=== PATIENT | female | born 1975 | race African-American/Black ===

== ENCOUNTER 2022-12-28 08:26 | Outpatient (AMB) | payer OTHER, SELFPAY ==
--- NOTE | 2022-12-28 08:30 | A.OFFVIS_ITS ---
Intake Vital Signs 12/28/22 08:35 Height 5 ft 1 in Weight 203 lb 7.787 oz BMI 38.4 BP 124/72 Blood Pressure Location Lt brachial Position Sitting Pulse 64 Pulse Source Pulse Oximeter Temp 97.5 F Temp Source Skin Intake Visit Reasons: Fibromyalgia/LM need records Intake Note: New pt presents today for FM consult. Stiffness in the neck completed prednsione taper yesterday prescribed by Marcos Weiss Embedded Hardware Engineer Required: No Accompanied by: Self / Same As Patient Allergies bee venom protein (honey bee) Allergy (Unknown, Verified 12/28/22 08:37) Unknown fluticasone furoate [From Arnuity Ellipta] Allergy (Unknown, Verified 12/28/22 08:37) Unknown hydrochlorothiazide Allergy (Unknown, Verified 12/28/22 08:37) Unknown levofloxacin [From Levaquin] Allergy (Unknown, Verified 12/28/22 08:37) Unknown lisinopril Allergy (Unknown, Verified 12/28/22 08:37) Unknown tomato Allergy (Unknown, Verified 12/28/22 08:37) Unknown peanuts Allergy (Unknown, Uncoded 12/28/22 08:37) Unknown Medication List - Last Reconciled 12/28/22 by Kristi Thompson MD albuterol sulfate 90 mcg/actuation 0 mcg inhalation amitriptyline 10 mg PO BEDTIME amlodipine 5 mg PO DAILY baclofen 10 mg PO TID PRN cetirizine 10 mg PO DAILY clonazepam 0.5 mg PO TID PRN docusate sodium 100 mg PO BID duloxetine 60 mg PO DAILY duloxetine 30 mg PO DAILY epinephrine IM famotidine 20 mg PO BID fluoxetine 40 mg PO DAILY fluticasone propionate 50 mcg/actuation 2 sprays intranasal DAILY gabapentin 300 mg PO TID hydroxyzine HCl 25 - 50 mg PO BEDTIME PRN linaclotide (Linzess) 290 mcg PO DAILY oxycodone-acetaminophen 5-325 mg 1 tab PO TID pantoprazole 20 mg PO BID plecanatide (Trulance) 3 mg PO DAILY tiotropium bromide 2.5 mcg/actuation (Spiriva Respimat) 1 puff inhalation DAILY valacyclovir 500 mg PO DAILY HPI HPI Comments History of Present Illness Details This is a 47-year-old female with a past medical history of fibromyalgia, anxiety, depression who presents as a new patient. Patient stated that her fibromyalgia was diagnosed in 2016. She is currently on multiple meds including duloxetine, amitriptyline, gabapentin. She follows up regularly with a psychiatrist every 2 months and with a psychologist weekly. She had a sleep study 2 years ago and it did not show sleep apnea. She does water aerobics 3 times a week and also does other exercises at the gym. She denies any swollen joints. She continues to has tingling in her thighs and pain in her arms. Her sister has MS. Otherwise she denies any known family history of autoimmune rheumatic disease [facility] Medical History Constipation Fibroadenoma GERD (gastroesophageal reflux disease) H. pylori infection HSV infection Lichen simplex chronicus Migraines Portal vein thrombosis Recurrent UTI Thrombocytosis Surgical History S/P laparoscopic sleeve gastrectomy Family History Mother Multiple sclerosis Father Arthritis Gout Hypertension Social History Alcohol intake: current Alcohol intake frequency: holidays/special occasions only Patient Tobacco Use Status: Former Tobacco user Current occupational status: unemployed Current occupation: Student Female Reproductive History Menstrual Total pregnancies: 5 Ab spontaneous: 4 Review of Systems Const Reports fatigue, Reports headache(s) and Reports weight gain ENT Reports dizziness, Reports dry mouth, Reports headache(s) and Reports tinnitus Card Reports chest pain and Reports irregular heart rhythm Musc Reports arthralgias, Reports stiffness and Reports tingling Neuro Reports dizziness, Reports headache(s) and Reports tingling Psych Reports anxiety and Reports depression Endo Reports fatigue Physical Exam Vital Signs: Last Vital Signs Temp 97.5 F 12/28/22 08:35 Pulse 64 12/28/22 08:35 BP 124/72 12/28/22 08:35 BMI result Body Mass Index 38.4 Const General: cooperative, healthy appearing and comfortable Nutritional Appearance: obese Orientation/consciousness: patient oriented x3 Limitations: no limitations HEENT Head: Yes normocephalic and Yes atraumatic Mouth: moist mucous membranes Resp Effort & Inspection: normal respiratory effort and able to speak in complete sentences Skin General skin exam: no rashes or lesions noted Neuro General: patient oriented x3 Extrem Other: No active synovitis. Multiple fibromyalgia tender points Assessment & Plan Assessment & Plan (1) Fibromyalgia: Code(s): M79.7 - Fibromyalgia Plan: This is 47-year-old female with fibromyalgia presents as a new patient. In the past patient had borderline positive rheumatoid factor and borderline positive anti CCP. I do not see any features of inflammatory arthritis upon my evaluation. Clinical picture consistent with fibromyalgia. Discussed management of fibromyalgia with patient. Is a noninflammatory, non- autoimmune central afferent processing disorder leading to a diffuse pain syndrome. Patient follows up regularly with psychiatrist and psychologist and is on multiple Psychiatry medications. I suggested trying to follow sleep hygiene practices. Discuss CBT for sleep with psychologist patient does water aerobics 3 times a week at the gym, and does other forms of exercise at the gym. She is already on multiple medications for anxiety/depression and fibromyalgia including gabapentin, duloxetine, amitriptyline. Advised patient to return to clinic if she develops painful or swollen joints. Otherwise follow-up with her other providers Coding Level of Care Code Est Pt Level 3 (03225) Diagnoses Fibromyalgia M79.7
[2022-12-28 08:35] VITALS: BP 124/72; PULSE 64; TEMP 36.4; BMI 38.4
== END 2022-12-28 09:17 | disposition home or self-care (01) ==
PROVIDERS: Visit Provider Student in an Organized Health Care Education/Training Program
DX: M79.7 Fibromyalgia (principal)
CPT/HCPCS: 99213

== ENCOUNTER → 2022-12-28 08:26 | Outpatient (BNVA) | payer OTHER, SELFPAY | PROVIDERS: Visit Provider Student in an Organized Health Care Education/Training Program | DX: M79.7 Fibromyalgia (principal) | CPT/HCPCS: 99212 ==

== ENCOUNTER 2023-03-05 | Outpatient (REF) | payer OTHER, SELFPAY | END 2023-03-05 00:01 | disposition home or self-care (01) | LOC: CF | PROVIDERS: Visit Provider Nurse Practitioner Family | DX: J45.40 Moderate persistent asthma, uncomplicated (principal); J44.9 Chronic obstructive pulmonary disease, unspecified; Z91.09 Other allergy status, other than to drugs and biological substances; Z87.891 Personal history of nicotine dependence; Z79.899 Other long term (current) drug therapy | CPT/HCPCS: 94640; 99212 ==

== ENCOUNTER 2023-03-05 10:03 | Outpatient (AMB) | payer OTHER, SELFPAY ==
[2023-03-05 10:06] VITALS: BP 108/64; PULSE 82; O2SAT 100; BMI 37.6
--- NOTE | 2023-03-05 10:06 | A.OFFVIS_ITS ---
Intake Vital Signs 3 03/05/23 10:06 Height 5 ft 1 in Weight 199 lb BMI 37.6 BP 108/64 Blood Pressure Location Rt brachial Position Sitting Pulse 82 Pulse Source Pulse Oximeter Pulse Oximetry (%) 100 Oxygen Delivery Method Room Air Intake Visit Reasons: Asthma Computing Machine Operator Required: No Regional Vice President Surgical Sales: Regional Vice President Surgical Sales offered & declined Accompanied by: Self / Same As Patient Allergies bee venom protein (honey bee) Allergy (Unknown, Verified 03/05/23 10:12) Unknown fluticasone furoate [From Arnuity Ellipta] Allergy (Unknown, Verified 03/05/23 10:12) Unknown hydrochlorothiazide Allergy (Unknown, Verified 03/05/23 10:12) Unknown levofloxacin [From Levaquin] Allergy (Unknown, Verified 03/05/23 10:12) Unknown lisinopril Allergy (Unknown, Verified 03/05/23 10:12) Unknown tomato Allergy (Unknown, Verified 03/05/23 10:12) Unknown peanuts Allergy (Unknown, Uncoded 03/05/23 10:12) Unknown Medication List - Last Reconciled 03/05/23 by Estrella Platt LPN albuterol sulfate 90 mcg/actuation 0 mcg inhalation amitriptyline 10 mg PO BEDTIME amlodipine 5 mg PO DAILY baclofen 10 mg PO TID PRN cetirizine 10 mg PO DAILY clonazepam 0.5 mg PO TID PRN docusate sodium 100 mg PO BID duloxetine 60 mg PO DAILY duloxetine 30 mg PO DAILY epinephrine IM famotidine 20 mg PO BID fluoxetine 40 mg PO DAILY fluticasone propionate 50 mcg/actuation 2 sprays intranasal DAILY gabapentin 300 mg PO TID hydroxyzine HCl 25 - 50 mg PO BEDTIME PRN linaclotide (Linzess) 290 mcg PO DAILY oxycodone-acetaminophen 5-325 mg 1 tab PO TID pantoprazole 20 mg PO BID plecanatide (Trulance) 3 mg PO DAILY tiotropium bromide 2.5 mcg/actuation (Spiriva Respimat) 1 puff inhalation DAILY valacyclovir 500 mg PO DAILY HPI Asthma 2 HPI0 Details Deisy is a pleasant 47 year old female, former tobacco smoker as a teenager, quit approximately 23 years ago, with underlying asthma/COPD. She was previously under the care of [facility] pulmonology and is transitioning to this office. She reports suboptimal control on symbicort, spiriva and albuterol MDI. She was previously on Tezspire through her manual plate filler, Juan Carlos Dennis but unfortunately her insurance would no longer cover. Prior to that she has tried multiple inhalers including Trelegy, Breo, Advair and Dulera with minimal improvements. PFT from 2021 below. At this time, she reports symptoms of chest tightness, wheezing, and feeling as though she can not take a deep breath. She has used her albuterol with partial relief and uses infrequently. She does report environmental allergies and using an antihistamine with moderate effect. She does have cats and a dog, known allergy to cat. She denies any pertinent family history. She denies any occupational exposures. [facility] Medical History Constipation Fibroadenoma GERD (gastroesophageal reflux disease) H. pylori infection HSV infection Lichen simplex chronicus Migraines Portal vein thrombosis Recurrent UTI Thrombocytosis Surgical History S/P laparoscopic sleeve gastrectomy Family History Mother Multiple sclerosis Father Arthritis Gout Hypertension Social History (Updated 03/05/23 @ 10:15 by Estrella Platt LPN) Alcohol intake: current Alcohol intake frequency: holidays/special occasions only Patient Tobacco Use Status: Former Tobacco user Current occupational status: unemployed Current occupation: Student Review of Systems Const Denies chills, Denies excessive sweating, Denies fever(s), Denies headache(s) and Denies night sweats Eyes Denies dry eyes, Denies irritation and Denies itchy eyes ENT Reports Normal hearing present, Denies headache(s), Denies nasal congestion and Denies sore throat Card Denies chest pain, Denies chest pain at rest, Denies chest pain with activity, Denies claudication, Denies leg edema, Denies orthopnea and Denies paroxysmal nocturnal dyspnea Resp Denies chest congestion, Denies excessive phlegm production, Denies pain on inspiration, Denies pain with cough and Denies stridor Musc Denies myalgias Neuro Reports Normal hearing present and Denies headache(s) Endo Denies excessive sweating Jorge/Lymph Denies lymphadenopathy Aller/Immun Denies itchy eyes and Denies seasonal rhinorrhea Physical Exam Vital Signs: Last Vital Signs Pulse 82 03/05/23 10:06 BP 108/64 03/05/23 10:06 Pulse Ox 100 03/05/23 10:06 Oxygen Delivery Method Room Air 03/05/23 10:06 BMI result Body Mass Index 37.6 Const General: cooperative, healthy appearing, comfortable, no acute distress, well developed and alert Orientation/consciousness: patient oriented x3 Limitations: no limitations HEENT Head: Yes normal to inspection, Yes normocephalic and Yes atraumatic Ears: hearing grossly normal bilaterally and external ears normal Eyes General: appearance normal, both eyes and all related structures Eyelids: Yes eyelids normal Sclerae: sclerae normal EOM: EOMs intact bilaterally Neck Neck: Yes normal visual inspection and Yes no lymphadenopathy Lymphatic: no lymphadenopathy noted Chest Chest palpation & inspection: normal inspection of the chest Resp Other: diminished lung sounds improved after duoneb Effort & Inspection: normal respiratory effort, able to speak in complete sentences, no audible wheezes, no cough, no stridor, not tachypneic, no tripod positioning and no use of accessory muscles Auscultation: diminished lung sounds Cardio Jugular venous distension: no JVD Rate: regular rate Rhythm: regular rhythm Skin Other: warm, dry General skin exam: no rashes or lesions noted Neuro General: patient oriented x3 Cranial nerves: Yes Normal hearing present Cognition (Neuro): normal cognition Gait exam (Neuro): Normal gait present Extrem General: Yes normal to inspection, Yes capillary refill normal, Yes no clubbing, cyanosis or edema and Yes no pedal edema Psych Appearance: grossly normal and well kempt Speech and movement: Normal speech and movement present and Clear speech present Affect: normal affect Attitude: cooperative Thought process: Normal thought process present Thought content: Normal thought content present Insight: Good insight present (Psych) Judgement: Good judgement present (Psych) Office Procedures Nebulizer Treatment Nebulizer Treatment [id number]/MDI RX initial, or Nebulizer Subsequent Treatment Office Meds ipratropium 0.5 mg-albuterol 3 mg (2.5 mg base)/3 mL nebulization diyan Performing Provider: Cecy Ni NP [place] [facility] Administered by: Estrella Platt LPN on 03/05/23 10:46 2 Dose Route Admin Location Dispensed Lot Number Expiration Date NDC Toll Settlement Clerk 3 mL inhalation 3 mL [id number] 08/08/24 3868-4140-83 [employer] Results Reviewed Results Reviewed: Assessment & Plan Assessment & Plan (1) Asthma-COPD overlap syndrome: Code(s): J44.9 - Chronic obstructive pulmonary disease, unspecified (2) Environmental allergies: Code(s): Z91.09 - Other allergy status, other than to drugs and biological substances Plan Deisy's symptoms are likely related to underlying asthma COPD overlap with allergic component. FEV1/FVC 68%, FEV1 81%. On exam, lung sounds diminished without wheeze and improved after duoneb treatment. Gave nebulizer machine in office for home and will send in duoneb to use PRN. At this time, she reports her current regimen has had the best effect, although not optimal. She reports her manual plate filler is continuing to work on getting Tezspire approved as her symptoms were well controlled on biologic. Spoke with Junior Lowe, who noted difficulties with CCA coverage. She also noted prior chest CT with nodules. Will have her sign release to obtain. Will follow up in 4 weeks or sooner if needed. All questions were answered and patient is in agreement of plan. Orders: Orders 2 AMB Nebulizer Treatment 03/05/23 J45.40 - Moderate persistent asthma, uncomplicated Medications: New 2 ipratropium-albuterol 0.5 mg-3 mg(2.5 mg base)/3 mL as needed only 3 mL inhalation Q6-8H PRN 90 mL 0RF wheezing Coding Level of Care Code New Pt Level 4 (04348) Diagnoses Asthma-COPD overlap syndrome J44.9 Environmental allergies Z91.09 CPT Codes Nebulizer Treatment - Nebulizer Treatment, initial or subsequent: 25985- Nebulizer/MDI RX initial, or Nebulizer Subsequent Treatment ([id number])
== END 2023-03-05 11:16 | disposition home or self-care (01) ==
LOC: HO.HPSW 10:03
PROVIDERS: Referring Provider Allergy & Immunology; Visit Provider Nurse Practitioner Family
DX: J45.40 Moderate persistent asthma, uncomplicated (principal)
CPT/HCPCS: 99204

== ENCOUNTER 2023-04-02 09:52 | Outpatient (AMB) | payer OTHER, SELFPAY ==
[2023-04-02 09:56] VITALS: BP 108/68; PULSE 100; O2SAT 100; BMI 37.4
--- NOTE | 2023-04-02 09:56 | A.OFFVIS_ITS ---
Intake Vital Signs 3 04/02/23 09:56 Height 5 ft 1 in Weight 198 lb BMI 37.4 BP 108/68 Blood Pressure Location Rt brachial Position Sitting Pulse 100 Pulse Source Pulse Oximeter Pulse Oximetry (%) 100 Oxygen Delivery Method Room Air Intake Visit Reasons: 4 week follow up Boom Supervisor Required: No Guest Services Ambassador: Guest Services Ambassador offered & declined Accompanied by: Self / Same As Patient Allergies bee venom protein (honey bee) Allergy (Unknown, Verified 04/02/23 10:01) Unknown fluticasone furoate [From Arnuity Ellipta] Allergy (Unknown, Verified 04/02/23 10:01) Unknown hydrochlorothiazide Allergy (Unknown, Verified 04/02/23 10:01) Unknown levofloxacin [From Levaquin] Allergy (Unknown, Verified 04/02/23 10:01) Unknown lisinopril Allergy (Unknown, Verified 04/02/23 10:01) Unknown tomato Allergy (Unknown, Verified 04/02/23 10:01) Unknown peanuts Allergy (Unknown, Uncoded 04/02/23 10:01) Unknown Medication List - Last Reconciled 04/02/23 by Estrella Platt LPN albuterol sulfate 90 mcg/actuation 0 mcg inhalation amitriptyline 10 mg PO BEDTIME amlodipine 5 mg PO DAILY baclofen 10 mg PO TID PRN cetirizine 10 mg PO DAILY clonazepam 0.5 mg PO TID PRN docusate sodium 100 mg PO BID duloxetine 60 mg PO DAILY duloxetine 30 mg PO DAILY epinephrine IM famotidine 20 mg PO BID fluoxetine 40 mg PO DAILY fluticasone propionate 50 mcg/actuation 2 sprays intranasal DAILY gabapentin 300 mg PO TID hydroxyzine HCl 25 - 50 mg PO BEDTIME PRN ipratropium-albuterol 0.5 mg-3 mg(2.5 mg base)/3 mL 3 mL inhalation Q6-8H PRN linaclotide (Linzess) 290 mcg PO DAILY oxycodone-acetaminophen 5-325 mg 1 tab PO TID pantoprazole 20 mg PO BID plecanatide (Trulance) 3 mg PO DAILY tiotropium bromide 2.5 mcg/actuation (Spiriva Respimat) 1 puff inhalation DAILY valacyclovir 500 mg PO DAILY HPI 4 week follow up 2 HPI0 Details Deisy is a pleasant 47 year old female, former tobacco smoker as a teenager, quit approximately 23 years ago, with underlying asthma/COPD. She was previously under the care of [facility] pulmonology and is transitioning to this office. She reports suboptimal control on symbicort, spiriva and albuterol MDI. She was previously on Tezspire through her wind turbine mechanic, Juan Carlos Dennis, with significant improvements after three doses, however after reviewing reports it appears she is in the process of being evaluated for ABPA. Prior testing for aspergillus perciptin was positive. Repeat testing ordered for May 2023. [facility] Medical History Constipation Fibroadenoma GERD (gastroesophageal reflux disease) H. pylori infection HSV infection Lichen simplex chronicus Migraines Portal vein thrombosis Recurrent UTI Thrombocytosis Surgical History S/P laparoscopic sleeve gastrectomy Family History Mother Multiple sclerosis Father Arthritis Gout Hypertension Social History (Updated 04/02/23 @ 10:05 by Estrella Platt LPN) Alcohol intake: current Alcohol intake frequency: holidays/special occasions only Patient Tobacco Use Status: Former Tobacco user Smoked in Last 30 Days: No Current occupational status: unemployed Current occupation: Student Review of Systems Const Denies chills, Denies excessive sweating, Denies fever(s), Denies headache(s) and Denies night sweats Eyes Denies dry eyes, Denies irritation and Denies itchy eyes ENT Reports Normal hearing present, Denies headache(s), Denies nasal congestion and Denies sore throat Card Denies chest pain, Denies chest pain at rest, Denies chest pain with activity, Denies claudication, Denies leg edema, Denies dyspnea, Denies orthopnea and Denies paroxysmal nocturnal dyspnea Resp Denies chest congestion, Denies cough, Denies excessive phlegm production, Denies pain on inspiration, Denies pain with cough, Denies dyspnea, Denies stridor and Denies wheezing Musc Denies myalgias Neuro Reports Normal hearing present and Denies headache(s) Endo Denies excessive sweating Jorge/Lymph Denies lymphadenopathy Aller/Immun Denies itchy eyes, Denies seasonal rhinorrhea and Denies wheezing Physical Exam Vital Signs: Last Vital Signs Pulse 100 10/23/23 09:56 BP 108/68 04/02/23 09:56 Pulse Ox 100 04/02/23 09:56 Oxygen Delivery Method Room Air 04/02/23 09:56 BMI result Body Mass Index 37.4 Const General: cooperative, healthy appearing, comfortable, no acute distress, well developed and alert Orientation/consciousness: patient oriented x3 Limitations: no limitations HEENT Head: Yes normal to inspection, Yes normocephalic and Yes atraumatic Ears: hearing grossly normal bilaterally and external ears normal Eyes General: appearance normal, both eyes and all related structures Eyelids: Yes eyelids normal Sclerae: sclerae normal EOM: EOMs intact bilaterally Neck Neck: Yes normal visual inspection and Yes no lymphadenopathy Lymphatic: no lymphadenopathy noted Chest Chest palpation & inspection: normal inspection of the chest Resp Effort & Inspection: normal respiratory effort, able to speak in complete sentences, no audible wheezes, no cough, no stridor, not tachypneic, no tripod positioning and no use of accessory muscles Auscultation: diminished lung sounds Cardio Jugular venous distension: no JVD Rate: regular rate Rhythm: regular rhythm Skin Other: warm, dry General skin exam: no rashes or lesions noted Neuro General: patient oriented x3 Cranial nerves: Yes Normal hearing present Cognition (Neuro): normal cognition Gait exam (Neuro): Normal gait present Extrem General: Yes normal to inspection, Yes capillary refill normal, Yes no clubbing, cyanosis or edema and Yes no pedal edema Psych Appearance: grossly normal and well kempt Speech and movement: Normal speech and movement present and Clear speech present Affect: normal affect Attitude: cooperative Thought process: Normal thought process present Thought content: Normal thought content present Insight: Good insight present (Psych) Judgement: Good judgement present (Psych) Results Reviewed Results Reviewed: Assessment & Plan Assessment & Plan (1) Asthma-COPD overlap syndrome: Code(s): J44.9 - Chronic obstructive pulmonary disease, unspecified (2) Environmental allergies: Code(s): Z91.09 - Other allergy status, other than to drugs and biological substances (3) ABPA (allergic bronchopulmonary aspergillosis): Code(s): B44.81 - Allergic bronchopulmonary aspergillosis Plan Deisy continues to be suboptimally controlled on current regimen, requiring steroids at least twice per year. She had previously received three doses of Tezspire with significant improvements in symptoms. Unfortunately, was discontinued due to insurance denial. She was evaluated by Dr. Rangel, wind turbine mechanic, who found skin prick testing positive to aspergillus, IgE >1000 and aspergillus perciptans were positive, suggestive of ABPA. Discussed with Dr. Mccrary and if patient does not have significant findings on chest CT, such as an aspergilloma, will consider Dupixent. Will obtain recent chest CT and discuss options with patient. All questions were answered and patient is in agreement of plan. Coding Level of Care Code Est Pt Level 4 (47966) Diagnoses Asthma-COPD overlap syndrome J44.9 Environmental allergies Z91.09 ABPA (allergic bronchopulmonary aspergillosis) B44.81
== END 2023-04-02 10:41 | disposition home or self-care (01) ==
LOC: HO.HPSW 09:52
PROVIDERS: Visit Provider Nurse Practitioner Family
DX: J44.9 Chronic obstructive pulmonary disease, unspecified (principal); Z91.09 Other allergy status, other than to drugs and biological substances; B44.81 Allergic bronchopulmonary aspergillosis
CPT/HCPCS: 99214

== ENCOUNTER → 2023-04-02 09:52 | Outpatient (BNVA) | payer OTHER, SELFPAY | PROVIDERS: Visit Provider Nurse Practitioner Family | DX: J44.9 Chronic obstructive pulmonary disease, unspecified (principal); B44.81 Allergic bronchopulmonary aspergillosis; Z91.09 Other allergy status, other than to drugs and biological substances | CPT/HCPCS: 99212 ==

== ENCOUNTER 2023-09-18 11:26 | Outpatient (AMB) | payer OTHER, SELFPAY ==
--- NOTE | 2023-09-18 11:29 | MHC.OFFVIS ---
Intake Vital Signs 09/18/23 11:30 Height 5 ft 1 in Weight 195 lb BMI 36.8 Pulse 87 Pulse Source Pulse Oximeter Pulse Oximetry (%) 98 Oxygen Delivery Method Room Air Intake Visit Reasons: asthma Direct Care Provider Required: No Multimedia Coordinator: Multimedia Coordinator offered & declined Accompanied by: Self / Same As Patient Allergies bee venom protein (honey bee) Allergy (Unknown, Verified 09/18/23 11:32) Unknown fluticasone furoate [From Arnuity Ellipta] Allergy (Unknown, Verified 09/18/23 11:32) Unknown hydrochlorothiazide Allergy (Unknown, Verified 09/18/23 11:32) Unknown levofloxacin [From Levaquin] Allergy (Unknown, Verified 09/18/23 11:32) Unknown lisinopril Allergy (Unknown, Verified 09/18/23 11:32) Unknown tomato Allergy (Unknown, Verified 09/18/23 11:32) Unknown peanut Allergy (Verified 09/18/23 11:32) Unknown Medication List - Last Reconciled 09/18/23 by Estrella Platt LPN albuterol sulfate 90 mcg/actuation 0 mcg inhalation amitriptyline 10 mg PO BEDTIME amlodipine 5 mg PO DAILY baclofen 10 mg PO TID PRN cetirizine 10 mg PO DAILY clonazepam 0.5 mg PO TID PRN docusate sodium 100 mg PO BID duloxetine 60 mg PO DAILY duloxetine 30 mg PO DAILY epinephrine IM famotidine 20 mg PO BID fluoxetine 40 mg PO DAILY fluticasone propionate 50 mcg/actuation 2 sprays intranasal DAILY gabapentin 300 mg PO TID hydroxyzine HCl 25 - 50 mg PO BEDTIME PRN ipratropium-albuterol 0.5 mg-3 mg(2.5 mg base)/3 mL 3 mL inhalation Q6-8H PRN linaclotide (Linzess) 290 mcg PO DAILY oxycodone-acetaminophen 5-325 mg 1 tab PO TID pantoprazole 20 mg PO BID plecanatide (Trulance) 3 mg PO DAILY tiotropium bromide 2.5 mcg/actuation (Spiriva Respimat) 1 puff inhalation DAILY valacyclovir 500 mg PO DAILY HPI asthma HPI Details Deisy is a pleasant 48 year old female, former tobacco smoker as a teenager, quit approximately 23 years ago, with underlying asthma/COPD. She was previously under the care of [facility] pulmonology and is transitioning to this office. She reports suboptimal control on symbicort, spiriva and albuterol MDI. She was previously on Tezspire through her tobacco stripping machine operator, Juan Carlos Dennis, with significant improvements after three doses, however after reviewing reports it appears she is in the process of being evaluated for ABPA. Prior testing for aspergillus perciptin was positive. Repeat testing ordered for May 2023. At the last visit we attempted to obtain CT images, to evaluate for any aspergillomas, if negative would start on Dupixent. Our office called both [facility] and [facility], both stating this was not performed through their facilities. Today she presents for routine follow-up. She does know she has had productive cough with yellow to green sputum for the past week. Denies wheezing, dyspnea, fever chills. Denies any sick contacts. [facility] Medical History Constipation Fibroadenoma GERD (gastroesophageal reflux disease) H. pylori infection HSV infection Lichen simplex chronicus Migraines Portal vein thrombosis Recurrent UTI Thrombocytosis Surgical History S/P laparoscopic sleeve gastrectomy Family History Mother Multiple sclerosis Father Arthritis Gout Hypertension Social History (Updated 09/18/23 @ 11:36 by Estrella Platt LPN) Alcohol intake: current Alcohol intake frequency: holidays/special occasions only Patient Tobacco Use Status: Former Tobacco user Current occupational status: unemployed Current occupation: Student Review of Systems Const Denies chills, Denies excessive sweating, Denies fever(s), Denies headache(s) and Denies night sweats Eyes Denies dry eyes, Denies irritation and Denies itchy eyes ENT Reports Normal hearing present, Denies headache(s), Denies nasal congestion, Denies nasal discharge, Denies post nasal drip and Denies sore throat Card Denies chest pain, Denies chest pain at rest, Denies chest pain with activity, Denies claudication, Denies leg edema, Denies orthopnea and Denies paroxysmal nocturnal dyspnea Resp Denies chest congestion, Denies excessive phlegm production, Denies pain on inspiration, Denies pain with cough and Denies stridor Musc Denies myalgias Neuro Reports Normal hearing present and Denies headache(s) Endo Denies excessive sweating Jorge/Lymph Denies lymphadenopathy Aller/Immun Denies itchy eyes and Denies seasonal rhinorrhea Physical Exam Vital Signs: Last Vital Signs Pulse 87 09/18/23 11:30 Pulse Ox 98 09/18/23 11:30 Oxygen Delivery Method Room Air 09/18/23 11:30 BMI result Body Mass Index 36.8 Const General: cooperative, healthy appearing, comfortable, no acute distress, well developed and alert Orientation/consciousness: patient oriented x3 Limitations: no limitations HEENT Head: Yes normal to inspection, Yes normocephalic and Yes atraumatic Ears: hearing grossly normal bilaterally and external ears normal Eyes General: appearance normal, both eyes and all related structures Eyelids: Yes eyelids normal Sclerae: sclerae normal EOM: EOMs intact bilaterally Neck Neck: Yes normal visual inspection and Yes no lymphadenopathy Lymphatic: no lymphadenopathy noted Chest Chest palpation & inspection: normal inspection of the chest Resp Effort & Inspection: normal respiratory effort, able to speak in complete sentences, no audible wheezes, no cough, no stridor, not tachypneic, no tripod positioning and no use of accessory muscles Auscultation: diminished lung sounds Cardio Jugular venous distension: no JVD Rate: regular rate Rhythm: regular rhythm Skin Other: warm, dry General skin exam: no rashes or lesions noted Neuro General: patient oriented x3 Cranial nerves: Yes Normal hearing present Cognition (Neuro): normal cognition Gait exam (Neuro): Normal gait present Extrem General: Yes normal to inspection, Yes capillary refill normal, Yes no clubbing, cyanosis or edema and Yes no pedal edema Psych Appearance: grossly normal and well kempt Speech and movement: Normal speech and movement present and Clear speech present Affect: normal affect Attitude: cooperative Thought process: Normal thought process present Thought content: Normal thought content present Insight: Good insight present (Psych) Judgement: Good judgement present (Psych) Assessment & Plan Assessment & Plan (1) Asthma-COPD overlap syndrome: Code(s): J44.9 - Chronic obstructive pulmonary disease, unspecified (2) Environmental allergies: Code(s): Z91.09 - Other allergy status, other than to drugs and biological substances (3) ABPA (allergic bronchopulmonary aspergillosis): Code(s): B44.81 - Allergic bronchopulmonary aspergillosis (4) Cough: Code(s): R05.9 - Cough, unspecified Plan Deisy continues to be suboptimally controlled on current regimen, requiring steroids at least twice per year. Today she presents with bronchitic symptoms, will send doxycycline. Prior evaluation with tobacco stripping machine operator, found skin prick testing positive to aspergillus, IgE >1000 and aspergillus perciptans were positive, suggestive of ABPA. Will send patient for chest CT to evaluate and follow up to review results. All questions were answered and patient is in agreement of plan. Orders: Orders CT chest wo IV con Today B44.81 - Allergic bronchopulmonary aspergillosis, R05.9 - Cough, unspecified Medications: New doxycycline hyclate 100 mg PO DAILY 14 tabs 0RF Coding Level of Care Code Est Pt Level 4 (23767) Diagnoses Asthma-COPD overlap syndrome J44.9 Environmental allergies Z91.09 ABPA (allergic bronchopulmonary aspergillosis) B44.81 Cough R05.9
[2023-09-18 11:30] VITALS: PULSE 87; O2SAT 98; BMI 36.8
== END 2023-09-18 14:53 | disposition home or self-care (01) ==
PROVIDERS: Visit Provider Nurse Practitioner Family
DX: J44.9 Chronic obstructive pulmonary disease, unspecified (principal); Z91.09 Other allergy status, other than to drugs and biological substances; B44.81 Allergic bronchopulmonary aspergillosis; R05.9 Cough, unspecified
CPT/HCPCS: 99214

== ENCOUNTER → 2023-09-18 11:26 | Outpatient (BNVA) | payer OTHER, SELFPAY | PROVIDERS: Visit Provider Nurse Practitioner Family | DX: J44.9 Chronic obstructive pulmonary disease, unspecified (principal); Z91.09 Other allergy status, other than to drugs and biological substances; B44.81 Allergic bronchopulmonary aspergillosis; R05.9 Cough, unspecified | CPT/HCPCS: 99212 ==

== ENCOUNTER 2023-11-06 07:16 | Outpatient (REF) | payer OTHER, SELFPAY ==
--- NOTE | ~2023-11-06 | CT_ITS ---
EXAMINATION: CT CHEST WITHOUT CONTRAST CLINICAL INFORMATION: Cough COMPARISON: None available. TECHNIQUE: Multidetector volumetric CT imaging of the chest was done. Axial MIP volume rendering provided. Sagittal and coronal reformatted images were obtained. This CT examination was performed using dose optimization techniques as appropriate, variously including the following: *Automated exposure control *Adjustment of mA and/or kV according to patient size (this includes techniques or standardized protocols for targeted exams where dose is matched to indication/reason for exam; i.e. extremities or head) *Use of iterative reconstruction technique DLP: 149 mGy-cm FINDINGS: LUNGS: There is a small 2 mm peripheral or subpleural right lower lobe nodule adjacent to the major fissure axial image 221 series 5. There is a small 3 mm peripheral or subpleural left lower lobe nodule axial image 377 series 5. These probably represent subpleural lymph nodes. 3 mm calcified right lower lobe nodule axial image 42 series 5 probably representing a calcified granuloma. No imaging follow-up recommended. Lungs are otherwise clear. No endobronchial or endotracheal lesion. No evidence of emphysema bronchiectasis or interstitial lung disease. MEDIASTINUM: The mediastinum is normal. CORONARY ARTERY CALCIFICATION: None visualized on this study. PLEURA: There is no pleural effusion. No pleural mass or thickening. AXILLA: No lymphadenopathy. UPPER ABDOMEN: Postoperative changes from gastric sleeve. OSSEOUS STRUCTURES: Mild degenerative changes of the thoracic spine. CT/CT chest wo IV con IMPRESSION: Small bilateral benign-appearing pulmonary nodules largest measuring 3 mm. No imaging follow-up recommended. Otherwise unremarkable exam. Fleischner guidelines were followed.
== END 2023-11-06 07:17 | disposition home or self-care (01) ==
LOC: HO.CT 07:16
PROVIDERS: Visit Provider Nurse Practitioner Family
DX: R05.9 Cough, unspecified (principal); B44.81 Allergic bronchopulmonary aspergillosis
CPT/HCPCS: 71250

== ENCOUNTER 2023-11-13 10:13 | Outpatient (REF) | payer OTHER, SELFPAY ==
--- NOTE | ~2023-11-13 | CT_ITS ---
EXAMINATION: CT CHEST WITHOUT CONTRAST CLINICAL INFORMATION: Cough COMPARISON: Previous chest CT 11/06/2023 TECHNIQUE: Multidetector volumetric CT imaging of the chest was done. Axial MIP volume rendering provided. Sagittal and coronal reformatted images were obtained. This CT examination was performed using dose optimization techniques as appropriate, variously including the following: *Automated exposure control *Adjustment of mA and/or kV according to patient size (this includes techniques or standardized protocols for targeted exams where dose is matched to indication/reason for exam; i.e. extremities or head) *Use of iterative reconstruction technique DLP: 149 mGy-cm FINDINGS: LUNGS: Small pulmonary nodules in the right lower lobe adjacent to the major fissure and peripheral or subpleural left lower lobe probably representing subpleural lymph nodes are unchanged. 3 mm calcified right lower lobe nodule axial image 499 series 7 probably representing a calcified granuloma. No imaging follow-up recommended. The lungs are otherwise clear. No endobronchial or endotracheal lesion. No evidence of emphysema interstitial lung disease or bronchiectasis. MEDIASTINUM: The mediastinum is normal. CORONARY ARTERY CALCIFICATION: None visualized on this study. PLEURA: There is no pleural effusion. No pleural mass or thickening. AXILLA: No lymphadenopathy. UPPER ABDOMEN: Postoperative changes from gastric stricture sleeve.. OSSEOUS STRUCTURES: Mild degenerative changes of the thoracic spine. CT/CT chest wo IV con IMPRESSION: No acute findings. Fleischner guidelines were followed.
== END 2023-11-13 10:14 | disposition home or self-care (01) ==
LOC: HO.CT 10:13
PROVIDERS: Visit Provider Nurse Practitioner Family
DX: R05.9 Cough, unspecified (principal); B44.81 Allergic bronchopulmonary aspergillosis
CPT/HCPCS: 71250; 99212

== ENCOUNTER 2023-11-13 11:22 | Outpatient (AMB) | payer OTHER, SELFPAY ==
--- NOTE | 2023-11-13 11:25 | A.OFFVIS_ITS ---
Vital Signs 11/13/23 11:26 Height 5 ft 1 in Weight 197 lb 8 oz BMI 37.3 BP 124/82 Blood Pressure Location Rt brachial Position Sitting Pulse 86 Pulse Source Pulse Oximeter Pulse Oximetry (%) 97 Oxygen Delivery Method Room Air Intake Visit Reasons: Asthma Allergies bee venom protein (honey bee) Allergy (Unknown, Verified 11/13/23 11:28) Unknown fluticasone furoate [From Arnuity Ellipta] Allergy (Unknown, Verified 11/13/23 11:28) Unknown hydrochlorothiazide Allergy (Unknown, Verified 11/13/23 11:28) Unknown levofloxacin [From Levaquin] Allergy (Unknown, Verified 11/13/23 11:28) Unknown lisinopril Allergy (Unknown, Verified 11/13/23 11:28) Unknown tomato Allergy (Unknown, Verified 11/13/23 11:28) Unknown peanut Allergy (Verified 11/13/23 11:) Unknown HPI HPI Asthma: Details: Deisy is a pleasant 48 year old female, former tobacco smoker as a teenager, quit approximately 23 years ago, with underlying asthma/COPD. She continues to report suboptimal control on symbicort, spiriva and albuterol MDI. At the last visit she reported productive cough, treated with doxycyline and symptoms resolved. She continues to report intermittent dry cough, wheezing, dyspnea and paroxysmal nocturnal dyspnea despite current regimen. She also reported she quit vaping and has noticed improvements in respiratory symptoms overall.Today she presents to review chest CT results. [facility] Medical History Constipation Fibroadenoma GERD (gastroesophageal reflux disease) H. pylori infection HSV infection Lichen simplex chronicus Migraines Portal vein thrombosis Recurrent UTI Thrombocytosis Surgical History S/P laparoscopic sleeve gastrectomy Family History Mother Multiple sclerosis Father Arthritis Gout Hypertension Social History (Updated 09/18/23 @ 11:36 by Estrella Platt LPN) Alcohol intake: current Alcohol intake frequency: holidays/special occasions only Patient Tobacco Use Status: Former Tobacco user Current occupational status: unemployed Current occupation: Student Review of Systems Const Denies chills, Denies excessive sweating, Denies fever(s), Denies headache(s) and Denies night sweats Eyes Denies dry eyes, Denies irritation and Denies itchy eyes ENT Reports Normal hearing present, Denies headache(s), Denies nasal congestion, Denies nasal discharge, Denies post nasal drip and Denies sore throat Card Denies chest pain, Denies chest pain at rest, Denies chest pain with activity, Denies claudication, Denies leg edema and Denies orthopnea Resp Denies chest congestion, Denies excessive phlegm production, Denies pain on inspiration, Denies pain with cough and Denies stridor Musc Denies myalgias Neuro Reports Normal hearing present and Denies headache(s) Endo Denies excessive sweating Jorge/Lymph Denies lymphadenopathy Aller/Immun Denies itchy eyes and Denies seasonal rhinorrhea Physical Exam Vital Signs: Last Vital Signs Pulse 86 11/13/23 11:26 BP 124/82 11/13/23 11:26 Pulse Ox 97 11/13/23 11:26 Oxygen Delivery Method Room Air 11/13/23 11:26 BMI result Body Mass Index 37.3 Const General: cooperative, healthy appearing, comfortable, no acute distress, well developed and alert Orientation/consciousness: patient oriented x3 Limitations: no limitations HEENT Head: Yes normal to inspection, Yes normocephalic and Yes atraumatic Ears: hearing grossly normal bilaterally and external ears normal Eyes General: appearance normal, both eyes and all related structures Eyelids: Yes eyelids normal Sclerae: sclerae normal EOM: EOMs intact bilaterally Neck Neck: Yes normal visual inspection and Yes no lymphadenopathy Lymphatic: no lymphadenopathy noted Chest Chest palpation & inspection: normal inspection of the chest Resp Effort & Inspection: normal respiratory effort, able to speak in complete sentences, no audible wheezes, no cough, no stridor, not tachypneic, no tripod positioning and no use of accessory muscles Auscultation: diminished lung sounds Cardio Jugular venous distension: no JVD Rate: regular rate Rhythm: regular rhythm Skin Other: warm, dry General skin exam: no rashes or lesions noted Neuro General: patient oriented x3 Cranial nerves: Yes Normal hearing present Cognition (Neuro): normal cognition Gait exam (Neuro): Normal gait present Extrem General: Yes normal to inspection, Yes capillary refill normal, Yes no clubbing, cyanosis or edema and Yes no pedal edema Psych Appearance: grossly normal and well kempt Speech and movement: Normal speech and movement present and Clear speech present Affect: normal affect Attitude: cooperative Thought process: Normal thought process present Thought content: Normal thought content present Insight: Good insight present (Psych) Judgement: Good judgement present (Psych) Assessment & Plan Assessment & Plan (1) Asthma-COPD overlap syndrome: Code(s): J44.9 - Chronic obstructive pulmonary disease, unspecified Category: Medical (2) Environmental allergies: Code(s): Z91.09 - Other allergy status, other than to drugs and biological substances Category: Medical (3) ABPA (allergic bronchopulmonary aspergillosis): Code(s): B44.81 - Allergic bronchopulmonary aspergillosis Category: Medical (4) Cough: Code(s): R05.9 - Cough, unspecified Category: Medical Plan Deisy continues to be suboptimally controlled on current regimen, requiring steroids at least twice per year. Prior evaluation with clothing and textiles teacher, found skin prick testing positive to aspergillus, IgE >1000 and aspergillus perciptans were positive, suggestive of ABPA. Reviewed chest CT which was unremarkable and nothing to suggest aspergillomas. We discussed the role of Dupixent given her symptoms and continued suboptimal control of respiratory symptoms. Will initiate process for Dupixent. All questions were answered and patient is in agreement of plan. Will follow up in 8-10 weeks or sooner if needed. Coding Level of Care Code Est Pt Level 4 (28480) Diagnoses Asthma-COPD overlap syndrome J44.9 Environmental allergies Z91.09 ABPA (allergic bronchopulmonary aspergillosis) B44.81 Cough R05.9
[2023-11-13 11:26] VITALS: BP 124/82; PULSE 86; O2SAT 97; BMI 37.3
== END 2023-11-13 12:01 | disposition home or self-care (01) ==
PROVIDERS: Visit Provider Nurse Practitioner Family
DX: J44.9 Chronic obstructive pulmonary disease, unspecified (principal); Z91.09 Other allergy status, other than to drugs and biological substances; B44.81 Allergic bronchopulmonary aspergillosis; R05.9 Cough, unspecified
CPT/HCPCS: 99214

== ENCOUNTER → 2023-11-21 11:03 | Outpatient (BNVA) | payer OTHER, SELFPAY | PROVIDERS: Visit Provider Nurse Practitioner Family | DX: Z71.89 Other specified counseling (principal); J45.909 Unspecified asthma, uncomplicated | CPT/HCPCS: 99211 ==

== ENCOUNTER 2024-03-26 09:10 | Outpatient (AMB) | payer OTHER, SELFPAY ==
--- NOTE | 2024-03-26 08:29 | A.OFFVIS_ITS ---
Vital Signs 03/26/24 09:12 Height 5 ft 1 in Weight 200 lb 6 oz BMI 37.9 BP 132/88 Blood Pressure Location Lt brachial Position Sitting Pulse 91 Pulse Source Pulse Oximeter Pulse Oximetry (%) 99 Oxygen Delivery Method Room Air Intake Visit Reasons: overnight oximetry and dupixent Allergies bee venom protein (honey bee) Allergy (Unknown, Verified 03/26/24 09:17) Unknown fluticasone furoate [From Arnuity Ellipta] Allergy (Unknown, Verified 03/26/24 09:17) Unknown hydrochlorothiazide Allergy (Unknown, Verified 03/26/24 09:17) Unknown levofloxacin [From Levaquin] Allergy (Unknown, Verified 03/26/24 09:17) Unknown lisinopril Allergy (Unknown, Verified 03/26/24 09:17) Unknown tomato Allergy (Unknown, Verified 03/26/24 09:17) Unknown peanut Allergy (Verified 03/26/24 09:17) Unknown HPI HPI overnight oximetry and dupixent: Details: Deisy is a pleasant 48 year old female, former minimal smoker, quit 20+ years ago, with underlying asthma/COPD and labs suggestive of ABPA. At the last visit, she was started on Dupixent and continues to use advair, spiriva DuoNeb and albuterol MDI. Since initiating she reports good control of respiratory symptoms, using DuoNeb/albuterol MDI infrequently. She continues to report intermittent dry cough, however significantly less frequent than prior. She also notes dyspnea on moderate exertion however attributes this to deconditioning secondary to arthritis. She denies any visits to urgent care or hospitalizations since the last visit. Today she presents to review overnight oximetry results. [facility] Medical History Constipation Fibroadenoma GERD (gastroesophageal reflux disease) H. pylori infection HSV infection Lichen simplex chronicus Migraines Portal vein thrombosis Recurrent UTI Thrombocytosis Surgical History S/P laparoscopic sleeve gastrectomy Family History Mother Multiple sclerosis Father Arthritis Gout Hypertension Social History Alcohol intake: current Alcohol intake frequency: holidays/special occasions only Patient Tobacco Use Status: Former Tobacco user Current occupational status: unemployed Current occupation: Student Review of Systems Const Denies chills, Denies excessive sweating, Denies fever(s), Denies headache(s) and Denies night sweats Eyes Denies dry eyes, Denies irritation and Denies itchy eyes ENT Reports Normal hearing present, Denies headache(s), Denies nasal congestion, Denies nasal discharge, Denies post nasal drip and Denies sore throat Card Denies chest pain, Denies chest pain at rest, Denies chest pain with activity, Denies claudication, Denies leg edema and Denies orthopnea Resp Denies chest congestion, Denies excessive phlegm production, Denies pain on inspiration, Denies pain with cough and Denies stridor Musc Denies myalgias Neuro Reports Normal hearing present and Denies headache(s) Endo Denies excessive sweating Jorge/Lymph Denies lymphadenopathy Aller/Immun Denies itchy eyes and Denies seasonal rhinorrhea Physical Exam Vital Signs: Last Vital Signs Pulse 91 03/26/24 09:12 BP 132/88 03/26/24 09:12 Pulse Ox 99 03/26/24 09:12 Oxygen Delivery Method Room Air 03/26/24 09:12 BMI result Body Mass Index 37.9 Const General: cooperative, healthy appearing, comfortable, no acute distress, well developed and alert Orientation/consciousness: patient oriented x3 Limitations: no limitations HEENT Head: Yes normal to inspection, Yes normocephalic and Yes atraumatic Ears: hearing grossly normal bilaterally and external ears normal Eyes General: appearance normal, both eyes and all related structures Eyelids: Yes eyelids normal Sclerae: sclerae normal EOM: EOMs intact bilaterally Neck Neck: Yes normal visual inspection and Yes no lymphadenopathy Lymphatic: no lymphadenopathy noted Chest Chest palpation & inspection: normal inspection of the chest Resp Effort & Inspection: normal respiratory effort, able to speak in complete sentences, no audible wheezes, no cough, no stridor, not tachypneic, no tripod p ositioning and no use of accessory muscles Auscultation: diminished lung sounds Cardio Jugular venous distension: no JVD Rate: regular rate Rhythm: regular rhythm Skin Other: warm, dry General skin exam: no rashes or lesions noted Neuro General: patient oriented x3 Cranial nerves: Yes Normal hearing present Cognition (Neuro): normal cognition Gait exam (Neuro): Normal gait present Extrem General: Yes normal to inspection, Yes capillary refill normal, Yes no clubbing, cyanosis or edema and Yes no pedal edema Psych Appearance: grossly normal and well kempt Speech and movement: Normal speech and movement present and Clear speech present Affect: normal affect Attitude: cooperative Thought process: Normal thought process present Thought content: Normal thought content present Insight: Good insight present (Psych) Judgement: Good judgement present (Psych) Assessment & Plan Assessment & Plan (1) Asthma-COPD overlap syndrome: Code(s): J44.9 - Chronic obstructive pulmonary disease, unspecified Category: Medical (2) Environmental allergies: Code(s): Z91.09 - Other allergy status, other than to drugs and biological substances Category: Medical (3) ABPA (allergic bronchopulmonary aspergillosis): Code(s): B44.81 - Allergic bronchopulmonary aspergillosis Category: Medical (4) Cough: Code(s): R05.9 - Cough, unspecified Category: Medical (5) Paroxysmal nocturnal dyspnea: Code(s): R06.00 - Dyspnea, unspecified Category: Medical Plan Deisy reports good control of respiratory symptoms since initiating Dupixent. Advised to continue current regimen and will review response at follow up in 3-6 months. Reviewed overnight oximetry which did not reveal significant nocturnal hypoxemia, however did reveal multiple desaturation events 12/hr which could be consistent with KANE, as well as consistent symptoms including paroxsymal nocturnal dyspnea and witnessed apneas. Will send for home sleep study for further evaluation. All questions were answered and patient is in agreement of plan. Will follow up to review results or sooner if needed. Orders: Orders RT home sleep study Today R06.00 - Dyspnea, unspecified, R06.81 - Apnea, not elsewhere classified Coding Level of Care Code Est Pt Level 4 (86620) Diagnoses Asthma-COPD overlap syndrome J44.9 Environmental allergies Z91.09 ABPA (allergic bronchopulmonary aspergillosis) B44.81 Cough R05.9 Paroxysmal nocturnal dyspnea R06.00
[2024-03-26 09:12] VITALS: BP 132/88; PULSE 91; O2SAT 99; BMI 37.9
== END 2024-03-26 09:57 | disposition home or self-care (01) ==
PROVIDERS: Visit Provider Nurse Practitioner Family
DX: J44.9 Chronic obstructive pulmonary disease, unspecified (principal); Z91.09 Other allergy status, other than to drugs and biological substances; B44.81 Allergic bronchopulmonary aspergillosis; R05.9 Cough, unspecified; R06.00 Dyspnea, unspecified
CPT/HCPCS: 99214

== ENCOUNTER → 2024-03-26 09:10 | Outpatient (BNVA) | payer OTHER, SELFPAY | PROVIDERS: Visit Provider Nurse Practitioner Family | DX: J44.9 Chronic obstructive pulmonary disease, unspecified (principal); B44.81 Allergic bronchopulmonary aspergillosis; R06.00 Dyspnea, unspecified; R06.81 Apnea, not elsewhere classified; Z87.891 Personal history of nicotine dependence; Z91.09 Other allergy status, other than to drugs and biological substances | CPT/HCPCS: 99212 ==

== ENCOUNTER → 2024-04-08 08:58 | Outpatient (REF) | payer OTHER, SELFPAY | LOC: HO.SL 08:58 | PROVIDERS: Visit Provider Nurse Practitioner Family | DX: R06.00 Dyspnea, unspecified (principal); G47.33 Obstructive sleep apnea (adult) (pediatric) | CPT/HCPCS: 95806 ==

== ENCOUNTER → 2024-04-09 09:09 | Outpatient (BNV) | payer OTHER, SELFPAY | PROVIDERS: Visit Provider Internal Medicine | DX: R06.83 Snoring (principal); G47.10 Hypersomnia, unspecified | CPT/HCPCS: 95806 ==

== ENCOUNTER 2024-05-27 10:12 | Outpatient (AMB) | payer OTHER, SELFPAY ==
[2024-05-27 10:16] VITALS: BP 120/76; PULSE 91; O2SAT 98; BMI 38.7
--- NOTE | 2024-05-27 10:16 | A.OFFVIS_ITS ---
Vital Signs 05/27/24 10:16 Height 5 ft 1 in Weight 205 lb BMI 38.7 BP 120/76 Blood Pressure Location Lt brachial Position Sitting Pulse 91 Pulse Source Pulse Oximeter Pulse Oximetry (%) 98 Oxygen Delivery Method Room Air Intake Visit Reasons: overnight oximetry and dupixent Allergies bee venom protein (honey bee) Allergy (Unknown, Verified 05/27/24 10:21) Unknown fluticasone furoate [From Arnuity Ellipta] Allergy (Unknown, Verified 05/27/24 10:21) Unknown hydrochlorothiazide Allergy (Unknown, Verified 05/27/24 10:21) Unknown levofloxacin [From Levaquin] Allergy (Unknown, Verified 05/27/24 10:21) Unknown lisinopril Allergy (Unknown, Verified 05/27/24 10:21) Unknown tomato Allergy (Unknown, Verified 05/27/24 10:21) Unknown peanut Allergy (Verified 05/27/24 10:21) Unknown HPI HPI overnight oximetry and dupixent: Details: Deisy is a pleasant 48 year old female, former minimal smoker, quit 20+ years ago, with underlying asthma/COPD and labs suggestive of ABPA. She has been well controlled on Dupixent, continues to use Spiriva and albuterol MDI PRN, rarely uses DuoNeb. She denies any respiratory symptoms over the last few months unless exposed to cold weather, which triggers her to use albuterol MDI with good effect. She denies any visits to urgent care or hospitalizations since the last visit. She does note is no longer contracted with her insurance and is requesting a referral to another deputy register of deeds. Today she presents to home sleep study results. Of note, she has experienced more palpitations and will be undergoing holter monitor in the near future. [facility] Medical History Constipation Fibroadenoma GERD (gastroesophageal reflux disease) H. pylori infection HSV infection Lichen simplex chronicus Migraines Portal vein thrombosis Recurrent UTI Thrombocytosis Surgical History S/P laparoscopic sleeve gastrectomy Family History Mother Multiple sclerosis Father Arthritis Gout Hypertension Social History Alcohol intake: current Alcohol intake frequency: holidays/special occasions only Patient Tobacco Use Status: Former Tobacco user Current occupational status: unemployed Current occupation: Student Review of Systems Const Denies chills, Denies excessive sweating, Denies fever(s), Denies headache(s) and Denies night sweats Eyes Denies dry eyes, Denies irritation and Denies itchy eyes ENT Reports Normal hearing present, Denies headache(s), Denies nasal congestion, Denies nasal discharge, Denies post nasal drip and Denies sore throat Card Denies chest pain, Denies chest pain at rest, Denies chest pain with activity, Denies claudication, Denies leg edema, Denies dyspnea, Denies dyspnea on exertion, Denies orthopnea and Denies paroxysmal nocturnal dyspnea Resp Denies chest congestion, Denies cough, Denies excessive phlegm production, Denies pain on inspiration, Denies pain with cough, Denies dyspnea, Denies dyspnea on exertion, Denies stridor and Denies wheezing Musc Denies myalgias Neuro Reports Normal hearing present and Denies headache(s) Endo Denies excessive sweating Jorge/Lymph Denies lymphadenopathy Aller/Immun Denies itchy eyes, Denies seasonal rhinorrhea and Denies wheezing Physical Exam Vital Signs: Last Vital Signs Pulse 91 05/27/24 10:16 BP 120/76 05/27/24 10:16 Pulse Ox 98 05/27/24 10:16 Oxygen Delivery Method Room Air 05/27/24 10:16 BMI result Body Mass Index 38.7 Const General: cooperative, healthy appearing, comfortable, no acute distress, well developed and alert Nutritional Appearance: obese Orientation/consciousness: patient oriented x3 Limitations: no limitations HEENT Head: Yes normal to inspection, Yes normocephalic and Yes atraumatic Ears: hearing grossly normal bilaterally and external ears normal Eyes General: appearance normal, both eyes and all related structures Eyelids: Yes eyelids normal Sclerae: sclerae normal EOM: EOMs intact bilaterally Neck Neck: Yes normal visual inspection and Yes no lymphadenopathy Lymphatic: no lymphadenopathy noted Chest Chest palpation & inspection: normal inspection of the chest Resp Effort & Inspection: normal respiratory effort, able to speak in complete sentences, no audible wheezes, no cough, no stridor, not tachypneic, no tripod positioning and no use of accessory muscles Auscultation: clear to auscultation bilaterally Cardio Jugular venous distension: no JVD Rate: regular rate Rhythm: regular rhythm Skin Other: warm, dry General skin exam: no rashes or lesions noted Neuro General: patient oriented x3 Cranial nerves: Yes Normal hearing present Cognition (Neuro): normal cognition Gait exam (Neuro): Normal gait present Extrem General: Yes normal to inspection, Yes capillary refill normal, Yes no clubbing, cyanosis or edema and Yes no pedal edema Psych Appearance: grossly normal and well kempt Speech and movement: Normal speech and movement present and Clear speech present Affect: normal affect Attitude: cooperative Thought process: Normal thought process present Thought content: Normal thought content present Insight: Good insight present (Psych) Judgement: Good judgement present (Psych) Assessment & Plan Assessment & Plan (1) Asthma-COPD overlap syndrome: Code(s): J44.9 - Chronic obstructive pulmonary disease, unspecified Category: Medical (2) Environmental allergies: Code(s): Z91.09 - Other allergy status, other than to drugs and biological substances Category: Medical (3) ABPA (allergic bronchopulmonary aspergillosis): Code(s): B44.81 - Allergic bronchopulmonary aspergillosis Category: Medical (4) Multiple pulmonary nodules: Code(s): R91.8 - Other nonspecific abnormal finding of lung field Category: Medical Plan Reviewed home sleep study which was negative. Prior chest CT revealed scattered pulmonary nodules <3mm, will reassess in one year to assess stability. This will be ordered for November 2024. At this time, Deisy reports good control of respiratory symptoms on current regimen, advised to continue. She is aware if symptoms change to call office. All questions were answered and patient is in agreement of plan. Will follow up in 6 months or sooner if needed. Orders: Orders CT chest wo IV con 6 Months R91.8 - Other nonspecific abnormal finding of lung field Referrals Allergy & Immunology Referral B44.81 - Allergic bronchopulmonary aspergillosis, J44.9 - Chronic obstructive pulmonary disease, unspecified Medications: New tiotropium bromide 2.5 mcg/actuation (Spiriva Respimat) 1 puff inhalation DAILY 4 grams 6RF albuterol sulfate 90 mcg/actuation 2 puffs inhalation Q4-6H PRN 1 ea 6RF shortness of breath or wheezing Coding Level of Care Code Est Pt Level 4 (94899) Diagnoses Asthma-COPD overlap syndrome J44.9 Environmental allergies Z91.09 ABPA (allergic bronchopulmonary aspergillosis) B44.81 Multiple pulmonary nodules R91.8
== END 2024-05-27 10:45 | disposition home or self-care (01) ==
PROVIDERS: Visit Provider Nurse Practitioner Family
DX: J44.9 Chronic obstructive pulmonary disease, unspecified (principal); Z91.09 Other allergy status, other than to drugs and biological substances; B44.81 Allergic bronchopulmonary aspergillosis; R91.8 Other nonspecific abnormal finding of lung field
CPT/HCPCS: 99214

== ENCOUNTER → 2024-05-27 10:12 | Outpatient (BNVA) | payer OTHER, SELFPAY | PROVIDERS: Visit Provider Nurse Practitioner Family | DX: J44.89 Other specified chronic obstructive pulmonary disease (principal); B44.81 Allergic bronchopulmonary aspergillosis; Z91.09 Other allergy status, other than to drugs and biological substances; R91.8 Other nonspecific abnormal finding of lung field | CPT/HCPCS: 99212 ==

== ENCOUNTER 2024-07-11 11:03 | Outpatient (AMB) | payer OTHER, SELFPAY ==
[2024-07-11 11:23] VITALS: BP 126/70; PULSE 82; O2SAT 98; BMI 38.4
--- NOTE | 2024-07-11 11:23 | A.OFFVIS_ITS ---
Vital Signs 07/11/24 11:23 Height 5 ft 1 in Weight 203 lb BMI 38.4 BP 126/70 Pulse 82 Pulse Source Pulse Oximeter Pulse Oximetry (%) 98 Oxygen Delivery Method Room Air Intake Visit Reasons: Asthma Plumbing Foreman Required: No Stores Assistant: Stores Assistant offered & declined Accompanied by: Self / Same As Patient Allergies bee venom protein (honey bee) Allergy (Unknown, Verified 07/11/24 11:26) Unknown fluticasone furoate [From Arnuity Ellipta] Allergy (Unknown, Verified 07/11/24 11:26) Unknown hydrochlorothiazide Allergy (Unknown, Verified 07/11/24 11:) Unknown levofloxacin [From Levaquin] Allergy (Unknown, Verified 07/11/24 11:) Unknown lisinopril Allergy (Unknown, Verified 07/11/24 11:) Unknown tomato Allergy (Unknown, Verified 07/11/24 11:) Unknown peanut Allergy (Verified 07/11/24 11:) Unknown Medication List - Last Reconciled 07/11/24 by Estrella Platt LPN albuterol sulfate 90 mcg/actuation 2 puffs inhalation Q4-6H PRN amitriptyline 10 mg PO BEDTIME amlodipine 5 mg PO DAILY baclofen 10 mg PO TID PRN cetirizine 10 mg PO DAILY clonazepam 0.5 mg PO TID PRN docusate sodium 100 mg PO BID doxycycline hyclate 100 mg PO DAILY duloxetine 60 mg PO DAILY duloxetine 30 mg PO DAILY dupilumab (Dupixent) 600 mg (4 mL) subcut Q2W dupilumab (Dupixent) 300 mg (2 mL) subcut Q2W epinephrine IM famotidine 20 mg PO BID fluoxetine 40 mg PO DAILY fluticasone propionate 50 mcg/actuation 2 sprays intranasal DAILY gabapentin 300 mg PO TID hydroxyzine HCl 25 - 50 mg PO BEDTIME PRN ipratropium-albuterol 0.5 mg-3 mg(2.5 mg base)/3 mL 3 mL inhalation Q6-8H PRN linaclotide (Linzess) 290 mcg PO DAILY oxycodone-acetaminophen 5-325 mg 1 tab PO TID pantoprazole 20 mg PO BID plecanatide (Trulance) 3 mg PO DAILY tiotropium bromide 2.5 mcg/actuation (Spiriva Respimat) 1 puff inhalation DAILY valacyclovir 500 mg PO DAILY HPI HPI Asthma: Details: Deisy is a pleasant 48 year old female, former minimal smoker, quit 20+ years ago, with underlying asthma/COPD and labs suggestive of ABPA. She has been well controlled on Dupixent, continues to use Spiriva and albuterol MDI PRN, rarely uses DuoNeb. Unfortunately, insurance is no longer going to cover Spiriva. She denies any respiratory symptoms over the last few months unless exposed to cold weather, which triggers her to use albuterol MDI with good effect. She denies any visits to urgent care or hospitalizations related to respiratory distress since the last visit. Of note, she is under the care of hematology for MGUS, through [facility], currently being monitored via bloodwork. [facility] Medical History Constipation Fibroadenoma GERD (gastroesophageal reflux disease) H. pylori infection HSV infection Lichen simplex chronicus Migraines Portal vein thrombosis Recurrent UTI Thrombocytosis Surgical History S/P laparoscopic sleeve gastrectomy Family History Mother Multiple sclerosis Father Arthritis Gout Hypertension Social History Alcohol intake: current Alcohol intake frequency: holidays/special occasions only Patient Tobacco Use Status: Former Tobacco user Current occupational status: unemployed Current occupation: Student Review of Systems Const Denies chills, Denies excessive sweating, Denies fever(s), Denies headache(s) and Denies night sweats Eyes Denies dry eyes, Denies irritation and Denies itchy eyes ENT Reports Normal hearing present, Denies headache(s), Denies nasal congestion, Denies nasal discharge, Denies post nasal drip and Denies sore throat Card Denies chest pain, Denies chest pain at rest, Denies chest pain with activity, Denies claudication, Denies leg edema, Denies dyspnea, Denies dyspnea on exertion, Denies orthopnea and Denies paroxysmal nocturnal dyspnea Resp Denies chest congestion, Denies cough, Denies excessive phlegm production, Denies pain on inspiration, Denies pain with cough, Denies dyspnea, Denies dyspnea on exertion, Denies stridor and Denies wheezing Musc Denies myalgias Neuro Reports Normal hearing present and Denies headache(s) Endo Denies excessive sweating Jorge/Lymph Denies lymphadenopathy Aller/Immun Denies itchy eyes, Denies seasonal rhinorrhea and Denies wheezing Physical Exam Vital Signs: Last Vital Signs Pulse 82 07/11/24 11:23 BP 126/70 07/11/24 11:23 Pulse Ox 98 07/11/24 11:23 Oxygen Delivery Method Room Air 07/11/24 11:23 BMI result Body Mass Index 38.4 Const General: cooperative, healthy appearing, comfortable, no acute distress, well developed and alert Nutritional Appearance: obese Orientation/consciousness: patient oriented x3 Limitations: no limitations HEENT Head: Yes normal to inspection, Yes normocephalic and Yes atraumatic Ears: hearing grossly normal bilaterally and external ears normal Eyes General: appearance normal, both eyes and all related structures Eyelids: Yes eyelids normal Sclerae: sclerae normal EOM: EOMs intact bilaterally Neck Neck: Yes normal visual inspection and Yes no lymphadenopathy Lymphatic: no lymphadenopathy noted Chest Chest palpation & inspection: normal inspection of the chest Resp Effort & Inspection: normal respiratory effort, able to speak in complete sentences, no audible wheezes, no cough, no stridor, not tachypneic, no tripod positioning and no use of accessory muscles Auscultation: clear to auscultation bilaterally Cardio Jugular venous distension: no JVD Rate: regular rate Rhythm: regular rhythm Skin Other: warm, dry General skin exam: no rashes or lesions noted Neuro General: patient oriented x3 Cranial nerves: Yes Normal hearing present Cognition (Neuro): normal cognition Gait exam (Neuro): Normal gait present Extrem General: Yes normal to inspection, Yes capillary refill normal, Yes no clubbing, cyanosis or edema and Yes no pedal edema Psych Appearance: grossly normal and well kempt Speech and movement: Normal speech and movement present and Clear speech present Affect: normal affect Attitude: cooperative Thought process: Normal thought process present Thought content: Normal thought content present Insight: Good insight present (Psych) Judgement: Good judgement present (Psych) Assessment & Plan Assessment & Plan (1) Asthma-COPD overlap syndrome: Code(s): J44.9 - Chronic obstructive pulmonary disease, unspecified Category: Medical (2) Environmental allergies: Code(s): Z91.09 - Other allergy status, other than to drugs and biological substances Category: Medical (3) ABPA (allergic bronchopulmonary aspergillosis): Code(s): B44.81 - Allergic bronchopulmonary aspergillosis Category: Medical (4) Multiple pulmonary nodules: Code(s): R91.8 - Other nonspecific abnormal finding of lung field Category: Medical Plan At this time, Deisy reports good control of respiratory symptoms on current regimen, advised to continue. Unfortunately will need to d/c Spiriva due to insurance coverage issues, will restart Symbicort. She is aware if symptoms change to call office. All questions were answered and patient is in agreement of plan. Will follow up in 3 months or sooner if needed. Medications: New budesonide-formoterol 80-4.5 mcg/actuation (Symbicort) 2 puffs inhalation Q12H 10.2 grams 3RF Coding Level of Care Code Est Pt Level 4 (09676) Diagnoses Asthma-COPD overlap syndrome J44.9 Environmental allergies Z91.09 ABPA (allergic bronchopulmonary aspergillosis) B44.81 Multiple pulmonary nodules R91.8
--- OUTSIDE RECORDS SUMMARY | 2024-07-11 11:58 | XMS_ITS | Encounter Summary ---
Author Organization [facility] [place] [address] Care Team Providers Care Mechanical Design Engineer Facilities Name Role Phone Ольга Jewell MD Primary Care Provider Reason for Visit * Reason Comments 48 Hour Holter Monitor * Cardiac Stress Testing (Routine) - Closed Specialty Diagnoses / Procedures Referred By Contac t Referred To Contact Cardiology Diagnoses Palpitations Procedures Cardiac holter monitor (<= 48 hours) NV ECG EXTERNAL UP TO 48 HOURS RECORDING NV ECG EXTERNAL < 48 HOURS CONTINUOUS RECORDING/STORAGE R&I BY A PHYS/QHP NV EXTERNAL ECG UP TO 48 HRS INCL RECORDING SCANNING ANLYS W REPORT Mauricio Strauss, KIMBERLY [address] [place] [address] [facility] Referral ID Status Reason Start Date Expiration Date Visits Re quested Visits Authorized [id number] Closed 05/22/2024 05/22/2025 1 1 Encounter Details Date Type Department Care Team (Late st Contact Info) Description 06/19/2024 3:00 PM EST Ancillary Procedure [facility] [address] [place] [address] Palpitations Social History Tobacco Use Types Packs/Day Years Used Date Smoking Tobacco: Never Smokeless Tobacco: Never Alcohol Use Standard Drinks/Week Comments Yes 0 (1 standard drink = 0.6 oz pur e alcohol) Housing Instability Answer Date Recorde d Are you worried that in the next 2 months you may not have stable housing? No 05/21/2024 Food Access & Nutrition Answer Date Rec orded Do you have access to a vari ety of food including fruits and vegetables? Yes 05/21/2024 Health Literacy Answer Date Recorded How often do you need to hav e someone help you when you read instructions, pamphlets, or other written material from your doctor or pharmacy? Never 05/21/2024 Caregiver: How often do you need to have someone help you when you read instructions, pamphlets, or other written material from your doctor or pharmacy? Not on file 05/21/2024 Financial Risk Answer Date Recorded How hard is it for you to pa y for the very basics like food, housing, medical care, and air conditioning / heating? Patient declined 05/21/2024 Transportation Answer Date Recorded Has the lack of transportati on kept you from meetings, work, or from getting things needed for daily living? No Has the lack of transportati on kept you from medical appointments or from getting medications? No 05/21/2024 Social Isolation Answer Date Recorded How often do you feel lonely or isolated from th ose around you? Always 05/21/2024 Food Risk Answer Date Recorded Within the past 12 months we worried whether our food would run out before we got money to buy more. Patient declined 024 Within the past 12 months th e food we bought just didn't last and we didn't have money to get more. Patient declined 05/11 Dependent Care Answer Date Recorded Do you need help finding or paying for care for your loved ones. For example, child care assistant or elderly care for an older adult? No 05/21/2024 Education Answer Date Recorded Do you think completing more education or training, like finishing a GED, going to college, or learning a trade, would be helpful for you? Yes 05/21/2024 Employment and Income Answer Date Recor ded During the last four weeks, have you been actively looking for work? No 05/21/2024 Living Situation Answer Date Recorded What is your living situation? 1 07/22/2023 Sex and Gender Information Value Date Recorded Sex Assigned at Not on file Gender Identity Not on file Sexual Orientation Not on file Job Start Date Occupation Industry Not on file Not on file Not on file documented as of this encounter Plan of Treatment Upcoming Encounters Date Type Department Care Team (Late st Contact Info) Description 09/09/2024 9:30 AM EDT Office Visit Bariatric Surgery - [place] 175 [facility] [address] [place] [address] Dawn Arciniega MD 175 [facility] [address] [place] [address] 09/20/2024 2:00 PM EDT Appointment Radiology Department - [address] [address] 09/22/2024 1:15 PM EDT Office Visit Adult Medicine - [place] [address] [place] [address] Ольга Jewell MD [address] [place] [address] Pending Results Name Type Priority Associated Diagnoses Date /Time Cardiac holter monitor (<= 48 hours) Cardiac Services Routine Palpitations 06/19/2024 2:57 PM EST documented as of this encounter Visit Diagnoses Diagnosis Palpitations Encounter for screening mammogram for breast cancer documented in this encounter Additional Health Concerns Assessment Noted Time PHQ-9 Depression Total Score: 12 024 10:34 AM EST documented as of this encounter Care Teams Mechanical Design Engineer Facilities Relationship Specialty Start Date End Date Ольга Jewell MD [address] [address] PCP - General Internal Medicine 12/14/21 documented as of this encounter
--- OUTSIDE RECORDS SUMMARY | 2024-07-11 11:58 | XMS_ITS | Encounter Summary ---
[facility] [place] [address] Care Team Providers Care Steam Generating Powerplant Mechanic Name Role Phone Ольга Jewell MD Primary Care Provider Reason for Visit * Reason Onset Date Comments Fitting for DME 06/17/2024 Encounter Details Date Type Department Care Team ([facility] st Contact Info) Description 06/17/2024 Telephone Adult Medicine - [place] [address] [place] [address] Ольга Jewell MD [address] [place] [address] Fitting for DME Social History Tobacco Use Types Packs/Day Years [...] for your loved ones. For example, child nutrition director or elderly care for an older adult? [...] on file documented as of this encounter Progress Notes * Tresa Rico MA - 07/01/2024 8:59 AM EST Please schedule an appointment. Thank you in advance * Tresa Rico MA - 06/19/2024 4:50 PM EST Please schedule an appointment as this was not discussed in her last visit. Thank you in advance * Corey Jain - 06/17/2024 10:50 AM EST DME REQUEST Lisa Blair from [facility] program Name of Product: Rollator Walker Specific information about product # Needed 1 Reason patient is asking for this supply? Have you received this supply before? If yes , when?: No Have you discussed the need for this supply with a provider at a recent visit? If yes, with who andwhen? Yes. When completed: Fax to other office/MD/pharmacy at fax # supply store Have you told the patient it will take 7-10 days for completion of this request? Yes documented in this encounter Plan of Treatment Upcoming Encounters Date Type Department Care Team (Late st Contact Info) Description 09/09/2024 9:30 AM EDT Office Visit Bariatric Surgery - [place] [address] [address] Dawn Arciniega MD [address] [address] 09/20/2024 2:00 PM EDT Appointment Radiology Department - [address] [address] 09/22/2024 1:15 PM EDT Office Visit Adult Medicine - [address] [address] Ольга Jewell MD [address] [place] [id number] documented as of this encounter Visit Diagnoses Not on filedocumented in this encounter Additional Health Concerns Assessment Noted Time PHQ-9 Depression Total Score: 12 024 10:34 AM EST documented as of this encounter Care Teams Steam Generating Powerplant Mechanic Relationship Specialty Start Date End Date Ольга Jewell MD [address] [place] [id number] PCP - General Internal Medicine 12/14/21 documented as of this encounter
--- OUTSIDE RECORDS SUMMARY | 2024-07-11 11:58 | XMS_ITS | Clinical Summary ---
Author Organization [address] [place] [address] [place] [phone] Phone Care Team Providers Care Associate Sales Manager Name Role Phone Ольга Jewell MD Primary Care Provider Allergies Active Allergy Reactions Criticality Noted Date Comments Bee Venom Protein (Honey Bee) Swelling 11/04/2013 Age 28: stung by 2 yellow jackets and stung on the thigh. She reports she had swelling and redness at the site of the sting and surrounding area, did not cross joint, no trouble breathing or swallowing. It lasted for about a week with antibiotics. She was treated at urgent care. Fluticasone Propionate 03/30/2020 Paradoxical bronchospasm Hydrochlorothiazide Wheezing 11/29/2015 Levofloxacin Nausea And Vomiting 10/01/2018 Lisinopril 02/27/2022 Peanut Itching 11/04/2013 Age 31: She ate peanut butter crackers and throat became itchy and lips began to itch. Tomato Rash 01/14/2014 Developed lip itching and throat itching with eating fresh tomato. She can eat ketchup only. Triamterene-Hydrochlorothia zid Shortness of breath High 05/12/2024 Medications Medication Sig Dispensed Refills Start Date End Date Status acetaminophen (TYLENOL 8 HOUR) 650 mg 8 hr tablet Take 1 Tab by mouth every 8 hours as needed for Pain. 12/02/2018 Active albuterol HFA (PROAIR HFA ; PROVENTIL HFA ; VENTOLIN HFA) 90 mcg/actuation inhaler INHALE 2 PUFFS INTO THE LUNGS EVERY 6 HOURS NEEDED FOR COUGH OR WHEEZING 05/17/2023 Active bisacodyL (DULCOLAX) 5 mg EC tablet Take 2 tabs by mouth right before beginning bowel prep. Follow instructions given by office for timing. 10/09/2023 Active budesonide-form oteroL (SYMBICORT) 160-4.5 mcg/actuation inhaler Inhale 2 Puffs into the lungs 2 times daily. 08/17/2020 Active cetirizine (ZyrTEC) 10 mg tablet Take 1 tablet (10 mg total) by mouth 1 (one) time each day. 03/28/2021 Active clonazePAM (KlonoPIN) 0.5 mg tablet TAKE 1 TABLET BY MOUTH ONCE A DAY NEEDED FOR ANXIETY. MAY TAKE ADDITIONAL TABLET BY MOUTH NEEDED FOR SEVERE ANXIETY 10/31/2019 Active COQ10, UBIQUINOL, ORAL KbE58-Onuktrbilx- Carnosine 50-500-100 MG Cap 04/17/2023 Active cycloSPORINE 0.05 % drops Place 1 Drop into both eyes 2 times daily. Per opthal 04/17/2023 Active DULoxetine (CYMBALTA) [address] capsule Take 1 capsule (60 mg total) by mouth 1 (one) time each day. 02/22/2023 Active dupilumab (Dupixent Pen) 300 mg/2 mL pen 12/21/2023 Active EPINEPHrine (Auvi-Q) 0.3 mg/0.3 mL injection Inject 1 Device as directed as needed (anaphylaxis). Use as directed 07/03/2018 Active FLUoxetine (PROzac) 40 mg capsule Take 1 capsule (40 mg total) by mouth 1 (one) time each day in the morning. 02/22/2023 Active fluticasone propionate (FLONASE) 50 mcg/actuation nasal spray 1 TO 2 SPRAYS IN EACH NOSTRIL DAILY 12/02/2020 Active hydrOXYzine HCL (ATARAX) 25 mg tablet TAKE 1 TO 2 TABLETS BY MOUTH AT BEDTIME NEEDED FOR SLEEP 02/23/2023 Active ipratropium-alb uteroL (DUONEB) 0.5-2.5 mg/3 mL nebulizer solution USE 3 ML VIA NEBULIZER EVERY 6 TO 8 HOURS NEEDED FOR WHEEZING 03/05/2023 Active olopatadine (PATANASE) 0.6 % spray,non-aeros ol nasal spray 2 Sprays by Nasal route 2 times daily. 03/30/2020 Active oxyCODONE-aceta minophen (PERCOCET) 5-325 mg per tablet Take 1 tablet by mouth every 4 (four) hours. Active pantoprazole (PROTONIX) 20 mg EC tablet TAKE 1 TABLET BY MOUTH DAILY- ON EMPTY STOMACH 12/26/2023 Active polyethylene glycol (GoLYTELY) 236-22.74-6.74 -5.86 gram solution Take 240 mL by mouth once for 1 dose. Take 4L by mouth once for one dose. May substitue any PEG. Starting at 6PM the night before your procedure drink 1 8oz glasses at your own pace until rectals run clear. 10/09/2023 Active turmeric/turmer ic ext/pepr ext (turmeric-turme duyen ext-pepper) 900-100-5 mg capsule Take by mouth. 04/17/2023 Active tiotropium (Spiriva Respimat) 2.5 mcg/actuation inhalation spray Inhale 1 Puff into the lungs daily. 08/17/2020 Active glucosamine/cho ndro husain A/C/Mn (GLUCOSAMINE-CH ONDROIT-VIT C-MN ORAL) Active rhubarb root extract 4 mg tablet Active amitriptyline (ELAVIL) 10 mg tablet TAKE 1 TABLET BY MOUTH AT BEDTIME 30 tablet 04/28/2024 Active plecanatide (Trulance) 3 mg tablet TAKE 1 TABLET BY MOUTH DAILY 30 tablet 11 04/28/2024 Active docusate sodium (COLACE) 100 mg capsule Take 1 capsule (100 mg total) by mouth 2 (two) times a day before meals. 60 capsule 5 05/15/2024 Active gabapentin (NEURONTIN) 300 mg capsule Take 3 capsules (900 mg total) by mouth at bedtime. Active valACYclovir (VALTREX) 500 mg tablet TAKE 1 TABLET BY MOUTH DAILY 90 tablet 1 06/13/2024 Active amLODIPine (NORVASC) 5 mg tablet TAKE 1 TABLET BY MOUTH DAILY 90 tablet 1 07/09/2024 Active amLODIPine (NORVASC) 5 mg tablet Take 1 tablet (5 mg total) by mouth 1 (one) time each day. 08/10/2023 5 Discontinued valACYclovir (VALTREX) 500 mg tablet Take 1 tablet (500 mg total) by mouth 1 (one) time each day. 12/26/2023 5 Discontinued Active Problems Problem Noted Date Diagnosed Date Abdominal pain 03/18/2024 Constipation 03/18/2024 Dysphagia 03/18/2024 Hoarseness of voice 03/18/2024 Sore throat 03/18/2024 Class 2 obesity with body ma ss index (BMI) of 36.0 to 36.9 in adult 03/18/2024 Primary osteoarthritis of left knee 12/27/2023 Primary osteoarthritis of right knee 12/27/2023 Breast mass in female 10/03/2023 Overview (03/18/2024): 09/2023- Left breast Biopsy: BENIGN FIBROUS BREAST TISSUE WITH ADENOSIS, USUAL DUCTAL HYPERPLASIA, AND CYST. NO ATYPIA OR NEOPLASM IDENTIFIED MGUS (monoclonal gammopathy of unknown significa nce) 08/16/2023 Insomnia 02/27/2022 Moderate persistent asthma without complication 02/27/2022 Sialolithiasis 10/31/2021 Overview (03/18/2024): Followed by ENT - Dr. Gonzales Dyspareunia due to medical condition in female 0 07/04/2021 Overview (03/18/2024): Last Assessment & Plan: I recommended positioning and coconut oil for lubricant. I offered Estrace cream, but she will try other options first and call if not improving. Vaginal atrophy 07/04/2021 COVID 06/11/2021 Primary osteoarthritis of both knees 05/25/2021 Vulvar lesion 07/22/2020 Overview (03/18/2024): Last Assessment & Plan: Discussed that lesion was likely a sebaceous cyst or folliculitis. Reviewed vulvovaginal hygiene. Recommend sitz baths. Allergies 07/20/2020 HSV infection 05/13/2019 Overview (03/18/2024): Last Assessment & Plan: Rx for daily valtrex suppression refilled Chronotropic incompetence 02/26/2019 Mammographic microcalcification 01/01/2019 Overview (03/18/2024): Fibroadenoma Cervicalgia 11/03/2018 Overview (03/18/2024): [facility] H. pylori infection 10/06/2018 Portal vein thrombosis 09/18/2018 Overview (03/18/2024): 09/27; 6mo anticoagulation, then 3 yrs ASA QD Anxiety 01/07/2018 Recurrent UTI 01/01/2018 Thrombocytosis 02/21/2017 Overview (03/18/2024): Dr Fitzpatrick; likely benign, PCP to check q6mo, reeval if >800K Essential hypertension 11/19/2015 Overview (03/18/2024): Home BP cuff accurate as of 08/27 Backache 01/18/2015 Overview (03/18/2024): 08/2017 Back surgery; Seeing physiatry GERD (gastroesophageal reflux disease) 5 Lichen simplex chronicus 07/20/2014 IBS (irritable bowel syndrome) 04/27/2014 Major depression 01/14/2014 Asthma 11/04/2013 Fibromyalgia 11/04/2013 Migraines 11/04/2013 Encounters Date Type Department Care Team Description 06/19/2024 3:00 PM EST Ancillary Procedure [facility] [address] [place] [address] Palpitations 06/17/2024 Telephone Adult Medicine - [place] [address] [place] [facility] [place] [phone] Ольга Jewell MD Fitting for DME 05/22/2024 9:30 AM EST Office Visit Adult Medicine [facility] [address] [place] [phone] Mauricio Strauss PA Palpitations (Primary Dx); Grief; Essential hypertension 05/12/2024 3:45 PM EST Office Visit [facility] - [place] [id number] [place] [address] Lynn Sweeney NP Dysuria (Primary Dx); Acute cystitis without hematuria 05/12/2024 Telephone Adult Medicine - [place] [address] [place] [address] Ольга Jewell MD Abdominal Pain; UTI from Last 3 Months Immunizations Name Administration Dates Next Due Hepatitis B ([id number]-Y-[id number] , Recombivax HB-Adult) 19yo and older 01/31/2016,10/29/2015 Influenza Quadravalent, MDCK , 0.5ml, preservative free (Flucelvax) 6mo and older 08/16/2023,04/06/2020,05/13/2019 Influenza Quadravalent, MDCK , 0.5ml, with preservative (Flucelvax) 6mo and older 03/12/2017 Influenza trivalent, with pr eservative (Fluzone; Afluria) 6mo and older 04/19/2016,02/23/2015,03/13/2014 Measles 11/05/2015 Mumps 11/05/2015 PPD Test 01/31/2016,07/07/2015 Pneumococcal polysaccharide 23 valent (Pneumovax 23) 2yo and older 04/22/2014 Rubella 11/05/2015 Tdap Tetanus diptheria acell ular pertussis (Boostrix; Adacel) 7yo and older 04/22/2014 Varicella live (Varivax) 12mo and older 11/05/19 16 Surgical History Surgery Date Site/Laterality Comments OTHER SURGICAL HISTORY PROCEDURE: HISTORICAL D&C OTHER SURGICAL HISTORY PROCEDURE: ---- OTHER ----; COMMENT: hysteroscopic fibroid/polyp removal ROBOTIC ASSISTED HYSTERECTOMY 05/11/2016 PROCEDURE: HISTORICAL ROBOTIC HYSTERECTOMY WITH OR WITHOUT BSO; COMMENT: with bilat salpingectomy BACK SURGERY 08/16/2017 PROCEDURE: HISTORICAL BACK SURGERY OTHER SURGICAL HISTORY 02/2018 PROCEDURE: ---- OTHER ----; COMMENT: gastric sleeve surgery CARPAL TUNNEL RELEASE 06/2018 Left PROCEDURE: HISTORICAL CARPAL TUNNEL REL ELBOW SURGERY 12/11/2019 Left PROCEDURE: HISTORICAL ELBOW SURGERY; COMMENT: Ulnar nerve decompression at elbow, Dr. Bowens OTHER SURGICAL HISTORY PROCEDURE: NC GASTRIC RSTCV W/O BYP VERTICAL-BANDED GASTROPLY; COMMENT: March 2020 SHOULDER SURGERY 09/09/2020 Left PROCEDURE: HISTORICAL SHOULDER SURGERY BREAST BIOPSY 2018 Right PROCEDURE: BX BREAST; PERC NEEDLE CORE W/IMAG GUID; COMMENT: rt. breast bx-benign BREAST BIOPSY 07/13/2020 Left PROCEDURE: NC BX BREAST W/DEVICE 1ST LESION ULTRASOUND GUID; COMMENT: b9 ESOPHAGOGASTRODUODENOSCOPY PROCEDURE: NC EGD TRANSORAL BIOPSY SINGLE/MULTIPLE; COMMENT: Performed on October 24, 2021 Medical History Medical History Date Comments HSV (herpes simplex virus) a nogenital infection DX:HSV (herpes simplex virus ) anogenital infection Migraines 11/04/2013 DX:Migraines Asthma 11/04/2013 DX:Asthma Chronic pain 11/04/2013 DX:Chronic pain IBS (irritable bowel syndrome) 04/27/2014 D X:IBS (irritable bowel syndrome) Fibroids 03/13/2014 DX:Fibroids Major depression 01/14/2014 DX:Major depres liz Iron deficiency anemia 11/06/2013 DX:Iron d eficiency anemia Essential hypertension 11/19/2015 DX:Essent ial hypertension; COMMENT: Home BP cuff accurate as of 06/28 Morbid obesity with BMI of 4 0.0-44.9, adult ([facility]) 11/04/2013 DX:Morbid obesity with BMI o f 40.0-44.9, adult ([facility]); COMMENT: Bariatric Surgery Program Surgeon: Initial visit date 06/21/17 Psychiatry clearance: 08/28/17 Saira PCP clearance: 08/08/17 Jose Physical: 07/19/17 Dietitian-Dietary Clearance: [facility] 12/04/17 Labs: 06/22/17 Done. Support groups: Done. Requested weight loss: Last Surgery appt prior to Surgery: Prior Authorization Number: Surgery date goal: Anxiety 01/07/2018 DX:Anxiety Hyperlipidemia 01/07/2018 DX:Hyperlipidemi a Vitamin D deficiency 01/07/2018 DX:Vitamin D deficiency Positive H. pylori test 01/07/2018 DX:Posit leo H. pylori test; COMMENT: 06/2017 treated 07/2017 GERD (gastroesophageal reflux disease) 5 DX:GERD (gastroesophageal reflux disease) Lichen simplex chronicus 07/20/2014 DX:Lich en simplex chronicus Recurrent UTI 01/01/2018 DX:Recurrent UTI Thrombocytosis 02/21/2017 DX:Thrombocytosi s; COMMENT: Dr Fitzpatrick; likely benign, PCP to check q6mo, reeval if >800K Backache 01/18/2015 DX:Backache; COM MENT: 08/2017 Back surgery; Seeing physiatry Cataracts, bilateral 01/24/2017 DX:Cataract s, bilateral Constipation DX:Constipation Abdominal pain DX:Abdominal rose n History of gastric surgery DX:Hi story of gastric surgery Sore throat DX:Sore throat Hoarseness of voice DX:Hoarsenes s of voice Dysphagia DX:Dysphagia Cervical spondylosis without myelopathy DX:Cervical spondylosis with out myelopathy Sialolithiasis 10/31/2021 DX:Sialolithiasi s; COMMENT: Followed by ENT - Dr. Gonzales Constipation DX:Constipation Abdominal pain DX:Abdominal rose n Encounter for medication review DX:Encounter for medication review Family History Medical History Relation Name Comments Other: etoh Brother Hypertension Father gout, arthritis No Known Problems Maternal Grandfather Arthritis Maternal Grandmother Hypertension Mother Devic disease, quadraplegia, MS Breast cancer Other 1 p. aunt cousin 50? Breast cancer Other 2 m cousin 50 Other: fibromyalgia Sister x2 Coronary artery disease Uncle Diabetes Uncle Colon cancer Neg Hx Other cancer Neg Hx Relation Name Status Comments Brother Alive Father Maternal Grandfather Maternal Grandmother Mother Alive Other 1 p. aunt Other 2 m cousin 50 Alive Paternal Grandfather Paternal Grandmother Sister x2 Alive Son Amir Alive Uncle Social History Tobacco Use Types Packs/Day Years [...] for your loved ones. For example, child guidance counselor or elderly care for an older adult? [...] file Not on file Not on file Obstetrics History Last Filed Vital Signs Vital Sign Reading Time Taken Comments Blood Pressure 131/85 05/22/2024 9:09 AM EST Pulse 89 05/22/2024 9:09 AM EST Temperature 36.4 ??C (97.5 ??F) 05/22/2024 9:09 AM ES T Respiratory Rate - - Oxygen Saturation 98% 05/12/2024 4:12 PM EST Inhaled Oxygen Concentration - - Weight 94.1 kg (207 lb 6.4 oz) 05/22/2024 9:09 A M EST Height 154.9 cm (5' 1 ) 05/22/2024 9:09 AM EST Body Mass Index 39.19 05/22/2024 9:09 AM EST Plan of Treatment Upcoming Encounters Date Type Department Care Team (Late st Contact Info) Description 09/09/2024 9:30 AM EDT Office Visit Bariatric Surgery - [place] [address] [facility] [address] [place] [address] Dawn Arciniega MD [address] [facility] [address] [place] [address] 09/20/2024 2:00 PM EDT Appointment Radiology Department - [address] [phone] 09/22/2024 1:15 PM EDT Office Visit Adult Medicine - [place] [address] [place] [address] Ольга Jewell MD [address] [place] [address] Health Maintenance Due Date Last Done Comments Pneumococcal Vaccine: Pediatrics (0 to 5 Years) and At-Risk Patients (6 to 64 Years) (2 of 2 - PCV) 04/22/2015 04/22/2014 Hepatitis B Vaccines (3 of 3 - 19+ 3-dose series) 04/30/2016 01/31/2016, 10/29/2015 COVID-19 Vaccine (3 - Moderna risk series) 04/29/2021 04/01/2021, 03/04/2021 Colorectal Cancer Screening: Colonoscopy 05/20/2022 Medicare Annual Wellness Visit 05/20/2022 Influenza Vaccine (#1) 2024 , 04/06/2020, 05/13/2019, Additional history exists Hypertension/CHF/CAD Annual BMP Blood Test 03/29/2024 03/29/2023 DTaP,Tdap,and Td Vaccines (2 - Td or Tdap) 04/22/2024 04/22/2014 Depression Screening 05/21/2025 05/21/2024 Social Influencers of Health Screening 05/21/2025 05/21/2024 Breast Cancer Screening 09/20/2025 09/21/19 24, 09/17/2023, 07/22/2022, Additional history exists Cholesterol Screening (Lipid Panel) 03/29/2028 03/29/2023 Varicella Vaccines Aged Out 11/05/2015 No longer eligible based on patient's age to complete this topic HIV Screening Completed 12/25/2017 Hepatitis C Screening Completed 12/25/2017 HIB Vaccines Aged Out No longer eligi ble based on patient's age to complete this topic HPV Vaccines Aged Out No longer eligi ble based on patient's age to complete this topic Hepatitis A Vaccines Aged Out No long er eligible based on patient's age to complete this topic IPV Vaccines Aged Out No longer eligi ble based on patient's age to complete this topic MMR Vaccines Aged Out No longer eligi ble based on patient's age to complete this topic Meningococcal ACWY Vaccine Aged Out N o longer eligible based on patient's age to complete this topic RSV Immunization Patients Under 20 months Aged Out No longer eligible based on patient's age to complete this topic Procedures Procedure Name Priority Date/Time Associated Diagnosis Comments CULTURE URINE Routine 05/13/2024 9:22 AM EST Dysuria POC URINE NON-AUTO W/O MICRO Routine 05/12/2024 4:28 PM EST Dysuria DX MAMMO INCL CAD UNI Routine 09/21/2023 1:30 PM EDT Unspecified lump in the left breast, unspecified quadrant ANNUAL BMP BLOOD TEST Routine 03/29/2023 LIPID PANEL Routine 03/29/2023 HEPATITIS C SCREENING Routine 12/25/2017 HIV SCREENING Routine 12/25/2017 from Last 3 Months or Most Recently Relevant to Health Maintenance Results * (ABNORMAL) Culture urine (05/13/2024 9:22 AM EST) Culture, Urine >100,000 CFU/mL Escherichia coli(A) KAMRAN 05/15/2024 11:50 AM EST [facility] Comment: This is an edited result. Previous organism was Gram negative bacilli on 05/14/2024 at 0831 EST. Urine Urine specimen obtained by clean catch procedure / Unknown Non-blood Collection / Unknown 05/13/2024 9:22 AM EST 05/13/2024 9:22 AM EST Narrative Organism Antibiotic Method Susceptibility Escherichia coli Amoxicillin/Clavulanate KAMRAN <=2 ug/ml: Susceptible Escherichia coli Ampicillin/Sulbactam KAMRAN <=2 ug/ml: Susceptible Escherichia coli Piperacillin/Tazobactam KAMRAN <=4 ug/ml: Susceptible Escherichia coli Cefazolin (Urine) KAMRAN <=1 ug/ml: Susceptible Escherichia coli Cefoxitin KAMRAN <=4 ug/ml: Susceptible Escherichia coli Ceftazidime KAMRAN <=0.5 ug/ml: Susceptible Escherichia coli Ceftriaxone KAMRAN <=0.25 ug/ml: Susceptible Escherichia coli Cefepime KAMRAN <=0.12 ug/ml: Susceptible Escherichia coli Meropenem KAMRAN <=0.25 ug/ml: Susceptible Escherichia coli Amikacin KAMRAN 2 ug/ml: Susceptible Escherichia coli Gentamicin KAMRAN <=1 ug/ml: Susceptible Escherichia coli Ciprofloxacin KAMRAN <=0.06 ug/ml: Susceptible Escherichia coli Levofloxacin KAMRAN <=0.12 ug/ml: Susceptible Escherichia coli Nitrofurantoin KAMRAN <=16 ug/ml: Susceptible Escherichia coli Trimethoprim/Sulfamethoxazole KAMRAN <=20 ug/ml: Susceptible Lynn Sweeney NP LAB MICROBIOLOGY - G ENERAL ORDERABLES [facility] [address] [place] [address], * (ABNORMAL) POC Urine Non-Auto W/O Micro (05/12/2024 4:28 PM EST) GLUCOSE POC Negative Negative, Trace mg/dL Leukocytes UA POC 2+(A) Negative mg/dL Nitrite UA POC Negative Urobilinogen UA POC 0.2 E.U./dL mg/dL Protein UA POC Positive Positive, Negative PH UA POC 5.0 SHASHI/HM UA POC Negative Negative Specific [place] UA POC 1.020 Ketones UA POC 1+(A) Negative Bilirubin UA POC Negative Negative Urine Urine specimen obtained by clean catch procedure / Unknown 05/12/2024 4:28 PM EST Lynn Sweeney TRUCK BODY REPAIRER POINT OF CARE TEST E NTER/EDIT ORDERABLES * DX MAMMO INCL CAD UNI (09/21/2023 1:30 PM EDT) Anatomical Region Laterality Modality Mammography 09/17/2023 3:10 PM EDT Narrative 09/21/2023 1:37 PM EDT This is a summary report. The complete report is available in the patient's medical record. If you cannot access the medical record, please contact the sending organization for a detailed fax or copy. Please refer to the combined ultrasound-guided core biopsy and diagnostic mammogram report. Procedure Note Pat Curz MD - 01/28/2024 This is a summary report. The complete report is available in thepatient's medical record. If you cannot access the medical record, pleasecontact the sending organization for a detailed fax or copy. Please refer to the combined ultrasound-guided core biopsy and diagnosticmammogram report. Elida Pavon CNM IMG BI PROCEDURES * Annual BMP Blood Test (03/29/2023) Pathologist [facility] Annual BMP Blood Test abstracted Historical Provider [facility] MA[facility]TE[facility] E * (ABNORMAL) Lipid panel (03/29/2023) [facility] LDL/HDL Ratio 3 0 - 4 Triglycerides 59 0 - 150 mg/dL Cholesterol 262(A) 0 - 200 mg/dL HDL 98 40 mg/dL LDL Cholesterol 153(A) 0 - 100 mg/dL Blood Venous blood specimen / Unknown Historical Provider LAB BLOOD ORDERAB [facility] * HIV Screening (12/25/2017) HIV Screening abstracted Historical Provider MD ZENA Garcia * Hepatitis C Screening (12/25/2017) Hepatitis C Screening abstracted Historical Provider MD ZENA Garcia from Last 3 Months or Most Recently Relevant to Health Maintenance Care Teams Associate Sales Manager Relationship Specialty Start Date End Date Ольга Jewell MD [address] [place] [address] [phone] PCP - General Internal Medicine 12/14/21
== END 2024-07-11 12:03 | disposition home or self-care (01) ==
PROVIDERS: Visit Provider Nurse Practitioner Family
DX: J44.9 Chronic obstructive pulmonary disease, unspecified (principal); Z91.09 Other allergy status, other than to drugs and biological substances; B44.81 Allergic bronchopulmonary aspergillosis; R91.8 Other nonspecific abnormal finding of lung field
CPT/HCPCS: 99214

== ENCOUNTER → 2024-07-11 11:03 | Outpatient (BNVA) | payer OTHER, SELFPAY | PROVIDERS: Visit Provider Nurse Practitioner Family | DX: J44.9 Chronic obstructive pulmonary disease, unspecified (principal); B44.81 Allergic bronchopulmonary aspergillosis; R91.8 Other nonspecific abnormal finding of lung field; Z87.891 Personal history of nicotine dependence; Z91.09 Other allergy status, other than to drugs and biological substances; Z79.899 Other long term (current) drug therapy | CPT/HCPCS: 99212 ==

== ENCOUNTER 2024-09-23 10:57 | Outpatient (AMB) | payer OTHER, SELFPAY ==
[2024-09-23 11:00] VITALS: PULSE 82; O2SAT 99; BMI 39.9
--- NOTE | 2024-09-23 11:00 | MHC.OFFVIS ---
Vital Signs 09/23/24 11:00 Height 5 ft 1 in Weight 211 lb BMI 39.9 Pulse 82 Pulse Source Pulse Oximeter Pulse Oximetry (%) 99 Oxygen Delivery Method Room Air Intake Visit Reasons: asthma Merchandising Execution Associate Required: No Knitter Mechanic: Knitter Mechanic offered & declined Accompanied by: Self / Same As Patient Allergies bee venom protein (honey bee) Allergy (Unknown, Verified 09/23/24 11:04) Unknown fluticasone furoate [From Arnuity Ellipta] Allergy (Unknown, Verified 09/23/24 11:04) Unknown hydrochlorothiazide Allergy (Unknown, Verified 09/23/24 11:04) Unknown levofloxacin [From Levaquin] Allergy (Unknown, Verified 09/23/24 11:04) Unknown lisinopril Allergy (Unknown, Verified 09/23/24 11:04) Unknown tomato Allergy (Unknown, Verified 09/23/24 11:04) Unknown peanut Allergy (Verified 09/23/24 11:04) Unknown Medication List - Last Reconciled 09/23/24 by Esrtella Platt LPN albuterol sulfate 90 mcg/actuation 2 puffs inhalation Q4-6H PRN amitriptyline 10 mg PO BEDTIME amlodipine 5 mg PO DAILY baclofen 10 mg PO TID PRN budesonide-formoterol 80-4.5 mcg/actuation (Symbicort) 2 puffs inhalation Q12H cetirizine 10 mg PO DAILY clonazepam 0.5 mg PO TID PRN docusate sodium 100 mg PO BID duloxetine 60 mg PO DAILY duloxetine 30 mg PO DAILY dupilumab (Dupixent) 600 mg (4 mL) subcut Q2W dupilumab (Dupixent) 300 mg (2 mL) subcut Q2W epinephrine IM famotidine 20 mg PO BID fluoxetine 40 mg PO DAILY fluticasone propionate 50 mcg/actuation 2 sprays intranasal DAILY gabapentin 300 mg PO TID hydroxyzine HCl 25 - 50 mg PO BEDTIME PRN ipratropium-albuterol 0.5 mg-3 mg(2.5 mg base)/3 mL 3 mL inhalation Q6-8H PRN linaclotide (Linzess) 290 mcg PO DAILY oxycodone-acetaminophen 5-325 mg 1 tab PO TID pantoprazole 20 mg PO BID plecanatide (Trulance) 3 mg PO DAILY valacyclovir 500 mg PO DAILY HPI HPI asthma: Details: Deisy is a pleasant 49 year old female, former minimal smoker, quit 20+ years ago, with underlying asthma/COPD and labs suggestive of ABPA. She has been moderately controlled on Dupixent, and Breyna 160 mcg. Unfortunately on last few dose of Spiriva as insurance will no longer cover. She reports intermittent wheezing and chest tightness triggered by weather changes, mostly rain and likely due to mold exposure. She is under the care of MARY undergoing allergy testing, previously under the care of Dr. Rangel.She denies any visits to urgent care or hospitalizations related to respiratory distress since the last visit. 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 [facility] Medical History Constipation Fibroadenoma GERD (gastroesophageal reflux disease) H. pylori infection HSV infection Lichen simplex chronicus Migraines Portal vein thrombosis Recurrent UTI Thrombocytosis Surgical History S/P laparoscopic sleeve gastrectomy Family History Mother Multiple sclerosis Father Arthritis Gout Hypertension Social History Alcohol intake: current Alcohol intake frequency: holidays/special occasions only Patient Tobacco Use Status: Former Tobacco user Current occupational status: unemployed Current occupation: Student Review of Systems Const Denies chills, Denies excessive sweating, Denies fever(s), Denies headache(s) and Denies night sweats Eyes Denies dry eyes, Denies irritation and Denies itchy eyes ENT Reports Normal hearing present, Denies headache(s), Denies nasal congestion, Denies nasal discharge, Denies post nasal drip and Denies sore throat Card Denies chest pain, Denies chest pain at rest, Denies chest pain with activity, Denies claudication, Denies leg edema, Denies dyspnea, Denies orthopnea and Denies paroxysmal nocturnal dyspnea Resp Denies chest congestion, Denies cough, Denies excessive phlegm production, Denies pain on inspiration, Denies pain with cough, Denies dyspnea and Denies stridor Musc Denies myalgias Neuro Reports Normal hearing present and Denies headache(s) Endo Denies excessive sweating Jorge/Lymph Denies lymphadenopathy Aller/Immun Denies itchy eyes and Denies seasonal rhinorrhea Physical Exam Vital Signs: Last Vital Signs Pulse 82 09/23/24 11:00 Pulse Ox 99 09/23/24 11:00 Oxygen Delivery Method Room Air 09/23/24 11:00 BMI result Body Mass Index 39.9 Const General: cooperative, healthy appearing, comfortable, no acute distress, well developed and alert Nutritional Appearance: obese Orientation/consciousness: patient oriented x3 Limitations: no limitations HEENT Head: Yes normal to inspection, Yes normocephalic and Yes atraumatic Ears: hearing grossly normal bilaterally and external ears normal Eyes General: appearance normal, both eyes and all related structures Eyelids: Yes eyelids normal Sclerae: sclerae normal EOM: EOMs intact bilaterally Neck Neck: Yes normal visual inspection and Yes no lymphadenopathy Lymphatic: no lymphadenopathy noted Chest Chest palpation & inspection: normal inspection of the chest Resp Effort & Inspection: normal respiratory effort, able to speak in complete sentences, no audible wheezes, no cough, no stridor, not tachypneic, no tripod positioning and no use of accessory muscles Auscultation: clear to auscultation bilaterally Cardio Jugular venous distension: no JVD Rate: regular rate Rhythm: regular rhythm Skin Other: warm, dry General skin exam: no rashes or lesions noted Neuro General: patient oriented x3 Cranial nerves: Yes Normal hearing present Cognition (Neuro): normal cognition Gait exam (Neuro): Normal gait present Extrem General: Yes normal to inspection, Yes capillary refill normal, Yes no clubbing, cyanosis or edema and Yes no pedal edema Psych Appearance: grossly normal and well kempt Speech and movement: Normal speech and movement present and Clear speech present Affect: normal affect Attitude: cooperative Thought process: Normal thought process present Thought content: Normal thought content present Insight: Good insight present (Psych) Judgement: Good judgement present (Psych) Assessment & Plan Assessment & Plan (1) Asthma-COPD overlap syndrome: Code(s): J44.9 - Chronic obstructive pulmonary disease, unspecified Category: Medical (2) Environmental allergies: Code(s): Z91.09 - Other allergy status, other than to drugs and biological substances Category: Medical (3) ABPA (allergic bronchopulmonary aspergillosis): Code(s): B44.81 - Allergic bronchopulmonary aspergillosis Category: Medical (4) Multiple pulmonary nodules: Code(s): R91.8 - Other nonspecific abnormal finding of lung field Category: Medical Plan At this time, Deisy reports moderate control of respiratory symptoms on current regimen, advised to continue. Discussed increased use of DuoNeb, as Spiriva is no longer covered. If symptoms continue to be persistent will add LAMA. She is aware if symptoms change to call office. All questions were answered and patient is in agreement of plan. Will follow up in 3 months or sooner if needed. Medications: New budesonide-formoterol 160-4.5 mcg/actuation (Breyna) 2 puffs inhalation BID 10.2 grams 3RF Changed From ipratropium-albuterol 0.5 mg-3 mg(2.5 mg base)/3 mL as needed only 3 mL inhalation Q6-8H PRN 90 mL 0RF wheezing To ipratropium-albuterol 0.5 mg-3 mg(2.5 mg base)/3 mL 3 mL inhalation Q6-8H PRN 180 mL 3RF wheezing Discontinued budesonide-formoterol 80-4.5 mcg/actuation (Symbicort) Discontinued Reason: Patient Completed Course 2 puffs inhalation Q12H 10.2 grams 3RF Coding Level of Care Code Est Pt Level 4 (35431) Diagnoses Asthma-COPD overlap syndrome J44.9 Environmental allergies Z91.09 ABPA (allergic bronchopulmonary aspergillosis) B44.81 Multiple pulmonary nodules R91.8
--- OUTSIDE RECORDS SUMMARY | 2024-09-23 13:23 | XMS_ITS | Encounter Summary ---
Author Organization [facility] Address [address] [place] [address] Care Team Providers Care Letterpress Setter Name Role Phone Naun Garcia MD Primary Care Provider Unavail able [facility]ly [facility], Pcp Primary Care Provider Unavailabl e Naun Garcia MD Primary Care Provider Unavail able Ольга Jewell MD Primary Care Provider [phone] Rhoda Rangel MD Unavailable Unavailable Brenden Villa DPM Unavailable [phone] Piedad Bowens MD Unavailable [phone] Marcos Weiss DO Unavailable Unavailable Xochitl Machado MD Unavailable [phone] Encounter Details Date Type Department Care Team Description 09/20/2018 [facility] Medical Records [address] [place] [address] Jonh Patterson MD [address] [facility] [address] [place] [address] Social History Tobacco Use Types Packs/Day Years Used Date Smoking Tobacco: Never Smokeless Tobacco: Never Alcohol Use Standard Drinks/Week Comments Yes 0 (1 standard drink = 0.6 oz pur e alcohol) occasional Sex Assigned at Date Recorded Female 04/25/2019 2:[address] Job Start Date Occupation Industry Not on file Not on file Not on file documented as of this encounter Plan of Treatment Not on file documented as of this encounter Visit Diagnoses Not on filedocumented in this encounter Care Teams Letterpress Setter Relationship Specialty Start Date End Date Naun Garcia MD PCP - General Internal Medicine 10/27/13 10/27/21 [facility]ly [facility], [facility] PCP - General Internal Medicine 10/28/21 11/27/21 Naun Garcia MD PCP - General Internal Medicine 11/28/21 12/13/21 Ольга Jewell MD [address] [place] [address] PCP - General Internal Medicine 12/14/21 Rhoda Rangel MD [address] [place] [address] Referring Physician Allergy & Immunology 06/16/22 Brenden Villa DPM [address] [address] Podiatry 06/16/22 Piedad Bowens MD [address] [address] ORTHOPEDICS 06/16/22 Marcos Weiss DO [address] [address] Specialist Physiatry 12/15/22 Xochitl Machado MD [address] [address] Sports Medicine Int Med 12/15/22 Peter Cummings Specialist Gastroenterology 06/16/22 Evi Carpio Specialist PSYCHIATRY 06/16/22 elder duke Specialist Optometry 12/18/23 documented as of this encounter
--- OUTSIDE RECORDS SUMMARY | 2024-09-23 13:23 | XMS_ITS | Clinical Summary ---
Author Organization [address] [place] [address] [place] [phone] Phone Care Team Providers Care Lost Charge Card Clerk Name Role Phone Ольга Jewell MD Primary [...] zid Shortness of breath High 05/12/2024 Medications acetaminophen (TYLENOL 8 HOUR) 650 mg 8 hr tablet Take 1 Tab by mouth every 8 hours as needed for Pain. 9 Active albuterol HFA (PROAIR HFA ; PROVENTIL HFA ; VENTOLIN HFA) 90 mcg/actuation inhaler INHALE 2 PUFFS INTO THE LUNGS EVERY 6 HOURS NEEDED FOR COUGH OR WHEEZING 3 Active budesonide-for moteroL (SYMBICORT) 160-4.5 mcg/actuation inhaler Inhale 2 Puffs into the lungs 2 times daily. 1 Active cetirizine (ZyrTEC) 10 mg tablet Take 1 tablet (10 mg total) by mouth 1 (one) time each day. 1 Active clonazePAM (KlonoPIN) 0.5 mg tablet TAKE 1 TABLET BY MOUTH ONCE A DAY NEEDED FOR ANXIETY. MAY TAKE ADDITIONAL TABLET BY MOUTH NEEDED FOR SEVERE ANXIETY 0 Active COQ10, UBIQUINOL, ORAL QkC54-Xdydhysyhg -Carnosine 50-500-100 MG Cap 3 Active cycloSPORINE 0.05 % drops Place 1 Drop into both eyes 2 times daily. Per opthal 3 Active DULoxetine (CYMBALTA) [address] capsule Take 1 capsule (60 mg total) by mouth 1 (one) time each day. 3 Active dupilumab (Dupixent Pen) 300 mg/2 mL pen 4 Active EPINEPHrine (Auvi-Q) 0.3 mg/0.3 mL injection Inject 1 Device as directed as needed (anaphylaxis). Use as directed 9 Active FLUoxetine (PROzac) 40 mg capsule Take 1 capsule (40 mg total) by mouth 1 (one) time each day in the morning. 3 Active fluticasone propionate (FLONASE) 50 mcg/actuation nasal spray 1 TO 2 SPRAYS IN EACH NOSTRIL DAILY 1 Active hydrOXYzine HCL (ATARAX) 25 mg tablet TAKE 1 TO 2 TABLETS BY MOUTH AT BEDTIME NEEDED FOR SLEEP 3 Active ipratropium-al buteroL (DUONEB) 0.5-2.5 mg/3 mL nebulizer solution USE 3 ML VIA NEBULIZER EVERY 6 TO 8 HOURS NEEDED FOR WHEEZING 3 Active olopatadine (PATANASE) 0.6 % spray,non-aero diya nasal spray 2 Sprays by Nasal route 2 times daily. 0 Active oxyCODONE-acet aminophen (PERCOCET) 5-325 mg per tablet Take 1 tablet by mouth every 4 (four) hours. Active pantoprazole (PROTONIX) 20 mg EC tablet TAKE 1 TABLET BY MOUTH DAILY- ON EMPTY STOMACH 4 Active polyethylene glycol (GoLYTELY) 236-22.74-6.74 -5.86 gram solution Take 240 mL by mouth once for 1 dose. Take 4L by mouth once for one dose. May substitue any PEG. Starting at 6PM the night before your procedure drink 1 8oz glasses at your own pace until rectals run clear. 4 Active turmeric/turme duyen ext/pepr ext (turmeric-turm kamari ext-pepper) 900-100-5 mg capsule Take by mouth. 3 Active tiotropium (Spiriva Respimat) 2.5 mcg/actuation inhalation spray Inhale 1 Puff into the lungs daily. 1 Active glucosamine/ch ondro husain A/C/Mn (GLUCOSAMINE-C HONDROIT-VIT C-MN ORAL) Active rhubarb root extract 4 mg tablet Active amitriptyline (ELAVIL) 10 mg tablet TAKE 1 TABLET BY MOUTH AT BEDTIME 30 tablet 11 4 Active plecanatide (Trulance) 3 mg tablet TAKE 1 TABLET BY MOUTH DAILY 30 tablet 11 4 Active docusate sodium (COLACE) 100 mg capsule Take 1 capsule (100 mg total) by mouth 2 (two) times a day before meals. 60 capsule 5 4 Active valACYclovir (VALTREX) 500 mg tablet TAKE 1 TABLET BY MOUTH DAILY 90 tablet 1 5 Active amLODIPine (NORVASC) 5 mg tablet TAKE 1 TABLET BY MOUTH DAILY 90 tablet 1 5 Active gabapentin (NEURONTIN) 300 mg capsule TAKE 1 CAPSULE BY MOUTH THREE TIMES DAILY 270 capsule 1 5 Active budesonide-for moteroL (SYMBICORT) 80-4.5 mcg/actuation inhaler Inhale 2 puffs by mouth every 12 (twelve) hours if needed. 5 Active celecoxib (CeleBREX) 100 mg capsuleIndicat ions:Fibromyal tiki Take 1 capsule (100 mg total) by mouth 2 (two) times a day. 60 each 5 025 Active bisacodyL (DULCOLAX) 5 mg EC tablet Take 2 tabs by mouth right before beginning bowel prep. Follow instructions given by office for timing. 4 025 Discontin ued(Thera py completed ) Active Problems Problem Noted Date Diagnosed Date [...] Overview (03/18/2024): Fibroadenoma Cervicalgia 11/03/2018 Overview (03/18/2024): [facility] H. pylori infection 10/06/2018 Portal [...] Encounters Date Type Department Care Team Description 09/20/2024 2:00 PM EDT - 09/20/2024 11:59 PM EDT Hospital Encounter Radiology Department - [address] [phone] Encounter for screening mammogram for breast cancer Discharge Disposition: Home or Self Care 09/18/2024 Telephone Gastroenterology - [place] [address] 175 [facility] [address] [place] [phone] BatresDarienAlejandra, ViolettaRUFE, [place] 09/18/2024 Telephone Gastroenterology - [place] [address] 175 [facility] [address] [place] [phone] MedardoDarienAlejandra, ViolettaRUFE, [place] 09/08/2024 2:30 PM EDT Office Visit Adult Medicine - [place] [address] [place] [phone] Patricia Bell PA Fibromyalgia (Primary Dx); Essential hypertension 09/05/2024 Telephone Adult Medicine [facility] [address] [place] [phone] Ольга Jewell MD Med Refill 08/12/2024 2:00 PM EST Office Visit Orthopedic Surgery - [place] [address] 175 [facility] 160 [place] [phone] Xochitl Machado MD Arthritis of left knee (Primary Dx); Arthritis of right knee from Last 3 Months Immunizations Name Administration Dates Next Due Hepatitis B (Cptjgpa-Q-Kcflh , Recombivax HB-Adult) 19yo and older 01/31/2016,10/29/2015 [...] elbow, Dr. Bowens OTHER SURGICAL HISTORY PROCEDURE: WI GASTRIC RSTCV W/O BYP VERTICAL-BANDED GASTROPLY; COMMENT: March 2020 SHOULDER SURGERY 09/09/2020 Left PROCEDURE: HISTORICAL SHOULDER SURGERY BREAST BIOPSY 2018 Right PROCEDURE: BX BREAST; PERC NEEDLE CORE W/IMAG GUID; COMMENT: rt. breast bx-benign BREAST BIOPSY 07/13/2020 Left PROCEDURE: WI BX BREAST W/DEVICE 1ST LESION ULTRASOUND GUID; COMMENT: b9 ESOPHAGOGASTRODUODENOSCOPY PROCEDURE: WI EGD TRANSORAL BIOPSY SINGLE/MULTIPLE; COMMENT: Performed on [...] obesity with BMI of 4 0.0-44.9, adult (CMS/HCC V24, CMS/HCC V28) 11/04/2013 DX:Morbid obesity wit h BMI of 40.0-44.9, adult ([facility]); COMMENT: Bariatric Surgery Program Surgeon: Initial visit date 06/21/17 Psychiatry clearance: 08/28/17 Saira PCP clearance: 08/08/17 Jose Physical: 07/19/17 Dietitian-Dietary Clearance: [facility] 12/04/17 Labs: 06/22/17 Done. Support groups: [...] Date Smoking Tobacco: Never Smokeless Tobacco: Never Tobacco Cessation:Counseling Given: Not Answered Alcohol Use Standard Drinks/Week Comments Yes 0 [...] for your loved ones. For example, child support specialist or elderly care for an older adult? [...] What is your living situation? 1 07/22/2023 Comments Unknown Sex and Gender Information Value Date Recorded Sex Assigned at Not on file Legal Sex Female 12:50 PM EST Gender Identity Not on file Sexual Orientation Not on file Obstetrics History Para Term AB IAB SAB Ectopic Multiple Livin g Live Births 1 1 1 1 Date Outcome GA Total Labor Labor/2nd/3rd Weight Sex Type Anes PTL Kayla A1 A5 Name Clin Term Last Filed Vital Signs Vital Sign Reading Time Taken Comments Blood Pressure 117/78 09/08/2024 2:57 PM EDT Pulse 88 09/08/2024 2:31 PM EDT Temperature 36.7 ??C (98 ??F) 09/08/2024 2:31 PM EDT Respiratory Rate - - Oxygen Saturation 98% 05/12/2024 4:12 PM EST Inhaled Oxygen Concentration - - Weight 93.6 kg (206 lb 6.4 oz) 09/08/2024 2:31 P M EDT Height 154.9 cm (5' 1 ) 09/08/2024 2:31 PM EDT Body Mass Index 39 09/08/2024 2:31 PM EDT Plan of Treatment Upcoming Encounters Date Type Department Care Team (Late st Contact Info) Description 10/02/2024 2:30 PM EDT Appointment Radiology Department - [address] [phone] 10/02/2024 2:50 PM EDT Appointment Radiology Department - [address] [phone] 10/15/2024 11:00 AM EDT Office Visit Gastroenterology - [place] 175 [facility] 175 [facility] [address] [place] [phone] Felicitas Torres, LAURIE 175 [facility] [address] [place] [address] 12/08/2024 2:45 PM EDT Office Visit Adult Medicine - [place] [address] [place] [phone] Mauricio Strauss PA [address] [place] [address] Health Maintenance Due Date Last Done Comments Pneumococcal Vaccine: Pediatrics (0 to 5 Years) and At-Risk Patients (6 to 64 Years) (2 of 2 - PCV) 04/22/2015 04/22/2014 Hepatitis B Vaccines (3 of 3 - 19+ 3-dose series) 04/30/2016 01/31/2016, 10/29/2015 COVID-19 Vaccine (3 - Moderna risk series) 04/29/2021 04/01/2021, 03/04/2021 Colorectal Cancer Screening: Colonoscopy 05/20/2022 Medicare Annual Wellness Visit 05/20/2022 Hypertension/CHF/CAD Annual BMP Blood Test 03/29/2024 03/29/2023 DTaP,Tdap,and Td Vaccines (2 - Td or Tdap) 04/22/2024 04/22/2014 Influenza Vaccine (Season Ended) 2025 08/16/2023, 04/06/2020, 05/13/2019, Additional history exists Depression Screening 05/21/2025 05/21/2024 Social Influencers of Health Screening 05/21/2025 05/21/2024 Breast Cancer Screening 09/20/2026 09/21/19, 09/21/2023, 09/17/2023, Additional history exists Cholesterol Screening (Lipid Panel) [...] patient's age to complete this topic Meningococcal B Vaccine Aged Out No l onger eligible based on patient's age to complete this topic RSV Immunization Patients Under 20 months Aged Out No longer eligible based on patient's age to complete this topic Procedures Procedure Name Priority Date/Time Associated Diagnosis Comments MG MAMMO DIGITAL SCREENING W YAHIR BILAT Routine 09/20/2024 2:16 PM EDT Encounter for screening mammogram for breast cancer WI ARTHROCENTESIS/ASPI RATION/INJECTION MAJOR JOINT/BURSA W/O U/S GUIDANCE Routine 08/12/2024 2:00 PM EST Arthritis of left knee Arthritis of right knee ANNUAL BMP BLOOD TEST Routine 03/29/2023 LIPID PANEL Routine 03/29/2023 HEPATITIS C SCREENING Routine 12/25/2017 HIV SCREENING Routine 12/25/2017 from Last 3 Months or Most Recently Relevant to Health Maintenance Results * (ABNORMAL) MG Mammo Digital Screening w Yahir bilat (09/20/2024 2:16 PM EDT) Anatomical Region Laterality Modality Breast Bilateral Mammography 09/22/2024 7:40 PM EDT Impressions 09/22/2024 7:44 PM EDT 1. ??Right: No mammographic evidence of malignancy 2. Left: Indeterminate MLO central to the nipple far posterior depth asymmetry 3. Scattered fibroglandular tissue BI-RADS CATEGORY: 0 - INCOMPLETE - NEED ADDITIONAL IMAGING EVALUATION RECOMMENDATION: Additional left breast imaging recommended. Left breast MLO spot compression, targeted ultrasound Mammo Location: [facility], [address] [place] [address], [id number], . -------- FINAL REPORT -------- Dictated By: August Owen Dictated Date: 09/22/2024 19:40 ET Assigned Physician: August Owen Reviewed and Electronically Signed By: August Owen Signed Date: 09/22/2024 19:44 ET Workstation ID: [id number] Transcribed By: Self Edit Transcribed Date: 09/22/2024 19:40 ET Narrative 09/22/2024 7:44 PM EDT A BILATERAL DIGITAL 3D SCREENING MAMMOGRAPHY HISTORY: Routine screening. ??Family history of breast cancer COMPARISON: Multiple priors dating back to 06/25/2020 Technique: Bilateral full field digital mammography (3D) was performed using standard CC and MLO projections , left breast exaggerated CC CAD ??was used to evaluate this mammogram. FINDINGS: Right: No suspicious masses, groups of microcalcification or areas of architectural distortion identified. Stable typically benign parenchymal asymmetries. ??Lateral breast biopsy marker. Left: Indeterminate MLO central to the nipple far posterior depth asymmetry BREAST DENSITY: B - There are scattered areas of fibroglandular density. Procedure Note August Owen MD - 09/22/2024 A BILATERAL DIGITAL 3D SCREENING MAMMOGRAPHY HISTORY: Routine screening. Family history of breast cancer COMPARISON: Multiple priors dating back to 06/25/2020 Technique: Bilateral full field digital mammography (3D) was performedusing standard CC and MLO projections , left breast exaggerated CC CAD was used to evaluate this mammogram. FINDINGS: Right: No suspicious masses, groups of microcalcification or areas ofarchitectural distortion identified. Stable typically benign parenchymalasymmetries. Lateral breast biopsy marker. Left: Indeterminate MLO central to the nipple far posterior depth asymmetry BREAST DENSITY: B - There are scattered areas of fibroglandular density. IMPRESSION: 1. Right: No mammographic evidence of malignancy 2. Left: Indeterminate MLO central to the nipple far posterior depthasymmetry 3. Scattered fibroglandular tissue BI-RADS CATEGORY: 0 - INCOMPLETE - NEED ADDITIONAL IMAGING EVALUATION RECOMMENDATION: Additional left breast imaging recommended. Left breast MLO spotcompression, targeted ultrasound Mammo Location: [facility], [address] [place] [address], [id number], . -------- FINAL REPORT -------- Dictated By: August Owen Dictated Date: 09/22/2024 19:40 ET Assigned Physician: August Owen Reviewed and Electronically Signed By: August Owen Signed Date: 09/22/2024 19:44 ET Workstation ID: [id number] Transcribed By: Self Edit Transcribed Date: 09/22/2024 19:40 ET Elida Pavon CNM IMG BI PROCEDURES Final Result * WI ARTHROCENTESIS/ASPIRATION/INJECTION MAJOR JOINT/BURSA W/O U/S GUIDANCE (08/12/2024 2:00 PM EST) Narrative Xochitl Machado MD - 08/12/2024 2:00 PM EST Xochitl Machado MD ? 08/12/2024 ??2:49 PM L Inj/Asp: bilateral knee Indications: pain Details: 22 G needle, anterolateral approach Medications (Right): 4 mL lidocaine 1 %; 40 mg triamcinolone acetonide 40 mg/mL Medications (Left): 4 mL lidocaine 1 %; 40 mg triamcinolone acetonide 40 mg/mL Outcome: tolerated well, no immediate complications Informed Consent: ??Laterality: ??Bilateral ??Relevant images/test results available and reviewed: yes ?Health status cleared: ??Yes ??Procedure/treatment, purpose, treatment alternatives, risks/potential complications and benefits explained: yes ?Risk/complications/benefits details: ??Risks include bleeding, infection, increase in pain, fat atrophy, hypopigmentation ??Patient questions answered: yes ?Patient agrees, verbalizes understanding, and wants to proceed: yes ?Consent given by: ??Patient ??Informed consent discussion completed by Physician/SHAKIR with patient: ?? Verbal ??Pre-procedure timeout performed: yes ?? Xochitl Machado MD IN CLINIC/BEDSIDE ORDERABLES F inal Result * Annual BMP Blood Test (03/29/2023) [facility] Annual BMP Blood Test abstracted Historical Provider HEALTH MAINTENANCE Final Result * (ABNORMAL) Lipid panel (03/29/2023) [facility] LDL/HDL Ratio 3 0 - 4 Triglycerides 59 0 - 150 mg/dL Cholesterol 262(A) 0 - 200 mg/dL HDL 98 >=40 mg/dL LDL Cholesterol 153(A) 0 - 100 mg/dL Blood Venous blood specimen / Unknown Historical Provider LAB BLOOD ORDERABLES Mraie l Result * HIV Screening (12/25/2017) HIV Screening abstracted Historical Provider HEALTH MAINTENANCE Final Result * Hepatitis C Screening (12/25/2017) Hepatitis C Screening abstracted Historical Provider HEALTH MAINTENANCE Final Result from Last 3 Months or Most Recently Relevant to Health Maintenance Insurance [employer] MED[employer] Member Subscriber Plan / Payer (Ef fective 2022-Present) Name:Deisy Muhammad Relation to Subscriber:Self Name:Deisy Muhammad Payer ID:[id number] Group ID:[id number] Type:Not on file Address: [facility] [place] [id number] Care Teams Lost Charge Card Clerk Relationship Specialty Start Date End Date Ольга Jewell MD [address] [place] [id number] PCP - General Internal Medicine 12/14/21
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
--- OUTSIDE RECORDS SUMMARY | 2024-09-23 13:23 | XMS_ITS | Encounter Summary ---
Author Organization [facility] Address [address] [place] [address] Care Team Providers Care Pressurised Container Filler Name Role Phone Naun Garcia MD Primary Care Provider Unavail able [facility], [facility] Primary Care Provider Unavailabl Naun Artis MD Primary Care Provider Unavail able Ольга Jewell MD Primary Care Provider Rhoda Rangel MD Unavailable Unavailable Brenden Villa DPM Unavailable [phone] Piedad Bowens MD Unavailable [phone] Marcos Weiss DO Unavailable Unavailable Xochitl Machado MD Unavailable [phone] Encounter Details Date Type Department Care Team Description 10/08/2015 Release of Information Medical Records [address] [place] [id number] Abstract, Provider Social History Tobacco Use Types Packs/Day Years [...] on filedocumented in this encounter Care Teams Pressurised Container Filler Relationship Specialty Start Date End Date Naun Garcia MD PCP - General Internal Medicine 10/27/13 10/27/21 [facility] PCP - General Internal Medicine 10/28/21 11/27/21 Naun Garcia MD PCP - General Internal Medicine 11/28/21 12/13/21 Ольга Jewell MD [address] [place] [address] PCP - General Internal Medicine 12/14/21 Rhoda Rangel MD [address] [place] [address] Referring Physician Allergy & Immunology 06/16/22 Brenden Villa DPM [address] [address] Podiatry 06/16/22 Piedad Bowens MD [address] [address] ORTHOPEDICS 06/16/22 Marcos Weiss DO [address] [address] Specialist Physiatry 12/15/22 Xochitl Machado MD [address] [address] Sports Medicine Int Med 12/15/22 Peter Cummings Specialist Gastroenterology 06/16/22 Evi Carpio Specialist PSYCHIATRY 06/16/22 elder duke Specialist Optometry 12/18/23 documented as of this encounter
--- OUTSIDE RECORDS SUMMARY | 2024-09-23 13:23 | XMS_ITS | Encounter Summary ---
Author Organization [facility] Address [address] [place] [address] Care Team Providers Care Americanization Teacher Name Role Phone Naun Garcai MD Primary Care Provider Unavail able [facility] Primary Care Provider Unavailabl Naun Artis MD Primary Care Provider Unavail able Ольга Jewell MD Primary Care Provider Rhoda Rangel MD Unavailable Unavailable Brenden Villa DPM Unavailable [phone] Piedad Bowens MD Unavailable [phone] Marcos Weiss DO Unavailable Unavailable Xochitl Machado MD Unavailable [phone] Encounter Details Date Type Department Care Team Description 08/30/2015 Reference Test Clerk Report Medical Records [address] [place] [id number] Angel Benavidez MD Social History Tobacco Use Types Packs/Day Years [...] on filedocumented in this encounter Care Teams Americanization Teacher Relationship Specialty Start Date End Date Naun Garcia MD PCP - General Internal Medicine 10/27/13 10/27/21 [facility] PCP - General Internal Medicine 10/28/21 11/27/21 Naun Garcia MD PCP - General Internal Medicine 11/28/21 12/13/21 Ольга Jewell MD [address] [place] [address] PCP - General Internal Medicine 12/14/21 Rhoda Rangel MD [address] [place] [address] Referring Physician Allergy & Immunology 06/16/22 Brenden Villa DPM [address] [address] Podiatry 06/16/22 Piedad Bowens MD [address] [address] ORTHOPEDICS 06/16/22 Marcos Weiss DO [address] [address] Specialist Physiatry 12/15/22 Xochitl Machado MD [address] [address] Sports Medicine Int Med 12/15/22 Peter Cummings Specialist Gastroenterology 06/16/22 Evi Carpio Specialist PSYCHIATRY 06/16/22 elder duek Specialist Optometry 12/18/23 documented as of this encounter
--- OUTSIDE RECORDS SUMMARY | 2024-09-23 13:23 | XMS_ITS | Encounter Summary ---
Author Organization [facility] Address [address] [place] [address] Care Team Providers Care Laundry Bag Punch Operator Name Role Phone Naun Garcia MD Primary Care Provider Unavail able [facility], Pcp Primary Care Provider Unavailabl Naun Artis MD Primary Care Provider Unavail able Ольга Jewell MD Primary Care Provider Rhoda Rangel MD Unavailable Unavailable Brenden Villa DPM Unavailable [phone] Piedad Bowens MD Unavailable [phone] Marcos Weiss DO Unavailable Unavailable Xochitl Machado MD Unavailable [phone] Encounter Details Date Type Department Care Team Description 09/18/2018 Hospital Medical Records [address] [place] [address] Marcos Lombardi Social History Tobacco Use Types Packs/Day Years [...] on filedocumented in this encounter Care Teams Laundry Bag Punch Operator Relationship Specialty Start Date End Date Naun Garcia MD PCP - General Internal Medicine 10/27/13 10/27/21 [facility], Pcp PCP - General Internal Medicine 10/28/21 11/27/21 Naun Garcia MD PCP - General Internal Medicine 11/28/21 12/13/21 Ольга Jewell MD [address] [place] [address] PCP - General Internal Medicine 12/14/21 Rhoda Rangel MD [address] [place] [address] Referring Physician Allergy & Immunology 06/16/22 Brenden Villa DPM [address] [address] Podiatry 06/16/22 Piedad Bowens MD [address] [address] ORTHOPEDICS 06/16/22 Marcos Weiss DO [address] [address] Specialist Physiatry 12/15/22 Xochitl Machado MD [address] [address] Sports Medicine Int Med 12/15/22 Peter Cummings Specialist Gastroenterology 06/16/22 Evi Carpio Specialist PSYCHIATRY 06/16/22 elder duke Specialist Optometry 12/18/23 documented as of this encounter
--- OUTSIDE RECORDS SUMMARY | 2024-09-23 13:23 | XMS_ITS | Encounter Summary ---
Author Organization [facility] Address [address] [place] [address] Care Team Providers Care Hand Rigger Name Role Phone Naun Garcia MD Primary Care Provider Unavail able [facility], Pcp Primary Care Provider Unavailabl e Naun Garcia MD Primary Care Provider Unavail able Ольга Jewell MD Primary Care Provider Rhoda Rangel MD Unavailable Unavailable Brenden Villa DPM Unavailable [phone] Piedad Bowens MD Unavailable [phone] Marcos Weiss DO Unavailable Unavailable Xochitl Machado MD Unavailable [phone] Encounter Details Date Type Department Care Team Description 09/26/2018 Telephone General Surgery - [address] [place] [address] Dawn Arciniega MD [address] [place] [address] [address] [place] [address] Social History Tobacco Use Types Packs/Day Years [...] encounter Miscellaneous Notes * Telephone Encounter - Dawn Arciniega MD - 09/27/2018 3:19 PM EDT I talked to the patient. Will review chart. 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 -- wants to let him know [facility]s [facility] w/a [facility] heart [facility]- may have to do with the past surgery documented in this encounter Plan of Treatment Not on file documented as of this encounter Visit Diagnoses Not on filedocumented in this encounter Care Teams Hand Rigger Relationship Specialty Start Date End Date Naun Garcia MD PCP - General Internal Medicine 10/27/13 10/27/21 [facility] PCP - General Internal Medicine 10/28/21 11/27/21 Naun Garcia MD PCP - General Internal Medicine 11/28/21 12/13/21 Ольга Jewell MD [address] [place] [address] PCP - General Internal Medicine 12/14/21 Rhoda Rangel MD [address] [place], [place] Referring Physician Allergy & Immunology 06/16/22 Brenden Villa DPM [address] [address] Podiatry 06/16/22 Piedad Bowens MD [address] [address] ORTHOPEDICS 06/16/22 Marcos Weiss DO [address] [address] Specialist Physiatry 12/15/22 Xochitl Machado MD [address] [address] Sports Medicine Int Med 12/15/22 Peter Cummings Specialist Gastroenterology 06/16/22 Evi Carpio Specialist PSYCHIATRY 06/16/22 elder duke Specialist Optometry 12/18/23 documented as of this encounter
--- OUTSIDE RECORDS SUMMARY | 2024-09-23 13:23 | XMS_ITS | Encounter Summary ---
Author Organization [facility] Address [address] [place] [address] Care Team Providers Care Fire Support Specialist Name Role Phone Naun Garcia MD Primary Care Provider Unavail able [facility], [facility] Primary Care Provider Unavailabl Naun Artis MD Primary Care Provider Unavail able Ольга Jewell MD Primary Care Provider Rhoda Rangel MD Unavailable Unavailable Brenden Villa DPM Unavailable [phone] Piedad Bowens MD Unavailable [phone] Marcos Weiss DO Unavailable Unavailable Xochitl Machado MD Unavailable [phone] Encounter Details Date Type Department Care Team Description 01/14/2015 Mine Engineering Supervisor Report Medical Records [address] [place] [address] Angel Avendano Social History Tobacco Use Types Packs/Day Years [...] on filedocumented in this encounter Care Teams Fire Support Specialist Relationship Specialty Start Date End Date Naun Garcia MD PCP - General Internal Medicine 10/27/13 10/27/21 [facility], [facility] PCP - General Internal Medicine 10/28/21 11/27/21 Naun Garcia MD PCP - General Internal Medicine 11/28/21 12/13/21 Ольга Jewell MD [address] [place] [address] PCP - General Internal Medicine 12/14/21 Rhoda Rangel MD [address] [place] [address] Referring Physician Allergy & Immunology 06/16/22 Brenden Villa DPM [address] [address] Podiatry 06/16/22 Piedad Bowens MD [address] [address] ORTHOPEDICS 06/16/22 Marcos Weiss DO [address] [address] Specialist Physiatry 12/15/22 Xochitl Machado MD [address] [address] Sports Medicine Int Med 12/15/22 Peter Cummings Specialist Gastroenterology 06/16/22 Evi Carpio Specialist PSYCHIATRY 06/16/22 elder duke Specialist Optometry 12/18/23 documented as of this encounter
--- OUTSIDE RECORDS SUMMARY | 2024-09-23 13:23 | XMS_ITS | Encounter Summary ---
Author Organization [facility] Address [address] [place] [address] Care Team Providers Care Brush Maker Machine Name Role Phone Naun Garcia MD Primary Care Provider Unavail able [facility], [facility] Primary Care Provider Unavailabl Naun Artis MD Primary Care Provider Unavail able Ольга Jewell MD Primary Care Provider Rhoda Rangel MD Unavailable Unavailable Brenden Villa DPM Unavailable [phone] Piedad Bowens MD Unavailable [phone] Marcos Weiss DO Unavailable Unavailable Xochitl Machado MD Unavailable [phone] Encounter Details Date Type Department Care Team Description 07/03/2018 Deputy Juvenile Officer Report Medical Records [address] [place] [address] Reginald Laureano MD Social History Tobacco Use Types Packs/Day [...] on filedocumented in this encounter Care Teams Brush Maker Machine Relationship Specialty Start Date End Date Naun Garcia MD PCP - General Internal Medicine 10/27/13 10/27/21 [facility], [facility] PCP - General Internal Medicine 10/28/21 11/27/21 Naun Garcia MD PCP - General Internal Medicine 11/28/21 12/13/21 Ольга Jewell MD [address] [place] [address] PCP - General Internal Medicine 12/14/21 Rhoda Rangel MD [address] [place] [address] Referring Physician Allergy & Immunology 06/16/22 Brenden Villa DPM [address] [address] Podiatry 06/16/22 Piedad Bowens MD [address] [address] ORTHOPEDICS 06/16/22 Marcos Weiss DO [address] [address] Specialist Physiatry 12/15/22 Xochitl Machado MD [address] [address] Sports Medicine Int Med 12/15/22 Peter Cummings Specialist Gastroenterology 06/16/22 Evi Carpio Specialist PSYCHIATRY 06/16/22 elder duke Specialist Optometry 12/18/23 documented as of this encounter
--- OUTSIDE RECORDS SUMMARY | 2024-09-23 13:23 | XMS_ITS | Encounter Summary ---
Author Organization [facility] Address [address] [place] [address] Care Team Providers Care Space Engineer Name Role Phone Naun Garcia MD Primary Care Provider Unavail able [facility], Pcp Primary Care Provider Unavailabl Naun Artis MD Primary Care Provider Unavail able Ольга Jewell MD Primary Care Provider [phone] Rhoda Rangel MD Unavailable Unavailable Brenden Villa DPM Unavailable [phone] Piedad Bowens MD Unavailable [phone] Marcos Weiss DO Unavailable Unavailable Xochitl Machado MD Unavailable [phone] Encounter Details Date Type Department Care Team Description 09/23/2018 Hospital Medical Records [address] [place] [address] Arianne Parrish PA Social History Tobacco Use Types Packs/Day Years [...] on filedocumented in this encounter Care Teams Space Engineer Relationship Specialty Start Date End Date Naun Garcia MD PCP - General Internal Medicine 10/27/13 10/27/21 [facility], Pcp PCP - General Internal Medicine 10/28/21 11/27/21 Naun Garcia MD PCP - General Internal Medicine 11/28/21 12/13/21 Ольга Jewell MD [address] [place] [address] PCP - General Internal Medicine 12/14/21 Rhoda Rangel MD [address] [place] [address] Referring Physician Allergy & Immunology 06/16/22 Brenden Villa DPM [address] [address] Podiatry 06/16/22 Piedad Bowens MD [address] [address] ORTHOPEDICS 06/16/22 Marcos Weiss DO [address] [address] Specialist Physiatry 12/15/22 Xochitl Machado MD [address] [address] Sports Medicine Int Med 12/15/22 Peter Cummings Specialist Gastroenterology 06/16/22 Evi Carpio Specialist PSYCHIATRY 06/16/22 elder duke Specialist Optometry 12/18/23 documented as of this encounter
--- OUTSIDE RECORDS SUMMARY | 2024-09-23 13:23 | XMS_ITS | Encounter Summary ---
Author Organization [facility] Address [address] [place] [address] Care Team Providers Care Nib Assembler Name Role Phone Nuan Garcia MD Primary Care Provider Unavail able [facility], Pcp Primary Care Provider Unavailabl Naun Artis MD Primary Care Provider Unavail able Ольга Jewell MD Primary Care Provider Rhoda Rangel MD Unavailable Unavailable Brenden Villa DPM Unavailable [phone] Piedad Bowens MD Unavailable [phone] Marcos Weiss DO Unavailable Unavailable Xochitl Machado MD Unavailable [phone] Encounter Details Date Type Department Care Team Description 09/21/2018 Hospital Medical Records [address] [place] [address] Anoop Craig MD Social History Tobacco Use Types Packs/Day [...] on filedocumented in this encounter Care Teams Nib Assembler Relationship Specialty Start Date End Date Naun Garcia MD PCP - General Internal Medicine 10/27/13 10/27/21 [facility], Pcp PCP - General Internal Medicine 10/28/21 11/27/21 Naun Garcia MD PCP - General Internal Medicine 11/28/21 12/13/21 Ольга Jewell MD [address] [place] [address] PCP - General Internal Medicine 12/14/21 Rhoda Rangel MD [address] [place] [address] Referring Physician Allergy & Immunology 06/16/22 Brenden Villa DPM [address] [address] Podiatry 06/16/22 Piedad Bowens MD [address] [address] ORTHOPEDICS 06/16/22 Marcos Weiss DO [address] [address] Specialist Physiatry 12/15/22 Xochitl Machado MD [address] [address] Sports Medicine Int Med 12/15/22 Peter Cummings Specialist Gastroenterology 06/16/22 Evi Carpio Specialist PSYCHIATRY 06/16/22 elder duke Specialist Optometry 12/18/23 documented as of this encounter
--- OUTSIDE RECORDS SUMMARY | 2024-09-23 13:23 | XMS_ITS | Encounter Summary ---
Author Organization [facility] Address [address] [place] [address] Care Team Providers Care General Milling Superintendent Name Role Phone Naun Garcia MD Primary Care Provider Unavail able [facility], Pcp Primary Care Provider Unavailabl e Naun Garcia MD Primary Care Provider Unavail able Ольга Jewell MD Primary Care Provider Rhoda Rangel MD Unavailable Unavailable Brenden Villa DPM Unavailable [phone] Piedad Bowens MD Unavailable [phone] Marcos Weiss DO Unavailable Unavailable Xochitl Machado MD Unavailable [phone] Encounter Details Date Type Department Care Team Description 01/28/2018 Lighting Specialist Report Medical Records [address] [place] [address] Luis Blanc MD 175 [facility] [address] [place] [address] Social History Tobacco Use Types Packs/Day Years [...] on filedocumented in this encounter Care Teams General Milling Superintendent Relationship Specialty Start Date End Date Naun Garcia MD PCP - General Internal Medicine 10/27/13 10/27/21 [facility]CP - General Internal Medicine 10/28/21 11/27/21 Naun Garcia MD PCP - General Internal Medicine 11/28/21 12/13/21 Ольга Jewell MD [address] [place] [address] PCP - General Internal Medicine 12/14/21 Rhoda Rangel MD [address] [place] [address] Referring Physician Allergy & Immunology 06/16/22 Brenden Villa DPM [address] [address] Podiatry 06/16/22 Piedad Bowens MD [address] [address] ORTHOPEDICS 06/16/22 Marcos Weiss DO [address] [address] Specialist Physiatry 12/15/22 Xochitl Machado MD [address] [address] Sports Medicine Int Med 12/15/22 Peter Cummings Specialist Gastroenterology 06/16/22 Evi Carpio Specialist PSYCHIATRY 06/16/22 elder duke Specialist Optometry 12/18/23 documented as of this encounter
--- OUTSIDE RECORDS SUMMARY | 2024-09-23 13:23 | XMS_ITS | Encounter Summary ---
Author Organization [facility] Address [address] [place] [address] Care Team Providers Care Tv News Director Name Role Phone Naun Garcia MD Primary Care Provider Unavail able [facility], [facility] Primary Care Provider Unavailabl Naun Artis MD Primary Care Provider Unavail able Ольга Jewell MD Primary Care Provider [phone] Rhoda Rangel MD Unavailable Unavailable Brenden Villa DPM Unavailable [phone] Piedad Bowens MD Unavailable [phone] Marcos Weiss DO Unavailable Unavailable Xochitl Machado MD Unavailable [phone] Encounter Details Date Type Department Care Team Description 09/05/2018 Stock Shaper Report Medical Records [address] [place] [address] Erwin Rios MD Social History Tobacco Use Types Packs/Day [...] on filedocumented in this encounter Care Teams Tv News Director Relationship Specialty Start Date End Date Naun Garcia MD PCP - General Internal Medicine 10/27/13 10/27/21 [facility], [facility] PCP - General Internal Medicine 10/28/21 11/27/21 Naun Garcia MD PCP - General Internal Medicine 11/28/21 12/13/21 Ольга Jewell MD [address] [place] [address] PCP - General Internal Medicine 12/14/21 Rhoda Rangel MD [address] [place] [address] Referring Physician Allergy & Immunology 06/16/22 Brenden Villa DPM [address] [address] Podiatry 06/16/22 Piedad Bowens MD [address] [address] ORTHOPEDICS 06/16/22 Marcos Weiss DO [address] [address] Specialist Physiatry 12/15/22 Xochitl Machado MD [address] [address] Sports Medicine Int Med 12/15/22 Peter Cummings Specialist Gastroenterology 06/16/22 Evi Carpio Specialist PSYCHIATRY 06/16/22 elder duke Specialist Optometry 12/18/23 documented as of this encounter
--- OUTSIDE RECORDS SUMMARY | 2024-09-23 13:23 | XMS_ITS | Encounter Summary ---
Author Organization [facility] [place] [address] Care Team Providers Care Lidder Name Role Phone Ольга Jewell MD Primary Care Provider Encounter Details Date Type Department Care Team (Late st Contact Info) Description 09/18/2024 Telephone Gastroenterology - [place] [address] [place] [address] [place] Social History Tobacco Use Types Packs/Day Years [...] care for your loved ones. For example, early childhood services coordinator or elderly care for an older adult? [...] on file Sexual Orientation Not on file documented as of this encounter Plan of Treatment Upcoming Encounters Date Type Department Care Team (Late st Contact Info) Description 10/02/2024 2:30 PM EDT Appointment Radiology Department - [address] [address] 10/02/2024 2:50 PM EDT Appointment Radiology Department - [address] [address] 10/15/2024 11:00 AM EDT Office Visit Gastroenterology - [place] [address] [place] [address] Felicitas Torres NP 175 [facility] 200 [place] [address] 12/08/2024 2:45 PM EDT Office Visit Adult Medicine - [place] [address] [place] [address] Mauricio Strauss, PA [address] [place] [address] documented as of this encounter Visit Diagnoses Not on filedocumented in this encounter Additional Health Concerns Assessment Noted Time PHQ-9 Depression Total Score: 12 024 10:34 AM EST documented as of this encounter Care Teams Lidder Relationship Specialty Start Date End Date Ольга Jewell MD 101 [facility] 214 [place] [address] PCP - General Internal Medicine 12/14/21 documented as of this encounter
--- OUTSIDE RECORDS SUMMARY | 2024-09-23 13:23 | XMS_ITS | Encounter Summary ---
Author Organization [facility] Address [address] [place] [address] Care Team Providers Care Customer Data Technician Name Role Phone Naun Garcia MD Primary Care Provider Unavail able [facility], [facility] Primary Care Provider Unavailabl Naun Artis MD Primary Care Provider Unavail able Ольга Jewell MD Primary Care Provider Rhoda Rangel MD Unavailable Unavailable Brenden Villa DPM Unavailable [phone] Piedad Bowens MD Unavailable [phone] Marcos Weiss DO Unavailable Unavailable Xochitl Machado MD Unavailable [phone] Encounter Details Date Type Department Care Team Description 03/18/2015 Fur Matcher Report Medical Records [address] [place] [address] Angel Avendano Social History Tobacco Use Types [...] on filedocumented in this encounter Care Teams Customer Data Technician Relationship Specialty Start Date End Date Naun Garcia MD PCP - General Internal Medicine 10/27/13 10/27/21 [facility], [facility] PCP - General Internal Medicine 10/28/21 11/27/21 Naun Garcia MD PCP - General Internal Medicine 11/28/21 12/13/21 Ольга Jewell MD [address] [place] [address] PCP - General Internal Medicine 12/14/21 Rhoda Rangel MD [address] [place] [address] Referring Physician Allergy & Immunology 06/16/22 Brenden Villa DPM [address] [address] Podiatry 06/16/22 Piedad Bowens MD [address] [address] ORTHOPEDICS 06/16/22 Marcos Weiss DO [address] [address] Specialist Physiatry 12/15/22 Xochitl Machado MD [address] [address] Sports Medicine Int Med 12/15/22 Peter Cummings Specialist Gastroenterology 06/16/22 Evi Carpio Specialist PSYCHIATRY 06/16/22 elder duke Specialist Optometry 12/18/23 documented as of this encounter
--- OUTSIDE RECORDS SUMMARY | 2024-09-23 13:23 | XMS_ITS | Encounter Summary ---
Author Organization [facility] Address [address] [place] [address] Care Team Providers Care Lap Welder Name Role Phone Naun Garcia MD Primary Care Provider Unavail able [facility], [facility] Primary Care Provider Unavailabl Naun Artis MD Primary Care Provider Unavail able Ольга Jewell MD Primary Care Provider Rhoda Rangel MD Unavailable Unavailable Brenden Villa DPM Unavailable [phone] Piedad Bowens MD Unavailable [phone] Marcos Weiss DO Unavailable Unavailable Xochitl Machado MD Unavailable [phone] Encounter Details Date Type Department Care Team Description 06/17/2018 Director Retail Brand Development Report Medical Records [address] [place] [address] Dereck Wheatley Social History Tobacco Use Types Packs/Day Years [...] on filedocumented in this encounter Care Teams Lap Welder Relationship Specialty Start Date End Date Naun Garcia MD PCP - General Internal Medicine 10/27/13 10/27/21 [facility], [facility] PCP - General Internal Medicine 10/28/21 11/27/21 Naun Garcia MD PCP - General Internal Medicine 11/28/21 12/13/21 Ольга Jewell MD [address] [place] [address] PCP - General Internal Medicine 12/14/21 Rhoda Rangel MD [address] [place] [address] Referring Physician Allergy & Immunology 06/16/22 Brenden Villa DPM [address] [address] Podiatry 06/16/22 Piedad Bowens MD [address] [address] ORTHOPEDICS 06/16/22 Marcos Weiss DO [address] [address] Specialist Physiatry 12/15/22 Xochitl Machado MD [address] [address] Sports Medicine Int Med 12/15/22 Peter Cummings Specialist Gastroenterology 06/16/22 Evi Carpio Specialist PSYCHIATRY 06/16/22 elder duke Specialist Optometry 12/18/23 documented as of this encounter
--- OUTSIDE RECORDS SUMMARY | 2024-09-23 13:23 | XMS_ITS | Encounter Summary ---
Author Organization [facility] Address [address] [place] [address] Care Team Providers Care Stock Crane Operator Name Role Phone Naun Garcia MD Primary Care Provider Unavail able [facility], [facility] Primary Care Provider Unavailabl Naun Artis MD Primary Care Provider Unavail able Ольга Jewell MD Primary Care Provider Rhoda Rangel MD Unavailable Unavailable Brenden Villa DPM Unavailable [phone] Piedad Bowens MD Unavailable [phone] Marcos Weiss DO Unavailable Unavailable Xochitl Machado MD Unavailable [phone] Encounter Details Date Type Department Care Team Description 10/21/2015 Cell Liner Report Medical Records [address] [place] [address] Abstract, Provider Social History Tobacco Use Types [...] on filedocumented in this encounter Care Teams Stock Crane Operator Relationship Specialty Start Date End Date Naun Garcia MD PCP - General Internal Medicine 10/27/13 10/27/21 [facility], [facility] PCP - General Internal Medicine 10/28/21 11/27/21 Naun Garcia MD PCP - General Internal Medicine 11/28/21 12/13/21 Ольга Jewell MD [address] [place] [address] PCP - General Internal Medicine 12/14/21 Rhoda Rangel MD [address] [place] [address] Referring Physician Allergy & Immunology 06/16/22 Brenden Villa DPM [address] [address] Podiatry 06/16/22 Piedad Bowens MD [address] [address] ORTHOPEDICS 06/16/22 Marcos Weiss DO [address] [address] Specialist Physiatry 12/15/22 Xochitl Machado MD [address] [address] Sports Medicine Int Med 12/15/22 Peter Cummings Specialist Gastroenterology 06/16/22 Evi Carpio Specialist PSYCHIATRY 06/16/22 elder duke Specialist Optometry 12/18/23 documented as of this encounter
--- OUTSIDE RECORDS SUMMARY | 2024-09-23 13:23 | XMS_ITS | Encounter Summary ---
Author Organization [facility] Address [address] [place] [address] Care Team Providers Care Welding Machine Feeder Name Role Phone Naun Garcia MD Primary Care Provider Unavail able [facility] Primary Care Provider Unavailabl Naun Artis MD Primary Care Provider Unavail able Ольга Jewell MD Primary Care Provider Rhoda Rangel MD Unavailable Unavailable Brenden Villa DPM Unavailable [phone] Piedad Bowens MD Unavailable [phone] Marcos Weiss DO Unavailable Unavailable Xochitl Machado MD Unavailable [phone] Encounter Details Date Type Department Care Team Description 10/30/2014 Cable Assembler And Swager Report Medical Records [address] [place] [address] Abstract, Provider Social History Tobacco Use Types [...] on filedocumented in this encounter Care Teams Welding Machine Feeder Relationship Specialty Start Date End Date Naun Garcia MD PCP - General Internal Medicine 10/27/13 10/27/21 [facility] PCP - General Internal Medicine 10/28/21 11/27/21 Naun Garcia MD PCP - General Internal Medicine 11/28/21 12/13/21 Ольга Jewell MD [address] [place] [address] PCP - General Internal Medicine 12/14/21 Rhoda Rangel MD [address] [place] [address] Referring Physician Allergy & Immunology 06/16/22 Brenden Villa DPM [address] [address] Podiatry 06/16/22 Piedad Bowens MD [address] [address] ORTHOPEDICS 06/16/22 Marcos Weiss DO [address] [address] Specialist Physiatry 12/15/22 Xochitl Machado MD [address] [address] Sports Medicine Int Med 12/15/22 Peter Cummings Specialist Gastroenterology 06/16/22 Evi Carpio Specialist PSYCHIATRY 06/16/22 elder duke Specialist Optometry 12/18/23 documented as of this encounter
--- OUTSIDE RECORDS SUMMARY | 2024-09-23 13:23 | XMS_ITS | Encounter Summary ---
Author Organization [facility] Address [address] [place] [address] Care Team Providers Care Candy Maker Helper Name Role Phone Naun Garcia MD Primary Care Provider Unavail able [facility] Primary Care Provider Unavailabl Naun Artsi MD Primary Care Provider Unavail able Ольга Jewell MD Primary Care Provider Rhoda Rangel MD Unavailable Unavailable Brenden Villa DPM Unavailable [phone] Piedad Bowens MD Unavailable [phone] Marcos Weiss DO Unavailable Unavailable Xochitl Machado MD Unavailable [phone] Encounter Details Date Type Department Care Team Description 07/28/2014 Intranet Developer Report Medical Records [address] [place] [address] Angel Benavidez MD Social History Tobacco Use [...] on filedocumented in this encounter Care Teams Candy Maker Helper Relationship Specialty Start Date End Date Naun Garcia MD PCP - General Internal Medicine 10/27/13 10/27/21 [facility] PCP - General Internal Medicine 10/28/21 11/27/21 Naun Garcia MD PCP - General Internal Medicine 11/28/21 12/13/21 Ольга Jewell MD [address] [place] [address] PCP - General Internal Medicine 12/14/21 Rhoda Rangel MD [address] [place] [address] Referring Physician Allergy & Immunology 06/16/22 Brenden Villa DPM [address] [address] Podiatry 06/16/22 Piedad Bowens MD [address] [address] ORTHOPEDICS 06/16/22 Marcos Weiss DO [address] [address] Specialist Physiatry 12/15/22 Xochitl Machado MD [address] [address] Sports Medicine Int Med 12/15/22 Peter Cummings Specialist Gastroenterology 06/16/22 Evi Carpio Specialist PSYCHIATRY 06/16/22 elder duke Specialist Optometry 12/18/23 documented as of this encounter
--- OUTSIDE RECORDS SUMMARY | 2024-09-23 13:23 | XMS_ITS | Encounter Summary ---
Author Organization [facility] Address [address] [place] [address] Care Team Providers Care Bar Staff Name Role Phone Naun Garcia MD Primary Care Provider Unavail able [facility] Primary Care Provider Unavailabl Naun Artis MD Primary Care Provider Unavail able Ольга Jewell MD Primary Care Provider Rhoda Rangel MD Unavailable Unavailable Brenden Villa DPM Unavailable [phone] Piedad Bowens MD Unavailable [phone] Marcos Weiss DO Unavailable Unavailable Xochitl Machado MD Unavailable [phone] Encounter Details Date Type Department Care Team Description 12/31/2017 [facility] Medical Records [address] [place] [address] Abstract, Provider Social History Tobacco Use Types [...] on filedocumented in this encounter Care Teams Bar Staff Relationship Specialty Start Date End Date Naun Garcia MD PCP - General Internal Medicine 10/27/13 10/27/21 [facility], Pcp PCP - General Internal Medicine 10/28/21 11/27/21 Naun Garcia MD PCP - General Internal Medicine 11/28/21 12/13/21 Ольга Jewell MD [address] [place] [address] PCP - General Internal Medicine 12/14/21 Rhoda Rangel MD [address] [place] [address] Referring Physician Allergy & Immunology 06/16/22 Brenden Villa DPM [address] [address] Podiatry 06/16/22 Piedad Bowens MD [address] [address] ORTHOPEDICS 06/16/22 Marcos Weiss DO [address] [address] Specialist Physiatry 12/15/22 Xochitl Machado MD [address] [address] Sports Medicine Int Med 12/15/22 Peter Cummings Specialist Gastroenterology 06/16/22 Evi Carpio Specialist PSYCHIATRY 06/16/22 elder duke Specialist Optometry 12/18/23 documented as of this encounter
--- OUTSIDE RECORDS SUMMARY | 2024-09-23 13:23 | XMS_ITS | Encounter Summary ---
Author Organization [facility] Address [address] [place] [address] Care Team Providers Care Turning Machine Set Up Operator Name Role Phone Naun Garcia MD Primary Care Provider Unavail able [facility], [facility] Primary Care Provider Unavailabl Naun Artis MD Primary Care Provider Unavail able Ольга Jewell MD Primary Care Provider Rhoda Rangel MD Unavailable Unavailable Brenden Villa DPM Unavailable [phone] Piedad Bowens MD Unavailable [phone] Marcos Weiss DO Unavailable Unavailable Xochitl Machado MD Unavailable [phone] Encounter Details Date Type Department Care Team Description 07/01/2015 Sole Layer Report Medical Records [address] [place] [address] Angel Benavidez MD Social History Tobacco Use [...] on filedocumented in this encounter Care Teams Turning Machine Set Up Operator Relationship Specialty Start Date End Date Naun Garcia MD PCP - General Internal Medicine 10/27/13 10/27/21 [facility], [facility] PCP - General Internal Medicine 10/28/21 11/27/21 Naun Garcia MD PCP - General Internal Medicine 11/28/21 12/13/21 Ольга Jewell MD [address] [place] [address] PCP - General Internal Medicine 12/14/21 Rhoda Rangel MD [address] [place] [address] Referring Physician Allergy & Immunology 06/16/22 Brenden Villa DPM [address] [address] Podiatry 06/16/22 Piedad Bowens MD [address] [address] ORTHOPEDICS 06/16/22 Marcos Weiss DO [address] [address] Specialist Physiatry 12/15/22 Xochitl Machado MD [address] [address] Sports Medicine Int Med 12/15/22 Peter Cummings Specialist Gastroenterology 06/16/22 Evi Carpio Specialist PSYCHIATRY 06/16/22 elder duke Specialist Optometry 12/18/23 documented as of this encounter
--- OUTSIDE RECORDS SUMMARY | 2024-09-23 13:23 | XMS_ITS | Encounter Summary ---
Author Organization [facility] Address [address] [place] [address] Care Team Providers Care Hospice Chaplain Name Role Phone Naun Garcia MD Primary Care Provider Unavail able [facility], Pcp Primary Care Provider Unavailabl e Naun Garcia MD Primary Care Provider Unavail able Ольга Jewell MD Primary Care Provider Rhoda Rangel MD Unavailable Unavailable Brenden Villa DPM Unavailable [phone] Piedad Bowens MD Unavailable [phone] Marcos Weiss DO Unavailable Unavailable Xochitl Machado MD Unavailable [phone] Reason for Visit * Reason Comments E-prescribe Rx Request Encounter Details Date Type Department Care Team Description 08/16/2014 Refill Medicine/Pediatrics [address] [id number] Naun Garcia MD E-prescribe Rx Request Social History Tobacco Use Types Packs/Day Years [...] encounter Miscellaneous Notes * Telephone Encounter - Roselia-Cyndee Goyal M.A. - 08/21/2014 3:13 PM EDT PER LAST OFFICE VISIT NOTES PATIENT IS ON 2 TABLETS TWICE DAILY * Telephone Encounter - Mayelin Capps L.P.N. - 08/17/2014 2:07 PM EDT Message left to call back triage nurse.Need to verify dose of med. * Telephone Encounter - La Stern - 08/17/2014 1:31 PM EDT Patient would like script to be: E-PRESCRIBED/FAXED TO PHARMACY WHEN WAS THE PATIENT'S LAST APPOINTMENT IN ADULT MEDICINE? 08/14/14 WHEN WAS THE LAST TIME THE PATIENT SAW THEIR PCP? Same as above Does patient have an upcoming appointment? No-patient refused appointment, will call back to book appointment (THE MEDICATION REQUESTED IS ON THE MED LIST ABOVE) All of the medications requested were on the CURRENT MEDS list Did you check the Pharmacy information above?: YES Patient wants: 30 -day supply Is this a mail order prescription request ? NO Patients current insurance carrier is: Payor: [employer] / Plan: [facility] TYPE II $10/$18 / Product Type: HMO [id number] documented in this encounter Plan of Treatment Not on file documented as of this encounter Visit Diagnoses Not on filedocumented in this encounter Care Teams Hospice Chaplain Relationship Specialty Start Date End Date Naun Garcia MD PCP - General Internal Medicine 10/27/13 10/27/21 [facility] PCP - General Internal Medicine 10/28/21 11/27/21 Naun Garcia MD PCP - General Internal Medicine 11/28/21 12/13/21 Ольга Jewell MD [address] [place] [address] PCP - General Internal Medicine 12/14/21 Rhoda Rangel MD [address] [place] [address] Referring Physician Allergy & Immunology 06/16/22 Brenden Villa DPM [address] [address] Podiatry 06/16/22 Piedad Bowens MD [address] [address] ORTHOPEDICS 06/16/22 Marcos Weiss DO [address] [address] Specialist Physiatry 12/15/22 Xochitl Machado MD [address] [address] Sports Medicine Int Med 12/15/22 Peter Cummings Specialist Gastroenterology 06/16/22 Evi Carpio Specialist PSYCHIATRY 06/16/22 elder duke Specialist Optometry 12/18/23 documented as of this encounter
--- OUTSIDE RECORDS SUMMARY | 2024-09-23 13:23 | XMS_ITS | Encounter Summary ---
Author Organization [facility] Address [address] [place] [address] Care Team Providers Care Mechanic Recovery Name Role Phone Naun Garcia MD Primary Care Provider Unavail able [facility], [facility] Primary Care Provider Unavailabl Naun Artis MD Primary Care Provider Unavail able Ольга Jewell MD Primary Care Provider Rhoda Rangel MD Unavailable Unavailable Brenden Villa DPM Unavailable [phone] Piedad Bowens MD Unavailable [phone] Marcos Weiss DO Unavailable Unavailable Xochitl Machado MD Unavailable [phone] Encounter Details Date Type Department Care Team Description 09/09/2018 Release of Information Medical Records [address] [place] [id number] Abstract, Provider Social History Tobacco Use Types [...] on filedocumented in this encounter Care Teams Mechanic Recovery Relationship Specialty Start Date End Date Naun Garcia MD PCP - General Internal Medicine 10/27/13 10/27/21 [facility], Pcp PCP - General Internal Medicine 10/28/21 11/27/21 Naun Garcia MD PCP - General Internal Medicine 11/28/21 12/13/21 Ольга Jewell MD [address] [place] [address] PCP - General Internal Medicine 12/14/21 Rhoda Rangel MD [address] [place] [address] Referring Physician Allergy & Immunology 06/16/22 Brenden Villa DPM [address] [address] Podiatry 06/16/22 Piedad Bowens MD [address] [address] ORTHOPEDICS 06/16/22 Marcos Weiss DO [address] [address] Specialist Physiatry 12/15/22 Xochitl Machado MD [address] [address] Sports Medicine Int Med 12/15/22 Peter Cummings Specialist Gastroenterology 06/16/22 Evi Carpio Specialist PSYCHIATRY 06/16/22 elder duke Specialist Optometry 12/18/23 documented as of this encounter
--- OUTSIDE RECORDS SUMMARY | 2024-09-23 13:23 | XMS_ITS | Encounter Summary ---
Author Organization [facility] Address [address] [place] [address] Care Team Providers Care Heater Helper Name Role Phone Naun Garcia MD Primary Care Provider Unavail able [facility], Pcp Primary Care Provider Unavailabl Naun Artis MD Primary Care Provider Unavail able Ольга Jewell MD Primary Care Provider Rhoda Rangel MD Unavailable Unavailable Brenden Villa DPM Unavailable [phone] Piedad Bowens MD Unavailable [phone] Marcos Weiss DO Unavailable Unavailable Xochitl Machado MD Unavailable [phone] Reason for Visit * Reason Onset Date Comments medication problems 08/02/2020 non formular y Encounter Details Date Type Department Care Team Description 08/02/2020 Telephone Allergy [place] [address] [place] [address] Rhoda Rangel MD medication problems (non formulary) Social History Tobacco Use Types Packs/Day Years Used Date Smoking Tobacco: Never Cigarettes Smokeless Tobacco: Never Alcohol Use Standard Drinks/Week Comments Yes 0 (1 standard drink = 0.6 oz pur e alcohol) occasional Sex Assigned at Date Recorded Female 04/25/2019 2:[address] Job Start Date Occupation Industry Not on file Not on file Not on file COVID-19 Exposure Response Date Recorded In the last month, have you been in contact with someone who was confirmed or suspected to have Coronavirus / COVID-19? No / Unsure 07/27/2020 2:15 PM EST documented as of this encounter Miscellaneous Notes * Telephone Encounter - Lakeisha Ortiz M.A. - 08/26/2020 1:52 PM EDT Called pharmacist on olopatadine nasal spray. Patient picked up for $1.00 Copayment. No prior authorization needed Telephone Information: Called patient and she has picked up nasal spray * Telephone Encounter - Rhoda Rangel MD - 08/02/2020 12:22 PM EST PA PLEASE, She has failed Azelastine * Telephone Encounter - Lori Garza LPN - 08/02/2020 10:14 AM EST Patient received a temporary supply of Olopatadine 0.6% gtts. This med is non formulary thru her plan. Alternative vs PA? documented in this encounter Plan of Treatment Not on file documented as of this encounter Visit Diagnoses Not on filedocumented in this encounter Care Teams Heater Helper Relationship Specialty Start Date End Date Naun Garcia MD PCP - General Internal Medicine 10/27/13 10/27/21 [facility], Pcp PCP - General Internal Medicine 10/28/21 11/27/21 Naun Garcia MD PCP - General Internal Medicine 11/28/21 12/13/21 Ольга Jewell MD [address] [place] [address] PCP - General Internal Medicine 12/14/21 Rhoda Rangel MD [address] [place] [address] Referring Physician Allergy & Immunology 06/16/22 Brenden Villa DPM [address] [address] Podiatry 06/16/22 Piedad Bowens MD [address] [address] ORTHOPEDICS 06/16/22 Marcos Weiss DO [address] [address] Specialist Physiatry 12/15/22 Xochitl Machado MD [address] [address] Sports Medicine Int Med 12/15/22 Peter Cummings Specialist Gastroenterology 06/16/22 Evi Carpio Specialist PSYCHIATRY 06/16/22 elder duke Specialist Optometry 12/18/23 documented as of this encounter
--- OUTSIDE RECORDS SUMMARY | 2024-09-23 13:23 | XMS_ITS | Encounter Summary ---
Author Organization [facility] [place] [address] Care Team Providers Care Meter Calibrator Name Role Phone Ольга Jewell MD Primary Care Provider Encounter Details Date Type Department Care Team (Late st Contact Info) Description 09/18/2024 Telephone Gastroenterology - [place] [address] [facility] [address] [place] [address] [place] Social History Tobacco Use Types Packs/Day Years [...] your loved ones. For example, child support investigator or elderly care for an older adult? [...] 2:30 PM EDT Appointment Radiology Department - [address] [address] 10/02/2024 2:50 PM EDT Appointment Radiology Department - [address] [address] 10/15/2024 11:00 AM EDT Office Visit Gastroenterology - [place] [address] [place] [address] Felicitas Torres NP 175 [facility] 200 [place] [address] 12/08/2024 2:45 PM EDT Office Visit Adult Medicine - [place] [address] [place] [address] Mauricio Strauss, PA [address] [place] [address] documented as of this encounter Visit Diagnoses Not on filedocumented in this encounter Additional Health Concerns Assessment Noted Time PHQ-9 Depression Total Score: 12 024 10:34 AM EST documented as of this encounter Care Teams Meter Calibrator Relationship Specialty Start Date End Date Ольга Jewell MD 101 [facility] [address] [place] [address] PCP - General Internal Medicine 12/14/21 documented as of this encounter
--- OUTSIDE RECORDS SUMMARY | 2024-09-23 13:23 | XMS_ITS | Encounter Summary ---
Author Organization [facility] Address [address] [place] [address] Care Team Providers Care Corn Cooker Name Role Phone Naun Garcia MD Primary Care Provider Unavail able [facility] Pcp Primary Care Provider Unavailabl Naun Artis MD Primary Care Provider Unavail able Ольга Jewell MD Primary Care Provider Rhoda Rangel MD Unavailable Unavailable Brenden Villa DPM Unavailable [phone] Piedad Bowens MD Unavailable [phone] Marcos Weiss DO Unavailable Unavailable Xochitl Machado MD Unavailable [phone] Encounter Details Date Type Department Care Team Description 09/21/2018 Hospital Medical Records [address] [place] [address] Favian Ramos MD Social History Tobacco Use Types Packs/Day [...] on filedocumented in this encounter Care Teams Corn Cooker Relationship Specialty Start Date End Date Naun Garcia MD PCP - General Internal Medicine 10/27/13 10/27/21 [facility] Pcp PCP - General Internal Medicine 10/28/21 11/27/21 Naun Garcia MD PCP - General Internal Medicine 11/28/21 12/13/21 Ольга Jewell MD [address] [place] [address] PCP - General Internal Medicine 12/14/21 Rhoda Rangel MD [address] [place] [address] Referring Physician Allergy & Immunology 06/16/22 Brenden Villa DPM [address] [address] Podiatry 06/16/22 Piedad Bowens MD [address] [address] ORTHOPEDICS 06/16/22 Marcos Weiss DO [address] [address] Specialist Physiatry 12/15/22 Xochitl Machado MD [address] [address] Sports Medicine Int Med 12/15/22 Peter Cummings Specialist Gastroenterology 06/16/22 Evi Carpio Specialist PSYCHIATRY 06/16/22 elder duke Specialist Optometry 12/18/23 documented as of this encounter
--- OUTSIDE RECORDS SUMMARY | 2024-09-23 13:23 | XMS_ITS | Encounter Summary ---
Author Organization [facility] Address [address] [place] [address] Care Team Providers Care Steward/Stewardess Second Name Role Phone Naun Garcia MD Primary Care Provider Unavail able [facility], Pcp Primary Care Provider Unavailabl e Naun Garcia MD Primary Care Provider Unavail able Ольга Jewell MD Primary Care Provider [phone] Rhoda Rangel MD Unavailable Unavailable Brenden Villa DPM Unavailable Piedad Bowens MD Unavailable [phone] Marcos Weiss DO Unavailable Unavailable Xochitl Machado MD Unavailable [phone] Reason for Visit * Reason Onset Date Comments Urinary Frequency/Urgency/Burning 12/27/2017 Encounter Details Date Type Department Care Team Description 12/27/2017 Telephone Adult Medicine - [address] [address] Liliya Starr PA-C [address] [place], [place] [id number] Urinary Frequency/Urgency/Burnin g Social History Tobacco Use Types Packs/Day Years [...] encounter Miscellaneous Notes * Telephone Encounter - Freda Dacosta M.A. - 12/27/2017 12:11 PM EDT Called pt let her know she has uti, macrobid sent to pharmacy for treatment. Also pt wanted to let you know she [facility] * Telephone Encounter - Liliya Starr PA-C - 12/27/2017 12:03 PM EDT Patient has UTI. Going to treat with macrobid. Rx sent- naomi almanzar- please call and advise documented in this encounter Plan of Treatment Not on file documented as of this encounter Visit Diagnoses Diagnosis Urinary tract infection without hematuria, site unspecified- Primary documented in this encounter Care Teams Steward/Stewardess Second Relationship Specialty Start Date End Date Naun Garcia MD PCP - General Internal Medicine 10/27/13 10/27/21 [facility] PCP - General Internal Medicine 10/28/21 11/27/21 Naun Garcia MD PCP - General Internal Medicine 11/28/21 12/13/21 Ольга Jewell MD [address] [place] [address] PCP - General Internal Medicine 12/14/21 Rhoda Rangel MD [address] [place], [place] Referring Physician Allergy & Immunology 06/16/22 Brenden Villa DPM [address] [address] Podiatry 06/16/22 Piedad Bowens MD [address] [address] ORTHOPEDICS 06/16/22 Marcos Weiss DO [address] [address] Specialist Physiatry 12/15/22 Xochitl Machado MD [address] [address] Sports Medicine Int Med 12/15/22 Peter Cummings Specialist Gastroenterology 06/16/22 Evi Carpio Specialist PSYCHIATRY 06/16/22 elder duke Specialist Optometry 12/18/23 documented as of this encounter
--- OUTSIDE RECORDS SUMMARY | 2024-09-23 13:23 | XMS_ITS | Encounter Summary ---
Author Organization [facility] Address [address] [place] [address] Care Team Providers Care Dry Kiln Operator Helper Name Role Phone Ольга Jewell MD Primary Care Provider Rhdoa Rangel MD Unavailable Unavailable Brenden Villa DPM Unavailable [phone] Piedad Bowens MD Unavailable [phone] Marcos Weiss DO Unavailable Unavailable Xochitl Machado MD Unavailable [phone] Encounter Details Date Type Department Care Team Description 08/30/2022 SCAN [facility] [address] [address] [place] [address] Garcia Sweeney MD 175 [facility] [address] [place], [place] [id number] Social History Tobacco Use Types Packs/Day Years [...] Exposure Response Date Recorded In the last 10 days, have yo u been in contact with someone who was confirmed or suspected to have Coronavirus/COVID-19? No / Unsure 08/29/2022 10:42 AM EDT documented as of this encounter Plan of Treatment Not on file documented as of this encounter Visit Diagnoses Not on filedocumented in this encounter Care Teams Dry Kiln Operator Helper Relationship Specialty Start Date End Date Ольга Jewell MD [address] [place] [address] PCP - General Internal Medicine 12/14/21 Rhoda Rangel MD [address] [place] [address] Referring Physician Allergy & Immunology 06/16/22 Brenden Villa DPM [address] [address] Podiatry 06/16/22 Piedad Bowens MD [address] [address] ORTHOPEDICS 06/16/22 Marcos Weiss DO [address] [address] Specialist Physiatry 12/15/22 Xochitl Machado MD [address] [address] Sports Medicine Int Med 12/15/22 Peter Cummings Specialist Gastroenterology 06/16/22 Evi Carpio Specialist PSYCHIATRY 06/16/22 elder duke Specialist Optometry 12/18/23 documented as of this encounter
--- OUTSIDE RECORDS SUMMARY | 2024-09-23 13:23 | XMS_ITS | Encounter Summary ---
Author Organization [facility] Address [address] [place] [address] Care Team Providers Care Return To Service Inspector Name Role Phone Naun Garcia MD Primary Care Provider Unavail able [facility], Pcp Primary Care Provider Unavailabl e Naun Garcia MD Primary Care Provider Unavail able Ольга Jewell MD Primary Care Provider [phone] Rhoda Rangel MD Unavailable Unavailable Brenden Villa DPM Unavailable [phone] Piedad Bowens MD Unavailable [phone] Marcos Weiss DO Unavailable Unavailable Xochitl Machado MD Unavailable [phone] Reason for Visit * Reason Onset Date Comments Prior Authorization 05/14/2020 Encounter Details Date Type Department Care Team Description 05/14/2020 Telephone Allergy [place] [address] [place] [id number] Rhoda Rangel MD Prior Authorization Social History Tobacco Use Types Packs/Day Years [...] have Coronavirus / COVID-19? No / Unsure 05/17/2020 3:16 PM EST documented as of this encounter Miscellaneous Notes * Telephone Encounter - Lissy Siddiqui M.A. - 05/17/2020 12:48 PM EST Approval for Budesonide-Flormoterol 160-4.5. Approved from 05/17/2020-06/10/2021. [facility] notified by fax. * Telephone Encounter - Lissy Siddiqui M.A. - 05/17/2020 12:14 PM EST Prior authorization done on [employer] for Budesonide formotoral (Symbicort) 160-4.5 inhaler. Patient had side effects from Arnuity Ellipta. Patient has lactose intolerance and has developed Paradoxical Bronchospasm with use of the DPI inhaler. Since patient is coughing worse after use of DPI Phyician would lke an HFA prescribed. * Telephone Encounter - Rhoda Rangel MD - 05/17/2020 11:12 AM EST Patient has lactose intolerance and has developed paradoxical bronchospasm with the use of the DPI inhaler. It is noted on allergy table Since she is coughing worse after use of DPI, would like an HFA prescribed * Telephone Encounter - Lissy Siddiqui M.A. - 05/17/2020 10:55 AM EST Patients insurance wants to know why patient is unable to use Advair diskus, Adviar HFA, Breo Ellipta, Anoro Ellipta, Fluticasone/Salmeterol (Generic airduo) or Trelegy Ellipta? Please advise, Lissy Krause Prior Authorization Dept Ext [phone] Fax [phone] * Telephone Encounter - Lori Garza LPN - 05/14/2020 2:58 PM EST Please process a PA. The patient tried and failed on Arnuity Ellipta. Thank you. * Telephone Encounter - Sidra Wayne - 05/14/2020 2:49 PM EST Prior Authorization for Medication-do not complete and send this encounter unless you have the fax from the pharmacy. Is this a Cover My Meds request: [place] of Medication budeesonide/form Dose of Medication 160/4.5 mcg What is the RX # from the faxed refill? [id number] How does patient take this med? inhaler What Pharmacy did the fax come from: [facility] fax #: [phone] [employer] Information from fax: What Prescription Plan does the patient have? na BIN/PCN if applicable: na Cardholder ID:na Person Code: na Relationship Code: na Help desk phone: [phone] documented in this encounter Plan of Treatment Not on file documented as of this encounter Visit Diagnoses Not on filedocumented in this encounter Care Teams Return To Service Inspector Relationship Specialty Start Date End Date Naun Garcia MD PCP - General Internal Medicine 10/27/13 10/27/21 [facility] PCP - General Internal Medicine 10/28/21 11/27/21 Naun Garcia MD PCP - General Internal Medicine 11/28/21 12/13/21 Ольга Jewell MD [address] [place] [address] PCP - General Internal Medicine 12/14/21 Rhoda Rangel MD [address] [place], [place] Referring Physician Allergy & Immunology 06/16/22 Brenden Villa DPM [address] [address] Podiatry 06/16/22 Piedad Bowens MD [address] [address] ORTHOPEDICS 06/16/22 Marcos Weiss DO [address] [address] Specialist Physiatry 12/15/22 Xochitl Machado MD [address] [address] Sports Medicine Int Med 12/15/22 Peter Cummings Specialist Gastroenterology 06/16/22 Evi Carpio Specialist PSYCHIATRY 06/16/22 elder duke Specialist Optometry 12/18/23 documented as of this encounter
--- OUTSIDE RECORDS SUMMARY | 2024-09-23 13:23 | XMS_ITS | Encounter Summary ---
Author Organization [facility] Address [address] [place] [address] Care Team Providers Care Help Desk Operator Name Role Phone Naun Garcia MD Primary Care Provider Unavail able [facility] Primary Care Provider Unavailabl Naun Artis MD Primary Care Provider Unavail able Ольга Jewell MD Primary Care Provider Rhoda Rangel MD Unavailable Unavailable Brenden Villa DPM Unavailable [phone] Piedad Bowens MD Unavailable [phone] Marcos Weiss DO Unavailable Unavailable Xochitl Machado MD Unavailable [phone] Encounter Details Date Type Department Care Team Description 07/01/2015 Mobile Home Servicer Report Medical Records [address] [place] [id number] Angel Benavidez MD Social History Tobacco Use [...] on filedocumented in this encounter Care Teams Help Desk Operator Relationship Specialty Start Date End Date Naun Garcia MD PCP - General Internal Medicine 10/27/13 10/27/21 [facility] PCP - General Internal Medicine 10/28/21 11/27/21 Naun Garcia MD PCP - General Internal Medicine 11/28/21 12/13/21 Ольга Jewell MD [address] [place] [address] PCP - General Internal Medicine 12/14/21 Rhoda Rangel MD [address] [place] [address] Referring Physician Allergy & Immunology 06/16/22 Brenden Villa DPM [address] [address] Podiatry 06/16/22 Piedad Bowens MD [address] [address] ORTHOPEDICS 06/16/22 Marcos Weiss DO [address] [address] Specialist Physiatry 12/15/22 Xochitl Machado MD [address] [address] Sports Medicine Int Med 12/15/22 Peter Cummings Specialist Gastroenterology 06/16/22 Evi Carpio Specialist PSYCHIATRY 06/16/22 elder duke Specialist Optometry 12/18/23 documented as of this encounter
--- OUTSIDE RECORDS SUMMARY | 2024-09-23 13:23 | XMS_ITS | Encounter Summary ---
Author Organization [facility] [place] [address] Care Team Providers Care Orthotic Assistant Name Role Phone Ольга Jewell MD Primary Care Provider Reason for Visit * Imaging (Routine) - Authorized Specialty Diagnoses / Procedures Referred By Francisco monterroso Referred To Contact Radiology Diagnoses Encounter for screening mammogram for breast cancer Procedures MG Mammo Digital Screening w Yahir bilat MG Mammo Digital Screening w Yahir bilat MG Mammo Digital Screening w Yahir bilat Elida Pavon, [facility] [address] [place] [address] Phone: tel: fax: [facility] Referral ID Status Reason Start Date Expiration Date V isits Requested Visits Authorized [id number] Authorized 03/27/2024 03/27/2025 1 1 Encounter Details Date Type Department Care Team (Latest Contact Info) Description 09/20/2024 2:00 PM EDT - 09/20/2024 11:59 PM EDT Hospital Encounter Radiology Department - [address] [address] Encounter for screening mammogram for breast cancer Discharge Disposition: Home or Self Care Social History Tobacco Use Types Packs/Day Years [...] for your loved ones. For example, child adolescent care or elderly care for an older adult? [...] on file documented as of this encounter Medications at Time of Discharge acetaminophen (TYLENOL 8 HOUR) 650 mg 8 hr tablet Take 1 Tab by mouth every 8 hours as needed for Pain. 12/02/2018 albuterol HFA (PROAIR HFA ; PROVENTIL HFA ; VENTOLIN HFA) 90 mcg/actuation inhaler INHALE 2 PUFFS INTO THE LUNGS EVERY 6 HOURS NEEDED FOR COUGH OR WHEEZING 05/17/2023 amitriptyline (ELAVIL) 10 mg tablet TAKE 1 TABLET BY MOUTH AT BEDTIME 30 tablet 11 04/28/2024 amLODIPine (NORVASC) 5 mg tablet TAKE 1 TABLET BY MOUTH DAILY 90 tablet 1 07/09/2024 budesonide-formo teroL (SYMBICORT) 160-4.5 mcg/actuation inhaler Inhale 2 Puffs into the lungs 2 times daily. 08/17/2020 budesonide-formo teroL (SYMBICORT) 80-4.5 mcg/actuation inhaler Inhale 2 puffs by mouth every 12 (twelve) hours if needed. 07/14/2024 celecoxib (CeleBREX) 100 mg capsuleIndicatio ns:Fibromyalgia Take 1 capsule (100 mg total) by mouth 2 (two) times a day. 60 each 09/08/2024 cetirizine (ZyrTEC) 10 mg tablet Take 1 tablet (10 mg total) by mouth 1 (one) time each day. 03/28/2021 clonazePAM (KlonoPIN) 0.5 mg tablet TAKE 1 TABLET BY MOUTH ONCE A DAY NEEDED FOR ANXIETY. MAY TAKE ADDITIONAL TABLET BY MOUTH NEEDED FOR SEVERE ANXIETY 10/31/2019 COQ10, UBIQUINOL, ORAL DwA90-Doicotynki -Carnosine 50-500-100 MG Cap 04/17/2023 cycloSPORINE 0.05 % drops Place 1 Drop into both eyes 2 times daily. Per opthal 04/17/2023 docusate sodium (COLACE) 100 mg capsule Take 1 capsule (100 mg total) by mouth 2 (two) times a day before meals. 60 capsule 5 05/15/2024 DULoxetine (CYMBALTA) [address] capsule Take 1 capsule (60 mg total) by mouth 1 (one) time each day. 02/22/2023 dupilumab (Dupixent Pen) 300 mg/2 mL pen 12/21/2023 EPINEPHrine (Auvi-Q) 0.3 mg/0.3 mL injection Inject 1 Device as directed as needed (anaphylaxis). Use as directed 07/03/2018 FLUoxetine (PROzac) 40 mg capsule Take 1 capsule (40 mg total) by mouth 1 (one) time each day in the morning. 02/22/2023 fluticasone propionate (FLONASE) 50 mcg/actuation nasal spray 1 TO 2 SPRAYS IN EACH NOSTRIL DAILY 12/02/2020 gabapentin (NEURONTIN) 300 mg capsule TAKE 1 CAPSULE BY MOUTH THREE TIMES DAILY 270 capsule 1 08/07/2024 glucosamine/fe rachel husain A/C/Mn (GLUCOSAMINE-CHO NDROIT-VIT C-MN ORAL) hydrOXYzine HCL (ATARAX) 25 mg tablet TAKE 1 TO 2 TABLETS BY MOUTH AT BEDTIME NEEDED FOR SLEEP 02/23/2023 ipratropium-albu teroL (DUONEB) 0.5-2.5 mg/3 mL nebulizer solution USE 3 ML VIA NEBULIZER EVERY 6 TO 8 HOURS NEEDED FOR WHEEZING 03/05/2023 olopatadine (PATANASE) 0.6 % spray,non-aeroso l nasal spray 2 Sprays by Nasal route 2 times daily. 03/30/2020 oxyCODONE-acetam inophen (PERCOCET) 5-325 mg per tablet Take 1 tablet by mouth every 4 (four) hours. pantoprazole (PROTONIX) 20 mg EC tablet TAKE 1 TABLET BY MOUTH DAILY- ON EMPTY STOMACH 12/26/2023 plecanatide (Trulance) 3 mg tablet TAKE 1 TABLET BY MOUTH DAILY 30 tablet 11 04/28/2024 polyethylene glycol (GoLYTELY) 236-22.74-6.74 -5.86 gram solution Take 240 mL by mouth once for 1 dose. Take 4L by mouth once for one dose. May substitue any PEG. Starting at 6PM the night before your procedure drink 1 8oz glasses at your own pace until rectals run clear. 10/09/2023 rhubarb root extract 4 mg tablet tiotropium (Spiriva Respimat) 2.5 mcg/actuation inhalation spray Inhale 1 Puff into the lungs daily. 08/17/2020 turmeric/turmeri c ext/pepr ext (turmeric-turmer ic ext-pepper) 900-100-5 mg capsule Take by mouth. 04/17/2023 valACYclovir (VALTREX) 500 mg tablet TAKE 1 TABLET BY MOUTH DAILY 90 tablet 1 06/13/2024 documented as of this encounter Discharge Disposition Disposition Code Departure Means Destination Home or Self Care documented in this encounter Plan of Treatment Upcoming Encounters Date Type Department Care Team (Late st Contact Info) Description 10/02/2024 2:30 PM EDT Appointment Radiology Department - [address] [address] 10/02/2024 2:50 PM EDT Appointment Radiology Department - [address] [address] 10/15/2024 11:00 AM EDT Office Visit Gastroenterology - [place] [address] [address] Felicitas Torres, LAURIE 175 [facility] [address] [place] [address] 12/08/2024 2:45 PM EDT Office Visit Adult Medicine - [place] [address] [place] [address] Mauricio Strauss PA [address] [place] [address] documented as of this encounter Procedures Procedure Name Priority Date/Time Associated Diagnosis Comments MG MAMMO DIGITAL SCREENING W YAHIR BILAT Routine 09/20/2024 2:16 PM EDT Encounter for screening mammogram for breast cancer documented in this encounter Results * (ABNORMAL) MG Mammo Digital Screening [...] MLO spot compression, targeted ultrasound Mammo Location: [facility], [address] [place] [address], [address], . -------- FINAL REPORT -------- Dictated By: August Owen Dictated Date: 09/22/2024 19:40 ET Assigned Physician: August Owen Reviewed and Electronically Signed By: August Owen Signed Date: 09/22/2024 19:44 ET Workstation ID: [id number] Transcribed By: Self Edit Transcribed Date: 09/22/2024 [...] breast MLO spotcompression, targeted ultrasound Mammo Location: [facility], [address] [place] [address], [address], . -------- FINAL REPORT -------- Dictated By: August Owen Dictated Date: 09/22/2024 19:40 ET Assigned Physician: August Owen Reviewed and Electronically Signed By: August Owen Signed Date: 09/22/2024 19:44 ET Workstation ID: [id number] Transcribed By: Self Edit Transcribed Date: 09/22/2024 19:40 ET Elida Pavon CNM IMG BI PROCEDURES Final Result documented in this encounter Visit Diagnoses Diagnosis Encounter for screening mammogram for breast cancer documented in this encounter Additional Health Concerns Assessment Noted Time PHQ-9 Depression Total Score: 12 024 10:34 AM EST documented as of this encounter Care Teams Orthotic Assistant Relationship Specialty Start Date End Date Ольга Jewell MD [address] [place] [address] PCP - General Internal Medicine 12/14/21 documented as of this encounter
--- OUTSIDE RECORDS SUMMARY | 2024-09-23 13:24 | XMS_ITS | Encounter Summary ---
Author Organization [facility] Address [address] [place] [address] Care Team Providers Care Sheet Combining Operator Name Role Phone Naun Garcia MD Primary Care Provider Unavail able [facility], [facility] Primary Care Provider Unavailabl Naun Artis MD Primary Care Provider Unavail able Ольга Jewell MD Primary Care Provider Rhoda Rangel MD Unavailable Unavailable Brenden Villa DPM Unavailable [phone] Piedad Bowens MD Unavailable [phone] Marcos Weiss DO Unavailable Unavailable Xochitl Machado MD Unavailable [phone] Encounter Details Date Type Department Care Team Description 12/25/2016 Flour Worker Report Medical Records [address] [place] [address] Michael Horn Social History Tobacco Use Types Packs/Day Years Used Date Smoking Tobacco: Former Cigarettes 1 Q uit: 06/11/2003 Smokeless Tobacco: Never Comments:3 cigs daily Alcohol Use Standard Drinks/Week Comments No 0 (1 standard drink = 0.6 oz pur e alcohol) no etoh Sex Assigned at Date Recorded Female 04/25/2019 2:[address] Job Start Date Occupation Industry Not on file Not on file Not on file documented as of this encounter Plan of Treatment Not on file documented as of this encounter Visit Diagnoses Not on filedocumented in this encounter Care Teams Sheet Combining Operator Relationship Specialty Start Date End Date Naun Garcia MD PCP - General Internal Medicine 5/19/14 5/19/22 [facility], Pcp PCP - General Internal Medicine 10/28/21 11/27/21 Naun Garcia MD PCP - General Internal Medicine 11/28/21 12/13/21 Ольга Jewell MD [address] [place] [address] PCP - General Internal Medicine 12/14/21 Rhoda Rangel MD [address] [place] [address] Referring Physician Allergy & Immunology 06/16/22 Brenden Villa DPM [address] [address] Podiatry 06/16/22 Piedad Bowens MD [address] [address] ORTHOPEDICS 06/16/22 Marcos Weiss DO [address] [address] Specialist Physiatry 12/15/22 Xochitl Machado MD [address] [address] Sports Medicine Int Med 12/15/22 Peter Cummings Specialist Gastroenterology 06/16/22 Evi Carpio Specialist PSYCHIATRY 06/16/22 elder duke Specialist Optometry 12/18/23 documented as of this encounter
--- OUTSIDE RECORDS SUMMARY | 2024-09-23 13:24 | XMS_ITS | Encounter Summary ---
Author Organization [facility] Address [address] [place] [address] Care Team Providers Care Booking Police Officer Name Role Phone Naun Garcia MD Primary Care Provider Unavail able [facility], [facility] Primary Care Provider Unavailabl Naun Artis MD Primary Care Provider Unavail able Ольга Jewell MD Primary Care Provider [phone] Rhoda Rangel MD Unavailable Unavailable Brenden Villa DPM Unavailable [phone] Piedad Bowens MD Unavailable [phone] Marcos Weiss DO Unavailable Unavailable Xochitl Machado MD Unavailable [phone] Encounter Details Date Type Department Care Team Description 07/18/2017 Release of Information Medical Records [address] [place] [address] Abstract, Provider Social History Tobacco Use Types [...] on filedocumented in this encounter Care Teams Booking Police Officer Relationship Specialty Start Date End Date Naun Garcia MD PCP - General Internal Medicine 10/27/13 10/27/21 [facility], Pcp PCP - General Internal Medicine 10/28/21 11/27/21 Naun Garcia MD PCP - General Internal Medicine 11/28/21 12/13/21 Ольга Jewell MD [address] [place] [address] PCP - General Internal Medicine 12/14/21 Rhoda Rangel MD [address] [place] [address] Referring Physician Allergy & Immunology 06/16/22 Brenden Villa DPM [address] [address] Podiatry 06/16/22 Piedad Bowens MD [address] [address] ORTHOPEDICS 06/16/22 Marcos Weiss DO [address] [address] Specialist Physiatry 12/15/22 Xochitl Machado MD [address] [address] Sports Medicine Int Med 12/15/22 Peter Cummings Specialist Gastroenterology 06/16/22 Evi Carpio Specialist PSYCHIATRY 06/16/22 elder duke Specialist Optometry 12/18/23 documented as of this encounter
--- OUTSIDE RECORDS SUMMARY | 2024-09-23 13:24 | XMS_ITS | Encounter Summary ---
Author Organization [facility] Address [address] [place] [address] Care Team Providers Care Appellate Law Clerk Name Role Phone Ольга Jewell MD Primary Care Provider Rhoda Rangel MD Unavailable Unavailable Brenden Villa DPM Unavailable [phone] Piedad Bowens MD Unavailable [phone] Marcos Weiss DO Unavailable Unavailable Xochitl Machado MD Unavailable [phone] Reason for Visit * Reason Onset Date Comments Imaging Review 05/16/2023 R shoulder MRI / Book US GH R shoulder Injection Encounter Details Date Type Department Care Team Description 05/16/2023 Telephone [facility] [address] [place] [address] [place] [address] Kiah Aparicio APRN Imaging Review (R shoulder MRI / Book US GH R shoulder Injection) Social History Tobacco Use Types Packs/Day Years [...] suspected to have Coronavirus/COVID-19? No / Unsure 04/17/2023 1:12 PM EST documented as of this encounter Plan of Treatment Not on file documented as of this encounter Visit Diagnoses Not on filedocumented in this encounter Care Teams Appellate Law Clerk Relationship Specialty Start Date End Date Ольга Jewell MD [address] [place] [address] PCP - General Internal Medicine 12/14/21 Rhoda Rangel MD [address] [place] [address] Referring Physician Allergy & Immunology 06/16/22 Brenden Villa DPM [address] [address] Podiatry 06/16/22 Piedad Bowens MD [address] [address] ORTHOPEDICS 06/16/22 Marcos Weiss DO [address] [place] [address] Specialist Physiatry 12/15/22 Xochitl Machado MD [address] [facility] [address] [address] Sports Medicine Int Med 12/15/22 Peter Cummings Specialist Gastroenterology 06/16/22 Evi Carpio Specialist PSYCHIATRY 06/16/22 elder duke Specialist Optometry 12/18/23 documented as of this encounter
--- OUTSIDE RECORDS SUMMARY | 2024-09-23 13:24 | XMS_ITS | Encounter Summary ---
Author Organization [facility] Address [address] [place] [address] Care Team Providers Care Trademark Attorney Name Role Phone Naun Garcia MD Primary Care Provider Unavail able [facility], Pcp Primary Care Provider Unavailabl e Naun Garcia MD Primary Care Provider Unavail able Ольга Jewell MD Primary Care Provider Rhoda Rangel MD Unavailable Unavailable Brenden Villa DPM Unavailable [phone] Piedad Bowens MD Unavailable [phone] Marcos Weiss DO Unavailable Unavailable Xochitl Machado MD Unavailable [phone] Reason for Visit * Reason Onset Date Comments [facility] Call 10/04/2018 Encounter Details Date Type Department Care Team Description 10/04/2018 Telephone Adult Medicine B - [place] [address] [place] [address] Naun Garcia MD [facility] Call Social History Tobacco Use Types Packs/Day Years [...] encounter Miscellaneous Notes * Telephone Encounter - Chrissy Mathews R.N. - 10/04/2018 10:34 AM EDT DAISY, Spoke with OT verbal order given as requested. She is reporting pt had 2 near falls yesterday one she was staggering to the left a and some caughther, the next time her knee gave out and she fell in a chair. Pt felt she was tired,she had been going all day. Pt is has PT and therapist was notified as well. * Telephone Encounter - Chrissy Mathews R.N. - 10/04/2018 10:21 AM EDT I left a message for Radha REYES to return my call, to triage. * Telephone Encounter - Yajaira Antony - 10/04/2018 10:02 AM EDT [facility] CALL Which [facility] office is calling? [facility] Full name of caller: Radha Parra. The caller is An Occupational Therapist Is the caller at the patients home?: YES Reason for call: verbal order for Occupational Theraphy for 2x per weeks for 4 weeks Does caller need an urgent call back? YES Was CONTACT Telephone # obtained above?: YES Fax #: n/a documented in this encounter Plan of Treatment Not on file documented as of this encounter Visit Diagnoses Not on filedocumented in this encounter Care Teams Trademark Attorney Relationship Specialty Start Date End Date Naun Garcia MD PCP - General Internal Medicine 10/27/13 10/27/21 [facility] PCP - General Internal Medicine 10/28/21 11/27/21 Naun Garcia MD PCP - General Internal Medicine 11/28/21 12/13/21 Ольга Jewell MD [facility] [address] [place], [place] [id number] PCP - General Internal Medicine 12/14/21 Rhoda Rangel MD [address] [place] [address] Referring Physician Allergy & Immunology 06/16/22 Brenden Villa DPM [address] [address] Podiatry 06/16/22 Piedad Bowens MD [address] [address] ORTHOPEDICS 06/16/22 Marcos Weiss DO [address] [address] Specialist Physiatry 12/15/22 Xochitl Machado MD [address] [address] Sports Medicine Int Med 12/15/22 Peter Cummings Specialist Gastroenterology 06/16/22 Evi Carpio Specialist PSYCHIATRY 06/16/22 elder duke Specialist Optometry 12/18/23 documented as of this encounter
--- OUTSIDE RECORDS SUMMARY | 2024-09-23 13:24 | XMS_ITS | Encounter Summary ---
Author Organization [facility] Address [address] [place] [address] Care Team Providers Care Heel Attacher Wood Name Role Phone Ольга Jewell MD Primary Care Provider [phone] Rhoda Rangel MD Unavailable Unavailable Brenden Villa DPM Unavailable [phone] Piedad Bowens MD Unavailable [phone] Marcos Weiss DO Unavailable Unavailable Xochitl Machado MD Unavailable [phone] Encounter Details Date Type Department Care Team Description 08/13/2023 Telephone OBGYN - [address] [address] Anne Hudson DO Social History Tobacco Use Types Packs/Day Years [...] encounter Miscellaneous Notes * Telephone Encounter - Carolynn Ramirez R.N. - 08/13/2023 10:49 AM EST Spoke with patient.Pt advised to be seen by a provider for a Breast exam to determine what test is needed. Pt states her mammogram was not done on 08/11/23 and needed an u/s order. Appt scheduled 08/23/23 1100 with CNM. * Telephone Encounter - Nhung Juan - 08/13/2023 9:17 AM EST Pt is requesting order for breast ultrasound, states she went for mammogram and when she mentioned she felt a lump they told her she needs an order for L breast lump. documented in this encounter Plan of Treatment Not on file documented as of this encounter Visit Diagnoses Not on filedocumented in this encounter Care Teams Heel Attacher Wood Relationship Specialty Start Date End Date Ольга Jewell MD [address] [place] [address] PCP - General Internal Medicine 12/14/21 Rhoda Rangel MD [address] [place] [address] Referring Physician Allergy & Immunology 06/16/22 Brenden Villa DPM [address] [address] Podiatry 06/16/22 Piedad Bowens MD [address] [address] ORTHOPEDICS 06/16/22 Marcos Weiss DO [address] [facility] [address] [place] [address] Specialist Physiatry 12/15/22 Xochitl Machado MD [address] [facility] [address] [address] Sports Medicine Int Med 12/15/22 Peter Cummings Specialist Gastroenterology 06/16/22 Evi Carpio Specialist PSYCHIATRY 06/16/22 elder duke Specialist Optometry 12/18/23 documented as of this encounter
--- OUTSIDE RECORDS SUMMARY | 2024-09-23 13:24 | XMS_ITS | Encounter Summary ---
Author Organization [facility] Address [address] [place] [address] Care Team Providers Care Submarine Element Coordinator Name Role Phone Naun Garcia MD Primary Care Provider Unavail able [facility], Pcp Primary Care Provider Unavailabl e Naun Garcia MD Primary Care Provider Unavail able Ольга Jewell MD Primary Care Provider Rhoda Rangel MD Unavailable Unavailable Brenden Villa DPM Unavailable [phone] Piedad Bowens MD Unavailable [phone] Marcos Weiss DO Unavailable Unavailable Xochitl Machado MD Unavailable [phone] Encounter Details Date Type Department Care Team Description 12/26/2017 Pt. Non Urgent Medical Question [facility] - [place] [address] [place] [address] [id number] Silvana Vital MD [address] [place] [address] [id number] Social History Tobacco Use Types Packs/Day Years [...] as of this encounter Progress Notes * VALENTINA Koo, RN - 12/26/2017 1:55 PM EDTFrom: Deisy Hercules To: Silvana Vital MD Sent: 12/26/2017 10:50 AM EDT Subject: Question David I'm having a problem with uti after sex. I went to [facility] and i had all kind of test. But this is the 3rd time im have burning when pee nd it a smell when going to the bathroom. documented in this encounter Plan of Treatment Not on file documented as of this encounter Visit Diagnoses Not on filedocumented in this encounter Care Teams Submarine Element Coordinator Relationship Specialty Start Date End Date Naun Garcia MD PCP - General Internal Medicine 10/27/13 10/27/21 [facility] PCP - General Internal Medicine 10/28/21 11/27/21 Naun Garcia MD PCP - General Internal Medicine 11/28/21 12/13/21 Ольга Jewell MD [address] [place] [address] PCP - General Internal Medicine 12/14/21 Rhoda Rangel MD [address] [place] [address] Referring Physician Allergy & Immunology 06/16/22 Brenden Villa DPM [address] [address] Podiatry 06/16/22 Piedad Bowens MD [address] [address] ORTHOPEDICS 06/16/22 Marcos Weiss DO [address] [address] Specialist Physiatry 12/15/22 Xochitl Machado MD [address] [address] Sports Medicine Int Med 12/15/22 Peter Cummings Specialist Gastroenterology 06/16/22 Evi Carpio Specialist PSYCHIATRY 06/16/22 elder duke Specialist Optometry 12/18/23 documented as of this encounter
--- OUTSIDE RECORDS SUMMARY | 2024-09-23 13:24 | XMS_ITS | Encounter Summary ---
Author Organization [facility] Address [address] [place] [address] Care Team Providers Care Apprentice Technician Name Role Phone Ольга Jewell MD Primary Care Provider [phone] Rhoda Rangel MD Unavailable Unavailable Brenden Vlila DPM Unavailable [phone] Piedad Bowens MD Unavailable [phone] Marcos Weiss DO Unavailable Unavailable Xochitl Machado MD Unavailable [phone] Reason for Visit * Reason Comments E-prescribe Rx Request Encounter Details Date Type Department Care Team Description 06/14/2023 Refill Bariatric Surgery - [address] [place] [address] Dawn Arciniega MD [address] [place] [address] [address] [place] [address] E-prescribe Rx Request Social History Tobacco Use [...] as of this encounter Visit Diagnoses 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 documented in this encounter Care Teams Apprentice Technician Relationship Specialty Start Date End Date Ольга Jewell MD [address] [place] [address] PCP - General Internal Medicine 12/14/21 Rhoda Rangel MD [address] [place] [address] Referring Physician Allergy & Immunology 06/16/22 Brenden Villa DPM [address] [address] Podiatry 06/16/22 Piedad Bowens MD [address] [address] ORTHOPEDICS 06/16/22 Marcos Weiss DO [address] [address] Specialist Physiatry 12/15/22 Xochitl Machado MD [address] [address] Sports Medicine Int Med 12/15/22 Peter Cummings Specialist Gastroenterology 06/16/22 Evi Carpio Specialist PSYCHIATRY 06/16/22 elder duke Specialist Optometry 12/18/23 documented as of this encounter
--- OUTSIDE RECORDS SUMMARY | 2024-09-23 13:24 | XMS_ITS | Encounter Summary ---
Author Organization [facility] Address [address] [place] [address] Care Team Providers Care Tube Buffer Name Role Phone Ольга Jewell MD Primary Care Provider Rhoda Rangel MD Unavailable Unavailable Brenden Villa DPM Unavailable [phone] Piedad Bowens MD Unavailable [phone] Marcos Weiss DO Unavailable Unavailable Xochitl Machado MD Unavailable [phone] Reason for Visit * Reason Comments E-prescribe Rx Request Encounter Details Date Type Department Care Team Description 11/02/2022 Refill Adult Medicine A - [place] [address] [place] [address] Peter Cummings PA-C 175 [facility] [address] [place] [address] E-prescribe Rx Request Social History Tobacco Use [...] suspected to have Coronavirus/COVID-19? No / Unsure 10/30/2022 12:29 PM EDT documented as of this encounter Plan of Treatment Not on file documented as of this encounter Visit Diagnoses Not on filedocumented in this encounter Care Teams Tube Buffer Relationship Specialty Start Date End Date Ольга Jewell MD [address] [place] [address] PCP - General Internal Medicine 12/14/21 Rhoda Rangel MD [address] [place] [address] Referring Physician Allergy & Immunology 06/16/22 Brenden Villa DPM [address] [address] Podiatry 06/16/22 Piedad Bowens MD [address] [address] ORTHOPEDICS 06/16/22 Marcos Weiss DO [address] [place] [address] Specialist Physiatry 12/15/22 Xochitl Machado MD [address] [facility] [address] [address] Sports Medicine Int Med 12/15/22 Peter Cummings Specialist Gastroenterology 06/16/22 Evi Carpio Specialist PSYCHIATRY 06/16/22 elder duke Specialist Optometry 12/18/23 documented as of this encounter
--- OUTSIDE RECORDS SUMMARY | 2024-09-23 13:24 | XMS_ITS | Encounter Summary ---
Author Organization [facility] Address [address] [place] [address] Care Team Providers Care Sr. Director Name Role Phone Naun Garcia MD Primary Care Provider Unavail able [facility], Pcp Primary Care Provider Unavailabl e Naun Garcia MD Primary Care Provider Unavail able Ольга Jewell MD Primary Care Provider [phone] Rhoda Rangel MD Unavailable Unavailable Brenden VillaM Unavailable [phone] Piedad Bowens MD Unavailable [phone] Marcos Weiss DO Unavailable Unavailable Xochitl Machado MD Unavailable [phone] Reason for Visit * Reason Comments E-prescribe Rx Request Encounter Details Date Type Department Care Team Description 12/02/2020 Refill Allergy [place] [address] [place] [id number] Rhoda Rangel MD E-prescribe Rx Request Social History Tobacco [...] have Coronavirus / COVID-19? No / Unsure 12/01/2020 10:25 AM EDT documented as of this encounter Miscellaneous Notes * Telephone Encounter - Rhoda Rangel MD - 12/02/2020 4:06 PM EDT Patient needs appt for additional refills * Telephone Encounter - Mauricio Gaffney - 12/02/2020 1:54 PM EDT MICKY: 08/17/20 F/U: no F/U scheduled Please schedule appt for pt. documented in this encounter Plan of Treatment Not on file documented as of this encounter Visit Diagnoses Not on filedocumented in this encounter Care Teams Sr. Director Relationship Specialty Start Date End Date Naun Garcai MD PCP - General Internal Medicine 10/27/13 10/27/21 [facility] [place] [place] PCP - General Internal Medicine 10/28/21 11/27/21 Naun Garcia MD PCP - General Internal Medicine 11/28/21 12/13/21 Ольга Jewell MD [address] [place] [address] PCP - General Internal Medicine 12/14/21 Rhoda Rangel MD [address] [place], [place] Referring Physician Allergy & Immunology 06/16/22 Brenden Villa DPM [address] [address] Podiatry 06/16/22 Piedad Bowens MD [address] [address] ORTHOPEDICS 06/16/22 Marcos Weiss DO [address] [address] Specialist Physiatry 12/15/22 Xochitl Machado MD [address] [address] Sports Medicine Int Med 12/15/22 Peter Cummings Specialist Gastroenterology 06/16/22 Evi Carpio Specialist PSYCHIATRY 06/16/22 elder duke Specialist Optometry 12/18/23 documented as of this encounter
--- OUTSIDE RECORDS SUMMARY | 2024-09-23 13:24 | XMS_ITS | Encounter Summary ---
Author Organization [facility] Address [address] [place] [address] Care Team Providers Care Stencil Maker Name Role Phone Naun Garcia MD Primary Care Provider Unavail able [facility] Primary Care Provider Unavailabl e Naun Garcia MD Primary Care Provider Unavail able Ольга Jewell MD Primary Care Provider Rhoda Rangel MD Unavailable Unavailable Brenden Villa DPM Unavailable [phone] Piedad Bowens MD Unavailable [phone] Marcos Weiss DO Unavailable Unavailable Xochitl Machado MD Unavailable [phone] Reason for Visit * Reason Onset Date Comments refill request 10/16/2018 Encounter Details Date Type Department Care Team Description 10/16/2018 Refill Medicine/Pediatrics - [address] [address] Naun Garcia MD refill request Social History Tobacco Use Types Packs/Day Years [...] encounter Miscellaneous Notes * Telephone Encounter - Barbara Olivier M.A. - 10/16/2018 9:28 AM EDT Date of last office visit was 10/09/18 Lab Results Component Value Date NA 136 12/25/2017 K 4.1 12/25/2017 CO2 24 12/25/2017 CL 104 12/25/2017 BUN 6 12/25/2017 CREAT 0.93 12/25/2017 GLU 106 12/25/2017 CA 8.9 12/25/2017 GFR > 60 12/25/2017 * Telephone Encounter - Barbara Olivier M.A. - 10/16/2018 9:28 AM EDTFrom: Deisy Hercules To: Naun Garcia MD Sent: 10/16/2018 9:26 AM EDT Subject: Medication Renewal Request Original authorizing provider: MD Deisy Ingram would like a refill of the following medications: sumatriptan (IMITREX) 100 MG tablet [Naun Garcia MD] fluconazole (DIFLUCAN) 150 MG tablet [Naun Garcia MD] Preferred pharmacy: [facility] [address] [place] [address] Comment: documented in this encounter Plan of Treatment Not on file documented as of this encounter Visit Diagnoses Not on filedocumented in this encounter Care Teams Stencil Maker Relationship Specialty Start Date End Date Naun Garcia MD PCP - General Internal Medicine 10/27/13 10/27/21 [facility], Pcp PCP - General Internal Medicine 10/28/21 11/27/21 Naun Garcia MD PCP - General Internal Medicine 11/28/21 12/13/21 Ольга Jewell MD [address] [place] [address] PCP - General Internal Medicine 12/14/21 Rhoda Rangel MD [address] [place] [address] Referring Physician Allergy & Immunology 06/16/22 Brenden Villa DPM [address] [address] Podiatry 06/16/22 Piedad Bowens MD [address] [address] ORTHOPEDICS 06/16/22 Marcos Weiss DO [address] [address] Specialist Physiatry 12/15/22 Xochitl Machado MD [address] [address] Sports Medicine Int Med 12/15/22 Peter Cummings Specialist Gastroenterology 06/16/22 Evi Carpio Specialist PSYCHIATRY 06/16/22 elder duke Specialist Optometry 12/18/23 documented as of this encounter
--- OUTSIDE RECORDS SUMMARY | 2024-09-23 13:24 | XMS_ITS | Encounter Summary ---
Author Organization [facility] Address [address] [place] [address] Care Team Providers Care Diplomatic Interpreter Name Role Phone Naun Garcia MD Primary Care Provider Unavail able [facility], Pcp Primary Care Provider Unavailabl e Naun Garcia MD Primary Care Provider Unavail able Ольга Jewell MD Primary Care Provider Rhoda Rangel MD Unavailable Unavailable Brenden Villa DPM Unavailable [phone] Piedad Bowens MD Unavailable [phone] Marcos Weiss DO Unavailable Unavailable Xochitl Machado MD Unavailable [phone] Encounter Details Date Type Department Care Team Description 08/10/2020 Old Medical Records Medical Records [address] [place] [address] Abstract, Provider Social History Tobacco Use Types [...] have Coronavirus / COVID-19? No / Unsure 08/12/2020 9:58 AM EST documented as of this encounter Plan of Treatment Not on file documented as of this encounter Visit Diagnoses Not on filedocumented in this encounter Care Teams Diplomatic Interpreter Relationship Specialty Start Date End Date Naun Garcia MD PCP - General Internal Medicine 10/27/13 10/27/21 [facility] [place] PCP - General Internal Medicine 10/28/21 11/27/21 Naun Garcia MD PCP - General Internal Medicine 11/28/21 12/13/21 Ольга Jewell MD [address] [place] [address] PCP - General Internal Medicine 12/14/21 Rhoda Rangel MD [address] [place] [address] Referring Physician Allergy & Immunology 06/16/22 Brenden Villa DPM [address] [address] Podiatry 06/16/22 Piedad Bowens MD [address] [address] ORTHOPEDICS 06/16/22 Marcos Weiss DO [address] [address] Specialist Physiatry 12/15/22 Xochitl Machado MD [address] [address] Sports Medicine Int Med 12/15/22 Peter Cummings Specialist Gastroenterology 06/16/22 Evi Carpio Specialist PSYCHIATRY 06/16/22 elder duke Specialist Optometry 12/18/23 documented as of this encounter
--- OUTSIDE RECORDS SUMMARY | 2024-09-23 13:24 | XMS_ITS | Encounter Summary ---
Author Organization [facility] Address [address] [place] [address] Care Team Providers Care Tutor Coordinator Name Role Phone Naun Garcia MD Primary Care Provider Unavail able [facility], Pcp Primary Care Provider Unavailabl e Naun Garcia MD Primary Care Provider Unavail able Ольга Jewell MD Primary Care Provider [phone] Rhoda Rangel MD Unavailable Unavailable Brenden Villa DPM Unavailable [phone] Piedad oBwens MD Unavailable [phone] Marcos Weiss DO Unavailable Unavailable Xochitl Machado MD Unavailable [phone] Reason for Visit * Reason Onset Date Comments Migraine 06/24/2017 Encounter Details Date Type Department Care Team Description 06/24/2017 Telephone Adult Urgent Care - [address] [address] Naun Garcia MD Migraine Social History Tobacco Use Types Packs/Day Years [...] encounter Miscellaneous Notes * Telephone Encounter - Erik Otero L.P.N. - 06/24/2017 11:05 AM EST Spoke with patient she C/O of elevated B/O And CARVALHO Last night B/P Last night 144/98 This am Has a dull CARVALHO and elevated B/P 146/105 No chest pain no SOB Appt with Dr. Garcia at 3:45 in urgent care Reinforced phone consultation and advice Reviewed with the patient S/S to watch for that would require immediate attention If symptoms worsen patient can call the triage nurse immediately or go to the ER if needed can call 911 Patient states he/she is satisfied with information and home care instructions he is able to verbalize the instructions given * Telephone Encounter - Ana Isra - 06/24/2017 10:48 AM EST Symptoms patient is presenting: Migraine, BP 146/105 If pain or injury related was it due to an accident at work or from a motor vehicle accident? NO If yes, gather 3rd democrat insurance information Date of accident/Injury: How long has patient had these symptoms?: last night PCP: Naun Garcia Payor: Home Delivery Service (HDS) / Plan: Home Delivery Service (HDS) $0 CARLEY [id number] / Product Type: MEDICAID [id number] documented in this encounter Plan of Treatment Not on file documented as of this encounter Visit Diagnoses Not on filedocumented in this encounter Care Teams Tutor Coordinator Relationship Specialty Start Date End Date Naun Garcia MD PCP - General Internal Medicine 10/27/13 10/27/21 [facility], Pcp PCP - General Internal Medicine 10/28/21 11/27/21 Naun Garcia MD PCP - General Internal Medicine 11/28/21 12/13/21 Ольга Jewell MD [address] [place], [place] [id number] PCP - General Internal Medicine 12/14/21 Rhoda Rangel MD [address] [place] [address] Referring Physician Allergy & Immunology 06/16/22 Brenden Villa DPM [address] [address] Podiatry 06/16/22 Piedad Bowens MD [address] [address] ORTHOPEDICS 06/16/22 Marcos Weiss DO [address] [address] Specialist Physiatry 12/15/22 Xochitl Machado MD [address] [address] Sports Medicine Int Med 12/15/22 Peter Cummings Specialist Gastroenterology 06/16/22 Evi Carpio Specialist PSYCHIATRY 06/16/22 elder duke Specialist Optometry 12/18/23 documented as of this encounter
--- OUTSIDE RECORDS SUMMARY | 2024-09-23 13:24 | XMS_ITS | Encounter Summary ---
Author Organization [facility] Address [address] [place] [address] Care Team Providers Care Property Valuer Name Role Phone Naun Garcia MD Primary Care Provider Unavail able [facility], Pcp Primary Care Provider Unavailabl e Naun Garcia MD Primary Care Provider Unavail able Ольга Jewell MD Primary Care Provider Rhoda Rangel MD Unavailable Unavailable Brenden Villa DPM Unavailable [phone] Piedad Bowens MD Unavailable [phone] Marcos Weiss DO Unavailable Unavailable Xochitl Machado MD Unavailable [phone] Encounter Details Date Type Department Care Team Description 10/04/2018 Home Health Certification Medical Records [address] [place] [address] Home, [facility] [address] [facility] [address] [place] [address] Social History Tobacco Use Types Packs/Day Years [...] on filedocumented in this encounter Care Teams Property Valuer Relationship Specialty Start Date End Date Naun Garcia MD PCP - General Internal Medicine 10/27/13 10/27/21 [facility], [facility] PCP - General Internal Medicine 10/28/21 11/27/21 Naun Garcia MD PCP - General Internal Medicine 11/28/21 12/13/21 Ольга Jewell MD [address] [place] [address] PCP - General Internal Medicine 12/14/21 Rhoda Rangel MD [address] [place] [address] Referring Physician Allergy & Immunology 06/16/22 Brenden Villa DPM [address] [address] Podiatry 06/16/22 Piedad Bowens MD [address] [address] ORTHOPEDICS 06/16/22 Marcos Weiss DO [address] [address] Specialist Physiatry 12/15/22 Xochitl Machado MD [address] [address] Sports Medicine Int Med 12/15/22 Peter Cummings Specialist Gastroenterology 06/16/22 Evi Carpio Specialist PSYCHIATRY 06/16/22 elder duke Specialist Optometry 12/18/23 documented as of this encounter
--- OUTSIDE RECORDS SUMMARY | 2024-09-23 13:24 | XMS_ITS | Encounter Summary ---
Author Organization [facility] Address [address] [place] [address] Care Team Providers Care Metal Sprayer Name Role Phone Naun Garcia MD Primary Care Provider Unavail able [facility] Primary Care Provider Unavailabl Naun Artis MD Primary Care Provider Unavail able Ольга Jewell MD Primary Care Provider Rhoda Rangel MD Unavailable Unavailable Brenden Villa DPM Unavailable [phone] Piedad Bowens MD Unavailable [phone] Marcos Weiss DO Unavailable Unavailable Xochitl Machado MD Unavailable [phone] Encounter Details Date Type Department Care Team Description 03/09/2017 [facility] Medical Records [address] [place] [address] Abstract, Provider Social History Tobacco Use Types [...] on filedocumented in this encounter Care Teams Metal Sprayer Relationship Specialty Start Date End Date Naun Garcia MD PCP - General Internal Medicine 10/27/13 10/27/21 [facility], Pcp PCP - General Internal Medicine 10/28/21 11/27/21 Naun Garcia MD PCP - General Internal Medicine 11/28/21 12/13/21 Ольга Jewell MD [address] [place] [address] PCP - General Internal Medicine 12/14/21 Rhoda Rangel MD [address] [place] [address] Referring Physician Allergy & Immunology 06/16/22 Brenden Villa DPM [address] [address] Podiatry 06/16/22 Piedad Bowens MD [address] [address] ORTHOPEDICS 06/16/22 Marcos Weiss DO [address] [address] Specialist Physiatry 12/15/22 Xochitl Machado MD [address] [address] Sports Medicine Int Med 12/15/22 Peter Cummings Specialist Gastroenterology 06/16/22 Evi Carpio Specialist PSYCHIATRY 06/16/22 elder duke Specialist Optometry 12/18/23 documented as of this encounter
--- OUTSIDE RECORDS SUMMARY | 2024-09-23 13:24 | XMS_ITS | Encounter Summary ---
Author Organization [facility] Address [address] [place] [address] Care Team Providers Care Metal Model Builder Name Role Phone Naun Garcia MD Primary Care Provider Unavail able [facility], Pcp Primary Care Provider Unavailabl e Naun Garcia MD Primary Care Provider Unavail able Ольга Jewell MD Primary Care Provider Rhoda Rangel MD Unavailable Unavailable Brenden Villa DPM Unavailable [phone] Piedad Bowens MD Unavailable [phone] Marcos Weiss DO Unavailable Unavailable Xochitl Machado MD Unavailable [phone] Encounter Details Date Type Department Care Team Description 09/29/2020 Pt. Non Urgent Medical Question Orthopedics-[address] [address] Medardo Márquez MD Social History Tobacco Use Types Packs/Day [...] have Coronavirus / COVID-19? No / Unsure 10/01/2020 11:03 AM EDT documented as of this encounter Miscellaneous Notes * Telephone Encounter - Elba Shaikh M.A. - 09/30/2020 8:03 AM EDTFrom: Deisy Muhammad To: Dr. Bob Márquez Sent: 09/29/2020 9:50 AM EDT Subject: Question David, So my first appointment with OT will be October 20, 2020. I don't know if you want to change my appointment day. documented in this encounter Plan of Treatment Not on file documented as of this encounter Visit Diagnoses Not on filedocumented in this encounter Care Teams Metal Model Builder Relationship Specialty Start Date End Date Naun Garcia MD PCP - General Internal Medicine 10/27/13 10/27/21 [facility] PCP - General Internal Medicine 10/28/21 11/27/21 Naun Garcia MD PCP - General Internal Medicine 11/28/21 12/13/21 Ольга Jewell MD [address] [place] [address] PCP - General Internal Medicine 12/14/21 Rhoda Rangel MD [address] [place] [address] Referring Physician Allergy & Immunology 06/16/22 Brenden Villa DPM [address] [address] Podiatry 06/16/22 Piedad Bowens MD [address] [address] ORTHOPEDICS 06/16/22 Marcos Weiss DO [address] [address] Specialist Physiatry 12/15/22 Xochitl Machado MD [address] [address] Sports Medicine Int Med 12/15/22 Peter Cummings Specialist Gastroenterology 06/16/22 Evi Carpio Specialist PSYCHIATRY 06/16/22 elder duke Specialist Optometry 12/18/23 documented as of this encounter
--- OUTSIDE RECORDS SUMMARY | 2024-09-23 13:24 | XMS_ITS | Encounter Summary ---
Author Organization [facility] Address [address] [place] [address] Care Team Providers Care Strip Mine Supervisor Name Role Phone Naun Garcia MD Primary Care Provider Unavail able [facility], Pcp Primary Care Provider Unavailabl e Naun Garcia MD Primary Care Provider Unavail able Ольга Jewell MD Primary Care Provider Rhoda Rangel MD Unavailable Unavailable Brenden Villa DPM Unavailable [phone] Piedad Bowens MD Unavailable [phone] Marcos Weiss DO Unavailable Unavailable Xochitl Machado MD Unavailable [phone] Encounter Details Date Type Department Care Team Description 10/18/2020 Extruder Operator Horizontal Report Medical Records [address] [place] [id number] Abstract, Provider Social History Tobacco Use Types [...] have Coronavirus / COVID-19? No / Unsure 10/11/2020 10:59 AM EDT documented as of this encounter Plan of Treatment Not on file documented as of this encounter Visit Diagnoses Not on filedocumented in this encounter Care Teams Strip Mine Supervisor Relationship Specialty Start Date End Date Naun Garcia MD PCP - General Internal Medicine 10/27/13 10/27/21 [facility] [place] [place] PCP - General Internal Medicine 10/28/21 11/27/21 Naun Garcia MD PCP - General Internal Medicine 11/28/21 12/13/21 Ольга Jewell MD [address] [place] [address] PCP - General Internal Medicine 12/14/21 Rhoda Rangel MD [address] [place] [address] Referring Physician Allergy & Immunology 06/16/22 Brenden Villa DPM [address] [address] Podiatry 06/16/22 Piedad Bowens MD [address] [address] ORTHOPEDICS 06/16/22 Marcos Weiss DO [address] [address] Specialist Physiatry 12/15/22 Xochitl Machado MD [address] [address] Sports Medicine Int Med 12/15/22 Peter Cummings Specialist Gastroenterology 06/16/22 Evi Carpio Specialist PSYCHIATRY 06/16/22 elder duke Specialist Optometry 12/18/23 documented as of this encounter
--- OUTSIDE RECORDS SUMMARY | 2024-09-23 13:24 | XMS_ITS | Encounter Summary ---
Author Organization [facility] Address [address] [place] [address] Care Team Providers Care Manager Business Systems Name Role Phone Ольга Jewell MD Primary Care Provider [phone] Rhoda Rangel MD Unavailable Unavailable Brenden Villa DPM Unavailable [phone] Piedad Bowens MD Unavailable [phone] Marcos Weiss DO Unavailable Unavailable Xochitl Machado MD Unavailable [phone] Encounter Details Date Type Department Care Team Description 12/26/2022 Tankage Grinder Report Medical Records [address] [place] [address] Marcos Weiss DO Social History Tobacco Use Types Packs/Day [...] suspected to have Coronavirus/COVID-19? No / Unsure 12/28/2022 2:32 PM EDT documented as of this encounter Plan of Treatment Not on file documented as of this encounter Visit Diagnoses Not on filedocumented in this encounter Care Teams Manager Business Systems Relationship Specialty Start Date End Date Ольга Jewell MD [address] [place] [address] PCP - General Internal Medicine 12/14/21 Rhoda Rangel MD [address] [place] [address] Referring Physician Allergy & Immunology 06/16/22 Brenden Villa DPM [address] [address] Podiatry 06/16/22 Piedad Bowens MD [address] [address] ORTHOPEDICS 06/16/22 Marcos Weiss DO [address] [address] Specialist Physiatry 12/15/22 Xochitl Machado MD [address] [address] Sports Medicine Int Med 12/15/22 Peter Cummings Specialist Gastroenterology 06/16/22 Evi Carpio Specialist PSYCHIATRY 06/16/22 elder duke Specialist Optometry 12/18/23 documented as of this encounter
--- OUTSIDE RECORDS SUMMARY | 2024-09-23 13:24 | XMS_ITS | Encounter Summary ---
Author Organization [facility] Address [address] [place] [address] Care Team Providers Care Dog Food Shredder Operator Name Role Phone Naun Garcia MD Primary Care Provider Unavail able [facility], [facility] Primary Care Provider Unavailabl Naun Artis MD Primary Care Provider Unavail able Ольга Jewell MD Primary Care Provider Rhoda Rangel MD Unavailable Unavailable Brenden Villa DPM Unavailable [phone] Piedad Bowens MD Unavailable [phone] Marcos Weiss DO Unavailable Unavailable Xochitl Machado MD Unavailable [phone] Encounter Details Date Type Department Care Team Description 02/06/2017 [facility] Medical Records [address] [place] [address] Abstract, Provider Social History Tobacco Use Types [...] on filedocumented in this encounter Care Teams Dog Food Shredder Operator Relationship Specialty Start Date End Date Naun Garcia MD PCP - General Internal Medicine 10/27/13 10/27/21 [facility], Pcp PCP - General Internal Medicine 10/28/21 11/27/21 Naun Garcia MD PCP - General Internal Medicine 11/28/21 12/13/21 Ольга Jewell MD [address] [place] [address] PCP - General Internal Medicine 12/14/21 Rhoad Rangel MD [address] [place] [address] Referring Physician Allergy & Immunology 06/16/22 Brenden Villa DPM [address] [address] Podiatry 06/16/22 Piedad Bowens MD [address] [address] ORTHOPEDICS 06/16/22 Marcos Weiss DO [address] [address] Specialist Physiatry 12/15/22 Xochitl Machado MD [address] [address] Sports Medicine Int Med 12/15/22 Peter Cummings Specialist Gastroenterology 06/16/22 Evi Carpio Specialist PSYCHIATRY 06/16/22 elder duke Specialist Optometry 12/18/23 documented as of this encounter
--- OUTSIDE RECORDS SUMMARY | 2024-09-23 13:24 | XMS_ITS | Encounter Summary ---
Author Organization [facility] Address [address] [place] [address] Care Team Providers Care Laboratory Mechanical Technician Name Role Phone Ольга Jewell MD Primary Care Provider Rhoda aRngel MD Unavailable Unavailable Brenden Villa DPM Unavailable [phone] Piedad Bowens MD Unavailable [phone] Marcos Weiss DO Unavailable Unavailable Xochitl Machado MD Unavailable [phone] Reason for Visit * Reason Comments E-prescribe Rx Request Encounter Details Date Type Department Care Team Description 01/24/2023 Refill Gastroenterology - [place] [address] [phone] Peter Cummings PA-C [address] [address] E-prescribe Rx Request Social History Tobacco Use [...] suspected to have Coronavirus/COVID-19? No / Unsure 01/19/2023 11:04 AM EDT documented as of this encounter Miscellaneous Notes * Telephone Encounter - Natanael Gandara M.A. - 01/24/2023 1:11 PM EDT [facility]- 02/01/2022 Nov unknown documented in this encounter Plan of Treatment Not on file documented as of this encounter Visit Diagnoses Not on filedocumented in this encounter Care Teams Laboratory Mechanical Technician Relationship Specialty Start Date End Date Ольга Jewell MD [address] [place] [address] PCP - General Internal Medicine 12/14/21 Rhoda Rangel MD [address] [place] [address] Referring Physician Allergy & Immunology 06/16/22 Brenden Villa DPM [address] [address] Podiatry 06/16/22 Piedad Bowens MD [address] [address] ORTHOPEDICS 06/16/22 Marcos Weiss DO [address] [address] Specialist Physiatry 12/15/22 Xochitl Machado MD [address] [address] Sports Medicine Int Med 12/15/22 Peter Cummings Specialist Gastroenterology 06/16/22 Evi Carpio Specialist PSYCHIATRY 06/16/22 elder duke Specialist Optometry 12/18/23 documented as of this encounter
--- OUTSIDE RECORDS SUMMARY | 2024-09-23 13:24 | XMS_ITS | Encounter Summary ---
Author Organization [facility] Address [address] [place] [address] Care Team Providers Care Coremaker Experimental Name Role Phone Ольга Jewell MD Primary Care Provider Rhoda Rangel MD Unavailable Unavailable Brenden Villa DPM Unavailable [phone] Piedad Bowens MD Unavailable [phone] Marcos Weiss DO Unavailable Unavailable Xochitl Machado MD Unavailable [phone] Reason for Visit * Reason Onset Date Comments APPOINTMENT 09/10/2023 Encounter Details Date Type Department Care Team Description 09/10/2023 Telephone Adult Medicine - [place] [address] [place] [address] Tresa Moreau NP [address] [place], [place] [id number] APPOINTMENT Social History Tobacco Use Types Packs/Day Years [...] encounter Miscellaneous Notes * Telephone Encounter - Mariann Coyne L.P.N. - 09/10/2023 11:29 AM EDT Spoke to pt ,she was confused as to why she had two appts ,she is being seen for left sided pain and rib pain ,no fever ,no n/v ,she will be here this afternoon documented in this encounter Plan of Treatment Not on file documented as of this encounter Visit Diagnoses Not on filedocumented in this encounter Care Teams Coremaker Experimental Relationship Specialty Start Date End Date Ольга Jewell MD [address] [place] [address] PCP - General Internal Medicine 12/14/21 Rhoda Rangel MD [address] [place] [address] Referring Physician Allergy & Immunology 06/16/22 Brenden Villa DPM [address] [address] Podiatry 06/16/22 Piedad Bowens MD [address] [address] ORTHOPEDICS 06/16/22 Marcos Weiss DO [address] [address] Specialist Physiatry 12/15/22 Xochitl Machado MD [address] [address] Sports Medicine Int Med 12/15/22 Peter Cummings Specialist Gastroenterology 06/16/22 Evi Carpio Specialist PSYCHIATRY 06/16/22 elder duke Specialist Optometry 12/18/23 documented as of this encounter
--- OUTSIDE RECORDS SUMMARY | 2024-09-23 13:24 | XMS_ITS | Encounter Summary ---
Author Organization [facility] Address [address] [place] [address] Care Team Providers Care Short Haul Driver Name Role Phone Naun Garcia MD Primary Care Provider Unavail able [facility], Pcp Primary Care Provider Unavailabl e Naun Garcia MD Primary Care Provider Unavail able Ольга Jewell MD Primary Care Provider [phone] Rhoda Rangel MD Unavailable Unavailable Brenden Villa DPM Unavailable [phone] Piedad Bowens MD Unavailable [phone] Marcos Weiss DO Unavailable Unavailable Xochitl Machado MD Unavailable [phone] Reason for Visit * Reason Onset Date Comments Scrubber Operator Feedback 05/16/2019 Genetics Encounter Details Date Type Department Care Team Description 05/16/2019 Telephone Oncology/Hematology - [address] [address] Sabrina Cates MD Scrubber Operator Feedback (Genetics) Social History Tobacco Use Types Packs/Day Years [...] encounter Miscellaneous Notes * Telephone Encounter - Darian Mcrae - 05/26/2019 4:22 PM EST Message routed to Lab staff as FYI. On 05/16/2019, an order was placed for Genetic Testing. This patient's insurance plan requires prior authorization for Genetic, DNA and Molecular testing before the test can be performed. Based on the information that was provided to the insurance company, this patient received an APPROVAL for the genetic testing that was ordered. [facility] Authorization: [id number] 05/16/2019-08/15/2019 A copy of the [facility] Authorization Letter was faxed to [employer] at [phone]. Please have a member of your staff contact this patient to have their labs drawn. Thank you, [facility] Referrals Wage Conciliator [facility] Referrals Department * Telephone Encounter - Darian Mcrae - 05/16/2019 9:34 AM EST Standardized Prior Authorization Request form completed and faxed to [facility] Case Management for reviewwith last office note and lab order. Awaiting response. 05/16/2019 documented in this encounter Plan of Treatment Not on file documented as of this encounter Visit Diagnoses Not on filedocumented in this encounter Care Teams Short Haul Driver Relationship Specialty Start Date End Date Naun Garcia MD PCP - General Internal Medicine 10/27/13 10/27/21 [facility] PCP - General Internal Medicine 10/28/21 11/27/21 Naun Garcia MD PCP - General Internal Medicine 11/28/21 12/13/21 Ольга Jewell MD [address] [place] [address] PCP - General Internal Medicine 12/14/21 Rhoda Rangel MD [address] [place], [place] Referring Physician Allergy & Immunology 06/16/22 Brenden Villa DPM [address] [address] Podiatry 06/16/22 Piedad Bowens MD [address] [address] ORTHOPEDICS 06/16/22 Marcos Weiss DO [address] [address] Specialist Physiatry 12/15/22 Xochitl Machado MD [address] [address] Sports Medicine Int Med 12/15/22 Peter Cummings Specialist Gastroenterology 06/16/22 Evi Carpio Specialist PSYCHIATRY 06/16/22 elder duke Specialist Optometry 12/18/23 documented as of this encounter
--- OUTSIDE RECORDS SUMMARY | 2024-09-23 13:24 | XMS_ITS | Encounter Summary ---
Author Organization [facility] Address [address] [place] [address] Care Team Providers Care Basketball Commentator Name Role Phone Naun Garcia MD Primary Care Provider Unavail able [facility], [facility] Primary Care Provider Unavailabl Naun Artis MD Primary Care Provider Unavail able Ольга Jewell MD Primary Care Provider Rhoda Rangel MD Unavailable Unavailable Brenden Villa DPM Unavailable [phone] Piedad Bowens MD Unavailable [phone] Marcos Weiss DO Unavailable Unavailable Xochitl Machado MD Unavailable [phone] Encounter Details Date Type Department Care Team Description 07/17/2017 [facility] Medical Records [address] [place] [id number] Abstract, Provider Social History Tobacco Use Types [...] on filedocumented in this encounter Care Teams Basketball Commentator Relationship Specialty Start Date End Date Naun Garcia MD PCP - General Internal Medicine 10/27/13 10/27/21 [facility], Pcp PCP - General Internal Medicine 10/28/21 11/27/21 Naun Garcia MD PCP - General Internal Medicine 11/28/21 12/13/21 Ольга Jewell MD [address] [place] [address] PCP - General Internal Medicine 12/14/21 Rhoda Rangel MD [address] [place] [address] Referring Physician Allergy & Immunology 06/16/22 Brenden Villa DPM [address] [address] Podiatry 06/16/22 Piedad Bowens MD [address] [address] ORTHOPEDICS 06/16/22 Marcos Weiss DO [address] [address] Specialist Physiatry 12/15/22 Xochitl Machado MD [address] [address] Sports Medicine Int Med 12/15/22 Peter Cummings Specialist Gastroenterology 06/16/22 Evi Carpio Specialist PSYCHIATRY 06/16/22 elder duke Specialist Optometry 12/18/23 documented as of this encounter
--- OUTSIDE RECORDS SUMMARY | 2024-09-23 13:24 | XMS_ITS | Encounter Summary ---
Author Organization [facility] Address [address] [place] [address] Care Team Providers Care Manager Support Name Role Phone Naun Garcia MD Primary Care Provider Unavail able [facility], Pcp Primary Care Provider Unavailabl e Naun Garcia MD Primary Care Provider Unavail able Ольга Jewell MD Primary Care Provider Rhoda Rangel MD Unavailable Unavailable Brenden Villa DPM Unavailable [phone] Piedad Bowens MD Unavailable [phone] Marcos Weiss DO Unavailable Unavailable Xochitl Machado MD Unavailable [phone] Encounter Details Date Type Department Care Team Description 09/29/2020 Pt. Non Urgent Medical Question Medicine/Pediatrics - [address] [id number] Naun Garcia MD Social History Tobacco Use Types Packs/Day [...] encounter Miscellaneous Notes * Telephone Encounter - Claudia Acuna M.A. - 09/29/2020 9:40 AM EDTFrom: Deisy Muhammad To: Dr. Bob Garcia Sent: 09/29/2020 9:39 AM EDT Subject: Both ears Hello, Doctor Jose gave me wax removal; and its not working. Ever time I lay down my ears close up ; I can't hear til I sit up my ear pop and I can hear. I don't know what to do. documented in this encounter Plan of Treatment Not on file documented as of this encounter Visit Diagnoses Not on filedocumented in this encounter Care Teams Manager Support Relationship Specialty Start Date End Date Naun Garcia MD PCP - General Internal Medicine 10/27/13 10/27/21 [facility] PCP - General Internal Medicine 10/28/21 11/27/21 Naun Garcia MD PCP - General Internal Medicine 11/28/21 12/13/21 Ольга Jewell MD [address] [place] [address] PCP - General Internal Medicine 12/14/21 Rhoda Rangel MD [address] [place] [address] Referring Physician Allergy & Immunology 06/16/22 Brenden Villa DPM [address] [address] Podiatry 06/16/22 Piedad Bowens MD [address] [address] ORTHOPEDICS 06/16/22 Marcos Weiss DO [address] [address] Specialist Physiatry 12/15/22 Xochitl Machado MD [address] [address] Sports Medicine Int Med 12/15/22 Peter Cummings Specialist Gastroenterology 06/16/22 Evi Carpio Specialist PSYCHIATRY 06/16/22 elder duke Specialist Optometry 12/18/23 documented as of this encounter
--- OUTSIDE RECORDS SUMMARY | 2024-09-23 13:24 | XMS_ITS | Encounter Summary ---
Author Organization [facility] Address [address] [place] [address] Care Team Providers Care Supercharger Repair Supervisor Name Role Phone Ольга Jewell MD Primary Care Provider [phone] Rhoda Rangel MD Unavailable Unavailable Brenden Villa DPM Unavailable [phone] Piedad Bowens MD Unavailable [phone] Marcos Weiss DO Unavailable Unavailable Xochitl Machado MD Unavailable [phone] Encounter Details Date Type Department Care Team Description 01/22/2023 Chemical Compounder Helper Report Medical Records [address] [place] [address] Rhoda Rangel MD Social History Tobacco Use Types Packs/Day [...] on filedocumented in this encounter Care Teams Supercharger Repair Supervisor Relationship Specialty Start Date End Date Ольга Jewell MD [address] [place] [address] PCP - General Internal Medicine 12/14/21 Rhoda Rangel MD [address] [place] [address] Referring Physician Allergy & Immunology 06/16/22 Brenden Villa DPM [address] [address] Podiatry 06/16/22 Piedad Bowens MD [address] [address] ORTHOPEDICS 06/16/22 Marcos Weiss DO [address] [address] Specialist Physiatry 12/15/22 Xochitl Machado MD [address] [address] Sports Medicine Int Med 12/15/22 Peter Cummings Specialist Gastroenterology 06/16/22 Evi Carpio Specialist PSYCHIATRY 06/16/22 elder duke Specialist Optometry 12/18/23 documented as of this encounter
--- OUTSIDE RECORDS SUMMARY | 2024-09-23 13:24 | XMS_ITS | Encounter Summary ---
Author Organization [facility] Address [address] [place] [address] Care Team Providers Care Clerical Assistant Name Role Phone Naun Garcia MD Primary Care Provider Unavail able [facility], Pcp Primary Care Provider Unavailabl e Naun Garcia MD Primary Care Provider Unavail able Ольга Jewell MD Primary Care Provider Rhoda Rangel MD Unavailable Unavailable Brenden Villa DPM Unavailable [phone] Piedad Bowens MD Unavailable [phone] Marcos Weiss DO Unavailable Unavailable Xochitl Machado MD Unavailable [phone] Encounter Details Date Type Department Care Team Description 07/04/2017 Career Development Counselor Report Medical Records [address] [place] [address] Richard Mitchell PA-C 175 [facility] [address] [place] [address] Social History Tobacco Use Types Packs/Day Years [...] on filedocumented in this encounter Care Teams Clerical Assistant Relationship Specialty Start Date End Date Naun Garcia MD PCP - General Internal Medicine 10/27/13 10/27/21 [facility] [place] PCP - General Internal Medicine 10/28/21 11/27/21 Naun Garcia MD PCP - General Internal Medicine 11/28/21 12/13/21 Ольга Jewell MD [address] [place] [address] PCP - General Internal Medicine 12/14/21 Rhoda Rangel MD [address] [place] [address] Referring Physician Allergy & Immunology 06/16/22 Brenden Villa DPM [address] [address] Podiatry 06/16/22 Piedad Bowens MD [address] [address] ORTHOPEDICS 06/16/22 Marcos Weiss DO [address] [address] Specialist Physiatry 12/15/22 Xochitl Machado MD [address] [address] Sports Medicine Int Med 12/15/22 Peter Cummings Specialist Gastroenterology 06/16/22 Evi Carpio Specialist PSYCHIATRY 06/16/22 elder duke Specialist Optometry 12/18/23 documented as of this encounter
--- OUTSIDE RECORDS SUMMARY | 2024-09-23 13:24 | XMS_ITS | Encounter Summary ---
Author Organization [facility] Address [address] [place] [address] Care Team Providers Care School Treasurer Name Role Phone Naun Garcia MD Primary Care Provider Unavail able [facility], Pcp Primary Care Provider Unavailabl e Naun Garcia MD Primary Care Provider Unavail able Ольга Jewell MD Primary Care Provider + [phone] Rhoda Rangel MD Unavailable Unavailable Brenden Villa DPM Unavailable [phone] Piedad Bowens MD Unavailable [phone] Marcos Weiss DO Unavailable Unavailable Xochitl Machado MD Unavailable [phone] Reason for Visit * Reason Onset Date Comments Provider Call Back 11/10/2020 Encounter Details Date Type Department Care Team Description 11/10/[address] [address] Dustin Villavicencio PA Provider Call Back Social History Tobacco Use Types Packs/Day Years [...] have Coronavirus / COVID-19? No / Unsure 10/29/2020 8:49 AM EDT documented as of this encounter Miscellaneous Notes * Telephone Encounter - Becki Gabriel L.P.N. - 11/10/2020 10:01 AM EDT Spoke to pt/ bp this am 170/100 / admits to headache but no other symptoms / has not started medication yet as she is awaiting delivery (to be delivered ) cortisone inj at 11 am cancelled because of elevated bp / suggested that person who was going to bring her to office, scrap picker her script today so she can start medication , pt agrees/ FYI * Telephone Encounter - Adenike Strauss M.A. - 11/10/2020 9:43 AM EDT Patient was started on amlodipine 2.5 mg a few weeks ago. I discussed with Kobe. Patient has felt sick after getting cortisone injection in the past. We should hold off on injection until her bp is under control. Patient agrees. Appt rescheduled. FYI to Dr. Garcia's triage team. BP of 170/100 despite new med changes. * Telephone Encounter - Becca Sahni - 11/10/2020 8:34 AM EDT Patient is calling to advise provider that her blood pressure is high this morning 170/100. She is scheduled for a knee injection today at 11 am and would like to know if its still ok to come in for that procedure. Please advise documented in this encounter Plan of Treatment Not on file documented as of this encounter Visit Diagnoses Not on filedocumented in this encounter Care Teams School Treasurer Relationship Specialty Start Date End Date Naun Garcia MD PCP - General Internal Medicine 10/27/13 10/27/21 [facility], Pcp PCP - General Internal Medicine 10/28/21 11/27/21 Naun Garcia MD PCP - General Internal Medicine 11/28/21 12/13/21 Ольга Jewell MD [address] [place] [address] PCP - General Internal Medicine 12/14/21 Rhoda Rangel MD [address] [place] [address] Referring Physician Allergy & Immunology 06/16/22 Brenden Villa DPM [address] [address] Podiatry 06/16/22 Piedad Bowens MD [address] [address] ORTHOPEDICS 06/16/22 Marcos Weiss DO [address] [address] Specialist Physiatry 12/15/22 Xochitl Machado MD [address] [address] Sports Medicine Int Med 12/15/22 Peter Cummings Specialist Gastroenterology 06/16/22 Evi Carpio Specialist PSYCHIATRY 06/16/22 elder duke Specialist Optometry 12/18/23 documented as of this encounter
--- OUTSIDE RECORDS SUMMARY | 2024-09-23 13:24 | XMS_ITS | Encounter Summary ---
Author Organization [facility] Address [address] [place] [address] Care Team Providers Care Farm Specialist Name Role Phone Ольга Jewell MD Primary Care Provider Rhoda Rangel MD Unavailable Unavailable Brenden Villa DPM Unavailable [phone] Piedad Bowens MD Unavailable [phone] Marcos Weiss DO Unavailable Unavailable Xochitl Machado MD Unavailable [phone] Encounter Details Date Type Department Care Team Description 09/18/2022 Pt. Non Urgent Medic al Question Adult Medicine - [place] [address] [place] [address] Mauricio Strauss PA [address] [place] [address] Social History Tobacco Use Types Packs/Day Years [...] was confirmed or suspected to have Coronavirus/COVID-19? Unable to assess 09/18/2022 7:50 AM EDT documented as of this encounter Miscellaneous Notes * Telephone Encounter - Mariann St Vladimir MenaN. - 09/18/2022 2:13 PM EDTFrom: Deisy Muhammad To: Jenniffer Strauss Sent: 09/18/2022 2:11 PM EDT Subject: Referral to Merna The office said they didn???t get my paper work the fax number is [phone]. Can you send it again? documented in this encounter Plan of Treatment Not on file documented as of this encounter Visit Diagnoses Not on filedocumented in this encounter Care Teams Farm Specialist Relationship Specialty Start Date End Date Ольга Jewell MD [address] [place] [address] PCP - General Internal Medicine 12/14/21 Rhoda Rangel MD [address] [place] [address] Referring Physician Allergy & Immunology 06/16/22 Brenden Villa DPM [address] [address] Podiatry 06/16/22 Piedad Bowens MD [address] [address] ORTHOPEDICS 06/16/22 Marcos Weiss DO [address] [address] Specialist Physiatry 12/15/22 Xochitl Machado MD [address] [address] Sports Medicine Int Med 12/15/22 Peter Cummings Specialist Gastroenterology 06/16/22 Evi Carpio Specialist PSYCHIATRY 06/16/22 elder duke Specialist Optometry 12/18/23 documented as of this encounter
--- OUTSIDE RECORDS SUMMARY | 2024-09-23 13:24 | XMS_ITS | Encounter Summary ---
Author Organization [facility] Address [address] [place] [address] Care Team Providers Care Escalator Attendant Name Role Phone Ольга Jewell MD Primary Care Provider [phone] Rhoda Rangel MD Unavailable Unavailable Brenden Villa DPM Unavailable [phone] Piedad Bowens MD Unavailable [phone] Marcos Weiss DO Unavailable Unavailable Xochtil Machado MD Unavailable [phone] Reason for Visit * Reason Onset Date Comments medication problems 01/24/2023 Encounter Details Date Type Department Care Team Description 01/24/2023 Refill Adult Medicine - [facility] [address] [place], [place] [id number] Ольга Jewell MD [address] [place] [address] medication problems Social History Tobacco Use Types Packs/Day Years [...] encounter Miscellaneous Notes * Telephone Encounter - Tresa Moreau NP - 01/25/2023 10:16 AM EDT There is no single type of bacteria that was found. Urine culture showed a large amount of bacteriarepresenting skin yessy - this is why cipro was ordered to cover it all * Telephone Encounter - Ethel Escamilla M.A. - 01/25/2023 9:56 AM EDT Called patient , states she actually received the RX for Ciprofloxacin yesterday and has already taken 2 doses. So far, no reactions to medication. Pt advised in regards to the Phenazopyridine is just a symptomatic management of pelvic pain with UTI and she can purchase it [id number]. ?? if she continues experiencing symptoms after 5 days of ciprofloxacin she needs to be reevaluated with urinalysis again. Pt is asking what type of bacteria was found in her urine culture ? Result note message states waiting for the results for bacterial sensitivity. Please advise * Telephone Encounter - Tresa Moreau NP - 01/24/2023 5:30 PM EDT Yes, prescription can be filled. If patient starts experiencing similar symptoms she should stop and inform the office * Telephone Encounter - Ethel Escamilla M.A. - 01/24/2023 2:55 PM EDT Pt has an allergy listed to Levofloxacin - reaction to med nausea and vomiting. - rx for Ciprofloxacin was sent to the pharmacy 01/19/23 , this has not been filled due to allergy listed OV 01/19/23 w/ Tresa Moreau NP - I also sent prescription for ciprofloxacin 500 mg twice a day for 5 days since patient already started experiencing flank pain. However, patient is instructed not to take this medication unless symptoms get worse. I do not want for the patient to be without medications consider upcoming weekend. Patient is instructed about potential adverse effect of ciprofloxacin and instructed do not go to gym for at least 7 days to avoid tendon rupture. Depending on bacterial sensitivity prescription for antibiotic could be changed. * Telephone Encounter - Freda Brandt - 01/24/2023 12:31 PM EDT Who is calling? A pharmacist: Pharmacy: [facility] Pharmacist Name: [facility] Phone # [phone] Name of the medication ciproflaxin What is the specific problem or interaction? Pt has allergy to levofloxicin If the patient is having a problem with taking the med - how long has the problem been going on? N/A documented in this encounter Plan of Treatment Not on file documented as of this encounter Visit Diagnoses Not on filedocumented in this encounter Care Teams Escalator Attendant Relationship Specialty Start Date End Date Ольга Jewell MD [address] [place] [address] PCP - General Internal Medicine 12/14/21 Rhoda Rangel MD [address] [place] [address] Referring Physician Allergy & Immunology 06/16/22 Brenden Villa DPM [address] [address] Podiatry 06/16/22 Piedad Bowens MD [address] [address] ORTHOPEDICS 06/16/22 Marcos Weiss DO [address] [address] Specialist Physiatry 12/15/22 Xochitl Machado MD [address] [address] Sports Medicine Int Med 12/15/22 Peter Cummings Specialist Gastroenterology 06/16/22 Evi Carpio Specialist PSYCHIATRY 06/16/22 elder duke Specialist Optometry 12/18/23 documented as of this encounter
--- OUTSIDE RECORDS SUMMARY | 2024-09-23 13:24 | XMS_ITS | Encounter Summary ---
Author Organization [facility] Address [address] [place] [address] Care Team Providers Care Aniline Press Worker Name Role Phone Naun Garcia MD Primary Care Provider Unavail able [facility], Pcp Primary Care Provider Unavailabl Naun Artis MD Primary Care Provider Unavail able Ольга Jewell MD Primary Care Provider Rhoda Rangel MD Unavailable Unavailable Brenden Villa DPM Unavailable [phone] Piedad Bowens MD Unavailable [phone] Marcos Weiss DO Unavailable Unavailable Xochitl Machado MD Unavailable [phone] Encounter Details Date Type Department Care Team Description 04/30/2019 Social Studies Department Chair Report Medical Records [address] [place] [address] Tianna Henry PA-C Social History Tobacco Use Types Packs/Day Years [...] on filedocumented in this encounter Care Teams Aniline Press Worker Relationship Specialty Start Date End Date Naun Garcia MD PCP - General Internal Medicine 10/27/13 10/27/21 [facility], Pcp PCP - General Internal Medicine 10/28/21 11/27/21 Naun Garcia MD PCP - General Internal Medicine 11/28/21 12/13/21 Ольга Jewell MD [address] [place] [address] PCP - General Internal Medicine 12/14/21 Rhoda Rangel MD [address] [place] [address] Referring Physician Allergy & Immunology 06/16/22 Brenden Villa DPM [address] [address] Podiatry 06/16/22 Piedad Bowens MD [address] [address] ORTHOPEDICS 06/16/22 Marcos eWiss DO [address] [address] Specialist Physiatry 12/15/22 Xochitl Machado MD [address] [address] Sports Medicine Int Med 12/15/22 Peter Cummings Specialist Gastroenterology 06/16/22 Evi Carpio Specialist PSYCHIATRY 06/16/22 elder duke Specialist Optometry 12/18/23 documented as of this encounter
--- OUTSIDE RECORDS SUMMARY | 2024-09-23 13:24 | XMS_ITS | Encounter Summary ---
Author Organization [facility] Address [address] [place] [address] Care Team Providers Care J2Ee Android Developer Name Role Phone Naun Garcia MD Primary Care Provider Unavail able [facility], Pcp Primary Care Provider Unavailabl e Naun Garcia MD Primary Care Provider Unavail able Ольга Jewell MD Primary Care Provider [phone] Rhoda Rangel MD Unavailable Unavailable Brenden Villa DPM Unavailable [phone] Piedad Bowens MD Unavailable [phone] Marcos Weiss DO Unavailable Unavailable Xochitl Machado MD Unavailable [phone] Reason for Visit * Reason Onset Date Comments Provider Call Back 10/11/2020 Encounter Details Date Type Department Care Team Description 10/11/2020 Telephone Orthopedics-[address] [address] Medardo Márquez MD Provider Call Back Social History Tobacco Use [...] encounter Miscellaneous Notes * Telephone Encounter - Corey Jain - 10/11/2020 9:09 AM EDT Patient has an appointment today at 11:15. Called asking she is not done with physical therapy and asking if she still needs to come in. Please review and advise documented in this encounter Plan of Treatment Not on file documented as of this encounter Visit Diagnoses Not on filedocumented in this encounter Care Teams J2Ee Android Developer Relationship Specialty Start Date End Date Naun Garcia MD PCP - General Internal Medicine 10/27/13 10/27/21 [facility] PCP - General Internal Medicine 10/28/21 11/27/21 Naun Garcia MD PCP - General Internal Medicine 11/28/21 12/13/21 Ольга Jewell MD [address] [place] [address] PCP - General Internal Medicine 12/14/21 Rhoda Rangel MD [address] [place] [address] Referring Physician Allergy & Immunology 06/16/22 Brenden Villa DPM [address] [address] Podiatry 06/16/22 Piedad Bowens MD [address] [address] ORTHOPEDICS 06/16/22 Marcos Weiss DO [address] [address] Specialist Physiatry 12/15/22 Xochitl Machado MD [address] [address] Sports Medicine Int Med 12/15/22 Peter Cummings Specialist Gastroenterology 06/16/22 Evi Carpio Specialist PSYCHIATRY 06/16/22 elder duke Specialist Optometry 12/18/23 documented as of this encounter
--- OUTSIDE RECORDS SUMMARY | 2024-09-23 13:24 | XMS_ITS | Encounter Summary ---
Author Organization [facility] Address [address] [place] [address] Care Team Providers Care Hothouse Worker Name Role Phone Ольга Jewell MD Primary Care Provider [phone] Rhoda Rangel MD Unavailable Unavailable Brenden Villa DPM Unavailable [phone] Piedad Bowens MD Unavailable [phone] Marcos Weiss DO Unavailable Unavailable Xochitl Machado MD Unavailable [phone] Encounter Details Date Type Department Care Team Description 04/02/2023 Acid Tank Cleaner Report Medical Records [address] [place] [address] Cecy Ni NP Social History Tobacco Use Types Packs/Day Years [...] suspected to have Coronavirus/COVID-19? No / Unsure 03/29/2023 8:06 AM EDT documented as of this encounter Plan of Treatment Not on file documented as of this encounter Visit Diagnoses Not on filedocumented in this encounter Care Teams Hothouse Worker Relationship Specialty Start Date End Date Ольга Jewell MD [address] [place] [address] PCP - General Internal Medicine 12/14/21 Rhoda Rangel MD [address] [place] [address] Referring Physician Allergy & Immunology 06/16/22 Brenden Villa DPM [address] [address] Podiatry 06/16/22 Piedad Bowens MD [address] [address] ORTHOPEDICS 06/16/22 Marcos Weiss DO [address] [address] Specialist Physiatry 12/15/22 Xochitl Machado MD [address] [address] Sports Medicine Int Med 12/15/22 Peter Cummings Specialist Gastroenterology 06/16/22 Evi Carpio Specialist PSYCHIATRY 06/16/22 elder duke Specialist Optometry 12/18/23 documented as of this encounter
--- OUTSIDE RECORDS SUMMARY | 2024-09-23 13:24 | XMS_ITS | Encounter Summary ---
Author Organization [facility] Address [address] [place] [address] Care Team Providers Care Manager Wastewater Name Role Phone Ольга Jewell MD Primary Care Provider [phone] Rhoda Rangel MD Unavailable Unavailable Brenden Villa DPM Unavailable [phone] Piedad Bowens MD Unavailable [phone] Marcos Weiss DO Unavailable Unavailable Xochitl Machado MD Unavailable [phone] Reason for Visit * Reason Comments E-prescribe Rx Request Encounter Details Date Type Department Care Team Description 12/27/2022 Refill Rheumatology [address] [address] Joyce Silva MD E-prescribe Rx Request Social History Tobacco [...] filedocumented in this encounter Care Teams Manager Wastewater Relationship Specialty Start Date End Date Ольга Jewell MD [address] [place] [address] PCP - General Internal Medicine 12/14/21 Rhoda Rangel MD [address] [place] [address] Referring Physician Allergy & Immunology 06/16/22 Brenden Villa DPM [address] [address] Podiatry 06/16/22 Piedad Bowens MD [address] [address] ORTHOPEDICS 06/16/22 Marcos Weiss DO [address] [address] Specialist Physiatry 12/15/22 Xochitl Machado MD [address] [address] Sports Medicine Int Med 12/15/22 Peter Cummings Specialist Gastroenterology 06/16/22 Evi Carpio Specialist PSYCHIATRY 06/16/22 elder duke Specialist Optometry 12/18/23 documented as of this encounter
--- OUTSIDE RECORDS SUMMARY | 2024-09-23 13:24 | XMS_ITS | Encounter Summary ---
Author Organization [facility] Address [address] [place] [address] Care Team Providers Care Fraternity Adviser Name Role Phone Naun Garcia MD Primary Care Provider Unavail able [facility], Pcp Primary Care Provider Unavailabl Naun Artis MD Primary Care Provider Unavail able Ольга Jewell MD Primary Care Provider Rhoda Rangel MD Unavailable Unavailable Brenden Villa DPM Unavailable [phone] Piedad Bowens MD Unavailable [phone] Marcos Weiss DO Unavailable Unavailable Xochitl Machado MD Unavailable [phone] Encounter Details Date Type Department Care Team Description 05/19/2019 Release of Information Medical Records [address] [place] [address] Abstract, Provider Social History Tobacco Use Types [...] on filedocumented in this encounter Care Teams Fraternity Adviser Relationship Specialty Start Date End Date Naun Garcia MD PCP - General Internal Medicine 10/27/13 10/27/21 [facility], Pcp PCP - General Internal Medicine 10/28/21 11/27/21 Naun Garcia MD PCP - General Internal Medicine 11/28/21 12/13/21 Ольга Jewell MD [address] [place] [address] PCP - General Internal Medicine 12/14/21 Rhoda Rangel MD [address] [place] [address] Referring Physician Allergy & Immunology 06/16/22 Brenden Villa DPM [address] [address] Podiatry 06/16/22 Piedad oBwens MD [address] [address] ORTHOPEDICS 06/16/22 Marcos Weiss DO [address] [address] Specialist Physiatry 12/15/22 Xochitl Machado MD [address] [address] Sports Medicine Int Med 12/15/22 Peter Cummings Specialist Gastroenterology 06/16/22 Evi Carpio Specialist PSYCHIATRY 06/16/22 elder duke Specialist Optometry 12/18/23 documented as of this encounter
--- OUTSIDE RECORDS SUMMARY | 2024-09-23 13:24 | XMS_ITS | Encounter Summary ---
Author Organization [facility] Address [address] [place] [address] Care Team Providers Care Fruit Room Hand Name Role Phone Ольга Jewell MD Primary Care Provider [phone] Rhoda Rangel MD Unavailable Unavailable Brenden Villa DPM Unavailable [phone] Piedad Bowens MD Unavailable [phone] Marcos Weiss DO Unavailable Unavailable Xochitl Machado MD Unavailable [phone] Encounter Details Date Type Department Care Team Description 04/17/2023 Television Producer Report Medical Records [address] [place] [address] Marcos Weiss DO Social History Tobacco Use [...] on filedocumented in this encounter Care Teams Fruit Room Hand Relationship Specialty Start Date End Date Ольга Jewell MD [address] [place] [address] PCP - General Internal Medicine 12/14/21 Rhoda Rangel MD [address] [place] [address] Referring Physician Allergy & Immunology 06/16/22 Brenden Villa DPM [address] [address] Podiatry 06/16/22 Piedad Bowens MD [address] [address] ORTHOPEDICS 06/16/22 Marcos Weiss DO [address] [address] Specialist Physiatry 12/15/22 Xochitl Machado MD [address] [address] Sports Medicine Int Med 12/15/22 Peter Cummings Specialist Gastroenterology 06/16/22 Evi Carpio Specialist PSYCHIATRY 06/16/22 elder duke Specialist Optometry 12/18/23 documented as of this encounter
--- OUTSIDE RECORDS SUMMARY | 2024-09-23 13:24 | XMS_ITS | Encounter Summary ---
Author Organization [facility] Address [address] [place] [address] Care Team Providers Care Customs Entry Clerk Name Role Phone Ольга Jewell MD Primary Care Provider Rhoda Rangel MD Unavailable Unavailable Brenden Vlila DPM Unavailable [phone] Piedad Bowens MD Unavailable [phone] Marcos Weiss DO Unavailable Unavailable Xochitl Machado MD Unavailable [phone] Reason for Visit * Reason Comments E-prescribe Rx Request Encounter Details Date Type Department Care Team Description 06/14/2023 Refill Adult Medicine A - [place] [address] [place] [address] Peter Cummings PA-C 175 [facility] [address] [place] [address] E-prescribe Rx Request Social History Tobacco Use [...] encounter Miscellaneous Notes * Telephone Encounter - Xochitl Sweeney M.A. - 06/14/2023 11:50 AM EST MICKY 05/23/2023 NOV none documented in this encounter Plan of Treatment Not on file documented as of this encounter Visit Diagnoses Not on filedocumented in this encounter Care Teams Customs Entry Clerk Relationship Specialty Start Date End Date Ольга Jewell MD [address] [place] [address] PCP - General Internal Medicine 12/14/21 Rhoda Rangel MD [address] [place] [address] Referring Physician Allergy & Immunology 06/16/22 Brenden Villa DPM [address] [address] Podiatry 06/16/22 Piedad Bowens MD [address] [address] ORTHOPEDICS 06/16/22 Marcos Weiss DO [address] [address] Specialist Physiatry 12/15/22 Xochitl Machado MD [address] [address] Sports Medicine Int Med 12/15/22 Peter Cummings Specialist Gastroenterology 06/16/22 Evi Carpio Specialist PSYCHIATRY 06/16/22 elder duke Specialist Optometry 12/18/23 documented as of this encounter
--- OUTSIDE RECORDS SUMMARY | 2024-09-23 13:24 | XMS_ITS | Encounter Summary ---
Author Organization [facility] Address [address] [place] [address] Care Team Providers Care Gear Lapping Machine Operator Name Role Phone Naun Garcia MD Primary Care Provider Unavail able [facility], Pcp Primary Care Provider Unavailabl e Naun Garcia MD Primary Care Provider Unavail able Ольга Jewell MD Primary Care Provider [phone] Rhoda Rangel MD Unavailable Unavailable Brenden Villa DPM Unavailable [phone] Piedad Bowens MD Unavailable [phone] Marcos Weiss DO Unavailable Unavailable Xochitl Machado MD Unavailable [phone] Encounter Details Date Type Department Care Team Description 05/27/2019 Pt. Non Urgent Medical Question [facility] - [facility] [address] [place] [address] Flo Viramontes MD Social History Tobacco Use Types Packs/Day [...] encounter Miscellaneous Notes * Telephone Encounter - Dolly Lino R.N. - 05/28/2019 8:46 AM ESTFrom: Deisy Hercules To: Flo Viramontes MD Sent: 05/27/2019 9:23 PM EST Subject: Left breast hurts I don't know what's wrong with my left breast it is a burning pain and there a knot there . I wouldlike for it to be just out. documented in this encounter Plan of Treatment Not on file documented as of this encounter Visit Diagnoses Not on filedocumented in this encounter Care Teams Gear Lapping Machine Operator Relationship Specialty Start Date End Date Naun Garcia MD PCP - General Internal Medicine 10/27/13 10/27/21 [facility] PCP - General Internal Medicine 10/28/21 11/27/21 Naun Garcia MD PCP - General Internal Medicine 11/28/21 12/13/21 Ольга Jewell MD [address] [place] [address] PCP - General Internal Medicine 12/14/21 Rhoda Rangel MD [address] [place] [address] Referring Physician Allergy & Immunology 06/16/22 Brenden Villa DPM [address] [address] Podiatry 06/16/22 Piedad Bowens MD [address] [address] ORTHOPEDICS 06/16/22 Marcos Weiss DO 175 [facility] [address] [address] Specialist Physiatry 12/15/22 Xochitl Machado MD [address] [address] Sports Medicine Int Med 12/15/22 Peter Cummings Specialist Gastroenterology 06/16/22 Evi Carpio Specialist PSYCHIATRY 06/16/22 elder duke Specialist Optometry 12/18/23 documented as of this encounter
--- OUTSIDE RECORDS SUMMARY | 2024-09-23 13:24 | XMS_ITS | Encounter Summary ---
Author Organization [facility] Address [address] [place] [address] Care Team Providers Care Force Variation Equipment Tender Name Role Phone Ольга Jewell MD Primary Care Provider Rhoda Rangel MD Unavailable Unavailable Brenden Villa DPM Unavailable [phone] Piedad Bowens MD Unavailable [phone] Marcos Weiss DO Unavailable Unavailable Xochitl Machado MD Unavailable [phone] Encounter Details Date Type Department Care Team Description 05/07/2023 SC[facility] 175 [facility] [address] [place] [id number] Kiah Aparicio APRN Social History Tobacco Use Types Packs/Day Years [...] on filedocumented in this encounter Care Teams Force Variation Equipment Tender Relationship Specialty Start Date End Date Ольга Jewell MD [address] [place] [address] PCP - General Internal Medicine 12/14/21 Rhoda Rangel MD [address] [place] [address] Referring Physician Allergy & Immunology 06/16/22 Brenden Villa DPM [address] [address] Podiatry 06/16/22 Piedad Bowens MD [address] [address] ORTHOPEDICS 06/16/22 Marcos Weiss DO [address] [address] Specialist Physiatry 12/15/22 Xochitl Machado MD [address] [address] Sports Medicine Int Med 12/15/22 Peter Cummings Specialist Gastroenterology 06/16/22 Evi Carpio Specialist PSYCHIATRY 06/16/22 elder duke Specialist Optometry 12/18/23 documented as of this encounter
--- OUTSIDE RECORDS SUMMARY | 2024-09-23 13:24 | XMS_ITS | Encounter Summary ---
Author Organization [facility] Address [address] [place] [address] Care Team Providers Care Occupational Therapy Program Director Name Role Phone Naun Garcia MD Primary Care Provider Unavail able [facility], Pcp Primary Care Provider Unavailabl e Naun Garcia MD Primary Care Provider Unavail able Ольга Jewell MD Primary Care Provider Rhoda Rangel MD Unavailable Unavailable Brenden Villa DPM Unavailable [phone] Piedad Bowens MD Unavailable [phone] Marcos Weiss DO Unavailable Unavailable Xochitl Machado MD Unavailable [phone] Encounter Details Date Type Department Care Team Description 10/10/2018 Pt. Non Urgent Medical Question Medicine/Pediatrics - [address] [id number] Naun Garcia MD Social History Tobacco Use [...] as of this encounter Progress Notes * Brenda Lima - 10/10/2018 4:52 PM EDTFrom: Deisy Hercules To: Naun Garcia MD Sent: 10/10/2018 4:50 PM EDT Subject: Homecare Hello Dr Garcia I want homecare like [facility] and do you think I will quality for homecare. I need help with shower and cleaning my home. documented in this encounter Plan of Treatment Not on file documented as of this encounter Visit Diagnoses Not on filedocumented in this encounter Care Teams Occupational Therapy Program Director Relationship Specialty Start Date End Date Naun Garcia MD PCP - General Internal Medicine 10/27/13 10/27/21 [facility] PCP - General Internal Medicine 10/28/21 11/27/21 Naun Garcia MD PCP - General Internal Medicine 11/28/21 12/13/21 Ольга Jewell MD [address] [place] [address] PCP - General Internal Medicine 12/14/21 Rhoda Rangel MD [address] [place] [address] Referring Physician Allergy & Immunology 06/16/22 Brenden Villa DPM [address] [address] Podiatry 06/16/22 Piedad Bowens MD [address] [address] ORTHOPEDICS 06/16/22 Marcos Weiss DO [address] [address] Specialist Physiatry 12/15/22 Xochitl Machado MD [address] [address] Sports Medicine Int Med 12/15/22 Peter Cummings Specialist Gastroenterology 06/16/22 Evi Carpio Specialist PSYCHIATRY 06/16/22 elder duke Specialist Optometry 12/18/23 documented as of this encounter
--- OUTSIDE RECORDS SUMMARY | 2024-09-23 13:24 | XMS_ITS | Encounter Summary ---
Author Organization [facility] Address [address] [place] [address] Care Team Providers Care Staff Climate Scientist Name Role Phone Naun Garcia MD Primary Care Provider Unavail able [facility], Pcp Primary Care Provider Unavailabl Naun Artis MD Primary Care Provider Unavail able Ольга Jewell MD Primary Care Provider Rhoda Rangel MD Unavailable Unavailable Brenden Villa DPM Unavailable [phone] Piedad Bowens MD Unavailable [phone] Marcos Weiss DO Unavailable Unavailable Xochitl Machado MD Unavailable [phone] Encounter Details Date Type Department Care Team Description 09/27/2018 [facility] Medical Records [address] [place] [id number] Cr Spence MD Social History Tobacco Use Types Packs/Day [...] on filedocumented in this encounter Care Teams Staff Climate Scientist Relationship Specialty Start Date End Date Naun Garcia MD PCP - General Internal Medicine 10/27/13 10/27/21 [facility], Pcp PCP - General Internal Medicine 10/28/21 11/27/21 Naun Garcia MD PCP - General Internal Medicine 11/28/21 12/13/21 Ольга Jewell MD [address] [place] [address] PCP - General Internal Medicine 12/14/21 Rhoda Rangel MD [address] [place] [address] Referring Physician Allergy & Immunology 06/16/22 Brenden Villa DPM [address] [address] Podiatry 06/16/22 Piedad Bowens MD [address] [address] ORTHOPEDICS 06/16/22 Marcos Weiss DO [address] [address] Specialist Physiatry 12/15/22 Xcohitl Machado MD [address] [address] Sports Medicine Int Med 12/15/22 Peter Cummings Specialist Gastroenterology 06/16/22 Evi Carpio Specialist PSYCHIATRY 06/16/22 elder duke Specialist Optometry 12/18/23 documented as of this encounter
--- OUTSIDE RECORDS SUMMARY | 2024-09-23 13:24 | XMS_ITS | Encounter Summary ---
Author Organization [facility] Address [address] [place] [address] Care Team Providers Care Optical Engineering Technician Name Role Phone Naun Garcia MD Primary Care Provider Unavail able [facility], Pcp Primary Care Provider Unavailabl e Naun Garcia MD Primary Care Provider Unavail able Ольга Jewell MD Primary Care Provider [phone] Rhoda Rangel MD Unavailable Unavailable Brenden Villa DPM Unavailable [phone] Piedad Bowens MD Unavailable [phone] Marcos Weiss DO Unavailable Unavailable Xochitl Machado MD Unavailable [phone] Encounter Details Date Type Department Care Team Description 08/17/2020 [facility] Medical Records [address] [place] [id number] Abstract, Provider Social History Tobacco Use Types [...] have Coronavirus / COVID-19? No / Unsure 08/16/2020 3:24 PM EST documented as of this encounter Plan of Treatment Not on file documented as of this encounter Visit Diagnoses Not on filedocumented in this encounter Care Teams Optical Engineering Technician Relationship Specialty Start Date End Date Naun Garcia MD PCP - General Internal Medicine 10/27/13 10/27/21 [facility] PCP - General Internal Medicine 10/28/21 11/27/21 Naun Garcia MD PCP - General Internal Medicine 11/28/21 12/13/21 Ольга Jewell MD 230 [place] [address] PCP - General Internal Medicine 12/14/21 Rhoda Rangel MD [address] [place] [address] Referring Physician Allergy & Immunology 06/16/22 Brenden Villa DPM [address] [address] Podiatry 06/16/22 Piedad Bowens MD [address] [address] ORTHOPEDICS 06/16/22 Marcos Weiss DO [address] [address] Specialist Physiatry 12/15/22 Xochitl Machado MD [address] [address] Sports Medicine Int Med 12/15/22 Peter Cummings Specialist Gastroenterology 06/16/22 Evi Carpio Specialist PSYCHIATRY 06/16/22 elder duke Specialist Optometry 12/18/23 documented as of this encounter
--- OUTSIDE RECORDS SUMMARY | 2024-09-23 13:24 | XMS_ITS | Encounter Summary ---
Author Organization [facility] Address [address] [place] [address] Care Team Providers Care Sales Forecast Analyst Name Role Phone Ольга Jewell MD Primary Care Provider Rhoda Rangel MD Unavailable Unavailable Brenden Villa DPM Unavailable [phone] Piedad Bowens MD Unavailable [phone] Marcos Weiss DO Unavailable Unavailable Xochitl Machado MD Unavailable [phone] Encounter Details Date Type Department Care Team Description 01/24/2023 Pt. Non Urgent Medic al Question Adult Medicine - [place] [address] [place] [address] Tresa Moreau, LAURIE [address] [place], [place] [id number] Social History Tobacco Use Types Packs/Day Years [...] on filedocumented in this encounter Care Teams Sales Forecast Analyst Relationship Specialty Start Date End Date Ольга Jewell MD [address] [place] [address] PCP - General Internal Medicine 12/14/21 Rhoda Rangel MD [address] [place] [address] Referring Physician Allergy & Immunology 06/16/22 Brenden Villa DPM [address] [address] Podiatry 06/16/22 Piedad Bowens MD [address] [address] ORTHOPEDICS 06/16/22 Marcos Weiss DO [address] [address] Specialist Physiatry 12/15/22 Xochitl Machado MD [address] [address] Sports Medicine Int Med 12/15/22 Peter Cummings Specialist Gastroenterology 06/16/22 Evi Carpio Specialist PSYCHIATRY 06/16/22 elder duke Specialist Optometry 12/18/23 documented as of this encounter
--- OUTSIDE RECORDS SUMMARY | 2024-09-23 13:25 | XMS_ITS | Encounter Summary ---
Author Organization [facility] Address [address] [place] [address] Care Team Providers Care Administrative Hearing Officer Name Role Phone Ольга Jewell MD Primary Care Provider [phone] Rhoda Rangel MD Unavailable Unavailable Brenden Villa DPM Unavailable [phone] Piedad Bowens MD Unavailable [phone] Marcos Weiss DO Unavailable Unavailable Xochitl Machado MD Unavailable [phone] Reason for Visit * Reason Onset Date Comments refill request 10/04/2023 Encounter Details Date Type Department Care Team Description 10/04/2023 Telephone Internal Medicine - [place] 175 [facility], [address] [place] [address] Ольга Jewell MD [address] [place] [address] refill request Social History Tobacco Use Types [...] on filedocumented in this encounter Care Teams Administrative Hearing Officer Relationship Specialty Start Date End Date Ольга Jewell MD [address] [place] [address] PCP - General Internal Medicine 12/14/21 Rhoda Rangel MD [address] [place] [address] Referring Physician Allergy & Immunology 06/16/22 Brenden Villa DPM [address] [address] Podiatry 06/16/22 Piedad Bowens MD [address] [address] ORTHOPEDICS 06/16/22 Marcos Weiss DO [address] [address] Specialist Physiatry 12/15/22 Xochitl Machado MD [address] [address] Sports Medicine Int Med 12/15/22 Peter Cummings Specialist Gastroenterology 06/16/22 Evi Carpio Specialist PSYCHIATRY 06/16/22 elder duke Specialist Optometry 12/18/23 documented as of this encounter
--- OUTSIDE RECORDS SUMMARY | 2024-09-23 13:25 | XMS_ITS | Encounter Summary ---
Author Organization [facility] Address [address] [place] [address] Care Team Providers Care Chain Builder Loom Control Name Role Phone Naun Garcia MD Primary Care Provider Unavail able [facility], Pcp Primary Care Provider Unavailabl e Naun Garcia MD Primary Care Provider Unavail able Ольга Jewell MD Primary Care Provider Rhoda Rangel MD Unavailable Unavailable Brenden Villa DPM Unavailable [phone] Piedad Bowens MD Unavailable [phone] Marcos Weiss DO Unavailable Unavailable Xochitl Machado MD Unavailable [phone] Reason for Visit * Reason Comments E-prescribe Rx Request Encounter Details Date Type Department Care Team Description 09/13/2021 Refill Gastroenterology - [place] 175 [facility] 200 [place] [phone] Peter Cummings PA-C [address] [address] E-prescribe Rx Request Social History Tobacco Use [...] encounter Miscellaneous Notes * Telephone Encounter - Brittany Leiva M.A. - 09/13/2021 1:02 PM EDT Last office visit : 09/03/2020 Next office visit not scheduled documented in this encounter Plan of Treatment Not on file documented as of this encounter Visit Diagnoses Not on filedocumented in this encounter Care Teams Chain Builder Loom Control Relationship Specialty Start Date End Date Naun Garcia MD PCP - General Internal Medicine 10/27/13 10/27/21 [facility] PCP - General Internal Medicine 10/28/21 11/27/21 Naun Garcia MD PCP - General Internal Medicine 11/28/21 12/13/21 Ольга Jewell MD [address] [place] [address] PCP - General Internal Medicine 12/14/21 Rhoda Rangel MD [address] [place] [address] Referring Physician Allergy & Immunology 06/16/22 Brenden Villa DPM [address] [address] Podiatry 06/16/22 Piedad Bowens MD [address] [address] ORTHOPEDICS 06/16/22 Marcos Weiss DO [address] [address] Specialist Physiatry 12/15/22 Xochitl Machado MD [address] [address] Sports Medicine Int Med 12/15/22 Peter Cummings Specialist Gastroenterology 06/16/22 Evi Carpio Specialist PSYCHIATRY 06/16/22 elder duke Specialist Optometry 12/18/23 documented as of this encounter
--- OUTSIDE RECORDS SUMMARY | 2024-09-23 13:25 | XMS_ITS | Encounter Summary ---
Author Organization [facility] Address [address] [place] [address] Care Team Providers Care Senior Clinical Data Manager Name Role Phone Naun Garcia MD Primary Care Provider Unavail able [facility], Pcp Primary Care Provider Unavailabl e Naun Garcia MD Primary Care Provider Unavail able Ольга Jewell MD Primary Care Provider Rhoda Rangel MD Unavailable Unavailable Brenden Villa DPM Unavailable [phone] Piedad Bowens MD Unavailable [phone] Marcos Weiss DO Unavailable Unavailable Xochitl Machado MD Unavailable [phone] Encounter Details Date Type Department Care Team Description 07/01/2021 Pt. Non Urgent Medical Question Medicine/Pediatrics - [address] [phone] Naun Garcia MD Social History Tobacco Use [...] have Coronavirus / COVID-19? No / Unsure 06/28/2021 10:43 AM EST documented as of this encounter Miscellaneous Notes * Telephone Encounter - Claudia Acuna M.A. - 07/01/2021 2:54 PM ESTFrom: Deisy Muhammad To: Bob Jose Sent: 07/01/2021 2:48 PM EST Subject: Deisy Kendall tested positive for covid 19 attachment of lab report documented in this encounter Plan of Treatment Not on file documented as of this encounter Visit Diagnoses Not on filedocumented in this encounter Care Teams Senior Clinical Data Manager Relationship Specialty Start Date End Date Naun Garcia MD PCP - General Internal Medicine 10/27/13 10/27/21 [facility] PCP - General Internal Medicine 10/28/21 11/27/21 Naun Garcia MD PCP - General Internal Medicine 11/28/21 12/13/21 Ольга Jewell MD 230 [place] [address] PCP - General Internal Medicine 12/14/21 Rhoda Rangel MD 230 [place] [address] Referring Physician Allergy & Immunology 06/16/22 Brenden Villa DPM [address] [address] Podiatry 06/16/22 Piedad Bowens MD [address] [address] ORTHOPEDICS 06/16/22 Marcos Weiss DO [address] [address] Specialist Physiatry 12/15/22 Xochitl Machado MD [address] [address] Sports Medicine Int Med 12/15/22 Peter Cummings Specialist Gastroenterology 06/16/22 Evi Carpio Specialist PSYCHIATRY 06/16/22 elder duke Specialist Optometry 12/18/23 documented as of this encounter
--- OUTSIDE RECORDS SUMMARY | 2024-09-23 13:25 | XMS_ITS | Encounter Summary ---
Author Organization [facility] Address [address] [place] [address] Care Team Providers Care Wireless Cellular Technician Name Role Phone Ольга Jewell MD Primary Care Provider Rhoda Rangel MD Unavailable Unavailable Brenden Villa DPM Unavailable [phone] Piedad Bowens MD Unavailable [phone] Marcos Weiss DO Unavailable Unavailable Xochitl Machado MD Unavailable [phone] Encounter Details Date Type Department Care Team Description 03/04/2024 Pt. Non Urgent Medical Question [facility] 175 [facility] [address] [place] [address] Xochitl Machado MD 175 [facility] 250 [place], [place] [phone] Social History Tobacco Use Types Packs/Day Years [...] on filedocumented in this encounter Care Teams Wireless Cellular Technician Relationship Specialty Start Date End Date Ольга Jewell MD [address] [place] [address] PCP - General Internal Medicine 12/14/21 Rhoda Rangel MD [address] [place], [place] Referring Physician Allergy & Immunology 06/16/22 Brenden Villa DPM [address] [address] Podiatry 06/16/22 Piedad Bowens MD [address] [address] ORTHOPEDICS 06/16/22 Marcos Weiss DO [address] [address] Specialist Physiatry 12/15/22 Xochitl Machado MD [address] [address] Sports Medicine Int Med 12/15/22 Peter Cummings Specialist Gastroenterology 06/16/22 Evi Carpio Specialist PSYCHIATRY 06/16/22 elder duke Specialist Optometry 12/18/23 documented as of this encounter
--- OUTSIDE RECORDS SUMMARY | 2024-09-23 13:25 | XMS_ITS | Encounter Summary ---
Author Organization [facility] Address [address] [place] [address] Care Team Providers Care Pre Fabricator Name Role Phone Naun Garcia MD Primary Care Provider Unavail able [facility], Pcp Primary Care Provider Unavailabl Naun Artis MD Primary Care Provider Unavail able Ольга Jewell MD Primary Care Provider Rhoda Rangel MD Unavailable Unavailable Brenden Villa DPM Unavailable [phone] Piedad Bowens MD Unavailable [phone] Marcos Weiss DO Unavailable Unavailable Xochitl Machado MD Unavailable [phone] Encounter Details Date Type Department Care Team Description 05/11/2016 Hospital Medical Records [address] [place] [address] Sonja Bains MD Social History Tobacco Use Types Packs/Day [...] on filedocumented in this encounter Care Teams Pre Fabricator Relationship Specialty Start Date End Date Naun Garcia MD PCP - General Internal Medicine 10/27/13 10/27/21 [facility] Pcp PCP - General Internal Medicine 10/28/21 11/27/21 Naun Garcia MD PCP - General Internal Medicine 11/28/21 12/13/21 Ольга Jewell MD 230 [place] [address] PCP - General Internal Medicine 12/14/21 Rhoda Rangel MD [address] [place] [address] Referring Physician Allergy & Immunology 06/16/22 Brenden Villa DPM [address] [address] Podiatry 06/16/22 Piedad Bowens MD [address] [address] ORTHOPEDICS 06/16/22 Marcos Weiss DO [address] [address] Specialist Physiatry 12/15/22 Xochitl Machado MD [address] [address] Sports Medicine Int Med 12/15/22 Peter Cummings Specialist Gastroenterology 06/16/22 Evi Carpio Specialist PSYCHIATRY 06/16/22 elder duke Specialist Optometry 12/18/23 documented as of this encounter
--- OUTSIDE RECORDS SUMMARY | 2024-09-23 13:25 | XMS_ITS | Encounter Summary ---
Author Organization [facility] Address [address] [place] [address] Care Team Providers Care Order Entry Administrator Name Role Phone Naun Garcia MD Primary Care Provider Unavail able [facility], Pcp Primary Care Provider Unavailabl e Naun Garcia MD Primary Care Provider Unavail able Ольга Jewell MD Primary Care Provider Rhoda Rangel MD Unavailable Unavailable Brenden Villa DPM Unavailable [phone] Piedad Bowens MD Unavailable [phone] Marcos Weiss DO Unavailable Unavailable Xochitl Machado MD Unavailable [phone] Reason for Visit * Reason Onset Date Comments REFERRAL 03/03/2019 Encounter Details Date Type Department Care Team Description 03/03/2019 Pt. Non Urgent Medical Question Medicine/Pediatrics - [address] [phone] Naun Garcia MD Social History Tobacco Use [...] as of this encounter Progress Notes * George Goyal M.A. - 03/03/2019 1:59 PM EDTFrom: Deisy Hercules To: Naun Garcia MD Sent: 03/03/2019 1:53 PM EDT Subject: Medcial needed Find out if you have received my referral for a lumber home traction and also wondering about the Percocets for right shoulder pain documented in this encounter Plan of Treatment Not on file documented as of this encounter Visit Diagnoses Not on filedocumented in this encounter Care Teams Order Entry Administrator Relationship Specialty Start Date End Date Naun Garcia MD PCP - General Internal Medicine 10/27/13 10/27/21 [facility] PCP - General Internal Medicine 10/28/21 11/27/21 Naun Garcia MD PCP - General Internal Medicine 11/28/21 12/13/21 Ольга Jewell MD 230 [place] [address] PCP - General Internal Medicine 12/14/21 Rhoda Rangel MD [address] [place] [address] Referring Physician Allergy & Immunology 06/16/22 Brenden Villa DPM [address] [address] Podiatry 06/16/22 Piedad Bowens MD [address] [address] ORTHOPEDICS 06/16/22 Marcos Weiss DO [address] [facility] [address] [address] Specialist Physiatry 12/15/22 Xochitl Machado MD [address] [address] Sports Medicine Int Med 12/15/22 Peter Cummings Specialist Gastroenterology 06/16/22 Evi Carpio Specialist PSYCHIATRY 06/16/22 elder duke Specialist Optometry 12/18/23 documented as of this encounter
--- OUTSIDE RECORDS SUMMARY | 2024-09-23 13:25 | XMS_ITS | Encounter Summary ---
Author Organization [facility] Address [address] [place] [address] Care Team Providers Care Dip Stand Loader Name Role Phone Ольга Jewell MD Primary Care Provider Rhoda Rangel MD Unavailable Unavailable Brenden Villa DPM Unavailable [phone] Piedad Bowens MD Unavailable [phone] Marcos Weiss DO Unavailable Unavailable Xochitl Machado MD Unavailable [phone] Reason for Visit * Reason Comments E-prescribe Rx Request Encounter Details Date Type Department Care Team Description 07/13/2022 Refill Adult Medicine A - [place] [address] [place] [address] Peter Cummings PA-C 175 [facility] [address] [place] [address] E-prescribe Rx Request Social History Tobacco Use [...] suspected to have Coronavirus/COVID-19? No / Unsure 07/13/2022 11:41 AM EST documented as of this encounter Miscellaneous Notes * Telephone Encounter - Kinza Lion M.A. - 07/13/2022 2:42 PM EST MICKY 02/01/22, no GI f/up documented in this encounter Plan of Treatment Not on file documented as of this encounter Visit Diagnoses Not on filedocumented in this encounter Care Teams Dip Stand Loader Relationship Specialty Start Date End Date Ольга Jewell MD [address] [place] [address] PCP - General Internal Medicine 12/14/21 Rhoda Rangel MD [address] [place] [address] Referring Physician Allergy & Immunology 06/16/22 Brenden Villa DPM [address] [address] Podiatry 06/16/22 Piedad Bowens MD [address] [address] ORTHOPEDICS 06/16/22 Marcos Weiss DO [address] [address] Specialist Physiatry 12/15/22 Xochitl Machado MD [address] [address] Sports Medicine Int Med 12/15/22 Peter Cummings Specialist Gastroenterology 06/16/22 Evi Carpio Specialist PSYCHIATRY 06/16/22 elder duke Specialist Optometry 12/18/23 documented as of this encounter
--- OUTSIDE RECORDS SUMMARY | 2024-09-23 13:25 | XMS_ITS | Encounter Summary ---
Author Organization [facility] Address [address] [place] [address] Care Team Providers Care Software Test Analyst Name Role Phone Ольга Jewell MD Primary Care Provider Rhoda Rangel MD Unavailable Unavailable Brenden Villa DPM Unavailable [phone] Piedad Bowens MD Unavailable [phone] Marcos Weiss DO Unavailable Unavailable Xochitl Machado MD Unavailable [phone] Reason for Visit * Reason Comments E-prescribe Rx Request Encounter Details Date Type Department Care Team Description 12/26/2023 Refill Gastroenterology - [place] [address] [phone] Peter Cummings PA-C [address] [address] E-prescribe Rx Request Social History Tobacco Use [...] encounter Miscellaneous Notes * Telephone Encounter - Isi Gupta M.A. - 12/26/2023 2:55 PM EDT [facility] 05/23/23 No upcoming documented in this encounter Plan of Treatment Not on file documented as of this encounter Visit Diagnoses Not on filedocumented in this encounter Care Teams Software Test Analyst Relationship Specialty Start Date End Date Ольга Jewell MD [address] [place] [address] PCP - General Internal Medicine 12/14/21 Rhoda Rangel MD [address] [place] [address] Referring Physician Allergy & Immunology 06/16/22 Brenden Villa DPM [address] [address] Podiatry 06/16/22 Piedad Bowens MD [address] [address] ORTHOPEDICS 06/16/22 Marcos Weiss DO [address] [address] Specialist Physiatry 12/15/22 Xochitl Machado MD [address] [address] Sports Medicine Int Med 12/15/22 Peter Cummings Specialist Gastroenterology 06/16/22 Evi Carpio Specialist PSYCHIATRY 06/16/22 elder duke Specialist Optometry 12/18/23 documented as of this encounter
--- OUTSIDE RECORDS SUMMARY | 2024-09-23 13:25 | XMS_ITS | Encounter Summary ---
Author Organization [facility] Address [address] [place] [address] Care Team Providers Care Return Clerk Name Role Phone Ольга Jewell MD Primary Care Provider [phone] Rhoda Rangel MD Unavailable Unavailable Brenden Villa DPM Unavailable [phone] Piedad Bowens MD Unavailable [phone] Marcos Weiss DO Unavailable Unavailable Xochitl Machado MD Unavailable [phone] Reason for Visit * Reason Onset Date Comments Medication 10/09/2023 Encounter Details Date Type Department Care Team Description 10/09/2023 Refill Gastroenterology - [place] 175 [facility] [address] [place] [phone] Sander Saxena DO 175 [facility] [address] [place] [address] Medication Social History Tobacco Use Types Packs/Day Years [...] filedocumented in this encounter Care Teams Return Clerk Relationship Specialty Start Date End Date Ольга Jewell MD [address] [place] [address] PCP - General Internal Medicine 12/14/21 Rhoda Rangel MD [address] [place] [address] Referring Physician Allergy & Immunology 06/16/22 Brenden Villa DPM [address] [address] Podiatry 06/16/22 Piedad Bowens MD [address] [address] ORTHOPEDICS 06/16/22 Marcos Weiss DO [address] [address] Specialist Physiatry 12/15/22 Xochitl Machado MD [address] [address] Sports Medicine Int Med 12/15/22 Peter Cummings Specialist Gastroenterology 06/16/22 Evi Carpio Specialist PSYCHIATRY 06/16/22 elder duke Specialist Optometry 12/18/23 documented as of this encounter
--- OUTSIDE RECORDS SUMMARY | 2024-09-23 13:25 | XMS_ITS | Encounter Summary ---
Author Organization [facility] Address [address] [place] [address] Care Team Providers Care Entry Level Electrician Name Role Phone Ольга Jewell MD Primary Care Provider [phone] Rhoda Rangel MD Unavailable Unavailable Brenden Villa DPM Unavailable [phone] Piedad Bowens MD Unavailable [phone] Marcos Weiss DO Unavailable Unavailable Xochitl Machado MD Unavailable [phone] Reason for Visit * Reason Comments E-prescribe Rx Request Encounter Details Date Type Department Care Team Description 12/14/2021 Refill Adult Medicine A - [place] [address] [place] [address] Joyce Silva MD E-prescribe Rx Request Social [...] suspected to have Coronavirus/COVID-19? No / Unsure 11/28/2021 10:20 AM EDT documented as of this encounter Miscellaneous Notes * Telephone Encounter - Freda Brandt - 12/14/2021 3:58 PM EDT Refills Last office visit: 09/20/21 Last pcp: new to pcp Next office visit: 03/17/2022 documented in this encounter Plan of Treatment Not on file documented as of this encounter Visit Diagnoses Not on filedocumented in this encounter Care Teams Entry Level Electrician Relationship Specialty Start Date End Date Ольга Jewell MD [address] [place] [address] PCP - General Internal Medicine 12/14/21 Rhoda Rangel MD [address] [place] [address] Referring Physician Allergy & Immunology 06/16/22 Brenden Villa DPM [address] [address] Podiatry 06/16/22 Piedad Bowens MD [address] [address] ORTHOPEDICS 06/16/22 Marcos Weiss DO [address] [address] Specialist Physiatry 12/15/22 Xochitl Machado MD [address] [address] Sports Medicine Int Med 12/15/22 Peter Cummings Specialist Gastroenterology 06/16/22 Evi Carpio Specialist PSYCHIATRY 06/16/22 elder duke Specialist Optometry 12/18/23 documented as of this encounter
--- OUTSIDE RECORDS SUMMARY | 2024-09-23 13:25 | XMS_ITS | Encounter Summary ---
Author Organization [facility] Address [address] [place] [address] Care Team Providers Care Associate Professor Of Forestry Name Role Phone Naun Garcia MD Primary Care Provider Unavail able [facility], Pcp Primary Care Provider Unavailabl e Naun Garcia MD Primary Care Provider Unavail able Ольга Jewell MD Primary Care Provider [phone] Rhoda Rangel MD Unavailable Unavailable Brenden Villa DPM Unavailable [phone] Piedad Bowens MD Unavailable [phone] Marcos Weiss DO Unavailable Unavailable Xochitl Machado MD Unavailable [phone] Encounter Details Date Type Department Care Team Description 01/16/2019 Orders Only Medical Records [address] [place] [address] Abstract, Provider Social History Tobacco Use Types [...] on file documented as of this encounter Procedures Procedure Name Priority Date/Time Associated Diagnosis Comments OUTSIDE MAMMO Routine 01/16/2019 documented in this encounter Results * OUTSIDE MAMMO (01/16/2019) Cr Flaherty MD RADIOLOGY documented in this encounter Visit Diagnoses Not on filedocumented in this encounter Care Teams Associate Professor Of Forestry Relationship Specialty Start Date End Date Naun Garcia MD PCP - General Internal Medicine 10/27/13 10/27/21 [facility] PCP - General Internal Medicine 10/28/21 11/27/21 Naun Garcia MD PCP - General Internal Medicine 11/28/21 12/13/21 Ольга Jewell MD [address] [place] [address] PCP - General Internal Medicine 12/14/21 Rhoda Rangel MD [address] [place] [address] Referring Physician Allergy & Immunology 06/16/22 Brenden Villa DPM [address] [address] Podiatry 06/16/22 Piedad Bowens MD [address] [address] ORTHOPEDICS 06/16/22 Marcos Weiss DO [address] [address] Specialist Physiatry 12/15/22 Xochitl Machado MD [address] [address] Sports Medicine Int Med 12/15/22 Peter Cummings Specialist Gastroenterology 06/16/22 Evi Carpio Specialist PSYCHIATRY 06/16/22 elder duke Specialist Optometry 12/18/23 documented as of this encounter
--- OUTSIDE RECORDS SUMMARY | 2024-09-23 13:25 | XMS_ITS | Encounter Summary ---
Author Organization [facility] Address [address] [place] [address] Care Team Providers Care Travel Rn Name Role Phone Naun Dalton MD Primary Care Provider Unavail able [facility], Pcp Primary Care Provider Unavailabl e Naun Dalton MD Primary Care Provider Unavail able Ольга Jewlel MD Primary Care Provider [phone] Rhoda Rangel MD Unavailable Unavailable Brenden Villa DPM Unavailable [phone] Piedad Bowens MD Unavailable [phone] Marcos Weiss DO Unavailable Unavailable Xochitl Machado MD Unavailable [phone] Reason for Visit * Reason Onset Date Comments Abdominal Pain 12/31/2013 Encounter Details Date Type Department Care Team Description 12/31/2013 Telephone Medicine/Pediatrics [address] [phone] Naun Dalton MD Abdominal Pain Social History Tobacco Use Types Packs/Day Years Used Date Smoking Tobacco: Never Smokeless Tobacco: Never Alcohol Use Standard Drinks/Week Comments Yes 0 (1 standard drink = 0.6 oz pur e alcohol) 1 glass of wine occ Sex Assigned at Date Recorded Female 04/25/2019 2:[address] Job Start Date Occupation Industry Not on file Not on file Not on file documented as of this encounter Miscellaneous Notes * Telephone Encounter - Tania Carvalho L.P.N. - 12/31/2013 10:31 AM EDT She states she has had abd problems for weeks not new problem Refusing to see any other md exceptdr dalton. Has been using miralax for 1 week Having constipation/diarrhea with mid upper abd pain Istressed need for sooner appt and she refused msg to dr dalton for eval Has appt 01/[address] regan my chart * Telephone Encounter - Tanika Sepulveda - 12/31/2013 9:59 AM EDT Patient made an appt for Sunday, 8.11.[address] ab[address] pain [address] Dr. Dalton. Please call documented in this encounter Plan of Treatment Not on file documented as of this encounter Visit Diagnoses Not on filedocumented in this encounter Care Teams Travel Rn Relationship Specialty Start Date End Date Naun Dalton MD PCP - General Internal Medicine 10/27/13 10/27/21 [facility] [place] - General Internal Medicine 10/28/21 11/27/21 Naun Dalton MD PCP - General Internal Medicine 11/28/21 12/13/21 Ольга Jewell MD [address] [place] [address] PCP - General Internal Medicine 12/14/21 Rhoda Rangel MD [address] [place] [address] Referring Physician Allergy & Immunology 06/16/22 Brenden Villa DPM [address] [address] Podiatry 06/16/22 Piedad Bowens MD [address] [address] ORTHOPEDICS 06/16/22 Marcos Weiss DO [address] [address] Specialist Physiatry 12/15/22 Xochitl Machado MD [address] [place] [address] Sports Medicine Int Med 12/15/22 Peter Cummings Specialist Gastroenterology 06/16/22 Evi Carpio Specialist PSYCHIATRY 06/16/22 elder duke Specialist Optometry 12/18/23 documented as of this encounter
--- OUTSIDE RECORDS SUMMARY | 2024-09-23 13:25 | XMS_ITS | Encounter Summary ---
Author Organization [facility] Address [address] [place] [address] Care Team Providers Care Dog And Cat Food Cook Name Role Phone Ольга Jewell MD Primary Care Provider Rhoda Rangel MD Unavailable Unavailable Brenden Villa DPM Unavailable [phone] Piedad Bowens MD Unavailable [phone] Marcos Weiss DO Unavailable Unavailable Xochitl Machado MD Unavailable [phone] Encounter Details Date Type Department Care Team Description 02/07/2024 Pt. Non Urgent Medical Question OBGYN - [place] [address] [place] [phone] Elida Pavon CNM [address] [place], [place] [phone] Social History Tobacco Use Types Packs/Day Years [...] encounter Miscellaneous Notes * Telephone Encounter - Joan Jiang R.N. - 02/08/2024 11:52 AM EDTFrom: Deisy Muhammad To: Elida Pavon CNM Sent: 02/07/2024 5:32 PM EDT Subject: Question regarding SMR PRIM SRC WET [place] NFCT AGT Hi I was wondering what does this mean. I miss the call yesterday from the nurse. Please call me back or send me a message here. Thanks documented in this encounter Plan of Treatment Not on file documented as of this encounter Visit Diagnoses Not on filedocumented in this encounter Care Teams Dog And Cat Food Cook Relationship Specialty Start Date End Date Ольга Jewell MD [address] [place] [address] PCP - General Internal Medicine 12/14/21 Rhoda Rangel MD [address] [place] [address] Referring Physician Allergy & Immunology 06/16/22 Brenden Villa DPM [address] [address] Podiatry 06/16/22 Piedad Bowens MD [address] [address] ORTHOPEDICS 06/16/22 Macros Weiss DO [address] [address] Specialist Physiatry 12/15/22 Xochitl Machado MD [address] [address] Sports Medicine Int Med 12/15/22 Peter Cummings Specialist Gastroenterology 06/16/22 Evi Carpio Specialist PSYCHIATRY 06/16/22 elder duke Specialist Optometry 12/18/23 documented as of this encounter
--- OUTSIDE RECORDS SUMMARY | 2024-09-23 13:25 | XMS_ITS | Encounter Summary ---
Author Organization [facility] Address [address] [place] [address] Care Team Providers Care Public Relations Player Name Role Phone Ольга Jewell MD Primary Care Provider Rhoda Rangel MD Unavailable Unavailable Brenden Villa DPM Unavailable [phone] Piedad Bowens MD Unavailable [phone] Marcos Weiss DO Unavailable Unavailable Xochitl Machado MD Unavailable [phone] Reason for Visit * Reason Comments E-prescribe Rx Request Encounter Details Date Type Department Care Team Description 03/23/2022 Refill Rheumatology [address] [address] Joyce Silva MD E-prescribe Rx Request Social [...] suspected to have Coronavirus/COVID-19? No / Unsure 02/27/2022 2:30 PM EDT documented as of this encounter Plan of Treatment Not on file documented as of this encounter Visit Diagnoses Not on filedocumented in this encounter Care Teams Public Relations Player Relationship Specialty Start Date End Date Ольга Jewell MD [address] [place] [address] PCP - General Internal Medicine 12/14/21 Rhoda Rangel MD [address] [place] [address] Referring Physician Allergy & Immunology 06/16/22 Brenden Villa DPM [address] [address] Podiatry 06/16/22 Piedad Bowens MD [address] [address] ORTHOPEDICS 06/16/22 Marcos Weiss DO [address] [address] Specialist Physiatry 12/15/22 Xochitl Machado MD [address] [address] Sports Medicine Int Med 12/15/22 Peter Cummings Specialist Gastroenterology 06/16/22 Evi Carpio Specialist PSYCHIATRY 06/16/22 elder duke Specialist Optometry 12/18/23 documented as of this encounter
--- OUTSIDE RECORDS SUMMARY | 2024-09-23 13:25 | XMS_ITS | Encounter Summary ---
Author Organization [facility] Address [address] [place] [address] Care Team Providers Care Clinical Business Manager Name Role Phone Ольга Jewell MD Primary Care Provider Rhoda Rangel MD Unavailable Unavailable Brenden Villa DPM Unavailable [phone] Piedad Bowens MD Unavailable [phone] Marcos Weiss DO Unavailable Unavailable Xochitl Machado MD Unavailable [phone] Reason for Visit * Reason Comments E-prescribe Rx Request Encounter Details Date Type Department Care Team Description 08/16/2022 Refill Rheumatology - [address] [address] Joyce Silva MD E-prescribe Rx Request Social [...] suspected to have Coronavirus/COVID-19? Unable to assess 08/15/2022 6:43 AM EST documented as of this encounter Miscellaneous Notes * Telephone Encounter - Janett Weldon - 08/17/2022 8:05 AM EST MICKY-01/2022 NOTHING UPCOMING documented in this encounter Plan of Treatment Not on file documented as of this encounter Visit Diagnoses Not on filedocumented in this encounter Care Teams Clinical Business Manager Relationship Specialty Start Date End Date Ольга Jewell MD [address] [place] [address] PCP - General Internal Medicine 12/14/21 Rhoda Rangel MD [address] [place] [address] Referring Physician Allergy & Immunology 06/16/22 Brenden Villa DPM [address] [address] Podiatry 06/16/22 Piedad Bowens MD [address] [address] ORTHOPEDICS 06/16/22 Marcos Weiss DO [address] [address] Specialist Physiatry 12/15/22 Xochitl Machado MD [address] [address] Sports Medicine Int Med 12/15/22 Peter Cummings Specialist Gastroenterology 06/16/22 Evi Carpio Specialist PSYCHIATRY 06/16/22 elder duke Specialist Optometry 12/18/23 documented as of this encounter
--- OUTSIDE RECORDS SUMMARY | 2024-09-23 13:25 | XMS_ITS | Encounter Summary ---
Author Organization [facility] Address [address] [place] [address] Care Team Providers Care Neck Skewer Name Role Phone Naun Garcia MD Primary Care Provider Unavail able [facility] Primary Care Provider Unavailabl Naun Artis MD Primary Care Provider Unavail able Ольга Jewell MD Primary Care Provider Rhoda Rangel MD Unavailable Unavailable Brenden Villa DPM Unavailable [phone] Piedad Bowens MD Unavailable [phone] Marcos Weiss DO Unavailable Unavailable Xochitl Machado MD Unavailable [phone] Encounter Details Date Type Department Care Team Description 03/15/2016 Release of Information Medical Records [address] [place] [id number] Abstract, Provider Social History Tobacco Use Types [...] on filedocumented in this encounter Care Teams Neck Skewer Relationship Specialty Start Date End Date Naun Garcia MD PCP - General Internal Medicine 5/19/14 5/19/22 [facility], Pcp PCP - General Internal Medicine 10/28/21 11/27/21 Naun Garcia MD PCP - General Internal Medicine 11/28/21 12/13/21 Ольга Jewell MD [address] [place] [address] PCP - General Internal Medicine 12/14/21 Rhoda Rangel MD [address] [place] [address] Referring Physician Allergy & Immunology 06/16/22 Brenden Villa DPM [address] [address] Podiatry 06/16/22 Piedad Bowens MD [address] [address] ORTHOPEDICS 06/16/22 Marcos Weiss DO [address] [address] Specialist Physiatry 12/15/22 Xochitl Machado MD [address] [address] Sports Medicine Int Med 12/15/22 Peter Cummings Specialist Gastroenterology 06/16/22 Evi Carpio Specialist PSYCHIATRY 06/16/22 elder duke Specialist Optometry 12/18/23 documented as of this encounter
--- OUTSIDE RECORDS SUMMARY | 2024-09-23 13:25 | XMS_ITS | Encounter Summary ---
Author Organization [facility] Address [address] [place] [address] Care Team Providers Care Event Staff Member Name Role Phone Naun Garcia MD Primary Care Provider Unavail able [facility], Pcp Primary Care Provider Unavailabl e Naun Garcia MD Primary Care Provider Unavail able Ольга Jewell MD Primary Care Provider Rhoda Rangel MD Unavailable Unavailable Brenden Villa DPM Unavailable [phone] Piedad Bowens MD Unavailable [phone] Marcos Weiss DO Unavailable Unavailable Xochitl Machado MD Unavailable [phone] Reason for Visit * Reason Comments E-prescribe Rx Request Encounter Details Date Type Department Care Team Description 07/14/2019 Refill General Surgery - [place] 175 [facility] [address] [place] [address] Dawn Arciniega MD [address] [place] [address] [address] [place], [place] [id number] E-prescribe Rx Request Social History Tobacco Use [...] on filedocumented in this encounter Care Teams Event Staff Member Relationship Specialty Start Date End Date Naun Garcia MD PCP - General Internal Medicine 10/27/13 10/27/21 [facility] PCP - General Internal Medicine 10/28/21 11/27/21 Naun Garcia MD PCP - General Internal Medicine 11/28/21 12/13/21 Ольга Jewell MD [address] [place] [address] PCP - General Internal Medicine 12/14/21 Rhoda Rangel MD [address] [place] [address] Referring Physician Allergy & Immunology 06/16/22 Brenden Villa DPM [address] [address] Podiatry 06/16/22 Piedad Bowens MD [address] [address] ORTHOPEDICS 06/16/22 Marcos Weiss DO [address] [address] Specialist Physiatry 12/15/22 Xochitl Machado MD [address] [address] Sports Medicine Int Med 12/15/22 Peter Cummings Specialist Gastroenterology 06/16/22 Evi Carpio Specialist PSYCHIATRY 06/16/22 elder duke Specialist Optometry 12/18/23 documented as of this encounter
--- OUTSIDE RECORDS SUMMARY | 2024-09-23 13:25 | XMS_ITS | Encounter Summary ---
Author Organization [facility] Address [address] [place] [address] Care Team Providers Care Electrical Journeyman Name Role Phone Ольга Jewell MD Primary Care Provider Rhoda Rangel MD Unavailable Unavailable Brenden Villa DPM Unavailable [phone] Piedad Bowens MD Unavailable [phone] Marcos Weiss DO Unavailable Unavailable Xochitl Machado MD Unavailable [phone] Reason for Visit * Reason Comments E-prescribe Rx Request Encounter Details Date Type Department Care Team Description 01/24/2024 Refill Adult Medicine A - [place] [address] [place] [address] Peter Cummings PA-C 175 [facility] [address] [place] [address] E-prescribe Rx Request Social History Tobacco Use [...] encounter Miscellaneous Notes * Telephone Encounter - Reva Smith M.A. - 01/24/2024 1:27 PM EDT [facility]: 05/23/2023 No upcoming documented in this encounter Plan of Treatment Not on file documented as of this encounter Visit Diagnoses Not on filedocumented in this encounter Care Teams Electrical Journeyman Relationship Specialty Start Date End Date Ольга Jewell MD [address] [place] [address] PCP - General Internal Medicine 12/14/21 Rhoda Rangel MD [address] [place] [address] Referring Physician Allergy & Immunology 06/16/22 Brenden Villa DPM [address] [address] Podiatry 06/16/22 Piedad Bowens MD [address] [address] ORTHOPEDICS 06/16/22 Marcos Weiss DO [address] [address] Specialist Physiatry 12/15/22 Xochitl Machado MD [address] [address] Sports Medicine Int Med 12/15/22 Peter Cummings Specialist Gastroenterology 06/16/22 Evi Carpio Specialist PSYCHIATRY 06/16/22 elder duke Specialist Optometry 12/18/23 documented as of this encounter
--- OUTSIDE RECORDS SUMMARY | 2024-09-23 13:25 | XMS_ITS | Encounter Summary ---
Author Organization [facility] Address [address] [place] [address] Care Team Providers Care Pilot Instructor Name Role Phone Ольга Jewell MD Primary Care Provider [phone] Rhoda Rangel MD Unavailable Unavailable Brenden Villa DPM Unavailable [phone] Piedad Bowens MD Unavailable [phone] Marcos Weiss DO Unavailable Unavailable Xochitl Machado MD Unavailable [phone] Reason for Visit * Reason Onset Date Comments Provider Call Back 07/27/2022 Knee pain Encounter Details Date Type Department Care Team Description 07/27/2022 Telephone [facility] Medical [facility] 175 [facility] [address] [place] [phone] Kiah Aparicio APRN Provider Call Back (Knee pain) Social History Tobacco Use Types Packs/Day Years [...] suspected to have Coronavirus/COVID-19? No / Unsure 07/22/2022 11:41 AM EST documented as of this encounter Miscellaneous Notes * Telephone Encounter - Lynnette Zamora - 07/27/2022 2:38 PM EST Pt called she was seen 07/13 but she is in a lot of pain and is having trouble walking...she is starting PT tomorrow but is asking that you give her a call Pt is aware that gel injections have been ordered and she is not eligible for cortisone intil August [phone] documented in this encounter Plan of Treatment Not on file documented as of this encounter Visit Diagnoses Not on filedocumented in this encounter Care Teams Pilot Instructor Relationship Specialty Start Date End Date Ольга Jewell MD [address] [place] [address] PCP - General Internal Medicine 12/14/21 Rhoda Rangel MD [address] [place] [address] Referring Physician Allergy & Immunology 06/16/22 Brenden Villa DPM [address] [address] Podiatry 06/16/22 Piedad Bowens MD [address] [address] ORTHOPEDICS 06/16/22 Marcos Weiss DO [address] [address] Specialist Physiatry 12/15/22 Xochitl Machado MD [address] [address] Sports Medicine Int Med 12/15/22 Peter Cummings Specialist Gastroenterology 06/16/22 Evi Carpio Specialist PSYCHIATRY 06/16/22 elder duke Specialist Optometry 12/18/23 documented as of this encounter
--- OUTSIDE RECORDS SUMMARY | 2024-09-23 13:25 | XMS_ITS | Encounter Summary ---
Author Organization [facility] Address [address] [place] [address] Care Team Providers Care Weather Strip Mechanic Name Role Phone Naun Garcia MD Primary Care Provider Unavail able [facility], Pcp Primary Care Provider Unavailabl e Naun Garcia MD Primary Care Provider Unavail able Ольаг Jewell MD Primary Care Provider [phone] Rhoda Rangel MD Unavailable Unavailable Brenden Villa DPM Unavailable [phone] Piedad Bowens MD Unavailable [phone] Marcos Weiss DO Unavailable Unavailable Xochitl Machado MD Unavailable [phone] Encounter Details Date Type Department Care Team Description 01/17/2019 Orders Only General Surgery [address] [place] [address] Cr Flaherty MD [address] [place] [address] Mammographic microcalcification Social History Tobacco Use Types Packs/Day Years [...] Procedure Name Priority Date/Time Associated Diagnosis Comments SC BX BREAST W/DEVICE 1ST LESION STEREOTACTIC GUID Routine 01/16/2019 Mammographic microcalcification documented in this encounter Results * BX BREAST W DEVICE 1ST LESION STEREOTACTIC GUIDE (01/16/2019) Cr Flaherty MD MAMMOGRAPHY documented in this encounter Visit Diagnoses Diagnosis Mammographic microcalcification documented in this encounter Care Teams Weather Strip Mechanic Relationship Specialty Start Date End Date Naun Garcia MD PCP - General Internal Medicine 10/27/13 10/27/21 [facility] PCP - General Internal Medicine 10/28/21 11/27/21 Naun Garcia MD PCP - General Internal Medicine 11/28/21 12/13/21 Ольга Jewell MD [address] [place] [address] PCP - General Internal Medicine 12/14/21 Rhoda Rangel MD [address] [place] [address] Referring Physician Allergy & Immunology 06/16/22 Brenden Villa DPM [address] [address] Podiatry 06/16/22 Piedad Bowens MD [address] [address] ORTHOPEDICS 06/16/22 Marcos Weiss DO [address] [address] Specialist Physiatry 12/15/22 Xochitl Machado MD [address] [address] Sports Medicine Int Med 12/15/22 Peter Cummings Specialist Gastroenterology 06/16/22 Evi Carpio Specialist PSYCHIATRY 06/16/22 elder duke Specialist Optometry 12/18/23 documented as of this encounter"
--- OUTSIDE RECORDS SUMMARY | 2024-09-23 13:25 | XMS_ITS | Encounter Summary ---
Author Organization [facility] Address [address] [place] [address] Care Team Providers Care Emergency Doctor Name Role Phone Naun Garcia MD Primary Care Provider Unavail able [facility], Pcp Primary Care Provider Unavailabl Naun Artis MD Primary Care Provider Unavail able Ольга Jewell MD Primary Care Provider Rhoda Rangel MD Unavailable Unavailable Brenden Villa DPM Unavailable [phone] Piedad Bowens MD Unavailable [phone] Marcos Weiss DO Unavailable Unavailable Xochitl Machado MD Unavailable [phone] Encounter Details Date Type Department Care Team Description 11/05/2013 EMERGENCY DOCTOR/[facility] Report Medical Records [address] [place] [address] Abstract, Provider Social History Tobacco Use Types [...] on filedocumented in this encounter Care Teams Emergency Doctor Relationship Specialty Start Date End Date Naun Garcia MD PCP - General Internal Medicine 10/27/13 10/27/21 [facility] Pcp PCP - General Internal Medicine 10/28/21 11/27/21 Naun Garcia MD PCP - General Internal Medicine 11/28/21 12/13/21 Ольга Jewell MD [address] [place] [address] PCP - General Internal Medicine 12/14/21 Rhoda Rangel MD [address] [place] [address] Referring Physician Allergy & Immunology 06/16/22 Brenden Villa DPM [address] [address] Podiatry 06/16/22 Piedad Bowens MD [address] [address] ORTHOPEDICS 06/16/22 Marcos Weiss DO [address] [address] Specialist Physiatry 12/15/22 Xochitl Machado MD [address] [address] Sports Medicine Int Med 12/15/22 Peter Cummings Specialist Gastroenterology 06/16/22 Evi Carpio Specialist PSYCHIATRY 06/16/22 elder duke Specialist Optometry 12/18/23 documented as of this encounter
--- OUTSIDE RECORDS SUMMARY | 2024-09-23 13:25 | XMS_ITS | Encounter Summary ---
Author Organization [facility] Address [address] [place] [address] Care Team Providers Care Robot Designer Name Role Phone Naun Garcia MD Primary Care Provider Unavail able [facility], Pcp Primary Care Provider Unavailabl Naun Artis MD Primary Care Provider Unavail able Ольга Jewell MD Primary Care Provider Rhoda Rangel MD Unavailable Unavailable Brenden Villa DPM Unavailable [phone] Piedad Bowens MD Unavailable [phone] Marcos Weiss DO Unavailable Unavailable Xochitl Machado MD Unavailable [phone] Encounter Details Date Type Department Care Team Description 05/01/2014 Hospital Medical Records [address] [place] [address] Sonja Bains MD Social History Tobacco Use [...] on filedocumented in this encounter Care Teams Robot Designer Relationship Specialty Start Date End Date Naun Garcia MD PCP - General Internal Medicine 10/27/13 10/27/21 [facility]cp PCP - General Internal Medicine 10/28/21 11/27/21 Naun Garcia MD PCP - General Internal Medicine 11/28/21 12/13/21 Ольга Jewell MD [address] [place] [address] PCP - General Internal Medicine 12/14/21 Rhoda Rangel MD [address] [place] [address] Referring Physician Allergy & Immunology 06/16/22 Brenden Villa DPM [address] [address] Podiatry 06/16/22 Piedad Bowens MD [address] [address] ORTHOPEDICS 06/16/22 Marcos Weiss DO [address] [address] Specialist Physiatry 12/15/22 Xochitl Machado MD [address] [address] Sports Medicine Int Med 12/15/22 Peter Cummings Specialist Gastroenterology 06/16/22 Evi Carpio Specialist PSYCHIATRY 06/16/22 elder duke Specialist Optometry 12/18/23 documented as of this encounter
--- OUTSIDE RECORDS SUMMARY | 2024-09-23 13:25 | XMS_ITS | Encounter Summary ---
Author Organization [facility] Address [address] [place] [address] Care Team Providers Care Watershed Manager Name Role Phone Ольга Jewell MD Primary Care Provider Rhoda Rangel MD Unavailable Unavailable Brenden Villa DPM Unavailable [phone] Piedad Bowens MD Unavailable [phone] Marcos Weiss DO Unavailable Unavailable Xochitl Machado MD Unavailable [phone] Reason for Visit * Reason Onset Date Comments Prior Authorization 08/17/2022 Encounter Details Date Type Department Care Team Description 08/17/2022 Telephone Gastroenterology - [place] [address] [facility] [address] [place] [address] Peter Cummings PA-C [address] [facility] [address] [place] [address] Prior Authorization Social History Tobacco Use Types [...] encounter Miscellaneous Notes * Telephone Encounter - Peter Cummings PA-C - 08/18/2022 4:48 PM EST Please let patient know that the insurance requests us to order Trulance first before using Linzess. Will order the Trulance and have her let us know if that is working for. If not then we can then order the Linzess. * Telephone Encounter - Felicita Kelley - 08/17/2022 12:01 PM EST Prior Authorization for Medication-do not complete and send this encounter unless you have the fax from the pharmacy. Is this a Cover My Meds request: Yes -- Morales Code [email or web address] Name of Medication Linzess Dose of Medication 290 MCG Cap What is the RX # from the faxed refill? How does patient take this med? What Pharmacy did the fax come from: [facility] fax #: [phone] [employer] Republican Information from fax: What Prescription Plan does the patient have? BIN/PCN if applicable: Cardholder ID: Person Code: Relationship Code: Help desk phone: documented in this encounter Plan of Treatment Not on file documented as of this encounter Visit Diagnoses Not on filedocumented in this encounter Care Teams Watershed Manager Relationship Specialty Start Date End Date Ольга Jewell MD [address] [place] [address] PCP - General Internal Medicine 12/14/21 Rhoda Rangel MD [address] [place], [place] Referring Physician Allergy & Immunology 06/16/22 Brenden Villa DPM [address] [place] [address] Podiatry 06/16/22 Piedad Bowens MD [address] [address] ORTHOPEDICS 06/16/22 Marcos Weiss DO [address] [address] Specialist Physiatry 12/15/22 Xochitl Machado MD [address] [address] Sports Medicine Int Med 12/15/22 Peter Cummings Specialist Gastroenterology 06/16/22 Evi Carpio Specialist PSYCHIATRY 06/16/22 elder duke Specialist Optometry 12/18/23 documented as of this encounter
--- OUTSIDE RECORDS SUMMARY | 2024-09-23 13:25 | XMS_ITS | Encounter Summary ---
Author Organization [facility] Address [address] [place] [address] Care Team Providers Care Rn Case Mgr Name Role Phone Naun Garcia MD Primary Care Provider Unavail able [facility], [facility] Primary Care Provider Unavailabl e Naun Garcia MD Primary Care Provider Unavail able Ольга Jewell MD Primary Care Provider Rhoda Rangel MD Unavailable Unavailable Brenden Villa DPM Unavailable [phone] Piedad Bowens MD Unavailable [phone] Marcos Weiss DO Unavailable Unavailable Xochitl Machado MD Unavailable [phone] Encounter Details Date Type Department Care Team Description 05/21/2014 [facility] Medical Records [address] [place] [address] Abstract, Provider Social History Tobacco Use Types [...] Name Priority Date/Time Associated Diagnosis Comments OUTSIDE EYE EXAM Routine 01/16/2014 documented in this encounter Results * OUTSIDE EYE EXAM (01/16/2014) Provider Abstract PROCEDURES documented in this encounter Visit Diagnoses Not on filedocumented in this encounter Care Teams Rn Case Mgr Relationship Specialty Start Date End Date Naun Garcia MD PCP - General Internal Medicine 10/27/13 10/27/21 [facility], [facility] PCP - General Internal Medicine 10/28/21 11/27/21 Naun Garcia MD PCP - General Internal Medicine 11/28/21 12/13/21 Ольга Jewell MD [address] [place] [address] PCP - General Internal Medicine 12/14/21 Rhoda Rangel MD [address] [place] [address] Referring Physician Allergy & Immunology 06/16/22 Brenden Villa DPM [address] [address] Podiatry 06/16/22 Piedad Bowens MD [address] [address] ORTHOPEDICS 06/16/22 Marcos Weiss DO [address] [address] Specialist Physiatry 12/15/22 Xochitl Machado MD [address] [address] Sports Medicine Int Med 12/15/22 Peter Cummings Specialist Gastroenterology 06/16/22 Evi Carpio Specialist PSYCHIATRY 06/16/22 elder duke Specialist Optometry 12/18/23 documented as of this encounter
--- OUTSIDE RECORDS SUMMARY | 2024-09-23 13:25 | XMS_ITS | Encounter Summary ---
Author Organization [facility] Address [address] [place] [address] Care Team Providers Care Barrel Builder Name Role Phone Naun Garcia MD Primary Care Provider Unavail able [facility], [facility] Primary Care Provider Unavailabl Naun Artis MD Primary Care Provider Unavail able Ольга Jewell MD Primary Care Provider Rhoda Rangel MD Unavailable Unavailable Brenden Villa DPM Unavailable [phone] Piedad Bowens MD Unavailable [phone] Marcos Weiss DO Unavailable Unavailable Xochitl Machado MD Unavailable [phone] Encounter Details Date Type Department Care Team Description 07/13/2016 Manager Books Report Medical Records [address] [place] [id number] [place] [address] Orthopedic, Surgeons Social History Tobacco Use Types Packs/Day Years [...] on filedocumented in this encounter Care Teams Barrel Builder Relationship Specialty Start Date End Date Naun Garcia MD PCP - General Internal Medicine 10/27/13 10/27/21 [facility], Pcp PCP - General Internal Medicine 10/28/21 11/27/21 Naun Garcia MD PCP - General Internal Medicine 11/28/21 12/13/21 Ольга Jewell MD [address] [place] [address] PCP - General Internal Medicine 12/14/21 Rhoda Rangel MD [address] [place] [address] Referring Physician Allergy & Immunology 06/16/22 Brenden Villa DPM [address] [address] Podiatry 06/16/22 Piedad Bowens MD [address] [address] ORTHOPEDICS 06/16/22 Marcos Weiss DO [address] [address] Specialist Physiatry 12/15/22 Xochitl Machado MD [address] [address] Sports Medicine Int Med 12/15/22 Peter Cummings Specialist Gastroenterology 06/16/22 Evi Carpio Specialist PSYCHIATRY 06/16/22 elder duke Specialist Optometry 12/18/23 documented as of this encounter
--- OUTSIDE RECORDS SUMMARY | 2024-09-23 13:25 | XMS_ITS | Encounter Summary ---
Author Organization [facility] Address [address] [place] [address] Care Team Providers Care Retail Consultant Name Role Phone Naun Garcia MD Primary Care Provider Unavail able [facility], Pcp Primary Care Provider Unavailabl Naun Artis MD Primary Care Provider Unavail able Ольга Jewell MD Primary Care Provider Rhoda Rangel MD Unavailable Unavailable Brenden Villa DPM Unavailable [phone] Piedad Bowens MD Unavailable [phone] Marcos Weiss DO Unavailable Unavailable Xochitl Machado MD Unavailable [phone] Encounter Details Date Type Department Care Team Description 12/17/2013 Band And Cuff Cutter Report Medical Records [address] [place] [address] Santi Blas MD Social History Tobacco Use Types Packs/Day [...] on filedocumented in this encounter Care Teams Retail Consultant Relationship Specialty Start Date End Date Naun Garcia MD PCP - General Internal Medicine 10/27/13 10/27/21 [facility] Pcp PCP - General Internal Medicine 10/28/21 11/27/21 Naun Garcia MD PCP - General Internal Medicine 11/28/21 12/13/21 Ольга Jewell MD [address] [place] [address] PCP - General Internal Medicine 12/14/21 Rhoda Rangel MD [address] [place] [address] Referring Physician Allergy & Immunology 06/16/22 Brenden Villa DPM [address] [address] Podiatry 06/16/22 Piedad Bowens MD [address] [address] ORTHOPEDICS 06/16/22 Marcos Weiss DO [address] [address] Specialist Physiatry 12/15/22 Xochitl Machado MD [address] [address] Sports Medicine Int Med 12/15/22 Peter Cummings Specialist Gastroenterology 06/16/22 Evi Carpio Specialist PSYCHIATRY 06/16/22 elder duke Specialist Optometry 12/18/23 documented as of this encounter
--- OUTSIDE RECORDS SUMMARY | 2024-09-23 13:25 | XMS_ITS | Encounter Summary ---
Author Organization [facility] Address [address] [place] [address] Care Team Providers Care Jewel Stringer Name Role Phone Ольга Jewell MD Primary Care Provider Rhoda Rangel MD Unavailable Unavailable Brenden Villa DPM Unavailable [phone] Piedad Bowens MD Unavailable [phone] Marcos Weiss DO Unavailable Unavailable Xochitl Machado MD Unavailable [phone] Reason for Visit * Reason Comments E-prescribe Rx Request Encounter Details Date Type Department Care Team Description 04/20/2022 Refill Adult Medicine A - [place] [address] [place] [address] Peter Cummings PA-C 175 [facility] [address] [place] [address] E-prescribe Rx Request Social History Tobacco Use [...] suspected to have Coronavirus/COVID-19? No / Unsure 04/04/2022 9:13 AM EDT documented as of this encounter Miscellaneous Notes * Telephone Encounter - Tereza Freitas M.A. - 04/20/2022 10:18 AM EST Last telehealth 02/01/22 documented in this encounter Plan of Treatment Not on file documented as of this encounter Visit Diagnoses Not on filedocumented in this encounter Care Teams Jewel Stringer Relationship Specialty Start Date End Date Ольга Jewell MD [address] [place] [address] PCP - General Internal Medicine 12/14/21 Rhoda Rangel MD [address] [place] [address] Referring Physician Allergy & Immunology 06/16/22 Brenden Villa DPM [address] [address] Podiatry 06/16/22 Piedad Bowens MD [address] [address] ORTHOPEDICS 06/16/22 Marcos Weiss DO [address] [address] Specialist Physiatry 12/15/22 Xochitl Machado MD [address] [address] Sports Medicine Int Med 12/15/22 Peter Cummings Specialist Gastroenterology 06/16/22 Evi Carpio Specialist PSYCHIATRY 06/16/22 elder duke Specialist Optometry 12/18/23 documented as of this encounter
--- OUTSIDE RECORDS SUMMARY | 2024-09-23 13:25 | XMS_ITS | Encounter Summary ---
Author Organization [facility] Address [address] [place] [address] Care Team Providers Care Scenic Artist Name Role Phone Naun Garcia MD Primary Care Provider Unavail able [facility], Pcp Primary Care Provider Unavailabl Naun Artis MD Primary Care Provider Unavail able Ольга Jewell MD Primary Care Provider Rhoda Rangel MD Unavailable Unavailable Brenden Villa DPM Unavailable [phone] Piedad Bowens MD Unavailable [phone] Marcos Weiss DO Unavailable Unavailable Xochitl Machado MD Unavailable [phone] Encounter Details Date Type Department Care Team Description 08/04/2021 Business Doc Medical Records [address] [place] [address] Abstract, Provider Social History Tobacco Use Types [...] have Coronavirus / COVID-19? No / Unsure 08/02/2021 10:55 AM EST documented as of this encounter Plan of Treatment Not on file documented as of this encounter Visit Diagnoses Not on filedocumented in this encounter Care Teams Scenic Artist Relationship Specialty Start Date End Date Naun Garcia MD PCP - General Internal Medicine 10/27/13 10/27/21 [facility] PCP - General Internal Medicine 10/28/21 11/27/21 Naun Garcia MD PCP - General Internal Medicine 11/28/21 12/13/21 Ольга Jewell MD [address] [place] [address] PCP - General Internal Medicine 12/14/21 Rhoda Rangel MD [address] [place] [address] Referring Physician Allergy & Immunology 06/16/22 Brenden Villa DPM [address] [address] Podiatry 06/16/22 Piedad Bowens MD [address] [address] ORTHOPEDICS 06/16/22 Marcos Weiss DO [address] [address] Specialist Physiatry 12/15/22 Xochitl Machado MD [address] [address] Sports Medicine Int Med 12/15/22 Peter Cummings Specialist Gastroenterology 06/16/22 Evi Carpio Specialist PSYCHIATRY 06/16/22 elder duke Specialist Optometry 12/18/23 documented as of this encounter
--- OUTSIDE RECORDS SUMMARY | 2024-09-23 13:25 | XMS_ITS | Encounter Summary ---
Author Organization [facility] Address [address] [place] [address] Care Team Providers Care Control Room Technician Name Role Phone aNun Garcia MD Primary Care Provider Unavail able [facility], [facility] Primary Care Provider Unavailabl e Naun Garcia MD Primary Care Provider Unavail able Ольга Jewell MD Primary Care Provider [phone] Rhoda Rangel MD Unavailable Unavailable Brenden Villa DPM Unavailable [phone] Piedad Bowens MD Unavailable [phone] Marcos Weiss DO Unavailable Unavailable Xochitl Machado MD Unavailable [phone] Reason for Visit * Reason Onset Date Comments [facility] Call 10/23/2018 Encounter Details Date Type Department Care Team Description 10/23/2018 Telephone Adult Medicine B - [place] [address] [place] [address] Naun Garcia MD [facility] Call Social History [...] encounter Miscellaneous Notes * Telephone Encounter - Brenda Diaz L.P.N. - 10/23/2018 3:13 PM EDT Noted. FYI to PCP. * Telephone Encounter - Binh Elmore - 10/23/2018 3:06 PM EDT [facility] CALL Which [facility] office is calling? [facility] Full name of caller: Nikkie The caller is An Occupational Therapist Is the caller at the patients home?: NO Reason for call: FYI-Patient being discharged today 10/23/18 from OT Does caller need an urgent call back? NO Was CONTACT Telephone # obtained above?: YES Fax #: NA documented in this encounter Plan of Treatment Not on file documented as of this encounter Visit Diagnoses Not on filedocumented in this encounter Care Teams Control Room Technician Relationship Specialty Start Date End Date Naun Garcia MD PCP - General Internal Medicine 10/27/13 10/27/21 [facility] PCP - General Internal Medicine 10/28/21 11/27/21 Naun Garcia MD PCP - General Internal Medicine 11/28/21 12/13/21 Ольга Jewell MD [address] [place] [address] PCP - General Internal Medicine 12/14/21 Rhoda Rangel MD [address] [place] [address] Referring Physician Allergy & Immunology 06/16/22 Brenden Villa DPM [address] [address] Podiatry 06/16/22 Piedad Bowens MD [address] [address] ORTHOPEDICS 06/16/22 Marcos Weiss DO [address] [address] Specialist Physiatry 12/15/22 Xochitl Machado MD [address] [place] [address] Sports Medicine Int Med 12/15/22 Peter Cummings Specialist Gastroenterology 06/16/22 Evi Carpio Specialist PSYCHIATRY 06/16/22 elder duke Specialist Optometry 12/18/23 documented as of this encounter
--- OUTSIDE RECORDS SUMMARY | 2024-09-23 13:25 | XMS_ITS | Encounter Summary ---
Author Organization [facility] Address [address] [place] [address] Care Team Providers Care Communications And Signals Supervisor Name Role Phone Ольга Jewell MD Primary Care Provider Rhoda Rangel MD Unavailable Unavailable Brenden Villa DPM Unavailable [phone] Piedad Bowens MD Unavailable [phone] Marcos Weiss DO Unavailable Unavailable Xochitl Machado MD Unavailable [phone] Encounter Details Date Type Department Care Team Description 10/23/2023 Orders Only Medical Records [address] [place] [address] Sander Saxena DO 175 [facility] [address] [facility] [place] [address] Social History Tobacco Use Types Packs/Day Years [...] Name Priority Date/Time Associated Diagnosis Comments OUTSIDE COLONOSCOPY Routine 10/23/2023 documented in this encounter Results * OUTSIDE COLONOSCOPY (10/23/2023) Sander Saxena DO RADIOLOGY documented in this encounter Visit Diagnoses Not on filedocumented in this encounter Care Teams Communications And Signals Supervisor Relationship Specialty Start Date End Date Ольга Jewell MD [address] [place] [address] PCP - General Internal Medicine 12/14/21 Rhoda Rangel MD [address] [place] [address] Referring Physician Allergy & Immunology 06/16/22 Brenden Villa DPM [address] [address] Podiatry 06/16/22 Piedad Bowens MD [address] [address] ORTHOPEDICS 06/16/22 Marcos Weiss DO [address] [address] Specialist Physiatry 12/15/22 Xochitl Machado MD [address] [address] Sports Medicine Int Med 12/15/22 Peter Cummings Specialist Gastroenterology 06/16/22 Evi Carpio Specialist PSYCHIATRY 06/16/22 elder duke Specialist Optometry 12/18/23 documented as of this encounter
--- OUTSIDE RECORDS SUMMARY | 2024-09-23 13:25 | XMS_ITS | Encounter Summary ---
Author Organization [facility] Address [address] [place] [address] Care Team Providers Care Occupational Therapy Assistant Name Role Phone Naun Garcia MD Primary Care Provider Unavail able Community, Pcp Primary Care Provider Unavailabl Naun Artis MD Primary Care Provider Unavail able Ольга Jewell MD Primary Care Provider Rhoda Rangel MD Unavailable Unavailable Brenden Villa DPM Unavailable [phone] Piedad Bowens MD Unavailable [phone] Marcos Weiss DO Unavailable Unavailable Xochitl Machado MD Unavailable [phone] Encounter Details Date Type Department Care Team Description 02/11/2014 Project Management Manager Report Medical Records [address] [place] [id number] Anegl Benitez Social History Tobacco Use Types Packs/Day Years [...] in this encounter Care Teams Occupational Therapy Assistant Relationship Specialty Start Date End Date Naun Garcia MD PCP - General Internal Medicine 10/27/13 10/27/21 Community, Pcp PCP - General Internal Medicine 10/28/21 11/27/21 Naun Garcia MD PCP - General Internal Medicine 11/28/21 12/13/21 Ольга Jewell MD [address] [place] [address] PCP - General Internal Medicine 12/14/21 Rhoda Rangel MD [address] [place] [address] Referring Physician Allergy & Immunology 06/16/22 Brenden Villa DPM [address] [address] Podiatry 06/16/22 Piedad Bowens MD [address] [address] ORTHOPEDICS 06/16/22 Marcos Weiss DO [address] [address] Specialist Physiatry 12/15/22 Xochitl Machado MD [address] [address] Sports Medicine Int Med 12/15/22 Peter Cummings Specialist Gastroenterology 06/16/22 Evi Carpio Specialist PSYCHIATRY 06/16/22 elder duke Specialist Optometry 12/18/23 documented as of this encounter
--- OUTSIDE RECORDS SUMMARY | 2024-09-23 13:25 | XMS_ITS | Encounter Summary ---
Author Organization [facility] Address [address] [place] [address] Care Team Providers Care Cuffer Name Role Phone Naun Garcia MD Primary Care Provider Unavail able [facility], Pcp Primary Care Provider Unavailabl e Naun Garcia MD Primary Care Provider Unavail able Ольга Jewell MD Primary Care Provider Rhoda Rangel MD Unavailable Unavailable Brenden Villa DPM Unavailable [phone] Piedad Bowens MD Unavailable [phone] Marcos Weiss DO Unavailable Unavailable Xochitl Machado MD Unavailable [phone] Encounter Details Date Type Department Care Team Description 11/06/2018 Telephone Adult [address] [id number] Naun Garcia MD Social History Tobacco Use [...] on filedocumented in this encounter Care Teams Cuffer Relationship Specialty Start Date End Date Naun Garcia MD PCP - General Internal Medicine 10/27/13 10/27/21 [facility], [facility] PCP - General Internal Medicine 10/28/21 11/27/21 Naun Garcia MD PCP - General Internal Medicine 11/28/21 12/13/21 Ольга eJwell MD [address] [place] [address] PCP - General Internal Medicine 12/14/21 Rhoda Rangel MD [address] [place] [address] Referring Physician Allergy & Immunology 06/16/22 rBenden Villa DPM [address] [address] Podiatry 06/16/22 Piedad Bowens MD [address] [address] ORTHOPEDICS 06/16/22 Marcos Weiss DO [address] [address] Specialist Physiatry 12/15/22 Xochitl Machado MD [address] [address] Sports Medicine Int Med 12/15/22 Peter Cummings Specialist Gastroenterology 06/16/22 Evi Carpio Specialist PSYCHIATRY 06/16/22 elder duke Specialist Optometry 12/18/23 documented as of this encounter
--- OUTSIDE RECORDS SUMMARY | 2024-09-23 13:25 | XMS_ITS | Encounter Summary ---
Author Organization [facility] Address [address] [place] [address] Care Team Providers Care Displayer Name Role Phone Naun Garcia MD Primary Care Provider Unavail able [facility], Pcp Primary Care Provider Unavailabl Naun Artis MD Primary Care Provider Unavail able Ольга Jewell MD Primary Care Provider Rhoda Rangel MD Unavailable Unavailable Brenden Villa DPM Unavailable [phone] Piedad Bowens MD Unavailable [phone] Marcos Weiss DO Unavailable Unavailable Xochitl Machado MD Unavailable [phone] Encounter Details Date Type Department Care Team Description 08/11/2019 Hospital Medical Records [address] [place] [id number] Sherry Barksdale MD Social History Tobacco Use Types Packs/Day [...] on filedocumented in this encounter Care Teams Displayer Relationship Specialty Start Date End Date Naun Garcia MD PCP - General Internal Medicine 10/27/13 10/27/21 Community, Pcp PCP - General Internal Medicine 10/28/21 11/27/21 Naun Garcia MD PCP - General Internal Medicine 11/28/21 12/13/21 лОьга Jewell MD [address] [place] [address] PCP - General Internal Medicine 12/14/21 Rhoda Rangel MD [address] [place] [address] Referring Physician Allergy & Immunology 06/16/22 Brenden Villa DPM [address] [address] Podiatry 06/16/22 Piedad Bowens MD [address] [address] ORTHOPEDICS 06/16/22 Marcos Weiss DO [address] [address] Specialist Physiatry 12/15/22 Xochitl Machado MD [address] [address] Sports Medicine Int Med 12/15/22 Peter Cummings Specialist Gastroenterology 06/16/22 Evi Carpio Specialist PSYCHIATRY 06/16/22 elder duke Specialist Optometry 12/18/23 documented as of this encounter
== END 2024-09-23 11:30 | disposition home or self-care (01) ==
LOC: HO.HPSW 10:57
PROVIDERS: Visit Provider Nurse Practitioner Family
DX: J44.9 Chronic obstructive pulmonary disease, unspecified (principal); Z91.09 Other allergy status, other than to drugs and biological substances; B44.81 Allergic bronchopulmonary aspergillosis; R91.8 Other nonspecific abnormal finding of lung field
CPT/HCPCS: 99214

== ENCOUNTER → 2024-09-23 10:57 | Outpatient (BNVA) | payer OTHER, SELFPAY | PROVIDERS: Visit Provider Nurse Practitioner Family | DX: J44.9 Chronic obstructive pulmonary disease, unspecified (principal); R91.8 Other nonspecific abnormal finding of lung field; B44.81 Allergic bronchopulmonary aspergillosis; Z91.09 Other allergy status, other than to drugs and biological substances | CPT/HCPCS: 99212 ==

== ENCOUNTER 2024-10-14 11:07 | Outpatient (AMB) | payer OTHER, SELFPAY ==
[2024-10-14 11:22] VITALS: BP 130/86; PULSE 92; O2SAT 99; BMI 39.9
--- NOTE | 2024-10-14 11:22 | MHC.OFFVIS ---
Vital Signs 10/14/24 11:22 Height 5 ft 1 in Weight 211 lb BMI 39.9 BP 130/86 Blood Pressure Location Lt brachial Position Sitting Pulse 92 Pulse Source Pulse Oximeter Pulse Oximetry (%) 99 Oxygen Delivery Method Room Air Intake Visit Reasons: wheezing, sob, prod cough thick yellow/no fever Allergies bee venom protein (honey bee) Allergy (Unknown, Verified 10/14/24 11:25) Unknown fluticasone furoate [From Arnuity Ellipta] Allergy (Unknown, Verified 10/14/24 11:) Unknown hydrochlorothiazide Allergy (Unknown, Verified 10/14/24 11:) Unknown levofloxacin [From Levaquin] Allergy (Unknown, Verified 10/14/24 11:) Unknown lisinopril Allergy (Unknown, Verified 10/14/24 11:) Unknown tomato Allergy (Unknown, Verified 10/14/24 11:) Unknown peanut Allergy (Verified 10/14/24 11:25) Unknown HPI HPI wheezing, sob, prod cough thick yellow/no fever: Details: Deisy is a pleasant 49 year old female, former minimal smoker, quit 20+ years ago, with underlying asthma/COPD and labs suggestive of ABPA. At baseline, she has been moderately controlled on Dupixent, Breyna 160 mcg, albuterol MDI, and DuoNeb. Today she presents for an acute visit. She reports worsening productive cough with greenish yellow sputum, chest congestion, fatigue, dyspnea and wheezing that started on 10/06 after attending a kids birthday constitution party. She initially had fevers and chills which have resolved. She also notes mold exposure with prior h/o suggestive of ABPA. [facility] Medical History Constipation Fibroadenoma GERD (gastroesophageal reflux disease) H. pylori infection HSV infection Lichen simplex chronicus Migraines Portal vein thrombosis Recurrent UTI Thrombocytosis Surgical History S/P laparoscopic sleeve gastrectomy Family History Mother Multiple sclerosis Father Arthritis Gout Hypertension Social History Alcohol intake: current Alcohol intake frequency: holidays/special occasions only Patient Tobacco Use Status: Former Tobacco user Current occupational status: unemployed Current occupation: Student Review of Systems Const Denies excessive sweating, Denies headache(s) and Denies night sweats Eyes Denies dry eyes, Denies irritation and Denies itchy eyes ENT Reports Normal hearing present, Denies headache(s), Denies nasal congestion, Denies nasal discharge, Denies post nasal drip and Denies sore throat Card Denies chest pain, Denies chest pain at rest, Denies chest pain with activity, Denies claudication, Denies leg edema, Denies orthopnea and Denies paroxysmal nocturnal dyspnea Resp Denies excessive phlegm production, Denies pain on inspiration, Denies pain with cough and Denies stridor Musc Denies myalgias Neuro Reports Normal hearing present and Denies headache(s) Endo Denies excessive sweating Jorge/Lymph Denies lymphadenopathy Aller/Immun Denies itchy eyes and Denies seasonal rhinorrhea Physical Exam Vital Signs: Last Vital Signs Pulse 92 10/14/24 11:22 BP 130/86 10/14/24 11:22 Pulse Ox 99 10/14/24 11:22 Oxygen Delivery Method Room Air 10/14/24 11:22 BMI result Body Mass Index 39.9 Const General: cooperative, healthy appearing, comfortable, no acute distress, well developed and alert Nutritional Appearance: obese Orientation/consciousness: patient oriented x3 Limitations: no limitations HEENT Head: Yes normal to inspection, Yes normocephalic and Yes atraumatic Ears: hearing grossly normal bilaterally and external ears normal Eyes General: appearance normal, both eyes and all related structures Eyelids: Yes eyelids normal Sclerae: sclerae normal EOM: EOMs intact bilaterally Neck Neck: Yes normal visual inspection and Yes no lymphadenopathy Lymphatic: no lymphadenopathy noted Chest Chest palpation & inspection: normal inspection of the chest Resp Other: post exhalation cough Effort & Inspection: normal respiratory effort, able to speak in complete sentences, no audible wheezes, no cough, no stridor, not tachypneic, no tripod positioning and no use of accessory muscles Auscultation: diminished lung sounds Cardio Jugular venous distension: no JVD Rate: regular rate Rhythm: regular rhythm Skin Other: warm, dry General skin exam: no rashes or lesions noted Neuro General: patient oriented x3 Cranial nerves: Yes Normal hearing present Cognition (Neuro): normal cognition Gait exam (Neuro): Normal gait present Extrem General: Yes normal to inspection, Yes capillary refill normal, Yes no clubbing, cyanosis or edema and Yes no pedal edema Psych Appearance: grossly normal and well kempt Speech and movement: Normal speech and movement present and Clear speech present Affect: normal affect Attitude: cooperative Thought process: Normal thought process present Thought content: Normal thought content present Insight: Good insight present (Psych) Judgement: Good judgement present (Psych) Assessment & Plan Assessment & Plan (1) Asthma-COPD overlap syndrome: Code(s): J44.9 - Chronic obstructive pulmonary disease, unspecified Category: Medical (2) Environmental allergies: Code(s): Z91.09 - Other allergy status, other than to drugs and biological substances Category: Medical (3) ABPA (allergic bronchopulmonary aspergillosis): Code(s): B44.81 - Allergic bronchopulmonary aspergillosis Category: Medical (4) Multiple pulmonary nodules: Code(s): R91.8 - Other nonspecific abnormal finding of lung field Category: Medical Plan Will treat bronchitic symptoms with prednisone and doxycycline given possible sick contacts and fever/chills. If unresponsive, will treat with antifungal for excerbation of ABPA, she is aware to call if symptoms do not improve. All questions were answered and patient is in agreement of plan. Will follow up for regularly scheduled appointment or sooner if needed. Medications: New prednisone 40 mg (2 x 20 mg) PO DAILY 10 tabs 0RF doxycycline hyclate 100 mg PO BID 14 caps 0RF Coding Level of Care Code Est Pt Level 4 (37605) Diagnoses Asthma-COPD overlap syndrome J44.9 Environmental allergies Z91.09 ABPA (allergic bronchopulmonary aspergillosis) B44.81 Multiple pulmonary nodules R91.8
--- OUTSIDE RECORDS SUMMARY | 2024-10-14 12:54 | XMS_ITS | Encounter Summary ---
Author Organization [facility] Address [address] [place] [address] Care Team Providers Care Park Aide Name Role Phone Naun Gracia MD Primary Care Provider Unavail able [facility] Primary Care Provider Unavailabl Naun Artis MD Primary Care Provider Unavail able Ольга Jewell MD Primary Care Provider Rhoda Rangel MD Unavailable Unavailable Brenden Villa DPM Unavailable [phone] Piedad Bowens MD Unavailable [phone] Marcos Weiss DO Unavailable Unavailable Xochitl Machado MD Unavailable [phone] Encounter Details Date Type Department Care Team Description 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 Medical Records [address] [place] [id number] Angel Avendano Social History Tobacco Use Types [...] on filedocumented in this encounter Care Teams Park Aide Relationship Specialty Start Date End Date Naun Garcia MD PCP - General Internal Medicine 10/27/13 10/27/21 [facility] PCP - General Internal Medicine 10/28/21 11/27/21 Naun Garcia MD PCP - General Internal Medicine 11/28/21 12/13/21 Ольга Jewell MD [address] [place] [address] PCP - General Internal Medicine 12/14/21 Rhoda Rangel MD [address] [place] [address] Referring Physician Allergy & Immunology 06/16/22 Brenden Villa DPM [address] [address] Podiatry 06/16/22 Piedad Bowens MD [address] [address] ORTHOPEDICS 06/16/22 Marcos Weiss DO [address] [address] Specialist Physiatry 12/15/22 Xochitl Machado MD [address] [address] Sports Medicine Int Med 12/15/22 Peter Cummings Specialist Gastroenterology 06/16/22 Evi Carpio Specialist PSYCHIATRY 06/16/22 elder duke Specialist Optometry 12/18/23 documented as of this encounter
--- OUTSIDE RECORDS SUMMARY | 2024-10-14 12:54 | XMS_ITS | Encounter Summary ---
Author Organization [facility] Address [address] [place] [address] Care Team Providers Care Group Contract Analyst Name Role Phone Naun Garcia MD Primary Care Provider Unavail able [facility], [facility] Primary Care Provider Unavailabl Naun Artis MD Primary Care Provider Unavail able Ольга Jewell MD Primary Care Provider [phone] Rhoda Rangel MD Unavailable Unavailable Brenden Villa DPM Unavailable [phone] Piedad Bowens MD Unavailable [phone] Marcos Weiss DO Unavailable Unavailable Xochitl Machado MD Unavailable [phone] Encounter Details Date Type Department Care Team Description 04/22/2015 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 Dinkey Report Medical Records [address] [place] [id number] Angel Avendano Social History Tobacco Use Types [...] on filedocumented in this encounter Care Teams Group Contract Analyst Relationship Specialty Start Date End Date Naun Garcia MD PCP - General Internal Medicine 10/27/13 10/27/21 [facility], [facility] PCP - General Internal Medicine 10/28/21 11/27/21 Naun Garcia MD PCP - General Internal Medicine 11/28/21 12/13/21 Ольга Jewell MD [address] [place] [address] PCP - General Internal Medicine 12/14/21 Rhoda Rangel MD [address] [place] [address] Referring Physician Allergy & Immunology 06/16/22 Brenden Villa DPM [address] [address] Podiatry 06/16/22 Piedad Bowens MD [address] [address] ORTHOPEDICS 06/16/22 Marcos Weiss DO [address] [address] Specialist Physiatry 12/15/22 Xochitl Machado MD [address] [address] Sports Medicine Int Med 12/15/22 Peter Cummings Specialist Gastroenterology 06/16/22 Evi Carpio Specialist PSYCHIATRY 06/16/22 elder duke Specialist Optometry 12/18/23 documented as of this encounter
--- OUTSIDE RECORDS SUMMARY | 2024-10-14 12:54 | XMS_ITS | Encounter Summary ---
Author Organization [facility] Address [address] [place] [address] Care Team Providers Care Assistant Analyst Name Role Phone Naun Garcia MD Primary Care Provider Unavail able [facility], [facility] Primary Care Provider Unavailabl e Naun Garcia MD Primary Care Provider Unavail able Ольга Jewell MD Primary Care Provider Rhoda Rangel MD Unavailable Unavailable Brenden Villa DPM Unavailable [phone] Piedad Bowens MD Unavailable [phone] Marcos Weiss DO Unavailable Unavailable Xochitl Machado MD Unavailable [phone] Reason for Visit * Reason Onset Date Comments Prior Authorization 09/05/2018 bismuth-metr onidazole-tetracycline (PLYERA) 140-125-125 MG per capsule Encounter Details Date Type Department Care Team Description 09/05/2018 [facility] [address] [id number] Naun Garcia MD Prior Authorization (yeekryb-amteduimiifpr-i etracycline (PLYERA) 140-125-125 MG per capsule) Social History Tobacco Use Types Packs/Day Years [...] Telephone Encounter - Dawn Arciniega MD - 10/06/2018 10:32 AM EDT OK, thanks. * Telephone Encounter - Naun Garcia MD - 09/05/2018 3:05 PM EDT I had faxed this to the pharmacy as the patient was not aware of the prescription faxed by you on 07/12/18; if you don't mind, please review below and let the patient know how to proceed-thank you * Telephone Encounter - Rayne Fay M.A. - 09/05/2018 12:56 PM EDT The plyera is not on pts formulary Please reply back to p [phone] Prior Auth ross Fay M.A. [facility] Prior Authorizations Ext [phone] Fax: [id number] reply back to p [phone] Prior Auth ross * Telephone Encounter - Emeterio Miller - 09/05/2018 11:14 AM EDT Sent to [facility] - forwarded to PA dept * Telephone Encounter - Emeterio Miller - 09/05/2018 11:10 AM EDT Pre Authorization for Medication-do not complete and send this encounter unless you have the fax from the pharmacy. Is this a Cover My Meds request: [place] of Medication ovejwmy-kufgsebpkkcbf-ecnaovpeuych (PLYERA) Dose of Medication 140-125-125 MG per capsule What is the RX # from the faxed refill? [id number] How does patient take this med? Take 3 capsules by mouth four times daily before meals and at nightfor 14 days What Pharmacy did the fax come from: [facility] fax #: [phone] Third Constitution Party Information from fax: What Prescription Plan does the patient have? [facility] BIN/PCN if applicable: n/a Cardholder ID: [id number] Person Code: n/a Relationship Code: n/a Help desk phone: [phone] documented in this encounter Plan of Treatment Not on file documented as of this encounter Visit Diagnoses Not on filedocumented in this encounter Care Teams Assistant Analyst Relationship Specialty Start Date End Date Naun Garcia MD PCP - General Internal Medicine 10/27/13 10/27/21 [facility] PCP - General Internal Medicine 10/28/21 11/27/21 Naun Garcia MD PCP - General Internal Medicine 11/28/21 12/13/21 Ольга Jewell MD [address] [place] [address] PCP - General Internal Medicine 12/14/21 Rhoda Rangel MD [address] [place] [address] Referring Physician Allergy & Immunology 06/16/22 Brenden Villa DPM [address] [address] Podiatry 06/16/22 Piedad Bowens MD [address] [address] ORTHOPEDICS 06/16/22 Marcos Weiss DO [address] [address] Specialist Physiatry 12/15/22 Xochitl Machado MD [address] [address] Sports Medicine Int Med 12/15/22 Peter Cummings Specialist Gastroenterology 06/16/22 Evi Carpio Specialist PSYCHIATRY 06/16/22 elder duke Specialist Optometry 12/18/23 documented as of this encounter
--- OUTSIDE RECORDS SUMMARY | 2024-10-14 12:54 | XMS_ITS | Encounter Summary ---
Author Organization [facility] Address [address] [place] [address] Care Team Providers Care Certified Peer Specialist Name Role Phone Naun Garcia MD Primary Care Provider Unavail able [facility] Primary Care Provider Unavailabl Naun Artis MD Primary Care Provider Unavail able Ольга Jewell MD Primary Care Provider Rhoda Rangel MD Unavailable Unavailable Brenden Villa DPM Unavailable [phone] Piedad Bowens MD Unavailable [phone] Marcos Weiss DO Unavailable Unavailable Xochitl Machado MD Unavailable [phone] Encounter Details Date Type Department Care Team Description 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 Report Medical Records [address] [place] [id number] Angel Avendano Social History Tobacco Use Types [...] on filedocumented in this encounter Care Teams Certified Peer Specialist Relationship Specialty Start Date End Date Naun Garcia MD PCP - General Internal Medicine 10/27/13 10/27/21 [facility] PCP - General Internal Medicine 10/28/21 11/27/21 Naun Garcia MD PCP - General Internal Medicine 11/28/21 12/13/21 Ольга Jewell MD [address] [place] [address] PCP - General Internal Medicine 12/14/21 Rhoda Rangel MD [address] [place] [address] Referring Physician Allergy & Immunology 06/16/22 Brenden Villa DPM [address] [address] Podiatry 06/16/22 Piedad Bowens MD [address] [address] ORTHOPEDICS 06/16/22 Marcos Weiss DO [address] [address] Specialist Physiatry 12/15/22 Xochitl Machado MD [address] [address] Sports Medicine Int Med 12/15/22 Peter Cummings Specialist Gastroenterology 06/16/22 Evi Carpio Specialist PSYCHIATRY 06/16/22 elder duke Specialist Optometry 12/18/23 documented as of this encounter
--- OUTSIDE RECORDS SUMMARY | 2024-10-14 12:54 | XMS_ITS | Encounter Summary ---
Author Organization [facility] Address [address] [place] [address] Care Team Providers Care Journeyman Patternmaker Name Role Phone Naun Garcia MD Primary Care Provider Unavail able [facility], [facility] Primary Care Provider Unavailabl Naun Artis MD Primary Care Provider Unavail able Ольга Jewell MD Primary Care Provider Rhoda Rangel MD Unavailable Unavailable Brenden Villa DPM Unavailable [phone] Piedad Bowens MD Unavailable [phone] Marcos Weiss DO Unavailable Unavailable Xochitl Machado MD Unavailable [phone] Encounter Details Date Type Department Care Team Description 09/09/2018 Release of Information Medical Records [address] [place] [id number] Abstract, Provider Social History Tobacco Use Types [...] on filedocumented in this encounter Care Teams Journeyman Patternmaker Relationship Specialty Start Date End Date Naun Garcia MD PCP - General Internal Medicine 10/27/13 10/27/21 [facility], Pcp PCP - General Internal Medicine 10/28/21 11/27/21 Naun Garcia MD PCP - General Internal Medicine 11/28/21 12/13/21 Ольга Jewell MD [address] [place] [address] PCP - General Internal Medicine 12/14/21 Rhoda Rangel MD [address] [place] [address] Referring Physician Allergy & Immunology 06/16/22 Brenden Villa DPM [address] [address] Podiatry 06/16/22 Piedad Bowens MD [address] [address] ORTHOPEDICS 06/16/22 Marcos Weiss DO [address] [address] Specialist Physiatry 12/15/22 Xochitl Machado MD [address] [address] Sports Medicine Int Med 12/15/22 Peter Cummings Specialist Gastroenterology 06/16/22 Evi Carpio Specialist PSYCHIATRY 06/16/22 elder duke Specialist Optometry 12/18/23 documented as of this encounter
--- OUTSIDE RECORDS SUMMARY | 2024-10-14 12:54 | XMS_ITS | Encounter Summary ---
Author Organization [facility] Address [address] [place] [address] Care Team Providers Care Claim Adjuster Name Role Phone Naun Garcia MD Primary Care Provider Unavail able [facility], [facility] Primary Care Provider Unavailabl Naun Artis MD Primary Care Provider Unavail able Ольга Jewell MD Primary Care Provider Rhoda Rangel MD Unavailable Unavailable Brenden Villa DPM Unavailable [phone] Piedad Bowens MD Unavailable [phone] Marcos Weiss DO Unavailable Unavailable Xochitl Machado MD Unavailable [phone] Encounter Details Date Type Department Care Team Description 09/05/2018 [facility] Report Medical Records [address] [place] [id number] Erwin Rios MD Social History Tobacco Use [...] on filedocumented in this encounter Care Teams Claim Adjuster Relationship Specialty Start Date End Date Naun Garcia MD PCP - General Internal Medicine 10/27/13 10/27/21 [facility], [facility] PCP - General Internal Medicine 10/28/21 11/27/21 Naun Garcia MD PCP - General Internal Medicine 11/28/21 12/13/21 Ольга Jewell MD [address] [place] [address] PCP - General Internal Medicine 12/14/21 Rhoda Rangel MD [address] [place] [address] Referring Physician Allergy & Immunology 06/16/22 Brenden Villa DPM [address] [address] Podiatry 06/16/22 Piedad Bowens MD [address] [address] ORTHOPEDICS 06/16/22 Marcos Weiss DO [address] [address] Specialist Physiatry 12/15/22 Xochitl Machado MD [address] [address] Sports Medicine Int Med 12/15/22 Peter Cummings Specialist Gastroenterology 06/16/22 Evi Carpio Specialist PSYCHIATRY 06/16/22 elder duke Specialist Optometry 12/18/23 documented as of this encounter
--- OUTSIDE RECORDS SUMMARY | 2024-10-14 12:54 | XMS_ITS | Encounter Summary ---
Author Organization [facility] Address [address] [place] [address] Care Team Providers Care Equipment Maintenance Supervisor Name Role Phone Naun Garcia MD Primary Care Provider Unavail able [facility], Pcp Primary Care Provider Unavailabl Naun Artis MD Primary Care Provider Unavail able Ольга Jewell MD Primary Care Provider Rhoda Rangel MD Unavailable Unavailable Brenden Villa DPM Unavailable [phone] Piedad Bowens MD Unavailable [phone] Marcos Weiss DO Unavailable Unavailable Xochitl Machado MD Unavailable [phone] Encounter Details Date Type Department Care Team Description 09/18/2018 Hospital Medical Records [address] [place] [id number] Marcos Lombardi Social History Tobacco Use Types [...] on filedocumented in this encounter Care Teams Equipment Maintenance Supervisor Relationship Specialty Start Date End Date Naun Garcia MD PCP - General Internal Medicine 10/27/13 10/27/21 [facility], Pcp PCP - General Internal Medicine 10/28/21 11/27/21 Naun Garcia MD PCP - General Internal Medicine 11/28/21 12/13/21 Ольга Jewell MD [address] [place] [address] PCP - General Internal Medicine 12/14/21 Rhoda Rangel MD [address] [place] [address] Referring Physician Allergy & Immunology 06/16/22 Brenden Villa DPM [address] [address] Podiatry 06/16/22 Piedad Bowens MD [address] [address] ORTHOPEDICS 06/16/22 Marcos Weiss DO [address] [address] Specialist Physiatry 12/15/22 Xochitl Machado MD [address] [address] Sports Medicine Int Med 12/15/22 Peter Cummings Specialist Gastroenterology 06/16/22 Evi Carpio Specialist PSYCHIATRY 06/16/22 elder duke Specialist Optometry 12/18/23 documented as of this encounter
--- OUTSIDE RECORDS SUMMARY | 2024-10-14 12:54 | XMS_ITS | Clinical Summary ---
Author Organization [address] [place] [address] [place] [phone] Phone Care Team Providers Care Bleach Analyst Name Role Phone Ольга Jewell MD [...] every 8 hours as needed for Pain. 12/03/19 19 Active albuterol HFA (PROAIR HFA ; PROVENTIL HFA ; VENTOLIN HFA) 90 mcg/actuation inhaler INHALE 2 PUFFS INTO THE LUNGS EVERY 6 HOURS NEEDED FOR COUGH OR WHEEZING 05/17/20 23 Active budesonide-for moteroL (SYMBICORT) 160-4.5 mcg/actuation inhaler Inhale 2 Puffs into the lungs 2 times daily. 08/18/19 21 Active cetirizine (ZyrTEC) 10 mg tablet Take 1 tablet (10 mg total) by mouth 1 (one) time each day. 03/28/20 21 Active clonazePAM (KlonoPIN) 0.5 mg tablet TAKE 1 TABLET BY MOUTH ONCE A DAY NEEDED FOR ANXIETY. MAY TAKE ADDITIONAL TABLET BY MOUTH NEEDED FOR SEVERE ANXIETY 10/31/19 20 Active COQ10, UBIQUINOL, ORAL UvG71-[id number] rn-Carnosine 50-500-100 MG Cap 04/17/20 23 Active cycloSPORINE 0.05 % drops Place 1 Drop into both eyes 2 times daily. Per opthal 04/17/20 23 Active DULoxetine (CYMBALTA) [address] capsule Take 1 capsule (60 mg total) by mouth 1 (one) time each day. 02/23/20 23 Active dupilumab (Dupixent Pen) 300 mg/2 mL pen 12/21/19 24 Active EPINEPHrine (Auvi-Q) 0.3 mg/0.3 mL injection Inject 1 Device as directed as needed (anaphylaxis). Use as directed 07/03/19 19 Active FLUoxetine (PROzac) 40 mg capsule Take 1 capsule (40 mg total) by mouth 1 (one) time each day in the morning. 02/23/20 23 Active fluticasone propionate (FLONASE) 50 mcg/actuation nasal spray 1 TO 2 SPRAYS IN EACH NOSTRIL DAILY 12/03/19 21 Active hydrOXYzine HCL (ATARAX) 25 mg tablet TAKE 1 TO 2 TABLETS BY MOUTH AT BEDTIME NEEDED FOR SLEEP 02/24/20 23 Active ipratropium-al buteroL (DUONEB) 0.5-2.5 mg/3 mL nebulizer solution USE 3 ML VIA NEBULIZER EVERY 6 TO 8 HOURS NEEDED FOR WHEEZING 03/05/20 23 Active olopatadine (PATANASE) 0.6 % spray,non-aero diya nasal spray 2 Sprays by Nasal route 2 times daily. 03/30/20 20 Active oxyCODONE-acet aminophen (PERCOCET) 5-325 mg per tablet Take 1 tablet by mouth every 4 (four) hours. Active pantoprazole (PROTONIX) 20 mg EC tablet TAKE 1 TABLET BY MOUTH DAILY- ON EMPTY STOMACH 12/26/19 24 Active polyethylene glycol (GoLYTELY) 236-22.74-6.74 -5.86 gram solution Take 240 mL by mouth once for 1 dose. Take 4L by mouth once for one dose. May substitue any PEG. Starting at 6PM the night before your procedure drink 1 8oz glasses at your own pace until rectals run clear. 10/09/19 24 Active turmeric/turme duyen ext/pepr ext (turmeric-turm kamari ext-pepper) 900-100-5 mg capsule Take by mouth. 04/17/20 23 Active tiotropium (Spiriva Respimat) 2.5 mcg/actuation inhalation spray Inhale 1 Puff into the lungs daily. 08/18/19 21 Active glucosamine/ch ondro husain A/C/Mn (GLUCOSAMINE-C HONDROIT-VIT C-MN ORAL) Active rhubarb root extract 4 mg tablet Active amitriptyline (ELAVIL) 10 mg tablet TAKE 1 TABLET BY MOUTH AT BEDTIME 30 tablet 11 04/28/20 24 Active plecanatide (Trulance) 3 mg tablet TAKE 1 TABLET BY MOUTH DAILY 30 tablet 11 04/28/20 24 Active docusate sodium (COLACE) 100 mg capsule Take 1 capsule (100 mg total) by mouth 2 (two) times a day before meals. 60 capsule 5 05/15/20 24 Active valACYclovir (VALTREX) 500 mg tablet TAKE 1 TABLET BY MOUTH DAILY 90 tablet 1 06/13/19 25 Active amLODIPine (NORVASC) 5 mg tablet TAKE 1 TABLET BY MOUTH DAILY 90 tablet 1 07/09/19 25 Active gabapentin (NEURONTIN) 300 mg capsule TAKE 1 CAPSULE BY MOUTH THREE TIMES DAILY 270 capsule 1 08/07/19 25 Active budesonide-for moteroL (SYMBICORT) 80-4.5 mcg/actuation inhaler Inhale 2 puffs by mouth every 12 (twelve) hours if needed. 07/14/19 25 Active celecoxib (CeleBREX) 100 mg capsuleIndicat ions:Fibromyal tiki TAKE 1 CAPSULE(100 MG) BY MOUTH TWICE DAILY 60 capsule 10/10/19 25 Active celecoxib (CeleBREX) 100 mg capsuleIndicat ions:Fibromyal tiki Take 1 capsule (100 mg total) by mouth 2 (two) times a day. 60 each 09/09/19 25 025 Discontinued Active Problems Problem Noted Date Diagnosed [...] Overview (03/18/2024): Fibroadenoma Cervicalgia 11/03/2018 Overview (03/18/2024): [facility] Pain Management H. pylori infection 10/06/2018 [...] Encounters Date Type Department Care Team Description 10/02/2024 2:11 PM EDT - 10/02/2024 11:59 PM EDT Hospital Encounter Radiology Department - [address] [phone] Abnormal mammogram Discharge Disposition: Home or Self Care 10/02/2024 2:11 PM EDT - 10/02/2024 11:59 PM EDT Hospital Encounter Radiology Department - [address] [address] Abnormal mammogram Discharge Disposition: Home or Self Care 09/20/2024 2:00 PM EDT - 09/20/2024 11:59 PM EDT Hospital Encounter Radiology Department - [address] [phone] Encounter for screening mammogram for breast cancer Discharge Disposition: Home or Self Care 09/08/2024 2:30 PM EDT Office Visit Adult Medicine - [place] [address] [place] [phone] Patricia Bell PA Fibromyalgia (Primary Dx); Essential hypertension 09/05/2024 Telephone Adult Medicine [address] [phone] Ольга Jewell MD Med Refill 08/12/2024 2:00 PM EST Office Visit Orthopedic Surgery - [address] [place] [address] Xochitl Machado MD Arthritis of left knee (Primary Dx); Arthritis of right knee from Last 3 Months Immunizations Name Administration Dates Next Due Hepatitis B (Sgkfwif-V-Loicc , Recombivax HB-Adult) 19yo and older 01/31/2016,10/29/2015 [...] obesity with BMI of 4 0.0-44.9, adult ([facility] V24, [facility] V28) 11/04/2013 DX:Morbid obesity wit h BMI of 40.0-44.9, adult ([facility]); COMMENT: Bariatric Surgery Program Surgeon: Initial visit date 06/21/17 Psychiatry clearance: 08/28/17 Saira PCP clearance: 08/08/17 Jose Physical: 07/19/17 Dietitian-Dietary Clearance: [facility] 12/04/17 Labs: 06/22/17 Done. Support groups: Done. Requested weight loss: Last Surgery appt prior to Surgery: Prior Authorization Number: Surgery date goal: Anxiety 01/07/2018 DX:Anxiety Hyperlipidemia 01/07/2018 DX:Hyperlipidemi a Vitamin D deficiency 01/07/2018 DX:Vitamin D deficiency Positive H. pylori test 01/07/2018 DX:Posit leo H. pylori test; COMMENT: 06/2017 treated 07/2017 GERD (gastroesophageal reflux disease) DX:GERD (gastroesophageal reflux disease) Lichen simplex chronicus [...] care for your loved ones. For example, children's institution attendant or elderly care for an older adult? [...] is your living situation? 1 07/22/2023 Comments No Sex and Gender Information Value Date Recorded [...] Care Team (Late st Contact Info) Description 10/15/2024 11:00 AM EDT Office Visit Gastroenterology - [place] 175 [facility] 175 [facility] [address] [place] [phone] Felicitas Torres, LAURIE 175 [facility] [address] [place] [address] 12/08/2024 2:45 PM EDT Office Visit Adult Medicine - [place] [address] [place] [phone] Mauricio Strauss PA [address] [place] [address] Health Maintenance Due Date Last Done Comments [...] Health Screening 05/21/2025 05/21/2024 Breast Cancer Screening 10/02/2026 10/03/19, 09/20/2024, 09/21/2023, Additional history exists Cholesterol Screening (Lipid Panel) [...] Procedure Name Priority Date/Time Associated Diagnosis Comments US BREAST LIMITED LEFT Routine 10/02/2024 2:34 PM EDT Abnormal mammogram MG MAMMO DIGITAL DIAGNOSTIC W YAHIR LEFT Routine 10/02/2024 2:20 PM EDT Abnormal mammogram MG MAMMO DIGITAL SCREENING W YAHIR BILAT Routine 09/20/2024 2:16 PM EDT Encounter for screening mammogram for breast cancer NC ARTHROCENTESIS/ASPIR ATION/INJECTION MAJOR JOINT/BURSA W/O U/S GUIDANCE Routine 08/12/2024 2:00 PM EST Arthritis of left knee Arthritis of right knee ANNUAL BMP BLOOD TEST Routine 03/29/2023 LIPID PANEL Routine 03/29/2023 HEPATITIS C SCREENING Routine 12/25/2017 HIV SCREENING Routine 12/25/2017 from Last 3 Months or Most Recently Relevant to Health Maintenance Results * US Breast Limited Left (10/02/2024 2:34 PM EDT) Anatomical Region Laterality Modality Breast Left Ultrasound 10/02/2024 2:26 PM EDT Impressions 10/02/2024 2:45 PM EDT 1. No mammographic evidence of malignancy 2. Scattered fibroglandular tissue ?? Findings and recommendations were conveyed to the patient. ? BI-RADS CATEGORY: 2 - BENIGN RECOMMENDATION: Return to annual mammography. Return to annual mammography. Mammo Location: [facility], [address] [place] [address], [phone], . -------- FINAL REPORT -------- Dictated By: August Owen Dictated Date: 10/02/2024 14:26 ET Assigned Physician: August Owen Reviewed and Electronically Signed By: August Owen Signed Date: 10/02/2024 14:45 ET Workstation ID: [id number] Transcribed By: Self Edit Transcribed Date: 10/02/2024 14:33 ET Narrative 10/02/2024 2:45 PM EDT LEFT DIGITAL DIAGNOSTIC 3D MAMMOGRAPHY HISTORY: Workup for medial breast far posterior depth asymmetry COMPARISON: Mammogram from 09/20/2024 Technique: MLO spot compression 3-D FINDINGS: Left ??breast medial breast for posterior depth asymmetry mildly decreases on spot compression and corresponds to an area of dense tissue sonographically. ??Multiple medial and lateral biopsy markers are present. BREAST DENSITY: B - There are scattered areas of fibroglandular density. EXAM: LEFT ??BREAST TARGETED ULTRASOUND EVALUATION TECHNIQUE: Ultrasonographic examination is performed using a ??linear array transducer. Targeted left ??breast ultrasound from 12:00 to 6:00 of the medial breast evaluate mammographic finding. Real-time sonographic scanning was also performed by the radiologist FINDINGS: From 12:00 to 6:00, no sonographic evidence of malignancy or other focal abnormalities were identified at the left ??breast in area of mammographic concern. ??An area of dense tissue which is typically benign is present. Procedure Note August Owen MD - 10/02/2024 LEFT DIGITAL DIAGNOSTIC 3D MAMMOGRAPHY HISTORY: Workup for medial breast far posterior depth asymmetry COMPARISON: Mammogram from 09/20/2024 Technique: MLO spot compression 3-D FINDINGS: Left breast medial breast for posterior depth asymmetry mildly decreaseson spot compression and corresponds to an area of dense tissuesonographically. Multiple medial and lateral biopsy markers arepresent. BREAST DENSITY: B - There are scattered areas of fibroglandular density. EXAM: LEFT BREAST TARGETED ULTRASOUND EVALUATION TECHNIQUE: Ultrasonographic examination is performed using a linear arraytransducer. Targeted left breast ultrasound from 12:00 to 6:00 of themedial breast evaluate mammographic finding. Real-time sonographicscanning was also performed by the radiologist FINDINGS: From 12:00 to 6:00, no sonographic evidence of malignancy or other focalabnormalities were identified at the left breast in area of mammographicconcern. An area of dense tissue which is typically benign is present. IMPRESSION: 1. No mammographic evidence of malignancy 2. Scattered fibroglandular tissue Findings and recommendations were conveyed to the patient. BI-RADS CATEGORY: 2 - BENIGN RECOMMENDATION: Return to annual mammography. Return to annual mammography. Mammo Location: [facility], [address] [place] [address], [address], . -------- FINAL REPORT -------- Dictated By: August Owen Dictated Date: 10/02/2024 14:26 ET Assigned Physician: August Owen Reviewed and Electronically Signed By: August Owen Signed Date: 10/02/2024 14:45 ET Workstation ID: [id number] Transcribed By: Self Edit Transcribed Date: 10/02/2024 14:33 ET us Elida Pavon CNJose IMG US PROCEDURES Final Result * MG Mammo Digital Diagnostic w Yahir Left (10/02/2024 2:20 PM EDT) Anatomical Region Laterality Modality Breast Left Mammography 10/02/2024 2:26 PM EDT Impressions 10/02/2024 2:45 PM EDT 1. No mammographic evidence of malignancy 2. Scattered fibroglandular tissue ?? Findings and recommendations were conveyed to the patient. ? BI-RADS CATEGORY: 2 - BENIGN RECOMMENDATION: Return to annual mammography. Return to annual mammography. Mammo Location: [facility], [address] [place] [address], [phone], . -------- FINAL REPORT -------- Dictated By: August Owen Dictated Date: 10/02/2024 14:26 ET Assigned Physician: August Owen Reviewed and Electronically Signed By: August Owen Signed Date: 10/02/2024 14:45 ET Workstation ID: [id number] Transcribed By: Self Edit Transcribed Date: 10/02/2024 14:33 ET Narrative 10/02/2024 2:45 PM EDT LEFT DIGITAL DIAGNOSTIC 3D MAMMOGRAPHY HISTORY: Workup for medial breast far posterior depth asymmetry COMPARISON: Mammogram from 09/20/2024 Technique: MLO spot compression 3-D FINDINGS: Left ??breast medial breast for posterior depth asymmetry mildly decreases on spot compression and corresponds to an area of dense tissue sonographically. ??Multiple medial and lateral biopsy markers are present. BREAST DENSITY: B - There are scattered areas of fibroglandular density. EXAM: LEFT ??BREAST TARGETED ULTRASOUND EVALUATION TECHNIQUE: Ultrasonographic examination is performed using a ??linear array transducer. Targeted left ??breast ultrasound from 12:00 to 6:00 of the medial breast evaluate mammographic finding. Real-time sonographic scanning was also performed by the radiologist FINDINGS: From 12:00 to 6:00, no sonographic evidence of malignancy or other focal abnormalities were identified at the left ??breast in area of mammographic concern. ??An area of dense tissue which is typically benign is present. Procedure Note August Owen MD - 10/02/2024 LEFT DIGITAL DIAGNOSTIC 3D MAMMOGRAPHY HISTORY: Workup for medial breast far posterior depth asymmetry COMPARISON: Mammogram from 09/20/2024 Technique: MLO spot compression 3-D FINDINGS: Left breast medial breast for posterior depth asymmetry mildly decreaseson spot compression and corresponds to an area of dense tissuesonographically. Multiple medial and lateral biopsy markers arepresent. BREAST DENSITY: B - There are scattered areas of fibroglandular density. EXAM: LEFT BREAST TARGETED ULTRASOUND EVALUATION TECHNIQUE: Ultrasonographic examination is performed using a linear arraytransducer. Targeted left breast ultrasound from 12:00 to 6:00 of themedial breast evaluate mammographic finding. Real-time sonographicscanning was also performed by the radiologist FINDINGS: From 12:00 to 6:00, no sonographic evidence of malignancy or other focalabnormalities were identified at the left breast in area of mammographicconcern. An area of dense tissue which is typically benign is present. IMPRESSION: 1. No mammographic evidence of malignancy 2. Scattered fibroglandular tissue Findings and recommendations were conveyed to the patient. BI-RADS CATEGORY: 2 - BENIGN RECOMMENDATION: Return to annual mammography. Return to annual mammography. Mammo Location: [facility], [address] [place] [address], [address], . -------- FINAL REPORT -------- Dictated By: August Owen Dictated Date: 10/02/2024 14:26 ET Assigned Physician: August Owen Reviewed and Electronically Signed By: August Owen Signed Date: 10/02/2024 14:45 ET Workstation ID: [id number] Transcribed By: Self Edit Transcribed Date: 10/02/2024 14:33 ET Elida SAHNI IMG BI PROCEDURES Final Result * (ABNORMAL) MG Mammo Digital Screening w [...] MLO spot compression, targeted ultrasound Mammo Location: [facility], [address] [place] [address], [address], . -------- FINAL REPORT -------- Dictated By: August Owen Dictated Date: 09/22/2024 19:40 ET Assigned Physician: August Oewn Reviewed and Electronically Signed By: August Owen Signed Date: 09/22/2024 19:44 ET Workstation ID: [id number] Transcribed By: Self Edit Transcribed Date: 09/22/2024 [...] breast MLO spotcompression, targeted ultrasound Mammo Location: [facility], [address] [place] [address], [address], . -------- FINAL REPORT -------- Dictated By: August Owen Dictated Date: 09/22/2024 19:40 ET Assigned Physician: August Owen Reviewed and Electronically Signed By: August Owen Signed Date: 09/22/2024 19:44 ET Workstation ID: [id number] Transcribed By: Self Edit Transcribed Date: 09/22/2024 19:40 ET Elida Pavon CNM IMG BI PROCEDURES Final Result * NC ARTHROCENTESIS/ASPIRATION/INJECTION MAJOR JOINT/BURSA W/O U/S GUIDANCE (08/12/2024 2:00 PM EST) Narrative Xochitl Machado MD - 08/12/2024 2:00 PM EST Xochitl aMchado MD ? 08/12/2024 ??2:49 PM L Inj/Asp: [...] ?? Verbal ??Pre-procedure timeout performed: yes ?? Result [facility] Xochitl Machado MD IN CLINIC/BEDSIDE ORDERABLES F inal Result * Annual BMP Blood Test (03/29/2023) [facility] Annual BMP Blood Test abstracted Result [facility] Provider HEALTH MAINTENANCE Final Result * (ABNORMAL) Lipid panel (03/29/2023) [facility] LDL/HDL Ratio 3 0 - 4 Triglycerides 59 0 - 150 mg/dL Cholesterol 262(A) 0 - 200 mg/dL HDL 98 >=40 mg/dL LDL Cholesterol 153(A) 0 - 100 mg/dL Blood Venous blood specimen / Unknown Result [facility] Artem SAM LAB BLOOD ORDERABLES Marie l Result * HIV Screening (12/25/2017) [facility] HIV Screening abstracted Result [facility] Artem SAM HEALTH MAINTENANCE Final Result * Hepatitis C Screening (12/25/2017) [facility] Hepatitis C Screening abstracted Result [facility] Artem SAM HEALTH MAINTENANCE Final Result from Last 3 Months or Most Recently Relevant to Health Maintenance Insurance [facility]IC[facility] Member Subscriber Plan / Payer (Ef fective 2022-Present) Name:Deisy Muhammad Jaida Relation to Subscriber:Self Name:JbDeisy Payer ID:[id number] Group ID:[id number] Type:Not on file Address: [place] [address] [address] [id number] Care Teams Bleach Analyst Relationship Specialty Start Date End Date Ольга Jewell MD [address] [place] [id number] PCP - General Internal Medicine 12/14/21
--- OUTSIDE RECORDS SUMMARY | 2024-10-14 12:54 | XMS_ITS | Encounter Summary ---
Author Organization [facility] Address [address] [place] [address] Care Team Providers Care Log Handling Equipment Operator Name Role Phone Naun Garcia MD Primary Care Provider Unavail able [facility], [facility] Primary Care Provider Unavailabl Naun Artis MD Primary Care Provider Unavail able Ольга Jewell MD Primary Care Provider Rhoda Rangel MD Unavailable Unavailable Brenden Villa DPM Unavailable [phone] Piedad Bowens MD Unavailable [phone] Marcos Weiss DO Unavailable Unavailable Xochitl Machado MD Unavailable [phone] Encounter Details Date Type Department Care Team Description 06/21/2015 Valet Runner Report Medical Records [address] [place] [id number] James Villavicencio MD Social History Tobacco Use Types Packs/Day [...] on filedocumented in this encounter Care Teams Log Handling Equipment Operator Relationship Specialty Start Date End Date Naun Garcia MD PCP - General Internal Medicine 10/27/13 10/27/21 [facility], [facility] PCP - General Internal Medicine 10/28/21 11/27/21 Naun Garcia MD PCP - General Internal Medicine 11/28/21 12/13/21 Ольга Jewell MD [address] [place] [address] PCP - General Internal Medicine 12/14/21 Rhoda Rangel MD [address] [place] [address] Referring Physician Allergy & Immunology 06/16/22 Brenden Villa DPM [address] [address] Podiatry 06/16/22 Piedad Bowens MD [address] [address] ORTHOPEDICS 06/16/22 Marcos Weiss DO [address] [address] Specialist Physiatry 12/15/22 Xochitl Machado MD [address] [address] Sports Medicine Int Med 12/15/22 Peter Cummings Specialist Gastroenterology 06/16/22 Evi Carpio Specialist PSYCHIATRY 06/16/22 elder duke Specialist Optometry 12/18/23 documented as of this encounter
--- OUTSIDE RECORDS SUMMARY | 2024-10-14 12:54 | XMS_ITS | Encounter Summary ---
Author Organization [facility] Address [address] [place] [address] Care Team Providers Care Vacuum Frame Operator Name Role Phone Naun Garcia MD Primary Care Provider Unavail able [facility], Pcp Primary Care Provider Unavailabl e Naun Garcia MD Primary Care Provider Unavail able Ольга Jewell MD Primary Care Provider [phone] Rhoda Rangel MD Unavailable Unavailable Brenden Villa DPM Unavailable [phone] Piedad Bowens MD Unavailable [phone] Marcos Weiss DO Unavailable Unavailable Xochitl Machado MD Unavailable [phone] Reason for Visit * Reason Comments Encounter Details Date Type Department Care Team Description 06/14/2015 Telephone Podiatry - [place] [address] [place] [address] Irina Medellin DPM Social History Tobacco Use Types Packs/Day Years [...] encounter Miscellaneous Notes * Telephone Encounter - Irina Medellin DPM - 06/14/2015 1:59 PM EST Message copied by IRINA MEDELLIN DPM on SunJun 14, 2015 1:59 PM ------ Message from: LYNSEY FINNEY M.A. Created: SunJun 14, 2015 11:24 AM OK to wait. ------ documented in this encounter Plan of Treatment Not on file documented as of this encounter Visit Diagnoses Not on filedocumented in this encounter Care Teams Vacuum Frame Operator Relationship Specialty Start Date End Date Naun Garcia MD PCP - General Internal Medicine 10/27/13 10/27/21 [facility] PCP - General Internal Medicine 10/28/21 11/27/21 Naun Garcia MD PCP - General Internal Medicine 11/28/21 12/13/21 Ольга Jewell MD [address] [place] [address] PCP - General Internal Medicine 12/14/21 Rhoda Rangel MD [address] [place] [address] Referring Physician Allergy & Immunology 06/16/22 Brenden Villa DPM [address] [address] Podiatry 06/16/22 Piedad Bowens MD [address] [address] ORTHOPEDICS 06/16/22 Marcos Weiss DO [address] [address] Specialist Physiatry 12/15/22 Xochitl Machado MD [address] [address] Sports Medicine Int Med 12/15/22 Peter Cummings Specialist Gastroenterology 06/16/22 Evi Carpio Specialist PSYCHIATRY 06/16/22 elder duke Specialist Optometry 12/18/23 documented as of this encounter
--- OUTSIDE RECORDS SUMMARY | 2024-10-14 12:54 | XMS_ITS | Encounter Summary ---
Author Organization [facility] Address [address] [place] [address] Care Team Providers Care Web Page Designer Name Role Phone Naun Garcia MD Primary Care Provider Unavail able [facility], [facility] Primary Care Provider Unavailabl Naun Artis MD Primary Care Provider Unavail able Ольга Jewell MD Primary Care Provider Rhoda Rangel MD Unavailable Unavailable Brenden Villa DPM Unavailable [phone] Piedad Bowens MD Unavailable [phone] Marcos Weiss DO Unavailable Unavailable Xochitl Machado MD Unavailable [phone] Encounter Details Date Type Department Care Team Description 06/01/2015 Conceptor Report Medical Records [address] [place] [address] Angel Avendano Social History Tobacco Use Types [...] on filedocumented in this encounter Care Teams Web Page Designer Relationship Specialty Start Date End Date Naun Garcia MD PCP - General Internal Medicine 10/27/13 10/27/21 [facility], [facility] PCP - General Internal Medicine 10/28/21 11/27/21 Naun Garcia MD PCP - General Internal Medicine 11/28/21 12/13/21 Ольга Jewell MD [address] [place] [address] PCP - General Internal Medicine 12/14/21 Rhoda Rangel MD [address] [place] [address] Referring Physician Allergy & Immunology 06/16/22 Brenden Villa DPM [address] [address] Podiatry 06/16/22 Piedad Bowens MD [address] [address] ORTHOPEDICS 06/16/22 Marcos Weiss DO [address] [address] Specialist Physiatry 12/15/22 Xochitl Machado MD [address] [address] Sports Medicine Int Med 12/15/22 Peter Cummings Specialist Gastroenterology 06/16/22 Evi Carpio Specialist PSYCHIATRY 06/16/22 elder duke Specialist Optometry 12/18/23 documented as of this encounter
--- OUTSIDE RECORDS SUMMARY | 2024-10-14 12:54 | XMS_ITS | Encounter Summary ---
Author Organization [facility] Address [address] [place] [address] Care Team Providers Care Plastics Technician Name Role Phone Naun Garcia MD Primary Care Provider Unavail able [facility], Pcp Primary Care Provider Unavailabl Naun Artis MD Primary Care Provider Unavail able Ольга Jewell MD Primary Care Provider Rhoda Rangel MD Unavailable Unavailable Brenden Villa DPM Unavailable Piedad Bowens MD Unavailable [phone] Marcos Weiss DO Unavailable Unavailable Xochilt Machado MD Unavailable [phone] Encounter Details Date Type Department Care Team Description 09/21/2018 Hospital Medical Records [address] [place] [address] Favian Ramos MD Social History Tobacco Use [...] on filedocumented in this encounter Care Teams Plastics Technician Relationship Specialty Start Date End Date Naun Garcia MD PCP - General Internal Medicine 10/27/13 10/27/21 [facility], Pcp PCP - General Internal Medicine 10/28/21 11/27/21 Naun Garcia MD PCP - General Internal Medicine 11/28/21 12/13/21 Ольга Jewell MD [address] [place] [address] PCP - General Internal Medicine 12/14/21 Rhoda Rangel MD [address] [place] [address] Referring Physician Allergy & Immunology 06/16/22 Brenden Villa DPM [address] [address] Podiatry 06/16/22 Piedad Bowens MD [address] [address] ORTHOPEDICS 06/16/22 Marcos Weiss DO [address] [address] Specialist Physiatry 12/15/22 Xochitl Machado MD [address] [address] Sports Medicine Int Med 12/15/22 Peter Cummings Specialist Gastroenterology 06/16/22 Evi Carpio Specialist PSYCHIATRY 06/16/22 elder duke Specialist Optometry 12/18/23 documented as of this encounter
--- OUTSIDE RECORDS SUMMARY | 2024-10-14 12:54 | XMS_ITS | Encounter Summary ---
Author Organization [facility] Address [address] [place] [address] Care Team Providers Care School Counselor Name Role Phone Naun Garcia MD Primary Care Provider Unavail able [facility], Pcp Primary Care Provider Unavailabl Naun Artis MD Primary Care Provider Unavail able Ольга Jewell MD Primary Care Provider Rhoda Rangel MD Unavailable Unavailable Brenden Villa DPM Unavailable [phone] Piedad Bowens MD Unavailable [phone] Marcos Weiss DO Unavailable Unavailable Xochitl Machado MD Unavailable [phone] Encounter Details Date Type Department Care Team Description 09/23/2018 Hospital Medical Records [address] [place] [address] Arianne Parrish PA Social History Tobacco Use [...] filedocumented in this encounter Care Teams School Counselor Relationship Specialty Start Date End Date Naun Garcia MD PCP - General Internal Medicine 10/27/13 10/27/21 [facility], Pcp PCP - General Internal Medicine 10/28/21 11/27/21 Naun Garcia MD PCP - General Internal Medicine 11/28/21 12/13/21 Ольга Jewell MD [address] [place] [address] PCP - General Internal Medicine 12/14/21 Rhoda Rangel MD [address] [place] [address] Referring Physician Allergy & Immunology 06/16/22 Brenden Villa DPM [address] [address] Podiatry 06/16/22 Piedad Bowens MD [address] [address] ORTHOPEDICS 06/16/22 Marcos Weiss DO [address] [address] Specialist Physiatry 12/15/22 Xochitl Machado MD [address] [address] Sports Medicine Int Med 12/15/22 Peter Cummings Specialist Gastroenterology 06/16/22 Evi Carpio Specialist PSYCHIATRY 06/16/22 elder duke Specialist Optometry 12/18/23 documented as of this encounter
--- OUTSIDE RECORDS SUMMARY | 2024-10-14 12:54 | XMS_ITS | Encounter Summary ---
Author Organization [facility] Address [address] [place] [address] Care Team Providers Care Flight Software Test Engineer Name Role Phone Naun Garcia MD Primary Care Provider Unavail able [facility], [facility] Primary Care Provider Unavailabl Naun Artis MD Primary Care Provider Unavail able Ольга Jewell MD Primary Care Provider Rhoda Rangel MD Unavailable Unavailable Brenden Villa DPM Unavailable [phone] Piedad Bowens MD Unavailable [phone] Marcos Weiss DO Unavailable Unavailable Xochitl Machado MD Unavailable [phone] Encounter Details Date Type Department Care Team Description 09/13/2018 Plywood And Veneer Repairer Report Medical Records [address] [place] [address] Reginald Laureano MD Social History Tobacco Use [...] on filedocumented in this encounter Care Teams Flight Software Test Engineer Relationship Specialty Start Date End Date Naun Garcia MD PCP - General Internal Medicine 10/27/13 10/27/21 [facility], [facility] PCP - General Internal Medicine 10/28/21 11/27/21 Naun Garcia MD PCP - General Internal Medicine 11/28/21 12/13/21 Ольга Jewell MD [address] [place] [address] PCP - General Internal Medicine 12/14/21 Rhoda Rangel MD [address] [place] [address] Referring Physician Allergy & Immunology 06/16/22 Brenden Villa DPM [address] [address] Podiatry 06/16/22 Piedad Bowens MD [address] [address] ORTHOPEDICS 06/16/22 Marcos Weiss DO [address] [address] Specialist Physiatry 12/15/22 Xochitl Machado MD [address] [address] Sports Medicine Int Med 12/15/22 Peter Cummings Specialist Gastroenterology 06/16/22 Evi Carpio Specialist PSYCHIATRY 06/16/22 elder duke Specialist Optometry 12/18/23 documented as of this encounter
--- OUTSIDE RECORDS SUMMARY | 2024-10-14 12:54 | XMS_ITS | Encounter Summary ---
Author Organization [facility] Address [address] [place] [address] Care Team Providers Care Public Services Assistant Name Role Phone Naun Garcia MD Primary Care Provider Unavail able [facility], Pcp Primary Care Provider Unavailabl Naun Artis MD Primary Care Provider Unavail able Ольга Jewell MD Primary Care Provider Rhoda Rangel MD Unavailable Unavailable Brenden Villa DPM Unavailable [phone] Piedad Bowens MD Unavailable [phone] Marcos Weiss DO Unavailable Unavailable Xochitl Machado MD Unavailable [phone] Encounter Details Date Type Department Care Team Description 09/21/2018 Hospital Medical Records [address] [place] [address] Anoop Craig MD Social History Tobacco Use [...] filedocumented in this encounter Care Teams Public Services Assistant Relationship Specialty Start Date End Date Naun Garcia MD PCP - General Internal Medicine 10/27/13 10/27/21 [facility], Pcp PCP - General Internal Medicine 10/28/21 11/27/21 Naun Garcia MD PCP - General Internal Medicine 11/28/21 12/13/21 Ольга Jewell MD [address] [place] [address] PCP - General Internal Medicine 12/14/21 Rhoda Rangel MD [address] [place] [address] Referring Physician Allergy & Immunology 06/16/22 Brenden Villa DPM [address] [address] Podiatry 06/16/22 Piedad Bowens MD [address] [address] ORTHOPEDICS 06/16/22 Marcos Weiss DO [address] [address] Specialist Physiatry 12/15/22 Xochitl Machado MD [address] [address] Sports Medicine Int Med 12/15/22 Peter Cummings Specialist Gastroenterology 06/16/22 Evi Carpio Specialist PSYCHIATRY 06/16/22 elder duke Specialist Optometry 12/18/23 documented as of this encounter
--- OUTSIDE RECORDS SUMMARY | 2024-10-14 12:54 | XMS_ITS | Encounter Summary ---
Author Organization [facility] Address [address] [place] [address] Care Team Providers Care Car Pre Cooler Name Role Phone Naun Garcia MD Primary Care Provider Unavail able [facility], [facility] Primary Care Provider Unavailabl Naun Artis MD Primary Care Provider Unavail able Ольга Jewell MD Primary Care Provider Rhoda Rangel MD Unavailable Unavailable Brenden Villa DPM Unavailable [phone] Piedad Bowens MD Unavailable [phone] Marcos Weiss DO Unavailable Unavailable Xochitl Machado MD Unavailable [phone] Encounter Details Date Type Department Care Team Description 08/12/2018 Release of Information Medical Records [address] [place] [address] Abstract, Provider Social History Tobacco Use Types [...] on filedocumented in this encounter Care Teams Car Pre Cooler Relationship Specialty Start Date End Date Naun Garcia MD PCP - General Internal Medicine 10/27/13 10/27/21 [facility], Pcp PCP - General Internal Medicine 10/28/21 11/27/21 Naun Garcia MD PCP - General Internal Medicine 11/28/21 12/13/21 Ольга Jewell MD [address] [place] [address] PCP - General Internal Medicine 12/14/21 Rhoda Rangel MD [address] [place] [address] Referring Physician Allergy & Immunology 06/16/22 Brenden Villa DPM [address] [address] Podiatry 06/16/22 Piedad Bowens MD [address] [address] ORTHOPEDICS 06/16/22 Marcos Weiss DO [address] [address] Specialist Physiatry 12/15/22 Xochitl Machado MD [address] [address] Sports Medicine Int Med 12/15/22 Peter Cummings Specialist Gastroenterology 06/16/22 Evi Carpio Specialist PSYCHIATRY 06/16/22 elder duke Specialist Optometry 12/18/23 documented as of this encounter
--- OUTSIDE RECORDS SUMMARY | 2024-10-14 12:55 | XMS_ITS | Encounter Summary ---
Author Organization [facility] Address [address] [place] [address] Care Team Providers Care Habilitation Assistant Name Role Phone Naun Garcia MD Primary Care Provider Unavail able [facility], [facility] Primary Care Provider Unavailabl Naun Artis MD Primary Care Provider Unavail able Ольга Jewell MD Primary Care Provider Rhoda Rangel MD Unavailable Unavailable Brenden Villa DPM Unavailable [phone] Piedad Bowens MD Unavailable [phone] Marcos Weiss DO Unavailable Unavailable Xochitl Machado MD Unavailable [phone] Encounter Details Date Type Department Care Team Description 12/31/2017 [facility] Medical Records [address] [place] [address] Abstract, Provider Social History Tobacco Use Types [...] on filedocumented in this encounter Care Teams Habilitation Assistant Relationship Specialty Start Date End Date Naun Garcia MD PCP - General Internal Medicine 10/27/13 10/27/21 [facility], Pcp PCP - General Internal Medicine 10/28/21 11/27/21 Naun Garcia MD PCP - General Internal Medicine 11/28/21 12/13/21 Ольга Jewell MD [address] [place] [address] PCP - General Internal Medicine 12/14/21 Rhoda Rangel MD [address] [place] [address] Referring Physician Allergy & Immunology 06/16/22 Brenden Villa DPM [address] [address] Podiatry 06/16/22 Piedad Bowens MD [address] [address] ORTHOPEDICS 06/16/22 Marcos Weiss DO [address] [address] Specialist Physiatry 12/15/22 Xochitl Machado MD [address] [address] Sports Medicine Int Med 12/15/22 Peter Cummings Specialist Gastroenterology 06/16/22 Evi Carpio Specialist PSYCHIATRY 06/16/22 elder duke Specialist Optometry 12/18/23 documented as of this encounter
--- OUTSIDE RECORDS SUMMARY | 2024-10-14 12:55 | XMS_ITS | Encounter Summary ---
Author Organization [facility] Address [address] [place] [address] Care Team Providers Care American History Professor Name Role Phone Ольга Jewell MD Primary Care Provider Rhoda Rangel MD Unavailable Unavailable Brenden Villa DPM Unavailable [phone] Piedad Bowens MD Unavailable [phone] Marcos Weiss DO Unavailable Unavailable Xochitl Machado MD Unavailable [phone] Reason for Visit * Reason Comments E-prescribe Rx Request Encounter Details Date Type Department Care Team Description 06/14/2023 Refill Bariatric Surgery - [address] [place] [address] Dawn Arciniega MD [address] [place] [address] [address] [place] [address] E-prescribe Rx Request Social History Tobacco Use [...] nonabsorption documented in this encounter Care Teams American History Professor Relationship Specialty Start Date End Date Ольга Jewell MD [address] [place] [address] PCP - General Internal Medicine 12/14/21 Rhoda Rangel MD [address] [place] [address] Referring Physician Allergy & Immunology 06/16/22 Brenden Villa DPM [address] [address] Podiatry 06/16/22 Piedad Bowens MD [address] [address] ORTHOPEDICS 06/16/22 Marcos Weiss DO [address] [address] Specialist Physiatry 12/15/22 Xochitl Machado MD [address] [address] Sports Medicine Int Med 12/15/22 Peter Cummings Specialist Gastroenterology 06/16/22 Evi Carpio Specialist PSYCHIATRY 06/16/22 elder duke Specialist Optometry 12/18/23 documented as of this encounter
--- OUTSIDE RECORDS SUMMARY | 2024-10-14 12:55 | XMS_ITS | Encounter Summary ---
Author Organization [facility] Address [address] [place] [address] Care Team Providers Care Traffic Personnel Supervisor Name Role Phone Naun Garcia MD Primary Care Provider Unavail able [facility], [facility] Primary Care Provider Unavailabl Naun Artis MD Primary Care Provider Unavail able Ольга Jewell MD Primary Care Provider [phone] Rhoda Rangel MD Unavailable Unavailable Brenden Villa DPM Unavailable [phone] Piedad Bowens MD Unavailable [phone] Marcos Weiss DO Unavailable Unavailable Xochitl Machado MD Unavailable [phone] Encounter Details Date Type Department Care Team Description 06/24/2018 Bleach Machine Operator Report Medical Records [address] [place] [address] Jas Padilla PA-C Social History Tobacco Use Types Packs/Day [...] on filedocumented in this encounter Care Teams Traffic Personnel Supervisor Relationship Specialty Start Date End Date Naun Garcia MD PCP - General Internal Medicine 10/27/13 10/27/21 [facility], [facility] PCP - General Internal Medicine 10/28/21 11/27/21 Naun Garcia MD PCP - General Internal Medicine 11/28/21 12/13/21 Ольга Jewell MD [address] [place] [address] PCP - General Internal Medicine 12/14/21 Rhoda Rangel MD [address] [place] [address] Referring Physician Allergy & Immunology 06/16/22 Brenden Villa DPM [address] [address] Podiatry 06/16/22 Piedad Bowens MD [address] [address] ORTHOPEDICS 06/16/22 Marcos Weiss DO [address] [address] Specialist Physiatry 12/15/22 Xochitl Machado MD [address] [address] Sports Medicine Int Med 12/15/22 Peter Cummings Specialist Gastroenterology 06/16/22 Evi Carpio Specialist PSYCHIATRY 06/16/22 elder duke Specialist Optometry 12/18/23 documented as of this encounter
--- OUTSIDE RECORDS SUMMARY | 2024-10-14 12:55 | XMS_ITS | Encounter Summary ---
Author Organization [facility] Address [address] [place] [address] Care Team Providers Care Coffee Roaster Name Role Phone Naun Garcia MD Primary Care Provider Unavail able [facility], Pcp Primary Care Provider Unavailabl Naun Artis MD Primary Care Provider Unavail able Ольга Jewell MD Primary Care Provider [phone] Rhoda Rangel MD Unavailable Unavailable Brenden Villa DPM Unavailable [phone] Piedad Bowens MD Unavailable [phone] Marcos Weiss DO Unavailable Unavailable Xochitl Machado MD Unavailable [phone] Reason for Visit * Reason Onset Date Comments medication problems 08/02/2020 non formular y Encounter Details Date Type Department Care Team Description 08/02/2020 Telephone Allergy [place] [address] [place] [address] Rhoda Rangel MD medication problems (non formulary) [...] on filedocumented in this encounter Care Teams Coffee Roaster Relationship Specialty Start Date End Date Naun Garcia MD PCP - General Internal Medicine 10/27/13 10/27/21 [facility], Pcp PCP - General Internal Medicine 10/28/21 11/27/21 Naun Garcia MD PCP - General Internal Medicine 11/28/21 12/13/21 Ольга Jewell MD [address] [place] [address] PCP - General Internal Medicine 12/14/21 Rhoda Rangel MD [address] [place] [address] Referring Physician Allergy & Immunology 06/16/22 Brenden Villa DPM [address] [address] Podiatry 06/16/22 Piedad Bowens MD [address] [address] ORTHOPEDICS 06/16/22 Marcos Weiss DO [address] [address] Specialist Physiatry 12/15/22 Xochitl Machado MD [address] [address] Sports Medicine Int Med 12/15/22 Peter Cummings Specialist Gastroenterology 06/16/22 Evi Carpio Specialist PSYCHIATRY 06/16/22 elder duke Specialist Optometry 12/18/23 documented as of this encounter
--- OUTSIDE RECORDS SUMMARY | 2024-10-14 12:55 | XMS_ITS | Encounter Summary ---
Author Organization [facility] Address [address] [place] [address] Care Team Providers Care Animal Researcher Name Role Phone Ольга Jewell MD Primary Care Provider Rhoda Rangel MD Unavailable Unavailable Brenden Villa DPM Unavailable [phone] Piedad Bowens MD Unavailable [phone] Marcos Weiss DO Unavailable Unavailable Xochitl Machado MD Unavailable [phone] Encounter Details Date Type Department Care Team Description 09/18/2022 Pt. Non Urgent Medic al Question Adult Medicine - [place] [address] [place] [address] Mauricio Strauss PA [address] [place] [address] Social History Tobacco Use Types Packs/Day Years [...] my paper work the fax number is [phone]. Can you send it again? documented in this encounter Plan of Treatment Not on file documented as of this encounter Visit Diagnoses Not on filedocumented in this encounter Care Teams Animal Researcher Relationship Specialty Start Date End Date Ольга Jewell MD [address] [place] [address] PCP - General Internal Medicine 12/14/21 Rhoda Rangel MD [address] [place] [address] Referring Physician Allergy & Immunology 06/16/22 Brenden Villa DPM [address] [address] Podiatry 06/16/22 Piedad Bowens MD [address] [address] ORTHOPEDICS 06/16/22 Marcos Weiss DO [address] [address] Specialist Physiatry 12/15/22 Xochitl Machado MD [address] [address] Sports Medicine Int Med 12/15/22 Peter Cummings Specialist Gastroenterology 06/16/22 Evi Carpio Specialist PSYCHIATRY 06/16/22 elder duke Specialist Optometry 12/18/23 documented as of this encounter
--- OUTSIDE RECORDS SUMMARY | 2024-10-14 12:55 | XMS_ITS | Encounter Summary ---
Author Organization [facility] Address [address] [place] [address] Care Team Providers Care Manager Bar Name Role Phone Naun Garcia MD Primary Care Provider Unavail able [facility], Pcp Primary Care Provider Unavailabl Naun Artis MD Primary Care Provider Unavail able Ольга Jewell MD Primary Care Provider [phone] Rhoda Rangel MD Unavailable Unavailable Brenden Villa DPM Unavailable [phone] Piedad Bowens MD Unavailable [phone] Marcos Weiss DO Unavailable Unavailable Xochitl Machado MD Unavailable [phone] Encounter Details Date Type Department Care Team Description 09/27/2018 Hospital Medical Records [address] [place] [address] Cr Spence MD Social History Tobacco Use [...] filedocumented in this encounter Care Teams Manager Bar Relationship Specialty Start Date End Date Naun Garcia MD PCP - General Internal Medicine 10/27/13 10/27/21 [facility], Pcp PCP - General Internal Medicine 10/28/21 11/27/21 Naun Garcia MD PCP - General Internal Medicine 11/28/21 12/13/21 Ольга Jewell MD [address] [place] [address] PCP - General Internal Medicine 12/14/21 Rhoda Rangel MD [address] [place] [address] Referring Physician Allergy & Immunology 06/16/22 Brenden Villa DPM [address] [address] Podiatry 06/16/22 Piedad Bowens MD [address] [address] ORTHOPEDICS 06/16/22 Marcos Weiss DO [address] [address] Specialist Physiatry 12/15/22 Xochitl Machado MD [address] [address] Sports Medicine Int Med 12/15/22 Peter Cummings Specialist Gastroenterology 06/16/22 Evi Carpio Specialist PSYCHIATRY 06/16/22 elder duke Specialist Optometry 12/18/23 documented as of this encounter
--- OUTSIDE RECORDS SUMMARY | 2024-10-14 12:55 | XMS_ITS | Encounter Summary ---
Author Organization [facility] Address [address] [place] [address] Care Team Providers Care Courtroom Deputy Name Role Phone Ольга Jewell MD Primary Care Provider Rhoda Rangel MD Unavailable Unavailable Brenden Villa DPM Unavailable [phone] Piedad Bowens MD Unavailable [phone] Marcos Weiss DO Unavailable Unavailable Xochitl Machado MD Unavailable [phone] Encounter Details Date Type Department Care Team Description 02/05/2023 SCAN [facility] [address] [facility] [address] [place] [id number] Kiah Aparicio APRN Social History Tobacco Use [...] suspected to have Coronavirus/COVID-19? No / Unsure 02/02/2023 10:14 AM EDT documented as of this encounter Plan of Treatment Not on file documented as of this encounter Visit Diagnoses Not on filedocumented in this encounter Care Teams Courtroom Deputy Relationship Specialty Start Date End Date Ольга Jewell MD [address] [place] [address] PCP - General Internal Medicine 12/14/21 Rhoda Rangel MD [address] [place] [address] Referring Physician Allergy & Immunology 06/16/22 Brenden Villa DPM [address] [address] Podiatry 06/16/22 Piedad Bowens MD [address] [address] ORTHOPEDICS 06/16/22 Marcos Weiss DO [address] [address] Specialist Physiatry 12/15/22 Xochitl Machado MD [address] [address] Sports Medicine Int Med 12/15/22 Peter Cummings Specialist Gastroenterology 06/16/22 Evi Carpio Specialist PSYCHIATRY 06/16/22 elder duke Specialist Optometry 12/18/23 documented as of this encounter
--- OUTSIDE RECORDS SUMMARY | 2024-10-14 12:55 | XMS_ITS | Encounter Summary ---
Author Organization [facility] Address [address] [place] [address] Care Team Providers Care Blacksmith Helper Name Role Phone Ольга Jewell MD Primary Care Provider Rhoda Rangel MD Unavailable Unavailable Brenden Villa DPM Unavailable [phone] Piedad Bowens MD Unavailable [phone] Marcos Weiss DO Unavailable Unavailable Xochitl Machado MD Unavailable [phone] Encounter Details Date Type Department Care Team Description 04/02/2023 Compensation Administrator Report Medical Records [address] [place] [address] Cecy Ni NP Social History Tobacco Use [...] on filedocumented in this encounter Care Teams Blacksmith Helper Relationship Specialty Start Date End Date Ольга Jewell MD [address] [place] [address] PCP - General Internal Medicine 12/14/21 Rhoda Rangel MD [address] [place] [address] Referring Physician Allergy & Immunology 06/16/22 Brenden Villa DPM [address] [address] Podiatry 06/16/22 Piedad Bowens MD [address] [address] ORTHOPEDICS 06/16/22 Marcos Weiss DO [address] [address] Specialist Physiatry 12/15/22 Xochitl Machado MD [address] [address] Sports Medicine Int Med 12/15/22 Peter Cummings Specialist Gastroenterology 06/16/22 Evi Carpio Specialist PSYCHIATRY 06/16/22 elder duke Specialist Optometry 12/18/23 documented as of this encounter
--- OUTSIDE RECORDS SUMMARY | 2024-10-14 12:55 | XMS_ITS | Encounter Summary ---
Author Organization [facility] Address [address] [place] [address] Care Team Providers Care Editorial Director Name Role Phone Naun Garcia MD Primary Care Provider Unavail able [facility], Pcp Primary Care Provider Unavailabl e Naun Garcia MD Primary Care Provider Unavail able Ольга Jewell MD Primary Care Provider Rhoda Rangel MD Unavailable Unavailable Brenden Villa DPM Unavailable [phone] Piedad Bowens MD Unavailable [phone] Marcos Weiss DO Unavailable Unavailable Xochitl Machado MD Unavailable [phone] Encounter Details Date Type Department Care Team Description 10/10/2018 Pt. Non Urgent Medical Question Medicine/Pediatrics - [address] [id number] Naun Garcia MD Social History Tobacco Use [...] on filedocumented in this encounter Care Teams Editorial Director Relationship Specialty Start Date End Date Naun Garcia MD PCP - General Internal Medicine 10/27/13 10/27/21 [facility] [place] PCP - General Internal Medicine 10/28/21 11/27/21 Naun Garcia MD PCP - General Internal Medicine 11/28/21 12/13/21 Ольга Jewell MD [address] [place] [address] PCP - General Internal Medicine 12/14/21 Rhoda Rangel MD [address] [place] [address] Referring Physician Allergy & Immunology 06/16/22 Brenden Villa DPM [address] [address] Podiatry 06/16/22 Piedad Bowens MD [address] [address] ORTHOPEDICS 06/16/22 Marcos Weiss DO [address] [address] Specialist Physiatry 12/15/22 Xochitl Machado MD [address] [address] Sports Medicine Int Med 12/15/22 Peter Cummings Specialist Gastroenterology 06/16/22 Evi Carpio Specialist PSYCHIATRY 06/16/22 elder duke Specialist Optometry 12/18/23 documented as of this encounter
--- OUTSIDE RECORDS SUMMARY | 2024-10-14 12:55 | XMS_ITS | Encounter Summary ---
Author Organization [facility] Address [address] [place] [address] Care Team Providers Care Insulator Apprentice Name Role Phone Naun Garcia MD Primary Care Provider Unavail able [facility], [facility] Primary Care Provider Unavailabl Naun Artis MD Primary Care Provider Unavail able Ольга Jewell MD Primary Care Provider Rhoda Rangel MD Unavailable Unavailable Brenden Villa DPM Unavailable [phone] Piedad Bowens MD Unavailable [phone] Marcos Weiss DO Unavailable Unavailable Xochitl Machado MD Unavailable [phone] Encounter Details Date Type Department Care Team Description 12/22/2014 Nanosystems Engineer Report Medical Records [address] [place] [id number] Angel Benavidez MD Social History Tobacco Use [...] on filedocumented in this encounter Care Teams Insulator Apprentice Relationship Specialty Start Date End Date Naun Garcia MD PCP - General Internal Medicine 10/27/13 10/27/21 [facility], [facility] PCP - General Internal Medicine 10/28/21 11/27/21 Naun Garcia MD PCP - General Internal Medicine 11/28/21 12/13/21 Ольга Jewell MD [address] [place] [address] PCP - General Internal Medicine 12/14/21 Rhoda Rangel MD [address] [place] [address] Referring Physician Allergy & Immunology 06/16/22 Brenden Villa DPM [address] [address] Podiatry 06/16/22 Piedad Bowens MD [address] [address] ORTHOPEDICS 06/16/22 Marcos Weiss DO [address] [address] Specialist Physiatry 12/15/22 Xochitl Machado MD [address] [address] Sports Medicine Int Med 12/15/22 Peter Cummings Specialist Gastroenterology 06/16/22 Evi Carpio Specialist PSYCHIATRY 06/16/22 elder duke Specialist Optometry 12/18/23 documented as of this encounter
--- OUTSIDE RECORDS SUMMARY | 2024-10-14 12:55 | XMS_ITS | Encounter Summary ---
Author Organization [facility] Address [address] [place] [address] Care Team Providers Care Enrollment Coordinator Name Role Phone Naun Garcia MD Primary Care Provider Unavail able [facility], Pcp Primary Care Provider Unavailabl e Naun Garcia MD Primary Care Provider Unavail able Ольга Jewell MD Primary Care Provider Rhoda Rangel MD Unavailable Unavailable Brenden Villa DPM Unavailable [phone] Piedad Bowens MD Unavailable [phone] Marcos Weiss DO Unavailable Unavailable Xochitl Machado MD Unavailable [phone] Encounter Details Date Type Department Care Team Description 10/04/2018 Home Health Certification Medical Records [address] [place] [address] Home, [facility] 2 [place] [address] Social History Tobacco Use Types Packs/Day Years [...] on filedocumented in this encounter Care Teams Enrollment Coordinator Relationship Specialty Start Date End Date Naun Garcia MD PCP - General Internal Medicine 10/27/13 10/27/21 [facility], [facility] PCP - General Internal Medicine 10/28/21 11/27/21 Naun Garcia MD PCP - General Internal Medicine 11/28/21 12/13/21 Ольга Jewell MD 230 [place] [address] PCP - General Internal Medicine 12/14/21 Rhoda Rangel MD [address] [place] [address] Referring Physician Allergy & Immunology 06/16/22 Brenden Villa DPM [address] [address] Podiatry 06/16/22 Piedad Bowens MD [address] [address] ORTHOPEDICS 06/16/22 Marcos Weiss DO [address] [address] Specialist Physiatry 12/15/22 Xochitl Machado MD [address] [address] Sports Medicine Int Med 12/15/22 Peter Cummings Specialist Gastroenterology 06/16/22 Evi Carpio Specialist PSYCHIATRY 06/16/22 elder duke Specialist Optometry 12/18/23 documented as of this encounter
--- OUTSIDE RECORDS SUMMARY | 2024-10-14 12:55 | XMS_ITS | Encounter Summary ---
Author Organization [facility] Address [address] [place] [address] Care Team Providers Care Car Stower Name Role Phone Naun Garcia MD Primary Care Provider Unavail able [facility], Pcp Primary Care Provider Unavailabl e Naun Garcia MD Primary Care Provider Unavail able Ольга Jewell MD Primary Care Provider Rhoda Rangel MD Unavailable Unavailable Brenden Villa DPM Unavailable [phone] Piedad Bowens MD Unavailable [phone] Marcos Weiss DO Unavailable Unavailable Xochitl Machado MD Unavailable [phone] Reason for Visit * Reason Comments E-prescribe Rx Request Encounter Details Date Type Department Care Team Description 08/16/2014 Refill Medicine/Pediatrics [address] [address] Naun Garcia MD E-prescribe Rx Request Social [...] NO Patients current insurance carrier is: Payor: [facility] / Plan: [facility] TYPE II $10/$18 / Product Type: HMO [id number] documented in this encounter Plan of Treatment Not on file documented as of this encounter Visit Diagnoses Not on filedocumented in this encounter Care Teams Car Stower Relationship Specialty Start Date End Date Naun Garcia MD PCP - General Internal Medicine 10/27/13 10/27/21 [facility], [facility] PCP - General Internal Medicine 10/28/21 11/27/21 Naun Garcia MD PCP - General Internal Medicine 11/28/21 12/13/21 Ольга Jewell MD [address] [place] [address] PCP - General Internal Medicine 12/14/21 Rhoda Rangel MD [address] [place] [address] Referring Physician Allergy & Immunology 06/16/22 Brenden Villa DPM [address] [address] Podiatry 06/16/22 Piedad Bowens MD [address] [address] ORTHOPEDICS 06/16/22 Marcos Weiss DO [address] [address] Specialist Physiatry 12/15/22 Xochitl Machado MD [address] [address] Sports Medicine Int Med 12/15/22 Peter Cummings Specialist Gastroenterology 06/16/22 Evi Carpio Specialist PSYCHIATRY 06/16/22 elder udke Specialist Optometry 12/18/23 documented as of this encounter
--- OUTSIDE RECORDS SUMMARY | 2024-10-14 12:55 | XMS_ITS | Encounter Summary ---
Author Organization [facility] Address [address] [place] [address] Care Team Providers Care Clerical Dentist Assistant Name Role Phone Ольга Jewell MD Primary Care Provider [phone] Rhoda Rangel MD Unavailable Unavailable Brenden Villa DPM Unavailable [phone] Piedad Bowens MD Unavailable [phone] Marcos Weiss DO Unavailable Unavailable Xochitl Machado MD Unavailable [phone] Encounter Details Date Type Department Care Team Description 08/21/2023 Woodwork Teacher Report Medical Records [address] [place] [address] Rhoda Rangel MD Social History Tobacco Use [...] filedocumented in this encounter Care Teams Clerical Dentist Assistant Relationship Specialty Start Date End Date Ольга Jewell MD [address] [place] [address] PCP - General Internal Medicine 12/14/21 Rhoda Rangel MD [address] [place] [address] Referring Physician Allergy & Immunology 06/16/22 Brenden Villa DPM [address] [address] Podiatry 06/16/22 Piedad Bowens MD [address] [address] ORTHOPEDICS 06/16/22 Marcos Weiss DO [address] [address] Specialist Physiatry 12/15/22 Xochitl Machado MD [address] [address] Sports Medicine Int Med 12/15/22 Peter Cummings Specialist Gastroenterology 06/16/22 Evi Carpio Specialist PSYCHIATRY 06/16/22 elder duke Specialist Optometry 12/18/23 documented as of this encounter
--- OUTSIDE RECORDS SUMMARY | 2024-10-14 12:55 | XMS_ITS | Encounter Summary ---
Author Organization [facility] Address [address] [place] [address] Care Team Providers Care Wood Craftsman Name Role Phone Naun Garcia MD Primary Care Provider Unavail able [facility], [facility] Primary Care Provider Unavailabl Naun Artis MD Primary Care Provider Unavail able Ольга Jewell MD Primary Care Provider [phone] Rhoda Rangel MD Unavailable Unavailable Brenden Villa DPM Unavailable [phone] Piedad Bowens MD Unavailable [phone] Marcos Weiss DO Unavailable Unavailable Xochitl Machado MD Unavailable [phone] Encounter Details Date Type Department Care Team Description 07/03/2018 Catering Manager Report Medical Records [address] [place] [address] Reginald Laureano MD Social History Tobacco Use [...] on filedocumented in this encounter Care Teams Wood Craftsman Relationship Specialty Start Date End Date Naun Garcia MD PCP - General Internal Medicine 10/27/13 10/27/21 [facility], [facility] PCP - General Internal Medicine 10/28/21 11/27/21 Naun Garcia MD PCP - General Internal Medicine 11/28/21 12/13/21 Ольга Jewell MD 230 [place] [address] PCP - General Internal Medicine 12/14/21 Rhoda Rangel MD [address] [place] [address] Referring Physician Allergy & Immunology 06/16/22 Brenden Villa DPM [address] [address] Podiatry 06/16/22 Piedad Bowens MD [address] [address] ORTHOPEDICS 06/16/22 Marcos Weiss DO [address] [address] Specialist Physiatry 12/15/22 Xochitl Machado MD [address] [address] Sports Medicine Int Med 12/15/22 Peter Cummings Specialist Gastroenterology 06/16/22 Evi Carpio Specialist PSYCHIATRY 06/16/22 elder duke Specialist Optometry 12/18/23 documented as of this encounter
--- OUTSIDE RECORDS SUMMARY | 2024-10-14 12:55 | XMS_ITS | Encounter Summary ---
Author Organization [facility] Address [address] [place] [address] Care Team Providers Care Philosophy Faculty Member Name Role Phone Naun Garcia MD Primary Care Provider Unavail able [facility], Pcp Primary Care Provider Unavailabl e Naun Garcia MD Primary Care Provider Unavail able Ольга Jewell MD Primary Care Provider [phone] Rhoda Rangel MD Unavailable Unavailable Brenden Villa DPM Unavailable [phone] Piedad Bowens MD Unavailable [phone] Marcos Weiss DO Unavailable Unavailable Xochitl Machado MD Unavailable [phone] Encounter Details Date Type Department Care Team Description 08/10/2020 Old Medical Records Medical Records 4 [place] [address] Abstract, Provider Social History Tobacco Use Types [...] on filedocumented in this encounter Care Teams Philosophy Faculty Member Relationship Specialty Start Date End Date Naun Garcia MD PCP - General Internal Medicine 10/27/13 10/27/21 [facility] PCP - General Internal Medicine 10/28/21 11/27/21 Naun Garcia MD PCP - General Internal Medicine 11/28/21 12/13/21 Ольга Jewell MD 230 [place] [address] PCP - General Internal Medicine 12/14/21 Rhoda Rangel MD [address] [place] [address] Referring Physician Allergy & Immunology 06/16/22 Brenden Villa DPM [address] [address] Podiatry 06/16/22 Piedad Bowens MD [address] [address] ORTHOPEDICS 06/16/22 Marcos Weiss DO [address] [address] Specialist Physiatry 12/15/22 Xochitl Machado MD [address] [address] Sports Medicine Int Med 12/15/22 Peter Cummings Specialist Gastroenterology 06/16/22 Evi Carpio Specialist PSYCHIATRY 06/16/22 elder duke Specialist Optometry 12/18/23 documented as of this encounter
--- OUTSIDE RECORDS SUMMARY | 2024-10-14 12:55 | XMS_ITS | Encounter Summary ---
Author Organization [facility] Address [address] [place] [address] Care Team Providers Care Pulmonary Function Technologist Name Role Phone Ольга Jewell MD Primary Care Provider Rhoda Rangel MD Unavailable Unavailable Brenden Villa DPM Unavailable [phone] Piedad Bowens MD Unavailable [phone] Marcos Weiss DO Unavailable Unavailable Xochitl Machado MD Unavailable [phone] Encounter Details Date Type Department Care Team Description 01/22/2023 Refill Adult Medicine - [place] [address] [place], [place] [id number] Ольга Jewell MD [address] [place], [place] [id number] Social History Tobacco Use Types Packs/Day Years [...] on filedocumented in this encounter Care Teams Pulmonary Function Technologist Relationship Specialty Start Date End Date Ольга Jewell MD [address] [place] [address] PCP - General Internal Medicine 12/14/21 Rhoda Rangel MD [address] [place] [address] Referring Physician Allergy & Immunology 06/16/22 Brenden Villa DPM [address] [address] Podiatry 06/16/22 Piedad Bowens MD [address] [address] ORTHOPEDICS 06/16/22 Marcos Weiss DO [address] [address] Specialist Physiatry 12/15/22 Xochitl Machado MD [address] [address] Sports Medicine Int Med 12/15/22 Peter Cummings Specialist Gastroenterology 06/16/22 Evi Carpio Specialist PSYCHIATRY 06/16/22 elder duke Specialist Optometry 12/18/23 documented as of this encounter
--- OUTSIDE RECORDS SUMMARY | 2024-10-14 12:55 | XMS_ITS | Encounter Summary ---
Author Organization [facility] Address [address] [place] [address] Care Team Providers Care Train Gateman Name Role Phone Naun Garcia MD Primary Care Provider Unavail able [facility], Pcp Primary Care Provider Unavailabl e Naun Garcia MD Primary Care Provider Unavail able Ольга Jewell MD Primary Care Provider [phone] Rhoda Rangel MD Unavailable Unavailable Brenden Villa DPM Unavailable [phone] Piedad Bowens MD Unavailable [phone] Marcos Weiss DO Unavailable Unavailable Xochitl Machado MD Unavailable [phone] Reason for Visit * Reason Onset Date Comments Provider Call Back 11/10/2020 Encounter Details Date Type Department Care Team Description 11/10/[address] [address] Dustin Villavicencio PA Provider Call Back Social [...] was going to bring her to office, sampler pickup her script today so she can start [...] on filedocumented in this encounter Care Teams Train Gateman Relationship Specialty Start Date End Date Naun Garcia MD PCP - General Internal Medicine 10/27/13 10/27/21 [facility], Pcp PCP - General Internal Medicine 10/28/21 11/27/21 Naun Garcia MD PCP - General Internal Medicine 11/28/21 12/13/21 Ольга Jewell MD [address] [place] [address] PCP - General Internal Medicine 12/14/21 Rhoda Rangel MD [address] [place] [address] Referring Physician Allergy & Immunology 06/16/22 Brenden Villa DPM [address] [address] Podiatry 06/16/22 Piedad Bowens MD [address] [address] ORTHOPEDICS 06/16/22 Marcos Weiss DO [address] [address] Specialist Physiatry 12/15/22 Xochitl Machado MD [address] [address] Sports Medicine Int Med 12/15/22 Peter Cummings Specialist Gastroenterology 06/16/22 Evi Carpio Specialist PSYCHIATRY 06/16/22 elder duke Specialist Optometry 12/18/23 documented as of this encounter
--- OUTSIDE RECORDS SUMMARY | 2024-10-14 12:55 | XMS_ITS | Encounter Summary ---
Author Organization [facility] Address [address] [place] [address] Care Team Providers Care Brim Raiser Name Role Phone Naun Garcia MD Primary Care Provider Unavail able [facility], [facility] Primary Care Provider Unavailabl Naun Artis MD Primary Care Provider Unavail able Ольга Jewell MD Primary Care Provider Rhoda Rangel MD Unavailable Unavailable Brenden Villa DPM Unavailable [phone] Piedad Bowens MD Unavailable [phone] Marcos Weiss DO Unavailable Unavailable Xochitl Machado MD Unavailable [phone] Encounter Details Date Type Department Care Team Description 06/17/2018 Hospital Account Liaison Report Medical Records [address] [place] [address] Dereck Wheatley Social History Tobacco Use Types [...] on filedocumented in this encounter Care Teams Brim Raiser Relationship Specialty Start Date End Date Naun Garcia MD PCP - General Internal Medicine 10/27/13 10/27/21 [facility], [facility] PCP - General Internal Medicine 10/28/21 11/27/21 Naun Garcia MD PCP - General Internal Medicine 11/28/21 12/13/21 Ольга Jewell MD [address] [place] [address] PCP - General Internal Medicine 12/14/21 Rhoda Rangel MD [address] [place] [address] Referring Physician Allergy & Immunology 06/16/22 Brenden Villa DPM [address] [address] Podiatry 06/16/22 Piedad Bowens MD [address] [address] ORTHOPEDICS 06/16/22 Marcos Weiss DO [address] [address] Specialist Physiatry 12/15/22 Xochitl Machado MD [address] [address] Sports Medicine Int Med 12/15/22 Peter Cummings Specialist Gastroenterology 06/16/22 Evi Carpio Specialist PSYCHIATRY 06/16/22 elder duke Specialist Optometry 12/18/23 documented as of this encounter
--- OUTSIDE RECORDS SUMMARY | 2024-10-14 12:55 | XMS_ITS | Encounter Summary ---
Author Organization [facility] Address [address] [place] [address] Care Team Providers Care Lane Marker Installer Name Role Phone Naun Garcia MD Primary Care Provider Unavail able [facility], Pcp Primary Care Provider Unavailabl e Naun Garcia MD Primary Care Provider Unavail able Ольга Jewell MD Primary Care Provider Rhoda Rangel MD Unavailable Unavailable Brenden Villa DPM Unavailable [phone] Piedad Bowens MD Unavailable [phone] Marcos Weiss DO Unavailable Unavailable Xochitl Machado MD Unavailable [phone] Encounter Details Date Type Department Care Team Description 12/26/2017 Practice Specialist Report Medical Records [address] [place] [address] [place] [address] [place] [address] Social History Tobacco Use Types Packs/Day Years [...] on filedocumented in this encounter Care Teams Lane Marker Installer Relationship Specialty Start Date End Date Naun Garcia MD PCP - General Internal Medicine 10/27/13 10/27/21 [facility], [facility] PCP - General Internal Medicine 10/28/21 11/27/21 Naun Garcia MD PCP - General Internal Medicine 11/28/21 12/13/21 Ольга Jewell MD [address] [place] [address] PCP - General Internal Medicine 12/14/21 Rhoda Rangel MD [address] [place] [address] Referring Physician Allergy & Immunology 06/16/22 Brenden Villa DPM [address] [address] Podiatry 06/16/22 Piedad Boewns MD [address] [address] ORTHOPEDICS 06/16/22 Marcos Weiss DO [address] [address] Specialist Physiatry 12/15/22 Xochitl Machado MD [address] [address] Sports Medicine Int Med 12/15/22 Peter Cummings Specialist Gastroenterology 06/16/22 Evi Carpio Specialist PSYCHIATRY 06/16/22 elder duke Specialist Optometry 12/18/23 documented as of this encounter
--- OUTSIDE RECORDS SUMMARY | 2024-10-14 12:55 | XMS_ITS | Encounter Summary ---
Author Organization [facility] Address [address] [place] [address] Care Team Providers Care Solutions Engineer Name Role Phone Ольга Jewell MD Primary Care Provider [phone] Rhoda Rangel MD Unavailable Unavailable Brenden Villa DPM Unavailable [phone] Piedad Bowens MD Unavailable [phone] Marcos Weiss DO Unavailable Unavailable Xochitl Machado MD Unavailable [phone] Encounter Details Date Type Department Care Team Description 07/09/2023 Preparation Room Worker Report Medical Records [address] [place] [address] Lucio Wolf Np Social History Tobacco Use Types Packs/Day Years [...] on filedocumented in this encounter Care Teams Solutions Engineer Relationship Specialty Start Date End Date Ольга Jewlel MD [address] [place] [address] PCP - General Internal Medicine 12/14/21 Rhoda Rangel MD [address] [place] [address] Referring Physician Allergy & Immunology 06/16/22 Brenden Villa DPM [address] [address] Podiatry 06/16/22 Piedad Bowens MD [address] [address] ORTHOPEDICS 06/16/22 Marcos Weiss DO [address] [address] Specialist Physiatry 12/15/22 Xochitl Machado MD [address] [address] Sports Medicine Int Med 12/15/22 Peter Cummings Specialist Gastroenterology 06/16/22 Evi Carpio Specialist PSYCHIATRY 06/16/22 elder duke Specialist Optometry 12/18/23 documented as of this encounter
--- OUTSIDE RECORDS SUMMARY | 2024-10-14 12:55 | XMS_ITS | Encounter Summary ---
Author Organization [facility] Address [address] [place] [address] Care Team Providers Care Ela Teacher Name Role Phone Naun Garcia MD Primary Care Provider Unavail able [facility], Pcp Primary Care Provider Unavailabl e Naun Garcia MD Primary Care Provider Unavail able Ольга Jewell MD Primary Care Provider Rhoda Rangel MD Unavailable Unavailable Brenden Villa DPM Unavailable [phone] Piedad Bowens MD Unavailable [phone] Marcos Weiss DO Unavailable Unavailable Xochitl Machado MD Unavailable [phone] Reason for Visit * Reason Onset Date Comments [facility]NA Call 10/04/2018 Encounter Details Date Type Department Care Team Description 10/04/2018 Telephone Adult Medicine B - [place] [address] [place] [address] Naun Garcia MD VNA Call Social History [...] VNA CALL Which [facility] office is calling? [facility] Full name of caller: Radha Parra. The [...] on filedocumented in this encounter Care Teams Ela Teacher Relationship Specialty Start Date End Date Naun Garcia MD PCP - General Internal Medicine 10/27/13 10/27/21 [facility] [place] PCP - General Internal Medicine 10/28/21 11/27/21 Naun Garcia MD PCP - General Internal Medicine 11/28/21 12/13/21 Ольга Jewell MD [facility] [place], [place] [address] PCP - General Internal Medicine 12/14/21 Rhoda Rangel MD [address] [place] [address] Referring Physician Allergy & Immunology 06/16/22 Brenden Villa DPM [address] [address] Podiatry 06/16/22 Piedad Bowens MD [address] [address] ORTHOPEDICS 06/16/22 Marcos Weiss DO [address] [address] Specialist Physiatry 12/15/22 Xochitl Machado MD [address] [address] Sports Medicine Int Med 12/15/22 Peter Cummings Specialist Gastroenterology 06/16/22 Evi Carpio Specialist PSYCHIATRY 06/16/22 elder duke Specialist Optometry 12/18/23 documented as of this encounter
--- OUTSIDE RECORDS SUMMARY | 2024-10-14 12:55 | XMS_ITS | Encounter Summary ---
Author Organization [facility] Address [address] [place] [address] Care Team Providers Care Bag Printer Name Role Phone Naun Garcia MD Primary Care Provider Unavail able [facility], Pcp Primary Care Provider Unavailabl e Naun Garcia MD Primary Care Provider Unavail able Ольга Jewell MD Primary Care Provider Rhoda Rangel MD Unavailable Unavailable Brenden Villa DPM Unavailable [phone] Piedad Bowens MD Unavailable [phone] Marcos Weiss DO Unavailable Unavailable Xochitl Machado MD Unavailable [phone] Encounter Details Date Type Department Care Team Description 01/09/2018 Adult Neurologist Report Medical Records [address] [place] [address] Richard Mitchell PA-C 175 [facility] [address] [place] [address] Social History Tobacco Use Types Packs/Day Years [...] on filedocumented in this encounter Care Teams Bag Printer Relationship Specialty Start Date End Date Naun Garcia MD PCP - General Internal Medicine 10/27/13 10/27/21 [facility] PCP - General Internal Medicine 10/28/21 11/27/21 Naun Garcia MD PCP - General Internal Medicine 11/28/21 12/13/21 Ольга Jewell MD [address] [place] [address] PCP - General Internal Medicine 12/14/21 Rhoda Rangel MD [address] [place] [address] Referring Physician Allergy & Immunology 06/16/22 Brenden Villa DPM [address] [address] Podiatry 06/16/22 Piedad Bowens MD [address] [address] ORTHOPEDICS 06/16/22 Marcos Weiss DO [address] [address] Specialist Physiatry 12/15/22 Xochitl Machado MD [address] [address] Sports Medicine Int Med 12/15/22 Peter Cummings Specialist Gastroenterology 06/16/22 Evi Carpio Specialist PSYCHIATRY 06/16/22 elder duke Specialist Optometry 12/18/23 documented as of this encounter
--- OUTSIDE RECORDS SUMMARY | 2024-10-14 12:55 | XMS_ITS | Encounter Summary ---
Author Organization [facility] Address [address] [place] [address] Care Team Providers Care Tacking Stitch Remover Name Role Phone Ольга Jewell MD Primary Care Provider [phone] Rhoda Rangel MD Unavailable Unavailable Brenden Villa DPM Unavailable [phone] Piedad Bowens MD Unavailable [phone] Marcos Weiss DO Unavailable Unavailable Xochitl Machado MD Unavailable [phone] Reason for Visit * Reason Comments E-prescribe Rx Request Encounter Details Date Type Department Care Team Description 12/27/2022 Refill Rheumatology [address] [address] Joyce Silva MD E-prescribe Rx Request Social [...] on filedocumented in this encounter Care Teams Tacking Stitch Remover Relationship Specialty Start Date End Date Ольга Jewell MD [address] [place] [address] PCP - General Internal Medicine 12/14/21 Rhoda Rangel MD [address] [place] [address] Referring Physician Allergy & Immunology 06/16/22 Brenden Villa DPM [address] [address] Podiatry 06/16/22 Piedad Bowens MD [address] [address] ORTHOPEDICS 06/16/22 Marcos Weiss DO [address] [address] Specialist Physiatry 12/15/22 Xochitl Machado MD [address] [address] Sports Medicine Int Med 12/15/22 Peter Cummings Specialist Gastroenterology 06/16/22 Evi Carpio Specialist PSYCHIATRY 06/16/22 elder duke Specialist Optometry 12/18/23 documented as of this encounter
--- OUTSIDE RECORDS SUMMARY | 2024-10-14 12:55 | XMS_ITS | Encounter Summary ---
Author Organization [facility] Address [address] [place] [address] Care Team Providers Care It Quality Assurance Analyst Name Role Phone Ольга Jewell MD Primary Care Provider Rhoda Rangel MD Unavailable Unavailable Brenden Villa DPM Unavailable [phone] Piedad Bowens MD Unavailable [phone] Marcos Weiss DO Unavailable Unavailable Xochitl Machado MD Unavailable [phone] Encounter Details Date Type Department Care Team Description 08/30/2022 SCAN [facility] 175 [facility] [address] [place] [address] Garcia Sweeney MD 175 [facility] [address] [place], [place] [id number] Social History Tobacco Use Types Packs/Day Years [...] on filedocumented in this encounter Care Teams It Quality Assurance Analyst Relationship Specialty Start Date End Date Ольга Jewell MD [address] [place] [address] PCP - General Internal Medicine 12/14/21 Rhoda Rangel MD [address] [place] [address] Referring Physician Allergy & Immunology 06/16/22 Brenden Villa DPM [address] [address] Podiatry 06/16/22 Piedad Bowens MD [address] [address] ORTHOPEDICS 06/16/22 Marcos Weiss DO [address] [address] Specialist Physiatry 12/15/22 Xochitl Machado MD [address] [address] Sports Medicine Int Med 12/15/22 Peter Cummings Specialist Gastroenterology 06/16/22 Evi Carpio Specialist PSYCHIATRY 06/16/22 elder duke Specialist Optometry 12/18/23 documented as of this encounter
--- OUTSIDE RECORDS SUMMARY | 2024-10-14 12:55 | XMS_ITS | Encounter Summary ---
Author Organization [facility] Address [address] [place] [address] Care Team Providers Care Slubber Hand Name Role Phone Ольга Jewell MD Primary Care Provider Rhoda Rangel MD Unavailable Unavailable Brenden Villa DPM Unavailable [phone] Piedad Bowens MD Unavailable [phone] Marcos Weiss DO Unavailable Unavailable Xochitl Macahdo MD Unavailable [phone] Reason for Visit * Reason Onset Date Comments Prior Authorization 05/23/2023 Encounter Details Date Type Department Care Team Description 05/23/2023 Telephone Gastroenterology - [place] [address] [address] Peter Cummings PA-C 175 [facility] [address] [place] [address] Prior Authorization Social History Tobacco Use Types [...] encounter Miscellaneous Notes * Telephone Encounter - Amanda Moon M.A. - 05/28/2023 11:50 AM EST Auth approved Exp 05/26/24 Faxed to pharm Amanda Moon Prior Auth Dep Ext [id number] * Telephone Encounter - Amanda Moon M.A. - 05/23/2023 3:43 PM EST Auth sent with cover my meds Dx:constipation Tried trulance Amanda Moon Prior Auth Dep Ext [id number] * Telephone Encounter - Emerald Waterman - 05/23/2023 1:48 PM EST Prior Authorization for Medication-do not complete and send this encounter unless you have the fax from the pharmacy. Is this a Cover My Meds request: Yes -- Morales Code [id number] Name of Medication LINZESS Dose of Medication [id number] What is the RX # from the faxed refill? How does patient take this med? Take 1 Capsule by mouth daily. - Oral What Pharmacy did the fax come from: [facility] Pharmacy fax #: [phone] documented in this encounter Plan of Treatment Not on file documented as of this encounter Visit Diagnoses Not on filedocumented in this encounter Care Teams Slubber Hand Relationship Specialty Start Date End Date Ольга Jewell MD [address] [place] PCP - General Internal Medicine 12/14/21 Rhoda Rangel MD [address] [place], [place] Referring Physician Allergy & Immunology 06/16/22 Brenden Villa DPM [address] [address] Podiatry 06/16/22 Piedad Bowens MD [address] [address] ORTHOPEDICS 06/16/22 Marcos Weiss DO [address] [address] Specialist Physiatry 12/15/22 Xochitl Machado MD [address] [address] Sports Medicine Int Med 12/15/22 Peter Cummings Specialist Gastroenterology 06/16/22 Evi Carpio Specialist PSYCHIATRY 06/16/22 elder duke Specialist Optometry 12/18/23 documented as of this encounter
--- OUTSIDE RECORDS SUMMARY | 2024-10-14 12:55 | XMS_ITS | Encounter Summary ---
Author Organization [facility] Address [address] [place] [address] Care Team Providers Care Patrol Conductor Name Role Phone Naun Garcia MD Primary Care Provider Unavail able [facility], Pcp Primary Care Provider Unavailabl e Naun Garcia MD Primary Care Provider Unavail able Ольга Jewell MD Primary Care Provider Rhoda Rangel MD Unavailable Unavailable Brenden Villa DPM Unavailable [phone] Piedad Bowens MD Unavailable [phone] Marcos Weiss DO Unavailable Unavailable Xochitl Machado MD Unavailable [phone] Encounter Details Date Type Department Care Team Description 08/17/2020 [facility] Medical Records [address] [place] [address] Abstract, Provider Social History Tobacco Use Types [...] on filedocumented in this encounter Care Teams Patrol Conductor Relationship Specialty Start Date End Date Naun Garcia MD PCP - General Internal Medicine 10/27/13 10/27/21 [facility] - General Internal Medicine 10/28/21 11/27/21 Naun Garcia MD PCP - General Internal Medicine 11/28/21 12/13/21 Ольга Jewell MD [address] [place] [address] PCP - General Internal Medicine 12/14/21 Rhoda Rangel MD [address] [place] [address] Referring Physician Allergy & Immunology 06/16/22 Brenden Villa DPM [address] [address] Podiatry 06/16/22 Piedad Bowens MD [address] [address] ORTHOPEDICS 06/16/22 Marcos Weiss DO [address] [address] Specialist Physiatry 12/15/22 Xochitl Machado MD [address] [address] Sports Medicine Int Med 12/15/22 Peter Cummings Specialist Gastroenterology 06/16/22 Evi Carpio Specialist PSYCHIATRY 06/16/22 elder duke Specialist Optometry 12/18/23 documented as of this encounter
--- OUTSIDE RECORDS SUMMARY | 2024-10-14 12:55 | XMS_ITS | Encounter Summary ---
Author Organization [facility] Address [address] [place] [address] Care Team Providers Care Geology Faculty Member Name Role Phone Naun Garcia MD Primary Care Provider Unavail able [facility], Pcp Primary Care Provider Unavailabl e Naun Garcia MD Primary Care Provider Unavail able Ольга Jewell MD Primary Care Provider Rhoda Rangel MD Unavailable Unavailable Brenden VillaM Unavailable [phone] Piedad Bowens MD Unavailable [phone] Marcos Weiss DO Unavailable Unavailable Xochitl Machado MD Unavailable [phone] Reason for Visit * Reason Comments E-prescribe Rx Request Encounter Details Date Type Department Care Team Description 12/02/2020 Refill Allergy [place] [address] [place] [phone] Rhoda Rangel MD E-prescribe Rx Request Social [...] on filedocumented in this encounter Care Teams Geology Faculty Member Relationship Specialty Start Date End Date Naun Garcia MD PCP - General Internal Medicine 10/27/13 10/27/21 [facility] PCP - General Internal Medicine 10/28/21 11/27/21 Naun Garcia MD PCP - General Internal Medicine 11/28/21 12/13/21 Ольга Jewell MD [address] [place] [address] PCP - General Internal Medicine 12/14/21 Rhoda Rangel MD [address] [place], [place] Referring Physician Allergy & Immunology 06/16/22 Brenden Villa DPM [address] [address] Podiatry 06/16/22 Piedad Bowens MD [address] [address] ORTHOPEDICS 06/16/22 Marcos Weiss DO [address] [address] Specialist Physiatry 12/15/22 Xochitl aMchado MD [address] [address] Sports Medicine Int Med 12/15/22 Peter Cummings Specialist Gastroenterology 06/16/22 Evi Carpio Specialist PSYCHIATRY 06/16/22 elder duke Specialist Optometry 12/18/23 documented as of this encounter
--- OUTSIDE RECORDS SUMMARY | 2024-10-14 12:55 | XMS_ITS | Encounter Summary ---
Author Organization [facility] Address [address] [place] [address] Care Team Providers Care Fabric Worker Fitter Name Role Phone Naun Garcia MD Primary Care Provider Unavail able [facility] Primary Care Provider Unavailabl Naun Artis MD Primary Care Provider Unavail able Ольга Jewell MD Primary Care Provider Rhoda Rangel MD Unavailable Unavailable Brenden Villa DPM Unavailable [phone] Piedad Bowens MD Unavailable [phone] Marcos Weiss DO Unavailable Unavailable Xochitl Machado MD Unavailable [phone] Encounter Details Date Type Department Care Team Description 02/09/2015 Mine Development Engineer Report Medical Records [address] [place] [address] Angel Avendano Social History Tobacco Use Types [...] on filedocumented in this encounter Care Teams Fabric Worker Fitter Relationship Specialty Start Date End Date Naun Garcia MD PCP - General Internal Medicine 10/27/13 10/27/21 [facility] PCP - General Internal Medicine 10/28/21 11/27/21 Naun Garcia MD PCP - General Internal Medicine 11/28/21 12/13/21 Ольга Jewell MD [address] [place] [address] PCP - General Internal Medicine 12/14/21 Rhoda Rangel MD [address] [place] [address] Referring Physician Allergy & Immunology 06/16/22 Brenden Villa DPM [address] [address] Podiatry 06/16/22 Piedad Bowens MD [address] [address] ORTHOPEDICS 06/16/22 Marcos Weiss DO [address] [address] Specialist Physiatry 12/15/22 Xochitl Machado MD [address] [address] Sports Medicine Int Med 12/15/22 Peter Cummings Specialist Gastroenterology 06/16/22 Evi Carpio Specialist PSYCHIATRY 06/16/22 elder duke Specialist Optometry 12/18/23 documented as of this encounter
--- OUTSIDE RECORDS SUMMARY | 2024-10-14 12:55 | XMS_ITS | Encounter Summary ---
Author Organization [facility] Address [address] [place] [address] Care Team Providers Care System Sales Consultant Name Role Phone Ольга Jewell MD Primary Care Provider Rhoda Rangel MD Unavailable Unavailable Brenden Villa DPM Unavailable [phone] Piedad Bowens MD Unavailable [phone] Marcos Weiss DO Unavailable Unavailable Xochitl Machado MD Unavailable [phone] Reason for Visit * Reason Comments E-prescribe Rx Request Encounter Details Date Type Department Care Team Description 05/17/2023 Refill Gastroenterology - [place] [address] [phone] Peter Cummings PA-C [address] [address] E-prescribe Rx Request Social History Tobacco Use [...] Telephone Encounter - Xochitl Sweeney M.A. - 05/17/2023 12:46 PM EST MICKY 02/01/2022 NOV 05/23/2023 documented in this encounter Plan of Treatment Not on file documented as of this encounter Visit Diagnoses Not on filedocumented in this encounter Care Teams System Sales Consultant Relationship Specialty Start Date End Date Ольга Jewell MD [address] [place] [address] PCP - General Internal Medicine 12/14/21 Rhoda Rangel MD [address] [place] [address] Referring Physician Allergy & Immunology 06/16/22 Brenden Villa DPM [address] [address] Podiatry 06/16/22 Piedad Bowens MD [address] [address] ORTHOPEDICS 06/16/22 Marcos Weiss DO [address] [address] Specialist Physiatry 12/15/22 Xochitl Machado MD [address] [address] Sports Medicine Int Med 12/15/22 Peter Cummings Specialist Gastroenterology 06/16/22 Evi Carpio Specialist PSYCHIATRY 06/16/22 elder duke Specialist Optometry 12/18/23 documented as of this encounter
--- OUTSIDE RECORDS SUMMARY | 2024-10-14 12:55 | XMS_ITS | Encounter Summary ---
Author Organization [facility] Address [address] [place] [address] Care Team Providers Care Software Recruiter Name Role Phone Ольга Jewell MD Primary Care Provider Rhoda Rangel MD Unavailable Unavailable Brenden Villa DPM Unavailable Piedad Bowens MD Unavailable [phone] Marcos Weiss DO Unavailable Unavailable Xochitl Machado MD Unavailable [phone] Reason for Visit * Reason Onset Date Comments Imaging Review 05/16/2023 R shoulder MRI / Book US GH R shoulder Injection Encounter Details Date Type Department Care Team Description 05/16/2023 Telephone [facility] Medical [facility] [address] [place] [address] [place] [id number] Kiah Aparicio APRN Imaging Review (R [...] filedocumented in this encounter Care Teams Software Recruiter Relationship Specialty Start Date End Date Ольга Jewell MD [address] [place] [address] PCP - General Internal Medicine 12/14/21 Rhoda Rangel MD [address] [place] [address] Referring Physician Allergy & Immunology 06/16/22 Brenden Villa DPM [address] [address] Podiatry 06/16/22 Piedad Bowens MD [address] [address] ORTHOPEDICS 06/16/22 Marcos Weiss DO [address] [place] [address] Specialist Physiatry 12/15/22 Xochitl Machado MD [address] [facility] [address] [address] Sports Medicine Int Med 12/15/22 Peter Cummings Specialist Gastroenterology 06/16/22 Evi Carpio Specialist PSYCHIATRY 06/16/22 elder duke Specialist Optometry 12/18/23 documented as of this encounter
--- OUTSIDE RECORDS SUMMARY | 2024-10-14 12:55 | XMS_ITS | Encounter Summary ---
Author Organization [facility] Address [address] [place] [address] Care Team Providers Care Compacting Machine Operator/Tender Name Role Phone Naun Garcia MD Primary Care Provider Unavail able [facility], Pcp Primary Care Provider Unavailabl e Naun Garcia MD Primary Care Provider Unavail able Ольга Jewell MD Primary Care Provider Rhoda Rangel MD Unavailable Unavailable Brenden Villa DPM Unavailable [phone] Piedad Bowens MD Unavailable [phone] Marcos Weiss DO Unavailable Unavailable Xochitl Machado MD Unavailable [phone] Encounter Details Date Type Department Care Team Description 08/04/2020 Old Medical Records Medical Records [address] [place] [address] Roselia Emanuel MD [address] [place] [address] Social History Tobacco Use Types Packs/Day Years [...] on filedocumented in this encounter Care Teams Compacting Machine Operator/Tender Relationship Specialty Start Date End Date Naun Garcia MD PCP - General Internal Medicine 10/27/13 10/27/21 [facility] PCP - General Internal Medicine 10/28/21 11/27/21 Naun Garcia MD PCP - General Internal Medicine 11/28/21 12/13/21 Ольга Jewell MD [address] [place] [address] PCP - General Internal Medicine 12/14/21 Rhoda Rangel MD [address] [place] [address] Referring Physician Allergy & Immunology 06/16/22 Brenden Villa DPM [address] [address] Podiatry 06/16/22 Piedad Bowens MD [address] [address] ORTHOPEDICS 06/16/22 Marcos Weiss DO [address] [address] Specialist Physiatry 12/15/22 Xochitl Machado MD [address] [address] Sports Medicine Int Med 12/15/22 Peter Cummings Specialist Gastroenterology 06/16/22 Evi Carpio Specialist PSYCHIATRY 06/16/22 elder duke Specialist Optometry 12/18/23 documented as of this encounter
--- OUTSIDE RECORDS SUMMARY | 2024-10-14 12:55 | XMS_ITS | Encounter Summary ---
Author Organization [facility] Address [address] [place] [address] Care Team Providers Care Exploration Driller Name Role Phone Naun Garcia MD Primary Care Provider Unavail able [facility], Pcp Primary Care Provider Unavailabl e Naun Garcia MD Primary Care Provider Unavail able Ольга Jewell MD Primary Care Provider Rhoda Rangel MD Unavailable Unavailable Brenden Villa DPM Unavailable [phone] Piedad Bowens MD Unavailable [phone] Marcos Weiss DO Unavailable Unavailable Xochitl Machado MD Unavailable [phone] Reason for Visit * Reason Onset Date Comments refill request 10/10/2018 Encounter Details Date Type Department Care Team Description 10/10/2018 Telephone General Surgery - [place] [address] [facility] [address] [place] [address] Dawn Arciniega MD [address] [place] [address] [address] [place] [address] refill request Social History Tobacco Use Types [...] encounter Miscellaneous Notes * Telephone Encounter - Tammi Rashaun L.P.N. - 10/10/2018 8:53 AM EDT Please disregard that last ancouter. The fax was for prior auth for the omeprazole as her insurancedoes not cover this medication. I will attempt to call the pharmacy to see if there is a comparablealternative. If not I will submit prior auth if needed. I still question if she isnt f/u here in office that her pcp should be filling this . * Telephone Encounter - Tammi Galiciadimas L.P.N. - 10/10/2018 8:49 AM EDT Fax received from the patient's pharmacy for omeprzole. She has not been seen since 06/2018. It looks like there are no plans for her to f/u in office . Do you still want to refill or should pcp ?? documented in this encounter Plan of Treatment Not on file documented as of this encounter Visit Diagnoses Not on filedocumented in this encounter Care Teams Exploration Driller Relationship Specialty Start Date End Date Naun Garcia MD PCP - General Internal Medicine 10/27/13 10/27/21 [facility], Pcp PCP - General Internal Medicine 10/28/21 11/27/21 aNun Garcia MD PCP - General Internal Medicine 11/28/21 12/13/21 Ольга Jewell MD [address] [place] [address] PCP - General Internal Medicine 12/14/21 Rhoda Rangel MD [address] [place], [place] Referring Physician Allergy & Immunology 06/16/22 Brenden Villa DPM [address] [address] Podiatry 06/16/22 Piedad Bowens MD [address] [address] ORTHOPEDICS 06/16/22 Marcos Weiss DO [address] [address] Specialist Physiatry 12/15/22 Xochitl Machado MD [address] [address] Sports Medicine Int Med 12/15/22 Peter Cummings Specialist Gastroenterology 06/16/22 Evi Carpio Specialist PSYCHIATRY 06/16/22 elder duke Specialist Optometry 12/18/23 documented as of this encounter
--- OUTSIDE RECORDS SUMMARY | 2024-10-14 12:55 | XMS_ITS | Encounter Summary ---
Author Organization [facility] Address [address] [place] [address] Care Team Providers Care Chronic Specialist Name Role Phone Ольга Jewell MD Primary Care Provider [phone] Rhoda Rangel MD Unavailable Unavailable Brenden Villa DPM Unavailable [phone] Piedad Bowens MD Unavailable [phone] Marcos Weiss DO Unavailable Unavailable Xochitl Machado MD Unavailable [phone] Reason for Visit * Reason Onset Date Comments medication problems 01/24/2023 Encounter Details Date Type Department Care Team Description 01/24/2023 Refill Adult Medicine - [place] [address] [place], [place] [id number] Ольга Jewell MD [address] [place] [address] medication problems Social History Tobacco Use Types [...] with UTI and she can purchase it [id number]. ?? if she continues experiencing symptoms after [...] Jacqueline Pharmacist Name: [facility] Phone # [phone] Name of the medication ciproflaxin What is the specific problem or interaction? Pt has allergy to levofloxicin If the patient is having a problem with taking the med - how long has the problem been going on? N/A documented in this encounter Plan of Treatment Not on file documented as of this encounter Visit Diagnoses Not on filedocumented in this encounter Care Teams Chronic Specialist Relationship Specialty Start Date End Date Ольга Jewell MD [address] [place] [address] PCP - General Internal Medicine 12/14/21 Rhoda Rangel MD [address] [place] [address] Referring Physician Allergy & Immunology 06/16/22 Brenden Villa DPM [address] [address] Podiatry 06/16/22 Piedad Bowens MD [address] [address] ORTHOPEDICS 06/16/22 Marcos Weiss DO [address] [address] Specialist Physiatry 12/15/22 Xochitl Machado MD [address] [address] Sports Medicine Int Med 12/15/22 Peter Cummings Specialist Gastroenterology 06/16/22 Evi Carpio Specialist PSYCHIATRY 06/16/22 elder duke Specialist Optometry 12/18/23 documented as of this encounter
--- OUTSIDE RECORDS SUMMARY | 2024-10-14 12:55 | XMS_ITS | Encounter Summary ---
Author Organization [facility] Address [address] [place] [address] Care Team Providers Care Critical Care Rn Name Role Phone Ольга Jewell MD Primary Care Provider [phone] Rhoda Rangel MD Unavailable Unavailable Brenden Villa DPM Unavailable [phone] Piedad Bowens MD Unavailable [phone] Marcos Weiss DO Unavailable Unavailable Xochitl Machado MD Unavailable [phone] Reason for Visit * Reason Comments E-prescribe Rx Request Encounter Details Date Type Department Care Team Description 05/17/2023 Refill Rheumatology - [address] [address] Joyce Silva MD E-prescribe Rx Request Social [...] Telephone Encounter - Kinza Lion M.A. - 05/17/2023 1:16 PM EST [facility] Telehealth 02/01/23 GI f/up 05/23/23 Peter documented in this encounter Plan of Treatment Not on file documented as of this encounter Visit Diagnoses Not on filedocumented in this encounter Care Teams Critical Care Rn Relationship Specialty Start Date End Date Ольга Jewell MD [address] [place] [address] PCP - General Internal Medicine 12/14/21 Rhoda Rangel MD [address] [place] [address] Referring Physician Allergy & Immunology 06/16/22 Brenden Villa DPM [address] [address] Podiatry 06/16/22 Piedad Bowens MD [address] [address] ORTHOPEDICS 06/16/22 Marcos Weiss DO [address] [address] Specialist Physiatry 12/15/22 Xochitl Machado MD [address] [address] Sports Medicine Int Med 12/15/22 Peter Cummings Specialist Gastroenterology 06/16/22 Evi Carpio Specialist PSYCHIATRY 06/16/22 elder duke Specialist Optometry 12/18/23 documented as of this encounter
--- OUTSIDE RECORDS SUMMARY | 2024-10-14 12:55 | XMS_ITS | Encounter Summary ---
Author Organization [facility] Address [address] [place] [address] Care Team Providers Care Electrician Rectifier Maintenance Name Role Phone Naun Garcia MD Primary Care Provider Unavail able [facility], [facility] Primary Care Provider Unavailabl Naun Artis MD Primary Care Provider Unavail able Ольга Jewell MD Primary Care Provider Rhoda Rangel MD Unavailable Unavailable Brenden Villa DPM Unavailable [phone] Piedad Bowens MD Unavailable [phone] Marcos Weiss DO Unavailable Unavailable Xochitl Machado MD Unavailable [phone] Encounter Details Date Type Department Care Team Description 04/04/2018 [facility] Medical Records [address] [place] [address] Abstract, Provider Social History Tobacco Use Types [...] on filedocumented in this encounter Care Teams Electrician Rectifier Maintenance Relationship Specialty Start Date End Date Naun Garcia MD PCP - General Internal Medicine 10/27/13 10/27/21 [facility], Pcp PCP - General Internal Medicine 10/28/21 11/27/21 Naun Garcia MD PCP - General Internal Medicine 11/28/21 12/13/21 Ольаг Jewell MD [address] [place] [address] PCP - General Internal Medicine 12/14/21 Rhoda Rangel MD [address] [place] [address] Referring Physician Allergy & Immunology 06/16/22 Brenden Villa DPM [address] [address] Podiatry 06/16/22 Piedad Bowens MD [address] [address] ORTHOPEDICS 06/16/22 Marcos Weiss DO [address] [address] Specialist Physiatry 12/15/22 Xochitl Machado MD [address] [address] Sports Medicine Int Med 12/15/22 Peter Cummings Specialist Gastroenterology 06/16/22 Evi Carpio Specialist PSYCHIATRY 06/16/22 elder duke Specialist Optometry 12/18/23 documented as of this encounter
--- OUTSIDE RECORDS SUMMARY | 2024-10-14 12:55 | XMS_ITS | Encounter Summary ---
Author Organization [facility] Address [address] [place] [address] Care Team Providers Care Secondary Art Teacher Name Role Phone Naun Garcia MD Primary Care Provider Unavail able [facility], Pcp Primary Care Provider Unavailabl e Naun Garcia MD Primary Care Provider Unavail able Ольга Jewell MD Primary Care Provider [phone] Rhoda Rangel MD Unavailable Unavailable Brenden Villa DPM Unavailable [phone] Piedad Bowens MD Unavailable [phone] Marcos Weiss DO Unavailable Unavailable Xochitl Machado MD Unavailable [phone] Encounter Details Date Type Department Care Team Description 10/18/2020 [facility] Medical Records [address] [place] [address] Abstract, Provider Social History Tobacco Use Types [...] on filedocumented in this encounter Care Teams Secondary Art Teacher Relationship Specialty Start Date End Date Naun Garcia MD PCP - General Internal Medicine 10/27/13 10/27/21 [facility] PCP - General Internal Medicine 10/28/21 11/27/21 Naun Garcia MD PCP - General Internal Medicine 11/28/21 12/13/21 Ольга Jewell MD [address] [place] [address] PCP - General Internal Medicine 12/14/21 Rhoda Rangel MD [address] [place] [address] Referring Physician Allergy & Immunology 06/16/22 Brenden Villa DPM [address] [address] Podiatry 06/16/22 Piedad Bowens MD [address] [address] ORTHOPEDICS 06/16/22 Marcos Weiss DO [address] [address] Specialist Physiatry 12/15/22 Xochitl Machado MD [address] [address] Sports Medicine Int Med 12/15/22 Peter Cummings Specialist Gastroenterology 06/16/22 Evi Carpio Specialist PSYCHIATRY 06/16/22 elder duke Specialist Optometry 12/18/23 documented as of this encounter
--- OUTSIDE RECORDS SUMMARY | 2024-10-14 12:55 | XMS_ITS | Encounter Summary ---
Author Organization [facility] Address [address] [place] [address] Care Team Providers Care Sld Teacher Name Role Phone Naun Garcia MD Primary Care Provider Unavail able [facility], [facility] Primary Care Provider Unavailabl Naun Artis MD Primary Care Provider Unavail able Ольга Jewell MD Primary Care Provider Rhoda Rangel MD Unavailable Unavailable Brenden Villa DPM Unavailable [phone] Piedad Bowens MD Unavailable [phone] Marcos Weiss DO Unavailable Unavailable Xochitl Machado MD Unavailable [phone] Encounter Details Date Type Department Care Team Description 07/28/2014 [facility] Medical Records [address] [place] [address] Angel Benavidez MD Social History Tobacco Use [...] on filedocumented in this encounter Care Teams Sld Teacher Relationship Specialty Start Date End Date Naun Garcia MD PCP - General Internal Medicine 10/27/13 10/27/21 [facility], [facility] PCP - General Internal Medicine 10/28/21 11/27/21 Naun Garcia MD PCP - General Internal Medicine 11/28/21 12/13/21 Ольга Jewell MD [address] [place] [address] PCP - General Internal Medicine 12/14/21 Rhoda Rangel MD [address] [place] [address] Referring Physician Allergy & Immunology 06/16/22 Brenden Villa DPM [address] [address] Podiatry 06/16/22 Piedad Bowens MD [address] [address] ORTHOPEDICS 06/16/22 Marcos Weiss DO [address] [address] Specialist Physiatry 12/15/22 Xochitl Machado MD [address] [address] Sports Medicine Int Med 12/15/22 Peter Cummings Specialist Gastroenterology 06/16/22 Evi Carpio Specialist PSYCHIATRY 06/16/22 elder duke Specialist Optometry 12/18/23 documented as of this encounter
--- OUTSIDE RECORDS SUMMARY | 2024-10-14 12:55 | XMS_ITS | Encounter Summary ---
Author Organization [facility] Address [address] [place] [address] Care Team Providers Care Contact Center Professional Name Role Phone Ольга Jewell MD Primary Care Provider Rhoda Rangel MD Unavailable Unavailable Brenden VillaM Unavailable [phone] Piedad Bowens MD Unavailable [phone] Marcos Weiss DO Unavailable Unavailable Xochitl Machado MD Unavailable [phone] Encounter Details Date Type Department Care Team Description 09/04/2022 Pt. Non Urgent Medic al Question Adult Medicine - [place] [address] [place] [address] Ольга Jewell MD [address] [place] [address] Social History Tobacco Use Types Packs/Day Years [...] suspected to have Coronavirus/COVID-19? No / Unsure 09/06/2022 9:37 AM EDT documented as of this encounter Miscellaneous Notes * Telephone Encounter - Piedad Sheppard L.P.N. - 09/04/2022 10:41 AM EDT From: Deisy Muhammad To: Bob Jewell Sent: 09/04/2022 10:26 AM EDT Subject: Pain management Good morning I need some pain medicine, to help me with my back and knees pains. To get threw my days in less pain. documented in this encounter Plan of Treatment Not on file documented as of this encounter Visit Diagnoses Not on filedocumented in this encounter Care Teams Contact Center Professional Relationship Specialty Start Date End Date Ольга Jewell MD [address] [place] [address] PCP - General Internal Medicine 12/14/21 Rhoda Rangel MD [address] [place] [address] Referring Physician Allergy & Immunology 06/16/22 Brenden Villa DPM [address] [address] Podiatry 06/16/22 Piedad Bowens MD [address] [address] ORTHOPEDICS 06/16/22 Marcos Weiss DO [address] [address] Specialist Physiatry 12/15/22 Xochitl Machado MD [address] [address] Sports Medicine Int Med 12/15/22 Peter Cummings Specialist Gastroenterology 06/16/22 Evi Carpio Specialist PSYCHIATRY 06/16/22 elder duke Specialist Optometry 12/18/23 documented as of this encounter
--- OUTSIDE RECORDS SUMMARY | 2024-10-14 12:55 | XMS_ITS | Encounter Summary ---
Author Organization [facility] Address [address] [place] [address] Care Team Providers Care Saxophone Assembler Name Role Phone Ольга Jewell MD Primary Care Provider [phone] Rhoda Rangel MD Unavailable Unavailable Brenden Villa DPM Unavailable [phone] Piedad Bowens MD Unavailable [phone] Marcos Weiss DO Unavailable Unavailable Xochitl Machado MD Unavailable [phone] Encounter Details Date Type Department Care Team Description 04/17/2023 Tag Meter Operator Report Medical Records [address] [place] [id number] Marcos Weiss DO Social History Tobacco Use [...] on filedocumented in this encounter Care Teams Saxophone Assembler Relationship Specialty Start Date End Date Ольга Jewell MD [address] [place] [address] PCP - General Internal Medicine 12/14/21 Rhoda Rangel MD [address] [place] [address] Referring Physician Allergy & Immunology 06/16/22 Brenden Villa DPM [address] [address] Podiatry 06/16/22 Piedad Bowens MD [address] [address] ORTHOPEDICS 06/16/22 Marcos Weiss DO [address] [address] Specialist Physiatry 12/15/22 Xochitl Machado MD [address] [address] Sports Medicine Int Med 12/15/22 Peter Cummings Specialist Gastroenterology 06/16/22 Evi Carpio Specialist PSYCHIATRY 06/16/22 elder duke Specialist Optometry 12/18/23 documented as of this encounter
--- OUTSIDE RECORDS SUMMARY | 2024-10-14 12:55 | XMS_ITS | Encounter Summary ---
Author Organization [facility] Address [address] [place] [address] Care Team Providers Care Instrument Processing Tech Name Role Phone Naun Garcia MD Primary Care Provider Unavail able [facility], [facility] Primary Care Provider Unavailabl Naun Artis MD Primary Care Provider Unavail able Ольга Jewell MD Primary Care Provider Rhoda Rangel MD Unavailable Unavailable Brenden Villa DPM Unavailable [phone] Piedad Bowens MD Unavailable [phone] Marcos Weiss DO Unavailable Unavailable Xochitl Machado MD Unavailable [phone] Encounter Details Date Type Department Care Team Description 12/31/2017 [facility] Medical Records [address] [place] [address] Abstract, Provider Social History Tobacco Use Types [...] on filedocumented in this encounter Care Teams Instrument Processing Tech Relationship Specialty Start Date End Date Naun Garcia MD PCP - General Internal Medicine 10/27/13 10/27/21 [facility], Pcp PCP - General Internal Medicine 10/28/21 11/27/21 Naun Garcia MD PCP - General Internal Medicine 11/28/21 12/13/21 Ольга Jewell MD [address] [place] [address] PCP - General Internal Medicine 12/14/21 Rhoda Rangel MD [address] [place] [address] Referring Physician Allergy & Immunology 06/16/22 Brenden Villa DPM [address] [address] Podiatry 06/16/22 Piedad Bowens MD [address] [address] ORTHOPEDICS 06/16/22 Marcos Weiss DO [address] [address] Specialist Physiatry 12/15/22 Xochitl Machado MD [address] [address] Sports Medicine Int Med 12/15/22 Peter Cummings Specialist Gastroenterology 06/16/22 Evi Carpio Specialist PSYCHIATRY 06/16/22 elder duke Specialist Optometry 12/18/23 documented as of this encounter
--- OUTSIDE RECORDS SUMMARY | 2024-10-14 12:56 | XMS_ITS | Encounter Summary ---
Author Organization [facility] Address [address] [place] [address] Care Team Providers Care Loss Prevention Officer Name Role Phone Naun Garcia MD Primary Care Provider Unavail able [facility], [facility] Primary Care Provider Unavailabl Naun Artis MD Primary Care Provider Unavail able Ольга Jewell MD Primary Care Provider Rhoda Rangel MD Unavailable Unavailable Brenden Villa DPM Unavailable [phone] Piedad Bowens MD Unavailable [phone] Marcos Weiss DO Unavailable Unavailable Xochitl Machado MD Unavailable [phone] Encounter Details Date Type Department Care Team Description 03/15/2016 Release of Information Medical Records [address] [place] [id number] Abstract, Provider Social History Tobacco Use Types [...] on filedocumented in this encounter Care Teams Loss Prevention Officer Relationship Specialty Start Date End Date Naun Garcia MD PCP - General Internal Medicine 5/19/14 5/19/22 [facility], Pcp PCP - General Internal Medicine 10/28/21 11/27/21 Naun Garcia MD PCP - General Internal Medicine 11/28/21 12/13/21 Ольга Jewell MD [address] [place] [address] PCP - General Internal Medicine 12/14/21 Rhoda Rangel MD [address] [place] [address] Referring Physician Allergy & Immunology 06/16/22 Brenden Villa DPM [address] [address] Podiatry 06/16/22 Piedad Bowens MD [address] [address] ORTHOPEDICS 06/16/22 Marcos Weiss DO [address] [address] Specialist Physiatry 12/15/22 Xochitl Machado MD [address] [address] Sports Medicine Int Med 12/15/22 Peter Cummings Specialist Gastroenterology 06/16/22 Evi Carpio Specialist PSYCHIATRY 06/16/22 elder duke Specialist Optometry 12/18/23 documented as of this encounter
--- OUTSIDE RECORDS SUMMARY | 2024-10-14 12:56 | XMS_ITS | Encounter Summary ---
Author Organization [facility] Address [address] [place] [address] Care Team Providers Care Auto Headlight Mechanic Name Role Phone Naun Garcia MD Primary Care Provider Unavail able [facility], Pcp Primary Care Provider Unavailabl e Naun Garcia MD Primary Care Provider Unavail able Ольга Jewell MD Primary Care Provider [phone] Rhoda Rangel MD Unavailable Unavailable Brenden Villa DPM Unavailable [phone] Piedad Bowens MD Unavailable [phone] Marcos Weiss DO Unavailable Unavailable Xochitl Machado MD Unavailable [phone] Reason for Visit * Reason Onset Date Comments immunizations 03/10/2020 Encounter Details Date Type Department Care Team Description 03/10/2020 Telephone Adult Medicine [address] [address] Naun Garcia MD immunizations Social History Tobacco Use Types Packs/Day Years [...] have Coronavirus / COVID-19? No / Unsure 03/13/2020 3:44 PM EDT documented as of this encounter Miscellaneous Notes * Telephone Encounter - Naun Garcia MD - 03/10/2020 2:33 PM EDT ordered * Telephone Encounter - Irma Duarte M.A. - 03/10/2020 2:25 PM EDT Spoke to pt informed her last TB test was done in January 2016. I will put in an order for quantiferon gold test and she have it done. Order pended * Telephone Encounter - Lynnette Munoz - 03/10/2020 2:17 PM EDT Patient states she is in need of TB test for her employer. States she isn't sure when she had last one if someone could look into this and call her back. documented in this encounter Plan of Treatment Not on file documented as of this encounter Results * QUANTIFERON TB GOLD (03/13/2020 3:44 PM EDT) QFT PLUS NIL 0.03 IU/mL 03/17/2020 11:23 AM EDT [facility] QFT PLUS MITOGEN 5.80 IU/mL 03/17/20 20 11:23 AM EDT [facility] QFT PLUS ANTIGEN 1 0 IU/mL 2019 11:23 AM EDT [facility] QFT PLUS ANTIGEN 2 0.02 IU/mL 2019 11:23 AM EDT [facility] QFT PLUS INTERPRETATION NEGATIVE NEGATIVE 03/17/2020 11:23 AM EDT [facility] 03/13/2020 3:44 PM EDT 03/13/2020 3:49 PM EDT Naun Garcia MD LAB [facility] documented in this encounter Visit Diagnoses Diagnosis Screening for tuberculosis- Primary Screening examination for pulmonary tuberculosis documented in this encounter Care Teams Auto Headlight Mechanic Relationship Specialty Start Date End Date Naun Garcia MD PCP - General Internal Medicine 10/27/13 10/27/21 [facility], Pcp PCP - General Internal Medicine 10/28/21 11/27/21 Naun Garcia MD PCP - General Internal Medicine 11/28/21 12/13/21 Ольга Jewell MD [address] [place] [address] PCP - General Internal Medicine 12/14/21 Rhoda Rangel MD [address] [place] [address] Referring Physician Allergy & Immunology 06/16/22 Brenden Villa DPM [address] [address] Podiatry 06/16/22 Piedad Bowens MD [address] [address] ORTHOPEDICS 06/16/22 Marcos Weiss DO [address] [address] Specialist Physiatry 12/15/22 Xochitl Machado MD [address] [address] Sports Medicine Int Med 12/15/22 Peter Cummings Specialist Gastroenterology 06/16/22 Evi Carpio Specialist PSYCHIATRY 06/16/22 elder duke Specialist Optometry 12/18/23 documented as of this encounter
--- OUTSIDE RECORDS SUMMARY | 2024-10-14 12:56 | XMS_ITS | Encounter Summary ---
Author Organization [facility] Address [address] [place] [address] Care Team Providers Care Binder Coverstitch Name Role Phone Naun Garcia MD Primary Care Provider Unavail able [facility], Pcp Primary Care Provider Unavailabl e Naun Gracia MD Primary Care Provider Unavail able Ольга Jewell MD Primary Care Provider [phone] Rhoda Rangel MD Unavailable Unavailable Brenden Villa DPM Unavailable [phone] Piedad Bowens MD Unavailable [phone] Marcos Weiss DO Unavailable Unavailable Xochitl Machado MD Unavailable [phone] Reason for Visit * Reason Onset Date Comments medication problems 01/02/2019 hydrocortiso ne (ANUSOL-HC) 25 MG suppository () Encounter Details Date Type Department Care Team Description 01/02/2019 Telephone Gastroenterology - [place] [address] [facility] [address] [place] [address] Elton Flowers MD medication problems (hydrocortisone (ANUSOL-HC) 25 MG suppository ()) Social History Tobacco Use Types Packs/Day Years [...] encounter Miscellaneous Notes * Telephone Encounter - Cara Lu M.A. - 01/02/2019 2:33 PM EDT Spoke to to binu from [facility] pharmacy, she said her rectal cream is covered but they don't cover any suppository, the pt would have to but it otc. I tried leaving the pt a Vm but her phone line kept coming up busy. * Telephone Encounter - Lovely Cedeno - 01/02/2019 12:45 PM EDT Who is calling? The patient Name of the medication hydrocortisone (ANUSOL-HC) 25 MG suppository??() What is the specific problem or interaction? Patient stated she has an appt today but she was not able to have her script filled from her pharmacy. She was not sure if she should come to the appt because she wasn't able to fill her script. Patient also stated she will just come to the appt because she is in pain. If the patient is having a problem with taking the med - how long has the problem been going on? N/A documented in this encounter Plan of Treatment Not on file documented as of this encounter Visit Diagnoses Not on filedocumented in this encounter Care Teams Binder Coverstitch Relationship Specialty Start Date End Date Naun Garcia MD PCP - General Internal Medicine 10/27/13 10/27/[facility] PCP - General Internal Medicine 10/28/21 11/27/21 Naun Garcia MD PCP - General Internal Medicine 11/28/21 12/13/21 Ольга Jewell MD [address] [place] [address] PCP - General Internal Medicine 12/14/21 Rhoda Rangel MD [address] [place] [address] Referring Physician Allergy & Immunology 06/16/22 Brenden Villa DPM [address] [address] Podiatry 06/16/22 Piedad Bowens MD [address] [address] ORTHOPEDICS 06/16/22 Marcos Weiss DO [address] [address] Specialist Physiatry 12/15/22 Xochitl Machado MD [address] [address] Sports Medicine Int Med 12/15/22 Peter Cummings Specialist Gastroenterology 06/16/22 Evi Carpio Specialist PSYCHIATRY 06/16/22 elder duke Specialist Optometry 12/18/23 documented as of this encounter
--- OUTSIDE RECORDS SUMMARY | 2024-10-14 12:56 | XMS_ITS | Encounter Summary ---
Author Organization [facility] Address [address] [place] [address] Care Team Providers Care Warehouse Consultant Name Role Phone Naun Garcia MD Primary Care Provider Unavail able [facility], Pcp Primary Care Provider Unavailabl e Naun Garcia MD Primary Care Provider Unavail able Ольга Jewell MD Primary Care Provider Rhoda Rangel MD Unavailable Unavailable Brenden Villa DPM Unavailable [phone] Piedad Bowens MD Unavailable [phone] Marcos Weiss DO Unavailable Unavailable Xochitl Machado MD Unavailable [phone] Encounter Details Date Type Department Care Team Description 07/01/2021 Pt. Non Urgent Medical Question Medicine/Pediatrics - [address] [id number] Naun Garcia MD Social History Tobacco Use [...] 07/01/2021 2:54 PM ESTFrom: Deisy Muhammad To: Bbo Jose Sent: 07/01/2021 2:48 PM EST Subject: Deisy Kendall tested positive for covid 19 attachment of lab report documented in this encounter Plan of Treatment Not on file documented as of this encounter Visit Diagnoses Not on filedocumented in this encounter Care Teams Warehouse Consultant Relationship Specialty Start Date End Date Naun Garcia MD PCP - General Internal Medicine 10/27/13 10/27/21 [facility] PCP - General Internal Medicine 10/28/21 11/27/21 Naun Garcia MD PCP - General Internal Medicine 11/28/21 12/13/21 Ольга Jewell MD [address] [place] [address] PCP - General Internal Medicine 12/14/21 Rhoda Rangel MD [address] [place] [address] Referring Physician Allergy & Immunology 06/16/22 Brenden Villa DPM [address] [address] Podiatry 06/16/22 Piedad Bowens MD [address] [address] ORTHOPEDICS 06/16/22 Macros Weiss DO [address] [address] Specialist Physiatry 12/15/22 Xochitl Machado MD [address] [address] Sports Medicine Int Med 12/15/22 Peter Cummings Specialist Gastroenterology 06/16/22 Evi Carpio Specialist PSYCHIATRY 06/16/22 elder duke Specialist Optometry 12/18/23 documented as of this encounter
--- OUTSIDE RECORDS SUMMARY | 2024-10-14 12:56 | XMS_ITS | Encounter Summary ---
Author Organization [facility] Address [address] [place] [address] Care Team Providers Care Direct Mail Clerk Name Role Phone Naun Garcia MD Primary Care Provider Unavail able [facility] Primary Care Provider Unavailabl Naun Artis MD Primary Care Provider Unavail able Ольга Jewell MD Primary Care Provider [phone] Rhoda Rangel MD Unavailable Unavailable Brenden Villa DPM Unavailable [phone] Piedad Bowens MD Unavailable [phone] Marcos Weiss DO Unavailable Unavailable Xochitl Machado MD Unavailable [phone] Encounter Details Date Type Department Care Team Description 07/18/2017 Release of Information Medical Records [address] [place] [id number] Abstract, Provider Social History Tobacco Use Types [...] on filedocumented in this encounter Care Teams Direct Mail Clerk Relationship Specialty Start Date End Date Naun Garcia MD PCP - General Internal Medicine 10/27/13 10/27/21 [facility], Pcp PCP - General Internal Medicine 10/28/21 11/27/21 Naun Garcia MD PCP - General Internal Medicine 11/28/21 12/13/21 Ольга Jewell MD [address] [place] [address] PCP - General Internal Medicine 12/14/21 Rhoda Rangel MD [address] [place] [address] Referring Physician Allergy & Immunology 06/16/22 Brenden Villa DPM [address] [address] Podiatry 06/16/22 Piedad Bowens MD [address] [address] ORTHOPEDICS 06/16/22 Marcos Weiss DO [address] [address] Specialist Physiatry 12/15/22 Xochitl Machado MD [address] [address] Sports Medicine Int Med 12/15/22 Peter Cummings Specialist Gastroenterology 06/16/22 Evi Carpio Specialist PSYCHIATRY 06/16/22 elder duke Specialist Optometry 12/18/23 documented as of this encounter
--- OUTSIDE RECORDS SUMMARY | 2024-10-14 12:56 | XMS_ITS | Encounter Summary ---
Author Organization [facility] Address [address] [place] [address] Care Team Providers Care Funeral Limousine Driver Name Role Phone Ольга Jewell MD Primary Care Provider [phone] Rhoda Rangel MD Unavailable Unavailable Brenden Villa DPM Unavailable [phone] Piedad Bowens MD Unavailable [phone] Marcos Weiss DO Unavailable Unavailable Xochitl Machado MD Unavailable [phone] Encounter Details Date Type Department Care Team Description 11/02/2022 Cloth Colorer Report Medical Records [address] [place] [address] Marcos Weiss DO Social History Tobacco Use [...] on filedocumented in this encounter Care Teams Funeral Limousine Driver Relationship Specialty Start Date End Date Ольга Jewell MD [address] [place] [address] PCP - General Internal Medicine 12/14/21 Rhoda Rangel MD [address] [place] [address] Referring Physician Allergy & Immunology 06/16/22 Brenden Villa DPM [address] [address] Podiatry 06/16/22 Piedad Bowens MD [address] [address] ORTHOPEDICS 06/16/22 Marcos Weiss DO [address] [address] Specialist Physiatry 12/15/22 Xochitl Machado MD [address] [address] Sports Medicine Int Med 12/15/22 Peter Cummings Specialist Gastroenterology 06/16/22 Evi Carpio Specialist PSYCHIATRY 06/16/22 elder duke Specialist Optometry 12/18/23 documented as of this encounter
--- OUTSIDE RECORDS SUMMARY | 2024-10-14 12:56 | XMS_ITS | Encounter Summary ---
Author Organization [facility] Address [address] [place] [address] Care Team Providers Care Phosphoric Acid Supervisor Name Role Phone Naun Garcia MD Primary Care Provider Unavail able [facility] [place], [facility] Primary Care Provider Unavailabl Naun Artis MD Primary Care Provider Unavail able Ольга Jewell MD Primary Care Provider Rhoda Rangel MD Unavailable Unavailable Brenden Villa DPM Unavailable [phone] Piedad Bowens MD Unavailable [phone] Marcos Weiss DO Unavailable Unavailable Xochitl Machado MD Unavailable [phone] Encounter Details Date Type Department Care Team Description 07/13/2016 Precinct I Police Sergeant Report Medical Records [address] [place] [id number] [place] [address] Orthopedic, Surgeons Social History Tobacco Use Types [...] on filedocumented in this encounter Care Teams Phosphoric Acid Supervisor Relationship Specialty Start Date End Date Naun Garcia MD PCP - General Internal Medicine 10/27/13 10/27/21 [facility] [place], Pcp PCP - General Internal Medicine 10/28/21 11/27/21 Naun Garcia MD PCP - General Internal Medicine 11/28/21 12/13/21 Ольга Jewell MD [address] [place] [address] PCP - General Internal Medicine 12/14/21 Rhoda Rangel MD [address] [place] [address] Referring Physician Allergy & Immunology 06/16/22 Brenden Villa DPM [address] [address] Podiatry 06/16/22 Piedad Bowens MD [address] [address] ORTHOPEDICS 06/16/22 Marcos Weiss DO [address] [address] Specialist Physiatry 12/15/22 Xochitl Machado MD [address] [address] Sports Medicine Int Med 12/15/22 Peter Cummings Specialist Gastroenterology 06/16/22 Evi Carpio Specialist PSYCHIATRY 06/16/22 elder duke Specialist Optometry 12/18/23 documented as of this encounter
--- OUTSIDE RECORDS SUMMARY | 2024-10-14 12:56 | XMS_ITS | Encounter Summary ---
Author Organization [facility] Address [address] [place] [address] Care Team Providers Care Tearoom Hostess Name Role Phone Naun Garcia MD Primary Care Provider Unavail able [facility], [facility] Primary Care Provider Unavailabl e Naun Garcia MD Primary Care Provider Unavail able Ольга Jewell MD Primary Care Provider Rhoda Rangel MD Unavailable Unavailable Brenden Villa DPM Unavailable [phone] Piedad Bowens MD Unavailable [phone] Marcos Weiss DO Unavailable Unavailable Xochitl Machado MD Unavailable [phone] Reason for Visit * Reason Onset Date Comments VNA Call 10/23/2018 Encounter Details Date Type Department Care Team Description 10/23/2018 Telephone Adult Medicine B - [place] [address] [place] [address] Naun Garcia MD VNA Call Social History [...] VNA CALL Which [facility]NA office is calling? [facility] Full name of caller: Nikkie The caller [...] on filedocumented in this encounter Care Teams Tearoom Hostess Relationship Specialty Start Date End Date Naun Garcia MD PCP - General Internal Medicine 10/27/13 10/27/21 [facility] PCP - General Internal Medicine 10/28/21 11/27/21 Naun Garcia MD PCP - General Internal Medicine 11/28/21 12/13/21 Ольга Jewell MD [address] [place] [address] PCP - General Internal Medicine 12/14/21 Rhoda Rangel MD [address] [place] [address] Referring Physician Allergy & Immunology 06/16/22 Brenden Villa DPM [address] [address] Podiatry 06/16/22 Piedad Bowens MD [address] [address] ORTHOPEDICS 06/16/22 Marcos Weiss DO [address] [address] Specialist Physiatry 12/15/22 Xochitl Machado MD [address] [place] [address] Sports Medicine Int Med 12/15/22 Peter Cummings Specialist Gastroenterology 06/16/22 Evi Carpio Specialist PSYCHIATRY 06/16/22 elder duke Specialist Optometry 12/18/23 documented as of this encounter
--- OUTSIDE RECORDS SUMMARY | 2024-10-14 12:56 | XMS_ITS | Encounter Summary ---
Author Organization [facility] Address [address] [place] [address] Care Team Providers Care First Calender Worker Name Role Phone Naun Garcia MD Primary Care Provider Unavail able [facility], Pcp Primary Care Provider Unavailabl e Naun Garcia MD Primary Care Provider Unavail able Ольга Jewell MD Primary Care Provider Rhoda Rangel MD Unavailable Unavailable Brenden Villa DPM Unavailable [phone] Piedad Bowens MD Unavailable [phone] Marcos Weiss DO Unavailable Unavailable Xochitl Machado MD Unavailable [phone] Encounter Details Date Type Department Care Team Description 01/28/2019 Gas Meter Reader Report Medical Records [address] [place] [address] Karol Zamorano MD [address] [place] [address] Social History Tobacco Use Types Packs/Day Years [...] on filedocumented in this encounter Care Teams First Calender Worker Relationship Specialty Start Date End Date Naun Garcia MD PCP - General Internal Medicine 10/27/13 10/27/21 [facility], [facility] PCP - General Internal Medicine 10/28/21 11/27/21 Naun Garcia MD PCP - General Internal Medicine 11/28/21 12/13/21 Ольга Jewell MD [address] [place] [address] PCP - General Internal Medicine 12/14/21 Rhoda Rangel MD [address] [place] [address] Referring Physician Allergy & Immunology 06/16/22 Brenden Villa DPM [address] [address] Podiatry 06/16/22 Piedad Bowens MD [address] [address] ORTHOPEDICS 06/16/22 Marcos Weiss DO [address] [address] Specialist Physiatry 12/15/22 Xochitl Machado MD [address] [address] Sports Medicine Int Med 12/15/22 Peter Cummings Specialist Gastroenterology 06/16/22 Evi Carpio Specialist PSYCHIATRY 06/16/22 elder duke Specialist Optometry 12/18/23 documented as of this encounter
--- OUTSIDE RECORDS SUMMARY | 2024-10-14 12:56 | XMS_ITS | Encounter Summary ---
Author Organization [facility] Address [address] [place] [address] Care Team Providers Care Risk Compliance Manager Name Role Phone Naun Garcia MD Primary Care Provider Unavail able [facility], Pcp Primary Care Provider Unavailabl e Naun Garcia MD Primary Care Provider Unavail able Ольга Jewell MD Primary Care Provider Rhoda Rangel MD Unavailable Unavailable Brenden Villa DPM Unavailable [phone] Piedad Bowens MD Unavailable [phone] Marcos Weiss DO Unavailable Unavailable Xochitl Machado MD Unavailable [phone] Encounter Details Date Type Department Care Team Description 10/24/2021 Hospital Medical Records [address] [place] [address] Jonh Patterson MD 175 [facility] [address] [place] [address] Social History Tobacco Use Types Packs/Day Years [...] suspected to have Coronavirus/COVID-19? No / Unsure 10/21/2021 10:29 AM EDT documented as of this encounter Plan of Treatment Not on file documented as of this encounter Visit Diagnoses Not on filedocumented in this encounter Care Teams Risk Compliance Manager Relationship Specialty Start Date End Date Naun Garcia MD PCP - General Internal Medicine 10/27/13 10/27/21 [facility] PCP - General Internal Medicine 10/28/21 11/27/21 Naun Garcia MD PCP - General Internal Medicine 11/28/21 12/13/21 Ольга Jewell MD [address] [place] [address] PCP - General Internal Medicine 12/14/21 Rhoda Rangel MD [address] [place] [address] Referring Physician Allergy & Immunology 06/16/22 Brenden Villa DPM [address] [address] Podiatry 06/16/22 Piedad Bowens MD [address] [address] ORTHOPEDICS 06/16/22 Marcos Weiss DO [address] [address] Specialist Physiatry 12/15/22 Xochitl Machado MD [address] [address] Sports Medicine Int Med 12/15/22 Peter Cummings Specialist Gastroenterology 06/16/22 Evi Carpio Specialist PSYCHIATRY 06/16/22 elder duke Specialist Optometry 12/18/23 documented as of this encounter
--- OUTSIDE RECORDS SUMMARY | 2024-10-14 12:56 | XMS_ITS | Encounter Summary ---
Author Organization [facility] Address [address] [place] [address] Care Team Providers Care Stock Worker And Deliverer Name Role Phone Naun Garcia MD Primary Care Provider Unavail able [facility], Pcp Primary Care Provider Unavailabl e Naun Garcia MD Primary Care Provider Unavail able Ольга Jewell MD Primary Care Provider [phone] Rhoda Rangel MD Unavailable Unavailable Brenden Villa DPM Unavailable [phone] Piedad Bowens MD Unavailable [phone] Marcos Weiss DO Unavailable Unavailable Xochitl Machado MD Unavailable [phone] Reason for Visit * Reason Onset Date Comments Lens Grinder Apprentice Feedback 05/16/2019 Genetics Encounter Details Date Type Department Care Team Description 05/16/2019 Telephone Oncology/Hematology - [address] [address] Sabrina Cates MD Lens Grinder Apprentice Feedback (Genetics) Social History Tobacco Use Types [...] genetic testing that was ordered. [facility] Authorization: [id number] 05/16/2019-08/15/2019 A copy of the [facility] Authorization Letter was faxed to [employer] at [phone]. Please have a member of your staff contact this patient to have their labs drawn. Thank you, [facility] Referrals Bobbin Washer [facility] Referrals Department * Telephone Encounter - Darian Mcrae - 05/16/2019 9:34 AM EST Standardized Prior Authorization Request form completed and faxed to [facility] Case Management for reviewwith last office note and lab order. Awaiting response. 05/16/2019 documented in this encounter Plan of Treatment Not on file documented as of this encounter Visit Diagnoses Not on filedocumented in this encounter Care Teams Stock Worker And Deliverer Relationship Specialty Start Date End Date Naun Garcia MD PCP - General Internal Medicine 10/27/13 10/27/21 [facility] Pcp PCP - General Internal Medicine 10/28/21 11/27/21 Naun Garcia MD PCP - General Internal Medicine 11/28/21 12/13/21 Ольга Jewell MD [address] [place] [address] PCP - General Internal Medicine 12/14/21 Rhoda Rangel MD [address] [place], [place] Referring Physician Allergy & Immunology 06/16/22 Brenden Villa DPM [address] [address] Podiatry 06/16/22 Piedad Bowens MD [address] [address] ORTHOPEDICS 06/16/22 Marcos Weiss DO [address] [address] Specialist Physiatry 12/15/22 Xochitl Machado MD [address] [address] Sports Medicine Int Med 12/15/22 Peter Cummings Specialist Gastroenterology 06/16/22 Evi Carpio Specialist PSYCHIATRY 06/16/22 elder duke Specialist Optometry 12/18/23 documented as of this encounter
--- OUTSIDE RECORDS SUMMARY | 2024-10-14 12:56 | XMS_ITS | Encounter Summary ---
Author Organization [facility] Address [address] [place] [address] Care Team Providers Care Slitter And Rewinder Name Role Phone Naun Garcia MD Primary Care Provider Unavail able [facility], [facility] Primary Care Provider Unavailabl Naun Artis MD Primary Care Provider Unavail able Ольга Jewell MD Primary Care Provider Rhoda Rangel MD Unavailable Unavailable Brenden Villa DPM Unavailable [phone] Piedad Bowens MD Unavailable [phone] Marcos Weiss DO Unavailable Unavailable Xochitl Machado MD Unavailable [phone] Encounter Details Date Type Department Care Team Description 02/06/2017 [facility] Medical Records [address] [place] [address] Abstract, Provider Social History Tobacco Use Types [...] on filedocumented in this encounter Care Teams Slitter And Rewinder Relationship Specialty Start Date End Date Naun Garcia MD PCP - General Internal Medicine 10/27/13 10/27/21 [facility], Pcp PCP - General Internal Medicine 10/28/21 11/27/21 Naun Garcia MD PCP - General Internal Medicine 11/28/21 12/13/21 Ольга Jewell MD [address] [place] [address] PCP - General Internal Medicine 12/14/21 Rhoda Rangel MD [address] [place] [address] Referring Physician Allergy & Immunology 06/16/22 Brenden Villa DPM [address] [address] Podiatry 06/16/22 Piedad Bowens MD [address] [address] ORTHOPEDICS 06/16/22 Marcos Weiss DO [address] [address] Specialist Physiatry 12/15/22 Xochitl Machado MD [address] [address] Sports Medicine Int Med 12/15/22 Peter Cummings Specialist Gastroenterology 06/16/22 Evi Carpio Specialist PSYCHIATRY 06/16/22 elder duke Specialist Optometry 12/18/23 documented as of this encounter
--- OUTSIDE RECORDS SUMMARY | 2024-10-14 12:56 | XMS_ITS | Encounter Summary ---
Author Organization [facility] Address [address] [place] [address] Care Team Providers Care Refrigerating Machine Operator Name Role Phone Naun Garcia MD Primary Care Provider Unavail able [facility], Pcp Primary Care Provider Unavailabl e Naun Garcia MD Primary Care Provider Unavail able Ольга Jewell MD Primary Care Provider Rhoda Rangel MD Unavailable Unavailable Brenden Villa DPM Unavailable [phone] Piedad Bowens MD Unavailable [phone] Marcos Weiss DO Unavailable Unavailable Xochitl Machado MD Unavailable [phone] Reason for Visit * Reason Onset Date Comments refill request 02/14/2019 Encounter Details Date Type Department Care Team Description 02/14/2019 Refill Allergy [facility] [address] [place] [address] Rhoda Rangel MD refill request Social History Tobacco Use [...] encounter Miscellaneous Notes * Telephone Encounter - Tami Bailey M.A. - 02/17/2019 8:42 AM EDT Last appt: 12/03/18 Next appt: 07/02/2019 Last fill: 07/03/18 * Telephone Encounter - Kelly Doss - 02/14/2019 2:15 PM EDT Patient would like script to be: E-PRESCRIBED/FAXED TO PHARMACY WHEN WAS THE PATIENT'S LAST APPOINTMENT IN ADULT MEDICINE? 12.03.18 WHEN WAS THE LAST TIME THE PATIENT SAW THEIR PCP? Same as above Does patient have an upcoming appointment? Yes 07.02.19 (THE MEDICATION REQUESTED IS ON THE MED LIST ABOVE) All of the medications requested were on the CURRENT MEDS list Did you check the Pharmacy information above?: YES Patient wants: 30 -day supply Is this a mail order prescription request ? NO If the refill is from a FAXED refill request what is the RX # listed on the fax? N/A Patients current insurance carrier is: [facility] / Plan: [facility] / Product Type: MEDICAID RISK documented in this encounter Plan of Treatment Not on file documented as of this encounter Visit Diagnoses Not on filedocumented in this encounter Care Teams Refrigerating Machine Operator Relationship Specialty Start Date End Date Naun Garcia MD PCP - General Internal Medicine 10/27/13 10/27/21 [facility], Pcp PCP - General Internal Medicine 10/28/21 11/27/21 Naun Garcia MD PCP - General Internal Medicine 11/28/21 12/13/21 Ольга Jewell MD [address] [place] [address] PCP - General Internal Medicine 12/14/21 Rhoda Rangel MD [address] [place] [address] Referring Physician Allergy & Immunology 06/16/22 Brenden Villa DPM [address] [address] Podiatry 06/16/22 Piedad Bowens MD [address] [address] ORTHOPEDICS 06/16/22 Marcos Weiss DO [address] [address] Specialist Physiatry 12/15/22 Xochitl Machado MD [address] [address] Sports Medicine Int Med 12/15/22 Peter Cummings Specialist Gastroenterology 06/16/22 Evi Carpio Specialist PSYCHIATRY 06/16/22 elder duke Specialist Optometry 12/18/23 documented as of this encounter
--- OUTSIDE RECORDS SUMMARY | 2024-10-14 12:56 | XMS_ITS | Encounter Summary ---
Author Organization [facility] Address [address] [place] [address] Care Team Providers Care Clinical Reviewer Name Role Phone Naun Garcia MD Primary Care Provider Unavail able [facility], Pcp Primary Care Provider Unavailabl e Naun Garcia MD Primary Care Provider Unavail able Ольга Jewell MD Primary Care Provider Rhoda Rangel MD Unavailable Unavailable Brenden Villa DPM Unavailable [phone] Piedad Bowens MD Unavailable [phone] Marcso Weiss DO Unavailable Unavailable Xochitl Machado MD Unavailable [phone] Encounter Details Date Type Department Care Team Description 10/19/2021 Childcare Provider Report Medical Records [address] [place] [address] Alex Gonzales MD Social History Tobacco Use Types Packs/Day [...] filedocumented in this encounter Care Teams Clinical Reviewer Relationship Specialty Start Date End Date Naun Garcia MD PCP - General Internal Medicine 10/27/13 10/27/21 [facility] PCP - General Internal Medicine 10/28/21 11/27/21 Naun Garcia MD PCP - General Internal Medicine 11/28/21 12/13/21 Ольга Jewell MD [address] [place] [address] PCP - General Internal Medicine 12/14/21 Rhoda Rangel MD [address] [place] [address] Referring Physician Allergy & Immunology 06/16/22 Brenden Villa DPM [address] [address] Podiatry 06/16/22 Piedad Bowens MD [address] [address] ORTHOPEDICS 06/16/22 Marcos Weiss DO [address] [address] Specialist Physiatry 12/15/22 Xochitl Machado MD [address] [address] Sports Medicine Int Med 12/15/22 Peter Cummings Specialist Gastroenterology 06/16/22 Evi Carpio Specialist PSYCHIATRY 06/16/22 elder duke Specialist Optometry 12/18/23 documented as of this encounter
--- OUTSIDE RECORDS SUMMARY | 2024-10-14 12:56 | XMS_ITS | Encounter Summary ---
Author Organization [facility] Address [address] [place] [address] Care Team Providers Care Speech And Language Clinician Name Role Phone Naun Garcia MD Primary Care Provider Unavail able [facility], [facility] Primary Care Provider Unavailabl e Naun Garcia MD Primary Care Provider Unavail able Ольга Jewell MD Primary Care Provider Rhoda Rangel MD Unavailable Unavailable Brenden Villa DPM Unavailable [phone] Piedad Bowens MD Unavailable [phone] Marcos Weiss DO Unavailable Unavailable Xochitl Machado MD Unavailable [phone] Encounter Details Date Type Department Care Team Description 06/23/2014 Transfer Records Medical Records [address] [place] [address] Abstract, Provider Social History Tobacco Use Types [...] on filedocumented in this encounter Care Teams Speech And Language Clinician Relationship Specialty Start Date End Date Naun Garcia MD PCP - General Internal Medicine 10/27/13 10/27/21 [facility], [facility] PCP - General Internal Medicine 10/28/21 11/27/21 Naun Garcia MD PCP - General Internal Medicine 11/28/21 12/13/21 Ольга Jewell MD [address] [place] [address] PCP - General Internal Medicine 12/14/21 Rhoda Rangel MD [address] [place] [address] Referring Physician Allergy & Immunology 06/16/22 Brenden Villa DPM [address] [address] Podiatry 06/16/22 Piedad Bowens MD [address] [address] ORTHOPEDICS 06/16/22 Marcos Weiss DO [address] [address] Specialist Physiatry 12/15/22 Xochitl Machado MD [address] [address] Sports Medicine Int Med 12/15/22 Peter Cummings Specialist Gastroenterology 06/16/22 Evi Carpio Specialist PSYCHIATRY 06/16/22 elder duke Specialist Optometry 12/18/23 documented as of this encounter
--- OUTSIDE RECORDS SUMMARY | 2024-10-14 12:56 | XMS_ITS | Encounter Summary ---
Author Organization [facility] Address [address] [place] [address] Care Team Providers Care Oil Field Equipment Mechanic Name Role Phone Naun Garcia MD Primary Care Provider Unavail able [facility], [facility] Primary Care Provider Unavailabl Naun Artis MD Primary Care Provider Unavail able Ольга Jewell MD Primary Care Provider Rhoda Rangel MD Unavailable Unavailable Brenden Villa DPM Unavailable [phone] Piedad Bowens MD Unavailable [phone] Marcos Weiss DO Unavailable Unavailable Xochitl Machado MD Unavailable [phone] Encounter Details Date Type Department Care Team Description 03/09/2017 [facility] Medical Records [address] [place] [address] Abstract, Provider Social History Tobacco Use Types [...] on filedocumented in this encounter Care Teams Oil Field Equipment Mechanic Relationship Specialty Start Date End Date Naun Garcia MD PCP - General Internal Medicine 10/27/13 10/27/21 [facility], Pcp PCP - General Internal Medicine 10/28/21 11/27/21 Naun Garcia MD PCP - General Internal Medicine 11/28/21 12/13/21 Ольга Jewell MD [address] [place] [address] PCP - General Internal Medicine 12/14/21 Rhoda Rangel MD [address] [place] [address] Referring Physician Allergy & Immunology 06/16/22 Brenden Vlila DPM [address] [address] Podiatry 06/16/22 Piedad Bowens MD [address] [address] ORTHOPEDICS 06/16/22 Marcos Weiss DO [address] [address] Specialist Physiatry 12/15/22 Xochitl Machado MD [address] [address] Sports Medicine Int Med 12/15/22 Peter Cummings Specialist Gastroenterology 06/16/22 Evi Carpio Specialist PSYCHIATRY 06/16/22 elder duke Specialist Optometry 12/18/23 documented as of this encounter
--- OUTSIDE RECORDS SUMMARY | 2024-10-14 12:56 | XMS_ITS | Encounter Summary ---
Author Organization [facility] Address [address] [place] [address] Care Team Providers Care Tile Roofer Name Role Phone Ольга Jewell MD Primary Care Provider Rhoda Rangel MD Unavailable Unavailable Brenden Villa DPM Unavailable [phone] Piedad Bowens MD Unavailable [phone] Marcos Weiss DO Unavailable Unavailable Xochitl Machado MD Unavailable [phone] Reason for Visit * Reason Comments E-prescribe Rx Request Encounter Details Date Type Department Care Team Description 07/13/2022 Refill Adult Medicine A - [place] [address] [place] [address] Peter Cummings PA-C 175 [facility] [address] [place] [address] E-prescribe Rx Request Social History Tobacco Use [...] on filedocumented in this encounter Care Teams Tile Roofer Relationship Specialty Start Date End Date Ольга Jewell MD [address] [place] [address] PCP - General Internal Medicine 12/14/21 Rhoda Rangel MD [address] [place] [address] Referring Physician Allergy & Immunology 06/16/22 Brenden Villa DPM [address] [address] Podiatry 06/16/22 Piedad Bowens MD [address] [address] ORTHOPEDICS 06/16/22 Marcos Weiss DO [address] [address] Specialist Physiatry 12/15/22 Xochitl Machado MD [address] [address] Sports Medicine Int Med 12/15/22 Peter Cummings Specialist Gastroenterology 06/16/22 Evi Carpio Specialist PSYCHIATRY 06/16/22 elder duke Specialist Optometry 12/18/23 documented as of this encounter
--- OUTSIDE RECORDS SUMMARY | 2024-10-14 12:56 | XMS_ITS | Encounter Summary ---
Author Organization [facility] Address [address] [place] [address] Care Team Providers Care Head Of Research & Insights Name Role Phone Naun Garcia MD Primary Care Provider Unavail able [facility], Pcp Primary Care Provider Unavailabl Naun Artis MD Primary Care Provider Unavail able Ольга Jewell MD Primary Care Provider Rhoda Rangel MD Unavailable Unavailable Brenden Villa DPM Unavailable [phone] Piedad Bowens MD Unavailable [phone] Marcos Weiss DO Unavailable Unavailable Xochitl Machado MD Unavailable [phone] Encounter Details Date Type Department Care Team Description 08/11/2019 Hospital Medical Records [address] [place] [address] Sherry Barksdale MD Social History Tobacco Use [...] on filedocumented in this encounter Care Teams Head Of Research & Insights Relationship Specialty Start Date End Date Naun Garcia MD PCP - General Internal Medicine 10/27/13 10/27/21 [facility], Pcp PCP - General Internal Medicine 10/28/21 11/27/21 Naun Garcia MD PCP - General Internal Medicine 11/28/21 12/13/21 Ольга Jewell MD [address] [place] [address] PCP - General Internal Medicine 12/14/21 Rhoda Rangel MD [address] [place] [address] Referring Physician Allergy & Immunology 06/16/22 Brenden Villa DPM [address] [address] Podiatry 06/16/22 Piedad Bowens MD [address] [address] ORTHOPEDICS 06/16/22 Marcos Weiss DO [address] [address] Specialist Physiatry 12/15/22 Xochitl Machado MD [address] [address] Sports Medicine Int Med 12/15/22 Peter Cummings Specialist Gastroenterology 06/16/22 Evi Carpio Specialist PSYCHIATRY 06/16/22 elder duke Specialist Optometry 12/18/23 documented as of this encounter
--- OUTSIDE RECORDS SUMMARY | 2024-10-14 12:56 | XMS_ITS | Encounter Summary ---
Author Organization [facility] Address [address] [place] [address] Care Team Providers Care Taxonomy Teacher Name Role Phone Naun Garcia MD Primary Care Provider Unavail able [facility], [facility] Primary Care Provider Unavailabl Naun Artis MD Primary Care Provider Unavail able Ольга Jewell MD Primary Care Provider [phone] Rhoda Rangel MD Unavailable Unavailable Brenden Villa DPM Unavailable [phone] Piedad Bowens MD Unavailable [phone] Marcos Weiss DO Unavailable Unavailable Xochitl Machado MD Unavailable [phone] Encounter Details Date Type Department Care Team Description 10/23/2018 Environmental Protection Specialist Report Medical Records [address] [place] [address] Reginald Laureano MD Social History Tobacco Use [...] on filedocumented in this encounter Care Teams Taxonomy Teacher Relationship Specialty Start Date End Date Naun Garcia MD PCP - General Internal Medicine 10/27/13 10/27/21 [facility] PCP - General Internal Medicine 10/28/21 11/27/21 Naun Garcia MD PCP - General Internal Medicine 11/28/21 12/13/21 Ольга Jewell MD [address] [place] [address] PCP - General Internal Medicine 12/14/21 Rhoda Rangel MD [address] [place] [address] Referring Physician Allergy & Immunology 06/16/22 Brenden Villa DPM [address] [address] Podiatry 06/16/22 Piedad Bowens MD [address] [address] ORTHOPEDICS 06/16/22 Marcos Weiss DO [address] [address] Specialist Physiatry 12/15/22 Xochitl Machado MD [address] [address] Sports Medicine Int Med 12/15/22 Peter Cummings Specialist Gastroenterology 06/16/22 Evi Carpio Specialist PSYCHIATRY 06/16/22 elder duke Specialist Optometry 12/18/23 documented as of this encounter
--- OUTSIDE RECORDS SUMMARY | 2024-10-14 12:56 | XMS_ITS | Encounter Summary ---
Author Organization [facility] Address [address] [place] [address] Care Team Providers Care Event Coordinator Name Role Phone Ольга Jewell MD Primary Care Provider [phone] Rhoda Rangel MD Unavailable Unavailable Brenden Villa DPM Unavailable [phone] Piedad Bowens MD Unavailable [phone] Marcos Weiss DO Unavailable Unavailable Xochitl Machado MD Unavailable [phone] Encounter Details Date Type Department Care Team Description 12/01/2022 Band And Cuff Cutter Report Medical Records [address] [place] [address] Marcos Weiss DO Social History Tobacco Use [...] suspected to have Coronavirus/COVID-19? No / Unsure 11/29/2022 7:44 AM EDT documented as of this encounter Plan of Treatment Not on file documented as of this encounter Visit Diagnoses Not on filedocumented in this encounter Care Teams Event Coordinator Relationship Specialty Start Date End Date Ольга Jewell MD [address] [place] [address] PCP - General Internal Medicine 12/14/21 Rhoda Rangel MD [address] [place] [address] Referring Physician Allergy & Immunology 06/16/22 Brenden Villa DPM [address] [address] Podiatry 06/16/22 Piedad Bowens MD [address] [address] ORTHOPEDICS 06/16/22 Marcos Weiss DO [address] [address] Specialist Physiatry 12/15/22 Xochitl Machado MD [address] [address] Sports Medicine Int Med 12/15/22 Peter Cummings Specialist Gastroenterology 06/16/22 Evi Carpio Specialist PSYCHIATRY 06/16/22 elder duke Specialist Optometry 12/18/23 documented as of this encounter
--- OUTSIDE RECORDS SUMMARY | 2024-10-14 12:56 | XMS_ITS | Encounter Summary ---
Author Organization [facility] Address [address] [place] [address] Care Team Providers Care Director Dietetics Department Name Role Phone Naun Garcia MD Primary Care Provider Unavail able [facility], [facility], [facility] Primary Care Provider Unavailabl Naun Artis MD Primary Care Provider Unavail able Ольга Jewell MD Primary Care Provider Rhoda Rangel MD Unavailable Unavailable Brenden Villa DPM Unavailable [phone] Piedad Bowens MD Unavailable [phone] Marcos Weiss DO Unavailable Unavailable Xochitl Machado MD Unavailable [phone] Encounter Details Date Type Department Care Team Description 12/25/2016 Vice President Corporate Communications Report Medical Records [address] [place] [address] Michael Horn Social History Tobacco Use Types [...] on filedocumented in this encounter Care Teams Director Dietetics Department Relationship Specialty Start Date End Date Naun Garcia MD PCP - General Internal Medicine 5/19/14 5/19/22 [facility], [facility], Pcp PCP - General Internal Medicine 10/28/21 11/27/21 Naun Garcia MD PCP - General Internal Medicine 11/28/21 12/13/21 Ольга Jewell MD [address] [place] [address] PCP - General Internal Medicine 12/14/21 Rhoda Rangel MD [address] [place] [address] Referring Physician Allergy & Immunology 06/16/22 Brenden Villa DPM [address] [address] Podiatry 06/16/22 Piedad Bowens MD [address] [address] ORTHOPEDICS 06/16/22 Marcos Weiss DO [address] [address] Specialist Physiatry 12/15/22 Xochitl Machado MD [address] [address] Sports Medicine Int Med 12/15/22 Peter Cummings Specialist Gastroenterology 06/16/22 Evi Carpio Specialist PSYCHIATRY 06/16/22 elder duke Specialist Optometry 12/18/23 documented as of this encounter
--- OUTSIDE RECORDS SUMMARY | 2024-10-14 12:56 | XMS_ITS | Encounter Summary ---
Author Organization [facility] Address [address] [place] [address] Care Team Providers Care Office Bookkeeper Name Role Phone Ольга Jewell MD Primary Care Provider [phone] Rhoda Rangel MD Unavailable Unavailable Brenden Villa DPM Unavailable [phone] Piedad Bowens MD Unavailable [phone] Marcos Weiss DO Unavailable Unavailable Xochitl Machado MD Unavailable [phone] Reason for Visit * Reason Onset Date Comments Provider Call Back 07/27/2022 Knee pain Encounter Details Date Type Department Care Team Description 07/27/2022 Telephone [facility] Medical [facility] 175 [facility] [address] [place] [id number] Kiah Aparicio APRN Provider Call Back (Knee [...] is not eligible for cortisone intil August [phone] documented in this encounter Plan of Treatment Not on file documented as of this encounter Visit Diagnoses Not on filedocumented in this encounter Care Teams Office Bookkeeper Relationship Specialty Start Date End Date Ольга Jewell MD [address] [place] [address] PCP - General Internal Medicine 12/14/21 Rhoda Rangel MD [address] [place] [address] Referring Physician Allergy & Immunology 06/16/22 Brenden Villa DPM [address] [address] Podiatry 06/16/22 Piedad Bowens MD [address] [address] ORTHOPEDICS 06/16/22 Marcos Weiss DO [address] [address] Specialist Physiatry 12/15/22 Xochitl Machado MD [address] [address] Sports Medicine Int Med 12/15/22 Peter Cummings Specialist Gastroenterology 06/16/22 Evi Carpio Specialist PSYCHIATRY 06/16/22 elder duek Specialist Optometry 12/18/23 documented as of this encounter
--- OUTSIDE RECORDS SUMMARY | 2024-10-14 12:56 | XMS_ITS | Encounter Summary ---
Author Organization [facility] Address [address] [place] [address] Care Team Providers Care Rail Filler Name Role Phone Naun Garcia MD Primary Care Provider Unavail able [facility], Pcp Primary Care Provider Unavailabl e Naun Garcia MD Primary Care Provider Unavail able Ольга Jewell MD Primary Care Provider Rhoda Rangel MD Unavailable Unavailable Brenden Villa DPM Unavailable [phone] Piedad Bowens MD Unavailable [phone] Marcos Weiss DO Unavailable Unavailable Xochitl Machado MD Unavailable [phone] Reason for Visit * Reason Comments E-prescribe Rx Request Encounter Details Date Type Department Care Team Description 12/02/2018 [facility] General Surgery - [address] [place] [address] Dawn Arciniega MD [address] [place] [address] [address] [place], [place] [id number] E-prescribe Rx Request Social History Tobacco Use Types Packs/Day Years Used Date Smoking Tobacco: Former Cigarettes 1 Q uit: 06/11/2003 Smokeless Tobacco: Never Comments:3 cigs daily Alcohol Use Standard Drinks/Week Comments Yes 0 (1 standard drink = 0.6 oz pur e alcohol) occasional Sex Assigned at Date Recorded Female 04/25/2019 2:18 PM EST Job Start Date Occupation Industry Not on file Not on file Not on file documented as of this encounter Miscellaneous Notes * Telephone Encounter - Brittany Allen M.A. - 12/03/2018 9:03 AM EDT Please advise documented in this encounter Plan of Treatment Not on file documented as of this encounter Visit Diagnoses Not on filedocumented in this encounter Care Teams Rail Filler Relationship Specialty Start Date End Date Naun Garcia MD PCP - General Internal Medicine 10/27/13 10/27/21 [facility] PCP - General Internal Medicine 10/28/21 11/27/21 Naun Garcia MD PCP - General Internal Medicine 11/28/21 12/13/21 Ольга Jewell MD [address] [place] [address] PCP - General Internal Medicine 12/14/21 Rhoda Rangel MD [address] [place] [address] Referring Physician Allergy & Immunology 06/16/22 Brenden Villa DPM [address] [address] Podiatry 06/16/22 Piedad Bowens MD [address] [address] ORTHOPEDICS 06/16/22 Marcos Weiss DO [address] [facility] [address] [address] Specialist Physiatry 12/15/22 Xochitl Machado MD [address] [address] Sports Medicine Int Med 12/15/22 Peter Cummings Specialist Gastroenterology 06/16/22 Evi Carpio Specialist PSYCHIATRY 06/16/22 elder duke Specialist Optometry 12/18/23 documented as of this encounter
--- OUTSIDE RECORDS SUMMARY | 2024-10-14 12:56 | XMS_ITS | Encounter Summary ---
Author Organization [facility] Address [address] [place] [address] Care Team Providers Care Straw Hat Brim Cutter Operator Name Role Phone Naun Garcia MD Primary Care Provider Unavail able [facility], Pcp Primary Care Provider Unavailabl Naun Artis MD Primary Care Provider Unavail able Ольга Jewell MD Primary Care Provider [phone] Rhoda Rangel MD Unavailable Unavailable Brenden Villa DPM Unavailable [phone] Piedad Bowens MD Unavailable [phone] Marcos Weiss DO Unavailable Unavailable Xochitl Machado MD Unavailable [phone] Encounter Details Date Type Department Care Team Description 05/01/2014 Hospital Medical Records [address] [place] [address] Sonja Bains MD Social History Tobacco Use [...] on filedocumented in this encounter Care Teams Straw Hat Brim Cutter Operator Relationship Specialty Start Date End Date Naun Garcia MD PCP - General Internal Medicine 10/27/13 10/27/21 [facility], Pcp PCP - General Internal Medicine 10/28/21 11/27/21 Naun Garcia MD PCP - General Internal Medicine 11/28/21 12/13/21 Ольга Jewell MD [address] [place] [address] PCP - General Internal Medicine 12/14/21 Rhoda Rangel MD [address] [place] [address] Referring Physician Allergy & Immunology 06/16/22 Brenden Villa DPM [address] [address] Podiatry 06/16/22 Piedad Bowens MD [address] [address] ORTHOPEDICS 06/16/22 Marcos Weiss DO [address] [address] Specialist Physiatry 12/15/22 Xochitl Machado MD [address] [address] Sports Medicine Int Med 12/15/22 Peter Cummings Specialist Gastroenterology 06/16/22 Evi Carpio Specialist PSYCHIATRY 06/16/22 elder duke Specialist Optometry 12/18/23 documented as of this encounter
--- OUTSIDE RECORDS SUMMARY | 2024-10-14 12:56 | XMS_ITS | Encounter Summary ---
Author Organization [facility] Address [address] [place] [address] Care Team Providers Care Outreach And Education Social Worker Name Role Phone Naun Garcia MD Primary Care Provider Unavail able [facility], Pcp Primary Care Provider Unavailabl e Naun Garcia MD Primary Care Provider Unavail able Ольга Jewell MD Primary Care Provider Rhoda Rangel MD Unavailable Unavailable Brenden Villa DPM Unavailable [phone] Piedad Bowens MD Unavailable [phone] Marcos Weiss DO Unavailable Unavailable Xochitl Machado MD Unavailable [phone] Encounter Details Date Type Department Care Team Description 04/27/2021 Pt. Non Urgent Medical Question Medicine/Pediatrics - [address] [phone] Naun Garcia MD Social History Tobacco Use [...] have Coronavirus / COVID-19? No / Unsure 04/01/2021 10:22 AM EDT documented as of this encounter Miscellaneous Notes * Telephone Encounter - Preeti Redman L.P.N. - 04/27/2021 4:57 PM EST Spoke with pt, states she has a swollen area just below her lower jaw bone near her ear, states shehas a sour candy and that's when it started, states it hurts. Appointment scheduled, patient aware,advised warm compress, push water, advised if it becomes too swollen or too painful that she is to seek care immediately. Pt agrees * Telephone Encounter - Lori Keller M.A. - 04/27/2021 3:45 PM ESTFrom: Deisy Muhammad To: Bob Garcia Sent: 04/27/2021 3:44 PM EST Subject: Pain in Jaw Hello I have pains and a knot on the right of my jaw. It's okay I ate a sour patch candy. documented in this encounter Plan of Treatment Not on file documented as of this encounter Visit Diagnoses Not on filedocumented in this encounter Care Teams Outreach And Education Social Worker Relationship Specialty Start Date End Date Naun Garcia MD PCP - General Internal Medicine 10/27/13 10/27/21 [facility] PCP - General Internal Medicine 10/28/21 11/27/21 Naun Garcia MD PCP - General Internal Medicine 11/28/21 12/13/21 Ольга Jewell MD [address] [place] [address] PCP - General Internal Medicine 12/14/21 Rhoda Rangel MD [address] [place], [place] Referring Physician Allergy & Immunology 06/16/22 Brenden Villa DPM [address] [address] Podiatry 06/16/22 Piedad Bowens MD [address] [address] ORTHOPEDICS 06/16/22 Marcos Weiss DO [address] [address] Specialist Physiatry 12/15/22 Xochitl Machado MD [address] [address] Sports Medicine Int Med 12/15/22 Peter Cummings Specialist Gastroenterology 06/16/22 Evi Carpio Specialist PSYCHIATRY 06/16/22 elder duke Specialist Optometry 12/18/23 documented as of this encounter
--- OUTSIDE RECORDS SUMMARY | 2024-10-14 12:56 | XMS_ITS | Encounter Summary ---
Author Organization [facility] Address [address] [place] [address] Care Team Providers Care Cleaning Crew Member Name Role Phone Naun Garcia MD Primary Care Provider Unavail able [facility], Pcp Primary Care Provider Unavailabl e Naun Garcia MD Primary Care Provider Unavail able Ольга Jewell MD Primary Care Provider Rhoda Rangel MD Unavailable Unavailable Brenden Villa DPM Unavailable [phone] Piedad Bowens MD Unavailable [phone] Marcos Weiss DO Unavailable Unavailable Xochitl Machado MD Unavailable [phone] Encounter Details Date Type Department Care Team Description 11/06/2018 Telephone Adult [address] [id number] Naun Garcia MD Social History Tobacco Use [...] on filedocumented in this encounter Care Teams Cleaning Crew Member Relationship Specialty Start Date End Date Naun Garcia MD PCP - General Internal Medicine 10/27/13 10/27/21 [facility], [facility] PCP - General Internal Medicine 10/28/21 11/27/21 Naun Garcia MD PCP - General Internal Medicine 11/28/21 12/13/21 Ольга Jewell MD [address] [place] [address] PCP - General Internal Medicine 12/14/21 Rhoda Rangel MD [address] [place] [address] Referring Physician Allergy & Immunology 06/16/22 Brenden Villa DPM [address] [address] Podiatry 06/16/22 Piedad Bowens MD [address] [address] ORTHOPEDICS 06/16/22 Marcos Weiss DO [address] [address] Specialist Physiatry 12/15/22 Xochitl Machado MD [address] [address] Sports Medicine Int Med 12/15/22 Peter Cummings Specialist Gastroenterology 06/16/22 Evi Carpio Specialist PSYCHIATRY 06/16/22 elder duke Specialist Optometry 12/18/23 documented as of this encounter
--- OUTSIDE RECORDS SUMMARY | 2024-10-14 12:56 | XMS_ITS | Encounter Summary ---
Author Organization [facility] Address [address] [place] [address] Care Team Providers Care Ichthyology Teacher Name Role Phone Ольга Jewell MD Primary Care Provider Rhoda Rangel MD Unavailable Unavailable Brenden Villa DPM Unavailable [phone] Piedad Bowens MD Unavailable [phone] Marcos Weiss DO Unavailable Unavailable Xochitl Machado MD Unavailable [phone] Reason for Visit * Reason Onset Date Comments Medication Injection, Joint 07/26/2022 [facility] Encounter Details Date Type Department Care Team Description 07/26/2022 Telephone [facility] 175 [facility] [address] [place] [address] Garcia Sweeney MD 175 [facility] [address] [place], [place] [id number] Medication Injection, Joint (DUROLANE) Social History Tobacco Use Types Packs/Day Years [...] encounter Miscellaneous Notes * Telephone Encounter - Cassia Enriquez M.A. - 07/26/2022 2:53 PM EST Benefits investigation has been started for Alivia.. documented in this encounter Plan of Treatment Not on file documented as of this encounter Visit Diagnoses Not on filedocumented in this encounter Care Teams Ichthyology Teacher Relationship Specialty Start Date End Date Ольга Jewell MD [address] [place] [address] PCP - General Internal Medicine 12/14/21 Rhoda Rangel MD [address] [place] [address] Referring Physician Allergy & Immunology 06/16/22 Brenden Villa DPM [address] [address] Podiatry 06/16/22 Piedad Bowens MD [address] [address] ORTHOPEDICS 06/16/22 Marcos Weiss DO [address] [address] Specialist Physiatry 12/15/22 Xochitl Machado MD [address] [address] Sports Medicine Int Med 12/15/22 Peter Cummings Specialist Gastroenterology 06/16/22 Evi Carpio Specialist PSYCHIATRY 06/16/22 elder duke Specialist Optometry 12/18/23 documented as of this encounter
--- OUTSIDE RECORDS SUMMARY | 2024-10-14 12:56 | XMS_ITS | Encounter Summary ---
Author Organization [facility] Address [address] [place] [address] Care Team Providers Care Lithograph Press Feeder Name Role Phone Naun Garcia MD Primary Care Provider Unavail able [facility], [facility] Primary Care Provider Unavailabl Naun Artis MD Primary Care Provider Unavail able Ольга Jewell MD Primary Care Provider Rhoda Rangel MD Unavailable Unavailable Brenden Villa DPM Unavailable [phone] Piedad Bowens MD Unavailable [phone] Marcos Weiss DO Unavailable Unavailable Xochitl Machado MD Unavailable [phone] Encounter Details Date Type Department Care Team Description 11/13/2018 [facility] Coordinator Report Medical Records [address] [place] [address] Irvin Stanford MD Social History Tobacco Use Types Packs/Day [...] on filedocumented in this encounter Care Teams Lithograph Press Feeder Relationship Specialty Start Date End Date Naun Garcia MD PCP - General Internal Medicine 10/27/13 10/27/21 [facility], Pcp PCP - General Internal Medicine 10/28/21 11/27/21 Naun Garcia MD PCP - General Internal Medicine 11/28/21 12/13/21 Ольга Jewell MD [address] [place] [address] PCP - General Internal Medicine 12/14/21 Rhoda Rangel MD [address] [place] [address] Referring Physician Allergy & Immunology 06/16/22 Brenden Villa DPM [address] [address] Podiatry 06/16/22 Piedad Bowens MD [address] [address] ORTHOPEDICS 06/16/22 Marcos Weiss DO [address] [address] Specialist Physiatry 12/15/22 Xochitl Machado MD [address] [address] Sports Medicine Int Med 12/15/22 Peter Cummings Specialist Gastroenterology 06/16/22 Evi Carpio Specialist PSYCHIATRY 06/16/22 elder duke Specialist Optometry 12/18/23 documented as of this encounter
--- OUTSIDE RECORDS SUMMARY | 2024-10-14 12:56 | XMS_ITS | Encounter Summary ---
Author Organization [facility] Address [address] [place] [address] Care Team Providers Care Generator Switchboard Operator Name Role Phone Naun Garcia MD Primary Care Provider Unavail able [facility], Pcp Primary Care Provider Unavailabl e Naun Garcia MD Primary Care Provider Unavail able Ольга Jewell MD Primary Care Provider Rhoda Rangel MD Unavailable Unavailable Brenden Villa DPM Unavailable [phone] Piedad Bowens MD Unavailable [phone] Marcos Weiss DO Unavailable Unavailable Xochitl Machado MD Unavailable [phone] Encounter Details Date Type Department Care Team Description 01/17/2019 Orders Only General Surgery [address] [place] [address] Cr Flaherty MD [address] [place] [address] Mammographic microcalcification Social History Tobacco Use Types [...] Procedure Name Priority Date/Time Associated Diagnosis Comments IA BX BREAST W/DEVICE 1ST LESION STEREOTACTIC GUID Routine 01/16/2019 Mammographic microcalcification documented in this encounter Results * BX BREAST W DEVICE 1ST LESION STEREOTACTIC GUIDE (01/16/2019) Cr Flaherty MD MAMMOGRAPHY documented in this encounter Visit Diagnoses Diagnosis Mammographic microcalcification documented in this encounter Care Teams Generator Switchboard Operator Relationship Specialty Start Date End Date Naun Garcia MD PCP - General Internal Medicine 10/27/13 10/27/21 [facility] PCP - General Internal Medicine 10/28/21 11/27/21 Naun Garcia MD PCP - General Internal Medicine 11/28/21 12/13/21 Ольга Jewell MD [address] [place] [address] PCP - General Internal Medicine 12/14/21 Rhoda Rangel MD [address] [place] [address] Referring Physician Allergy & Immunology 06/16/22 Brenden Villa DPM [address] [address] Podiatry 06/16/22 Piedad Bowens MD [address] [address] ORTHOPEDICS 06/16/22 Marcos Weiss DO [address] [address] Specialist Physiatry 12/15/22 Xochitl Machado MD [address] [address] Sports Medicine Int Med 12/15/22 Peter Cummings Specialist Gastroenterology 06/16/22 Evi Carpio Specialist PSYCHIATRY 06/16/22 elder duke Specialist Optometry 12/18/23 documented as of this encounter
--- OUTSIDE RECORDS SUMMARY | 2024-10-14 12:56 | XMS_ITS | Encounter Summary ---
Author Organization [facility] Address [address] [place] [address] Care Team Providers Care Double Needle Operator Lockstitch Name Role Phone Nuan Garcia MD Primary Care Provider Unavail able [facility], Pcp Primary Care Provider Unavailabl e Naun Garcia MD Primary Care Provider Unavail able Ольга Jewell MD Primary Care Provider Rhoda Rangel MD Unavailable Unavailable Brenden Villa DPM Unavailable Piedad Bowens MD Unavailable [phone] Marcos Weiss DO Unavailable Unavailable Xochitl Machado MD Unavailable [phone] Encounter Details Date Type Department Care Team Description 01/16/2019 Orders Only Medical Records [address] [place] [address] Abstract, Provider Social History Tobacco Use Types [...] on filedocumented in this encounter Care Teams Double Needle Operator Lockstitch Relationship Specialty Start Date End Date Naun Garcia MD PCP - General Internal Medicine 10/27/13 10/27/21 [facility] PCP - General Internal Medicine 10/28/21 11/27/21 Naun Garcia MD PCP - General Internal Medicine 11/28/21 12/13/21 Ольга Jewell MD [address] [place] [address] PCP - General Internal Medicine 12/14/21 Rhoda Rangel MD [address] [place] [address] Referring Physician Allergy & Immunology 06/16/22 Brenden Villa DPM [address] [address] Podiatry 06/16/22 Piedad Bowens MD [address] [address] ORTHOPEDICS 06/16/22 Marcos Weiss DO [address] [address] Specialist Physiatry 12/15/22 Xochitl Machado MD [address] [address] Sports Medicine Int Med 12/15/22 Peter Cummings Specialist Gastroenterology 06/16/22 Evi Carpio Specialist PSYCHIATRY 06/16/22 elder duke Specialist Optometry 12/18/23 documented as of this encounter
--- OUTSIDE RECORDS SUMMARY | 2024-10-14 12:56 | XMS_ITS | Encounter Summary ---
Author Organization [facility] Address [address] [place] [address] Care Team Providers Care Executive Housekeeper Name Role Phone Naun Garcia MD Primary Care Provider Unavail able [facility], Pcp Primary Care Provider Unavailabl e Naun Garcia MD Primary Care Provider Unavail able Ольга Jewell MD Primary Care Provider Rhoda Rangel MD Unavailable Unavailable Brenden Villa DPM Unavailable [phone] Piedad Bowens MD Unavailable [phone] Marcos Weiss DO Unavailable Unavailable Xochitl Machado MD Unavailable [phone] Reason for Visit * Reason Comments E-prescribe Rx Request Encounter Details Date Type Department Care Team Description 07/20/2014 Refill Medicine/Pediatrics [address] [id number] Naun Garcia MD E-prescribe Rx Request Social [...] Telephone Encounter - Roselia-Cyndee Goyal M.A. - 07/20/2014 3:03 PM EST Last office visit 1.23.154 Component Value Date ALB 4.0 11/04/2013 SGOT 13 11/04/2013 SGPT 10 11/04/2013 TBILI 0.5 11/04/2013 ALKPHOS 63 11/04/2013 TP 7.6 11/04/2013 * Telephone Encounter - Ailyn Simon - 07/20/2014 2:15 PM EST Patient would like script to be: E-PRESCRIBED/FAXED TO PHARMACY WHEN WAS THE PATIENT'S LAST APPOINTMENT IN ADULT MEDICINE? 07/03/14 WHEN WAS THE LAST TIME THE PATIENT SAW THEIR PCP? 06/16/14 Does patient have an upcoming appointment? Yes 08/14/14 (THE MEDICATION REQUESTED IS ON THE MED LIST ABOVE) All of the medications requested were on the CURRENT MEDS list Did you check the Pharmacy information above?: YES Patient wants: 30 -day supply Is this a mail order prescription request ? NO Patients current insurance carrier is: [place] / [place] / Product Type: [place] [id number] documented in this encounter Plan of Treatment Not on file documented as of this encounter Visit Diagnoses Not on filedocumented in this encounter Care Teams Executive Housekeeper Relationship Specialty Start Date End Date Naun Garcia MD PCP - General Internal Medicine 10/27/13 10/27/21 [facility] PCP - General Internal Medicine 10/28/21 11/27/21 Naun Garcia MD PCP - General Internal Medicine 11/28/21 12/13/21 Ольга Jewell MD [address] [place] [address] PCP - General Internal Medicine 12/14/21 Rhoda Rangel MD [address] [place] [address] Referring Physician Allergy & Immunology 06/16/22 Brenden Villa DPM [address] [address] Podiatry 06/16/22 Piedad Bowens MD [address] [address] ORTHOPEDICS 06/16/22 Marcos Weiss DO [address] [address] Specialist Physiatry 12/15/22 Xochitl Machado MD [address] [address] Sports Medicine Int Med 12/15/22 Peter Cummings Specialist Gastroenterology 06/16/22 Evi Carpio Specialist PSYCHIATRY 06/16/22 elder duke Specialist Optometry 12/18/23 documented as of this encounter
--- OUTSIDE RECORDS SUMMARY | 2024-10-14 12:56 | XMS_ITS | Encounter Summary ---
Author Organization [facility] Address [address] [place] [address] Care Team Providers Care Animal Control Officer Name Role Phone Naun Garcia MD Primary Care Provider Unavail able [facility], [facility] Primary Care Provider Unavailabl Naun Artis MD Primary Care Provider Unavail able Ольга Jewell MD Primary Care Provider Rhoda Rangel MD Unavailable Unavailable Brenden Villa DPM Unavailable [phone] Piedad Bowens MD Unavailable [phone] Marcos Weiss DO Unavailable Unavailable Xochitl Machado MD Unavailable [phone] Encounter Details Date Type Department Care Team Description 05/31/2017 [facility] Medical Records [address] [place] [address] Abstract, Provider Social History Tobacco Use Types [...] filedocumented in this encounter Care Teams Animal Control Officer Relationship Specialty Start Date End Date Naun Garcia MD PCP - General Internal Medicine 10/27/13 10/27/21 [facility], Pcp PCP - General Internal Medicine 10/28/21 11/27/21 Naun Garcia MD PCP - General Internal Medicine 11/28/21 12/13/21 Ольга Jewell MD [address] [place] [address] PCP - General Internal Medicine 12/14/21 Rhoda Rangel MD [address] [place] [address] Referring Physician Allergy & Immunology 06/16/22 Brenden Villa DPM [address] [address] Podiatry 06/16/22 Piedad Bowens MD [address] [address] ORTHOPEDICS 06/16/22 Marcos Weiss DO [address] [address] Specialist Physiatry 12/15/22 Xochitl Machado MD [address] [address] Sports Medicine Int Med 12/15/22 Peter Cummings Specialist Gastroenterology 06/16/22 Evi Carpio Specialist PSYCHIATRY 06/16/22 elder duke Specialist Optometry 12/18/23 documented as of this encounter
--- OUTSIDE RECORDS SUMMARY | 2024-10-14 12:56 | XMS_ITS | Encounter Summary ---
Author Organization [facility] Address [address] [place] [address] Care Team Providers Care Data Science And Iot Manager Name Role Phone Ольга Jewell MD Primary Care Provider Rhoda Rangel MD Unavailable Unavailable Brenden Villa DPM Unavailable [phone] Piedad Bowens MD Unavailable [phone] Marcos Weiss DO Unavailable Unavailable Xochitl Machado MD Unavailable [phone] Encounter Details Date Type Department Care Team Description 06/15/2022 Autistic Teacher Report Medical Records [address] [place] [address] Rhoda Rangel MD Social History Tobacco Use [...] suspected to have Coronavirus/COVID-19? No / Unsure 06/16/2022 1:29 PM EST documented as of this encounter Plan of Treatment Not on file documented as of this encounter Visit Diagnoses Not on filedocumented in this encounter Care Teams Data Science And Iot Manager Relationship Specialty Start Date End Date Ольга Jewell MD [address] [place] [address] PCP - General Internal Medicine 12/14/21 Rhoda Rangel MD [address] [place] [address] Referring Physician Allergy & Immunology 06/16/22 Brenden Villa DPM [address] [address] Podiatry 06/16/22 Piedad Bowens MD [address] [address] ORTHOPEDICS 06/16/22 Marcos Weiss DO [address] [address] Specialist Physiatry 12/15/22 Xochitl Machado MD [address] [address] Sports Medicine Int Med 12/15/22 Peter Cummings Specialist Gastroenterology 06/16/22 Evi Carpio Specialist PSYCHIATRY 06/16/22 elder duke Specialist Optometry 12/18/23 documented as of this encounter
--- OUTSIDE RECORDS SUMMARY | 2024-10-14 12:56 | XMS_ITS | Encounter Summary ---
Author Organization [facility] Address [address] [place] [address] Care Team Providers Care Technical Sourcing Recruiter Name Role Phone Naun Garcia MD Primary Care Provider Unavail able [facility], [facility] Primary Care Provider Unavailabl Naun Artis MD Primary Care Provider Unavail able Ольга Jewell MD Primary Care Provider Rhoda Rangel MD Unavailable Unavailable Brenden Villa DPM Unavailable Piedad Bowens MD Unavailable [phone] Marcos Weiss DO Unavailable Unavailable Xochitl Machado MD Unavailable [phone] Encounter Details Date Type Department Care Team Description 04/25/2017 [facility] Medical Records [address] [place] [address] Abstract, Provider Social History Tobacco Use Types [...] on filedocumented in this encounter Care Teams Technical Sourcing Recruiter Relationship Specialty Start Date End Date Naun Garcia MD PCP - General Internal Medicine 10/27/13 10/27/21 [facility], Pcp PCP - General Internal Medicine 10/28/21 11/27/21 Naun Garcia MD PCP - General Internal Medicine 11/28/21 12/13/21 Ольга eJwell MD [address] [place] [address] PCP - General Internal Medicine 12/14/21 Rhoda Rangel MD [address] [place] [address] Referring Physician Allergy & Immunology 06/16/22 Brenden Villa DPM [address] [address] Podiatry 06/16/22 Piedad Bowens MD [address] [address] ORTHOPEDICS 06/16/22 Marcos Weiss DO [address] [address] Specialist Physiatry 12/15/22 Xochitl Machado MD [address] [address] Sports Medicine Int Med 12/15/22 Peter Cummings Specialist Gastroenterology 06/16/22 Evi Carpio Specialist PSYCHIATRY 06/16/22 elder duke Specialist Optometry 12/18/23 documented as of this encounter
--- OUTSIDE RECORDS SUMMARY | 2024-10-14 12:56 | XMS_ITS | Encounter Summary ---
Author Organization [facility] Address [address] [place] [address] Care Team Providers Care Computer Project Manager Name Role Phone Naun Garcia MD Primary Care Provider Unavail able [facility], Pcp Primary Care Provider Unavailabl e Naun Garcia MD Primary Care Provider Unavail able Ольга Jewell MD Primary Care Provider Rhoda Rangel MD Unavailable Unavailable Brenden Villa DPM Unavailable [phone] Piedad Bowens MD Unavailable [phone] Marcos Weiss DO Unavailable Unavailable Xochitl Machado MD Unavailable [phone] Reason for Visit * Reason Comments E-prescribe Rx Request Encounter Details Date Type Department Care Team Description 07/14/2019 Refill General Surgery - [place] 175 [facility] [address] [place] [address] Dawn Arciniega MD [address] [place] [address] [address] [place], [place] [id number] E-prescribe Rx Request Social History Tobacco Use [...] on filedocumented in this encounter Care Teams Computer Project Manager Relationship Specialty Start Date End Date Naun Garcia MD PCP - General Internal Medicine 10/27/13 10/27/21 [facility] PCP - General Internal Medicine 10/28/21 11/27/21 Naun Garcia MD PCP - General Internal Medicine 11/28/21 12/13/21 Ольга Jewell MD [address] [place] [address] PCP - General Internal Medicine 12/14/21 Rhoda Rangel MD [address] [place] [address] Referring Physician Allergy & Immunology 06/16/22 Brenden Villa DPM [address] [address] Podiatry 06/16/22 Piedad Bowens MD [address] [address] ORTHOPEDICS 06/16/22 Marcos Weiss DO [address] [address] Specialist Physiatry 12/15/22 Xochitl Machado MD [address] [address] Sports Medicine Int Med 12/15/22 Peter Cummings Specialist Gastroenterology 06/16/22 Evi Carpio Specialist PSYCHIATRY 06/16/22 elder duke Specialist Optometry 12/18/23 documented as of this encounter
--- OUTSIDE RECORDS SUMMARY | 2024-10-14 12:56 | XMS_ITS | Encounter Summary ---
Author Organization [facility] Address [address] [place] [address] Care Team Providers Care Mexican Food Maker Name Role Phone Ольга Jewell MD Primary Care Provider Rhoda Rangel MD Unavailable Unavailable Brenden Villa DPM Unavailable [phone] Piedad Bowens MD Unavailable [phone] Marcos Weiss DO Unavailable Unavailable Xochitl Machado MD Unavailable [phone] Reason for Visit * Reason Comments E-prescribe Rx Request Encounter Details Date Type Department Care Team Description 01/24/2023 Refill Gastroenterology - [place] [address] [id number] Peter Cummings PA-C [address] [address] E-prescribe Rx Request Social History Tobacco Use [...] Gandara M.A. - 01/24/2023 1:11 PM EDT [facility]- 02/01/2022 Nov unknown documented in this encounter Plan of Treatment Not on file documented as of this encounter Visit Diagnoses Not on filedocumented in this encounter Care Teams Mexican Food Maker Relationship Specialty Start Date End Date Ольга Jewell MD [address] [place] [address] PCP - General Internal Medicine 12/14/21 Rhoda Rangel MD [address] [place] [address] Referring Physician Allergy & Immunology 06/16/22 Brenden Villa DPM [address] [address] Podiatry 06/16/22 Piedad Bowens MD [address] [address] ORTHOPEDICS 06/16/22 Marcos Weiss DO [address] [address] Specialist Physiatry 12/15/22 Xochitl Machado MD [address] [address] Sports Medicine Int Med 12/15/22 Peter Cummings Specialist Gastroenterology 06/16/22 Evi Carpio Specialist PSYCHIATRY 06/16/22 elder duke Specialist Optometry 12/18/23 documented as of this encounter
--- OUTSIDE RECORDS SUMMARY | 2024-10-14 12:56 | XMS_ITS | Encounter Summary ---
Author Organization [facility] Address [address] [place] [address] Care Team Providers Care Survival Specialist Name Role Phone Ольга Jewell MD Primary Care Provider [phone] Rhoda Rangel MD Unavailable Unavailable Brenden Villa DPM Unavailable [phone] Piedad Bowens MD Unavailable [phone] Marcos Weiss DO Unavailable Unavailable Xochitl aMchado MD Unavailable [phone] Reason for Visit * Reason Comments E-prescribe Rx Request Encounter Details Date Type Department Care Team Description 12/14/2021 Refill Adult Medicine A - [place] [address] [place] [address] Ольга Jewell MD [address] [place] [address] E-prescribe Rx Request Social History Tobacco Use [...] encounter Miscellaneous Notes * Telephone Encounter - Ethel Escamilla M.A. - 12/19/2021 2:08 PM EDT Noted. Willl need to wait for new PCP to review requests * Telephone Encounter - Freda Brandt - 12/19/2021 1:52 PM EDT Appt booked for 01/25 with Domitila * Telephone Encounter - Ethel Escamilla M.A. - 12/19/2021 1:44 PM EDT Please schedule a med rev with any provider that has something available sooner than March * Telephone Encounter - Frdea Brandt - 12/19/2021 1:24 PM EDT Nothing sooner * Telephone Encounter - Ethel Escamilla M.A. - 12/16/2021 10:20 AM EDT Previous [place] patient - has not established with new PCP Last follow up visit 10/29/20 Next appt 03/17/22 Needs sooner appt if possible * Telephone Encounter - Rebeca Dee - 12/16/2021 9:14 AM EDT Refill on med list Last office visit : 09/20/01 Last time with PCP: no Next office visit : 03/17/22 documented in this encounter Plan of Treatment Not on file documented as of this encounter Visit Diagnoses Not on filedocumented in this encounter Care Teams Survival Specialist Relationship Specialty Start Date End Date Ольга Jewell MD [address] [place] [address] PCP - General Internal Medicine 12/14/21 Rhoda Rangel MD [address] [place] [address] Referring Physician Allergy & Immunology 06/16/22 Brenden Villa DPM [address] [address] Podiatry 06/16/22 Piedad Bowens MD [address] [address] ORTHOPEDICS 06/16/22 Marcos Weiss DO [address] [address] Specialist Physiatry 12/15/22 Xochitl Machado MD [address] [address] Sports Medicine Int Med 12/15/22 Peter Cummings Specialist Gastroenterology 06/16/22 Evi Carpio Specialist PSYCHIATRY 06/16/22 elder duke Specialist Optometry 12/18/23 documented as of this encounter
--- OUTSIDE RECORDS SUMMARY | 2024-10-14 12:56 | XMS_ITS | Encounter Summary ---
Author Organization [facility] Address [address] [place] [address] Care Team Providers Care Slope Runner Name Role Phone Naun Garcia MD Primary Care Provider Unavail able [facility], Pcp Primary Care Provider Unavailabl e Naun Garcia MD Primary Care Provider Unavail able Ольга Jewell MD Primary Care Provider [phone] Rhoda Rangel MD Unavailable Unavailable Brenden Villa DPM Unavailable [phone] Piedad Bowens MD Unavailable [phone] Marcos Weiss DO Unavailable Unavailable Xochitl Machado MD Unavailable [phone] Reason for Visit * Reason Onset Date Comments General Education Professor Feedback 02/09/2017 Genetics Encounter Details Date Type Department Care Team Description 02/09/2017 Telephone Oncology/Hematology - [address] [address] Monty Fitzpatrick MD General Education Professor Feedback (Genetics) Social History Tobacco Use Types [...] * Telephone Encounter - Darian Mcrae - 02/20/2017 11:17 AM EDT Message routed to ordering provider as . On 02/09/2017, an order was placed for Genetic Testing. This patient's insurance plan requires prior authorization for Genetic, DNA and Molecular testing before the test can be performed. Per Janay at [facility], EXT: [id number] Based on the information that was provided to the insurance company, your patient received a DENIAL for the genetic testing that was ordered. Does not meet Medical Criteria Please have a member of your clinical staff notify the patient regarding this denial, as further follow up or testing may be needed. Thank you, [facility] Referrals General Machine Operator [facility] Referrals Department * Telephone Encounter - Darian Mcrae - 02/09/2017 11:29 AM EDT Standardized Prior Authorization Request form [facility] Managementfor review with last office note and lab order. Awaiting response. documented in this encounter Plan of Treatment Not on file documented as of this encounter Visit Diagnoses Not on filedocumented in this encounter Care Teams Slope Runner Relationship Specialty Start Date End Date Naun Garcia MD PCP - General Internal Medicine 10/27/13 10/27/21 [facility] [place] [place] PCP - General Internal Medicine 10/28/21 11/27/21 Naun Garcia MD PCP - General Internal Medicine 11/28/21 12/13/21 Ольга Jewell MD [address] [place] [address] PCP - General Internal Medicine 12/14/21 Rhoda Rangel MD [address] [place], [place] Referring Physician Allergy & Immunology 06/16/22 Brenden Villa DPM [address] [address] Podiatry 06/16/22 Piedad Bowens MD [address] [address] ORTHOPEDICS 06/16/22 Marcos Weiss DO [address] [address] Specialist Physiatry 12/15/22 Xochitl Machado MD [address] [address] Sports Medicine Int Med 12/15/22 Peter Cummings Specialist Gastroenterology 06/16/22 Evi Carpio Specialist PSYCHIATRY 06/16/22 elder duke Specialist Optometry 12/18/23 documented as of this encounter
--- OUTSIDE RECORDS SUMMARY | 2024-10-14 12:56 | XMS_ITS | Encounter Summary ---
Author Organization [facility] Address [address] [place] [address] Care Team Providers Care Compliance Technician Name Role Phone Ольга Jewell MD Primary Care Provider [phone] Rhoda Rangel MD Unavailable Unavailable Brenden Villa DPM Unavailable [phone] Piedad Bowens MD Unavailable [phone] Marcos Weiss DO Unavailable Unavailable Xochitl Machado MD Unavailable [phone] Encounter Details Date Type Department Care Team Description 01/24/2023 Pt. Non Urgent Medic al Question Adult Medicine - [place] [address] [place] [address] Tresa Moreau, LAURIE [address] [place], [place] [id number] Social History Tobacco Use Types Packs/Day Years [...] on filedocumented in this encounter Care Teams Compliance Technician Relationship Specialty Start Date End Date Ольга Jewell MD [address] [place] [address] PCP - General Internal Medicine 12/14/21 Rhoda Rangel MD [address] [place] [address] Referring Physician Allergy & Immunology 06/16/22 Brenden Villa DPM [address] [address] Podiatry 06/16/22 Piedad Bowens MD [address] [address] ORTHOPEDICS 06/16/22 Marcos Weiss DO [address] [address] Specialist Physiatry 12/15/22 Xochitl Machado MD [address] [address] Sports Medicine Int Med 12/15/22 Peter Cummings Specialist Gastroenterology 06/16/22 Evi Carpio Specialist PSYCHIATRY 06/16/22 elder duke Specialist Optometry 12/18/23 documented as of this encounter
--- OUTSIDE RECORDS SUMMARY | 2024-10-14 12:57 | XMS_ITS | Encounter Summary ---
Author Organization [facility] Address [address] [place] [address] Care Team Providers Care Disciplinary Hearing Officer Name Role Phone Ольга Jewell MD Primary Care Provider Rhoda Rangel MD Unavailable Unavailable Brenden Villa DPM Unavailable [phone] Piedad Bowens MD Unavailable [phone] Marcos Weiss DO Unavailable Unavailable Xochitl Machado MD Unavailable [phone] Reason for Visit * Reason Comments E-prescribe Rx Request Encounter Details Date Type Department Care Team Description 10/03/2023 Refill Adult Medicine A - [place] [address] [place] [address] Peter Cummings PA-C 175 [facility] [address] [place] [address] E-prescribe Rx Request Social History Tobacco Use [...] Telephone Encounter - Kinza Lion M.A. - 10/03/2023 3:20 PM EDT MICKY 05/23/23 Procedure on 10/23/23 No GI f/up documented in this encounter Plan of Treatment Not on file documented as of this encounter Visit Diagnoses Not on filedocumented in this encounter Care Teams Disciplinary Hearing Officer Relationship Specialty Start Date End Date Ольга Jewell MD [address] [place] [address] PCP - General Internal Medicine 12/14/21 Rhoda Rangel MD [address] [place] [address] Referring Physician Allergy & Immunology 06/16/22 Brenden Villa DPM [address] [address] Podiatry 06/16/22 Piedad Bowens MD [address] [address] ORTHOPEDICS 06/16/22 Marcos Weiss DO [address] [address] Specialist Physiatry 12/15/22 Xochitl Machado MD [address] [address] Sports Medicine Int Med 12/15/22 Peter Cummings Specialist Gastroenterology 06/16/22 vEi Carpio Specialist PSYCHIATRY 06/16/22 elder duke Specialist Optometry 12/18/23 documented as of this encounter
--- OUTSIDE RECORDS SUMMARY | 2024-10-14 12:57 | XMS_ITS | Encounter Summary ---
Author Organization [facility] Address [address] [place] [address] Care Team Providers Care Park Manager Name Role Phone Ольга Jewell MD Primary Care Provider Rhoda Rangel MD Unavailable Unavailable Brenden Villa DPM Unavailable [phone] Piedad Bowens MD Unavailable [phone] Marcos Weiss DO Unavailable Unavailable Xochitl Machado MD Unavailable [phone] Encounter Details Date Type Department Care Team Description 10/23/2023 Orders Only Medical Records [address] [place] [address] Sander Saxena DO 175 [facility] [address] [facility] [place] [address] Social History Tobacco Use Types Packs/Day Years [...] filedocumented in this encounter Care Teams Park Manager Relationship Specialty Start Date End Date Ольга Jewell MD [address] [place] [address] PCP - General Internal Medicine 12/14/21 Rhoda Rangel MD [address] [place] [address] Referring Physician Allergy & Immunology 06/16/22 Brenden Villa DPM [address] [address] Podiatry 06/16/22 Piedad Bowens MD [address] [address] ORTHOPEDICS 06/16/22 Marcos Weiss DO [address] [address] Specialist Physiatry 12/15/22 Xochitl Machado MD [address] [address] Sports Medicine Int Med 12/15/22 Peter Cummings Specialist Gastroenterology 06/16/22 Evi Carpio Specialist PSYCHIATRY 06/16/22 elder duke Specialist Optometry 12/18/23 documented as of this encounter
--- OUTSIDE RECORDS SUMMARY | 2024-10-14 12:57 | XMS_ITS | Encounter Summary ---
Author Organization [facility] Address [address] [place] [address] Care Team Providers Care Setter Cold Rolling Machine Name Role Phone Naun Garcia MD Primary Care Provider Unavail able [facility], Pcp Primary Care Provider Unavailabl Naun Artis MD Primary Care Provider Unavail able Ольга Jewell MD Primary Care Provider Rhoda Rangel MD Unavailable Unavailable Brenden Villa DPM Unavailable [phone] Piedad Bowens MD Unavailable [phone] Marcos Weiss DO Unavailable Unavailable Xochitl Machado MD Unavailable [phone] Encounter Details Date Type Department Care Team Description 11/10/2013 Release of Information Medical Records [address] [place] [address] Abstract, Provider Social History Tobacco Use Types [...] on filedocumented in this encounter Care Teams Setter Cold Rolling Machine Relationship Specialty Start Date End Date Naun Garcia MD PCP - General Internal Medicine 10/27/13 10/27/21 Community, Pcp PCP - General Internal Medicine 10/28/21 11/27/21 Naun Garcia MD PCP - General Internal Medicine 11/28/21 12/13/21 Ольга Jewell MD [address] [place] [address] PCP - General Internal Medicine 12/14/21 Rhoda Rangel MD [address] [place] [address] Referring Physician Allergy & Immunology 06/16/22 Brenden Villa DPM [address] [address] Podiatry 06/16/22 Piedad Bowens MD [address] [address] ORTHOPEDICS 06/16/22 Marcos Weiss DO [address] [address] Specialist Physiatry 12/15/22 Xochitl Machado MD [address] [address] Sports Medicine Int Med 12/15/22 Peter Cummings Specialist Gastroenterology 06/16/22 Evi Carpio Specialist PSYCHIATRY 06/16/22 elder duke Specialist Optometry 12/18/23 documented as of this encounter
--- OUTSIDE RECORDS SUMMARY | 2024-10-14 12:57 | XMS_ITS | Encounter Summary ---
Author Organization [facility] Address [address] [place] [address] Care Team Providers Care Stripper Color Name Role Phone Naun Garcia MD Primary Care Provider Unavail able [facility], Pcp Primary Care Provider Unavailabl Naun Artis MD Primary Care Provider Unavail able Ольга Jewell MD Primary Care Provider Rhoda Rangel MD Unavailable Unavailable Brenden Villa DPM Unavailable [phone] Piedad Bowens MD Unavailable [phone] Marcos Weiss DO Unavailable Unavailable Xochitl Machado MD Unavailable [phone] Encounter Details Date Type Department Care Team Description 04/20/2014 Biochemist Report Medical Records [address] [place] [address] Angel Benitez Social History Tobacco Use Types Packs/Day [...] on filedocumented in this encounter Care Teams Stripper Color Relationship Specialty Start Date End Date Naun Garcia MD PCP - General Internal Medicine 10/27/13 10/27/21 Community, Pcp PCP - General Internal Medicine 10/28/21 11/27/21 Naun Garcia MD PCP - General Internal Medicine 11/28/21 12/13/21 Ольга Jewell MD [address] [place] [address] PCP - General Internal Medicine 12/14/21 Rhoda Rangel MD [address] [place] [address] Referring Physician Allergy & Immunology 06/16/22 Brenden Villa DPM [address] [address] Podiatry 06/16/22 Piedad Bowens MD [address] [address] ORTHOPEDICS 06/16/22 Marcos Weiss DO [address] [address] Specialist Physiatry 12/15/22 Xochitl Machado MD [address] [address] Sports Medicine Int Med 12/15/22 Peter Cummings Specialist Gastroenterology 06/16/22 Evi Carpio Specialist PSYCHIATRY 06/16/22 elder duke Specialist Optometry 12/18/23 documented as of this encounter
--- OUTSIDE RECORDS SUMMARY | 2024-10-14 12:57 | XMS_ITS | Encounter Summary ---
Author Organization [facility] Address [address] [place] [address] Care Team Providers Care Rv Servicer Name Role Phone Ольга Jewell MD Primary Care Provider Rhoda Rangel MD Unavailable Unavailable Brenden Villa DPM Unavailable [phone] Piedad Bowens MD Unavailable [phone] Marcos Weiss DO Unavailable Unavailable Xochitl Machado MD Unavailable [phone] Encounter Details Date Type Department Care Team Description 03/04/2024 Pt. Non Urgent Medical Question [facility] 175 [facility] [address] [place] [address] Xochitl Machado MD 175 [facility] [address] [place], [place] [id number] Social History Tobacco Use Types Packs/Day Years [...] on filedocumented in this encounter Care Teams Rv Servicer Relationship Specialty Start Date End Date Ольга Jewell MD [address] [place] [address] PCP - General Internal Medicine 12/14/21 Rhoda Rangel MD [address] [place], [place] Referring Physician Allergy & Immunology 06/16/22 Brenden Villa DPM [address] [address] Podiatry 06/16/22 Piedad Bowens MD [address] [address] ORTHOPEDICS 06/16/22 Marcos Weiss DO [address] [address] Specialist Physiatry 12/15/22 Xochitl Machado MD [address] [address] Sports Medicine Int Med 12/15/22 Peter Cummings Specialist Gastroenterology 06/16/22 Evi Carpio Specialist PSYCHIATRY 06/16/22 elder duke Specialist Optometry 12/18/23 documented as of this encounter
--- OUTSIDE RECORDS SUMMARY | 2024-10-14 12:57 | XMS_ITS | Encounter Summary ---
Author Organization [facility] Address [address] [place] [address] Care Team Providers Care Legal Officer Name Role Phone Ольга Jewell MD Primary Care Provider Rhoda Rangel MD Unavailable Unavailable Brenden Villa DPM Unavailable [phone] Piedad Bowens MD Unavailable [phone] Marcos Weiss DO Unavailable Unavailable Xochitl Machado MD Unavailable [phone] Encounter Details Date Type Department Care Team Description 09/21/2023 Orders Only Radiology - [address] [address] Pat Cruz MD [address] [place] [id number] Social History Tobacco Use Types Packs/Day Years [...] on filedocumented in this encounter Care Teams Legal Officer Relationship Specialty Start Date End Date Ольга Jewell MD [address] [place] [address] PCP - General Internal Medicine 12/14/21 Rhoda Rangel MD [address] [place] [address] Referring Physician Allergy & Immunology 06/16/22 Brenden Villa DPM [address] [address] Podiatry 06/16/22 Piedad Bowens MD [address] [address] ORTHOPEDICS 06/16/22 Marcos Weiss DO [address] [address] Specialist Physiatry 12/15/22 Xochitl Machado MD [address] [address] Sports Medicine Int Med 12/15/22 Peter Cummings Specialist Gastroenterology 06/16/22 Evi Carpio Specialist PSYCHIATRY 06/16/22 elder duke Specialist Optometry 12/18/23 documented as of this encounter
--- OUTSIDE RECORDS SUMMARY | 2024-10-14 12:57 | XMS_ITS | Encounter Summary ---
Author Organization [facility] Address [address] [place] [address] Care Team Providers Care Hyperion Analyst Name Role Phone Naun Garcia MD Primary Care Provider Unavail able [facility], Pcp Primary Care Provider Unavailabl Naun Artis MD Primary Care Provider Unavail able Ольга Jewell MD Primary Care Provider Rhoda Rangel MD Unavailable Unavailable Brenden Villa DPM Unavailable Piedad Bowens MD Unavailable [phone] Marcos Weiss DO Unavailable Unavailable Xochitl Machado MD Unavailable [phone] Encounter Details Date Type Department Care Team Description 12/17/2013 Electronic Game Developer Report Medical Records [address] [place] [address] Santi Blas MD Social History Tobacco Use [...] on filedocumented in this encounter Care Teams Hyperion Analyst Relationship Specialty Start Date End Date Naun Garcia MD PCP - General Internal Medicine 10/27/13 10/27/21 Community, Pcp PCP - General Internal Medicine 10/28/21 11/27/21 Naun Garcia MD PCP - General Internal Medicine 11/28/21 12/13/21 Ольга Jewell MD [address] [place] [address] PCP - General Internal Medicine 12/14/21 Rhoda Rangel MD [address] [place] [address] Referring Physician Allergy & Immunology 06/16/22 Brenden Villa DPM [address] [address] Podiatry 06/16/22 Piedad Bowens MD [address] [address] ORTHOPEDICS 06/16/22 Marcos Weiss DO [address] [address] Specialist Physiatry 12/15/22 Xochitl Machado MD [address] [address] Sports Medicine Int Med 12/15/22 Peter Cummings Specialist Gastroenterology 06/16/22 Evi Carpio Specialist PSYCHIATRY 06/16/22 elder duke Specialist Optometry 12/18/23 documented as of this encounter
--- OUTSIDE RECORDS SUMMARY | 2024-10-14 12:57 | XMS_ITS | Encounter Summary ---
Author Organization [facility] Address [address] [place] [address] Care Team Providers Care Crop Farmers Name Role Phone Naun Garcia MD Primary Care Provider Unavail able Community, Pcp Primary Care Provider Unavailabl Naun Artis MD Primary Care Provider Unavail able Ольга Jewell MD Primary Care Provider Rhoda Rangel MD Unavailable Unavailable Brenden Villa DPM Unavailable [phone] Piedad Bowens MD Unavailable [phone] Marcos Weiss DO Unavailable Unavailable Xochitl Machado MD Unavailable [phone] Encounter Details Date Type Department Care Team Description 04/23/2014 Business Doc Medical Records [address] [place] [id number] Abstract, Provider Social History Tobacco Use Types [...] on filedocumented in this encounter Care Teams Crop Farmers Relationship Specialty Start Date End Date Naun Garcia MD PCP - General Internal Medicine 10/27/13 10/27/21 Community, Pcp PCP - General Internal Medicine 10/28/21 11/27/21 Naun Garcia MD PCP - General Internal Medicine 11/28/21 12/13/21 Ольга Jewell MD [address] [place] [address] PCP - General Internal Medicine 12/14/21 Rhoda Rangel MD [address] [place] [address] Referring Physician Allergy & Immunology 06/16/22 Brenden Villa DPM [address] [address] Podiatry 06/16/22 Piedad Bowens MD [address] [address] ORTHOPEDICS 06/16/22 Marcos Weiss DO [address] [address] Specialist Physiatry 12/15/22 Xochitl Machado MD [address] [address] Sports Medicine Int Med 12/15/22 Peter Cummings Specialist Gastroenterology 06/16/22 Evi Carpio Specialist PSYCHIATRY 06/16/22 elder duke Specialist Optometry 12/18/23 documented as of this encounter
--- OUTSIDE RECORDS SUMMARY | 2024-10-14 12:57 | XMS_ITS | Encounter Summary ---
Author Organization [facility] Address [address] [place] [address] Care Team Providers Care Registered Midwife Name Role Phone Ольга Jewell MD Primary Care Provider [phone] Rhoda Rangel MD Unavailable Unavailable Brenden Villa DPM Unavailable [phone] Piedad Bowens MD Unavailable [phone] Marcos Weiss DO Unavailable Unavailable Xochitl Machado MD Unavailable [phone] Reason for Visit * Reason Onset Date Comments Medication 10/09/2023 Encounter Details Date Type Department Care Team Description 10/09/2023 Refill Gastroenterology - [place] 175 [facility] [address] [place] [id number] Sander Saxena DO 175 [facility] [address] [place] [address] Medication Social History Tobacco Use Types Packs/Day [...] on filedocumented in this encounter Care Teams Registered Midwife Relationship Specialty Start Date End Date Ольга Jewell MD [address] [place] [address] PCP - General Internal Medicine 12/14/21 Rhoda Rangel MD [address] [place] [address] Referring Physician Allergy & Immunology 06/16/22 Brenden Villa DPM [address] [address] Podiatry 06/16/22 Piedad Bowens MD [address] [address] ORTHOPEDICS 06/16/22 Marcos Weiss DO [address] [address] Specialist Physiatry 12/15/22 Xochitl Machado MD [address] [address] Sports Medicine Int Med 12/15/22 Peter Cummings Specialist Gastroenterology 06/16/22 Evi Carpio Specialist PSYCHIATRY 06/16/22 elder duke Specialist Optometry 12/18/23 documented as of this encounter
--- OUTSIDE RECORDS SUMMARY | 2024-10-14 12:57 | XMS_ITS | Encounter Summary ---
Author Organization [facility] Address [address] [place] [address] Care Team Providers Care Gun Mechanic Name Role Phone Naun Garcia MD Primary Care Provider Unavail able Community, Pcp Primary Care Provider Unavailabl Naun Artis MD Primary Care Provider Unavail able Ольга Jewell MD Primary Care Provider Rhoda Rangel MD Unavailable Unavailable Brenden Villa DPM Unavailable [phone] Piedad Bowens MD Unavailable [phone] Marcos Weiss DO Unavailable Unavailable Xochitl Machado MD Unavailable [phone] Encounter Details Date Type Department Care Team Description 12/22/2013 Public Health Clinical Nurse Specialist Report Medical Records [address] [place] [address] Angel Benitez Social History Tobacco Use Types [...] on filedocumented in this encounter Care Teams Gun Mechanic Relationship Specialty Start Date End Date Naun Garcia MD PCP - General Internal Medicine 10/27/13 10/27/21 Community, Pcp PCP - General Internal Medicine 10/28/21 11/27/21 Naun Garcia MD PCP - General Internal Medicine 11/28/21 12/13/21 Ольга Jewell MD [address] [place] [address] PCP - General Internal Medicine 12/14/21 Rhoda Rangel MD [address] [place] [address] Referring Physician Allergy & Immunology 06/16/22 Brenden Villa DPM [address] [address] Podiatry 06/16/22 Piedad Bowens MD [address] [address] ORTHOPEDICS 06/16/22 Marcos Weiss DO [address] [address] Specialist Physiatry 12/15/22 Xochitl Machado MD [address] [address] Sports Medicine Int Med 12/15/22 Peter Cummings Specialist Gastroenterology 06/16/22 Evi Carpio Specialist PSYCHIATRY 06/16/22 elder duke Specialist Optometry 12/18/23 documented as of this encounter
--- OUTSIDE RECORDS SUMMARY | 2024-10-14 12:57 | XMS_ITS | Encounter Summary ---
Author Organization [facility] Address [address] [place] [address] Care Team Providers Care Sintering Press Operator Name Role Phone Naun Garcia MD Primary Care Provider Unavail able [facility], [facility] Primary Care Provider Unavailabl e Naun Garcia MD Primary Care Provider Unavail able Ольга Jewell MD Primary Care Provider Rhoda Rangel MD Unavailable Unavailable Brenden Villa DPM Unavailable [phone] Piedad Bowens MD Unavailable [phone] Marcos Weiss DO Unavailable Unavailable Xochitl Machado MD Unavailable [phone] Encounter Details Date Type Department Care Team Description 05/21/2014 [facility]AN Medical Records [address] [place] [id number] Abstract, Provider Social History Tobacco Use Types [...] on filedocumented in this encounter Care Teams Sintering Press Operator Relationship Specialty Start Date End Date Naun Garcia MD PCP - General Internal Medicine 10/27/13 10/27/21 [facility], [facility] PCP - General Internal Medicine 10/28/21 11/27/21 Naun Garcia MD PCP - General Internal Medicine 11/28/21 12/13/21 Ольга Jewell MD [address] [place] [address] PCP - General Internal Medicine 12/14/21 Rhoda Rangel MD [address] [place] [address] Referring Physician Allergy & Immunology 06/16/22 Brenden Villa DPM [address] [address] Podiatry 06/16/22 Piedad Bowens MD [address] [address] ORTHOPEDICS 06/16/22 Marcos Weiss DO [address] [address] Specialist Physiatry 12/15/22 Xochitl Machado MD [address] [address] Sports Medicine Int Med 12/15/22 Peter Cummings Specialist Gastroenterology 06/16/22 Evi Carpio Specialist PSYCHIATRY 06/16/22 elder duke Specialist Optometry 12/18/23 documented as of this encounter
--- OUTSIDE RECORDS SUMMARY | 2024-10-14 12:57 | XMS_ITS | Encounter Summary ---
Author Organization [facility] Address [address] [place] [address] Care Team Providers Care Speedometer Mechanic Name Role Phone Naun Garcia MD Primary Care Provider Unavail able [facility], Pcp Primary Care Provider Unavailabl e Naun Garcia MD Primary Care Provider Unavail able Ольга Jewell MD Primary Care Provider Rhoda Rangel MD Unavailable Unavailable Brenden Villa DPM Unavailable [phone] Piedad Bowens MD Unavailable [phone] Marcos Weiss DO Unavailable Unavailable Xochitl Machado MD Unavailable [phone] Reason for Visit * Reason Onset Date Comments Advice 12/07/2013 Encounter Details Date Type Department Care Team Description 12/07/2013 Pt. Non Urgent Medical Question Medicine/Pediatrics - [address] [id number] Naun Garcia MD Social History Tobacco Use [...] as of this encounter Progress Notes * Mayelin Capps L.P.N. - 12/08/2013 8:50 AM EDTFrom: Deisy Hercules To: Naun Garcia MD Sent: 12/07/2013 2:52 PM EDT Subject: follow up question dr Garcia I am having stomach ache problem when I eat or drink now with a bowel movement I don't pass out with it it just very ache. also I have a question with my echo of my heart cause. when I was doing my stress test they said that my bp was high do I need to take any medication for bp. I am also need more Topiramate documented in this encounter Plan of Treatment Not on file documented as of this encounter Visit Diagnoses Not on filedocumented in this encounter Care Teams Speedometer Mechanic Relationship Specialty Start Date End Date Naun Garcia MD PCP - General Internal Medicine 10/27/13 10/27/21 [facility] PCP - General Internal Medicine 10/28/21 11/27/21 Naun Garcia MD PCP - General Internal Medicine 11/28/21 12/13/21 Ольга Jewell MD [address] [place] [address] PCP - General Internal Medicine 12/14/21 Rhoda Rangel MD [address] [place] [address] Referring Physician Allergy & Immunology 06/16/22 Brenden Villa DPM [address] [address] Podiatry 06/16/22 Piedad Bowens MD [address] [address] ORTHOPEDICS 06/16/22 Marcos Weiss DO [address] [address] Specialist Physiatry 12/15/22 Xochitl Machado MD [address] [address] Sports Medicine Int Med 12/15/22 Peter Cummings Specialist Gastroenterology 06/16/22 Evi Carpio Specialist PSYCHIATRY 06/16/22 elder duke Specialist Optometry 12/18/23 documented as of this encounter
== END 2024-10-14 11:41 | disposition home or self-care (01) ==
LOC: HO.HPSW 11:08
PROVIDERS: Visit Provider Nurse Practitioner Family
DX: J44.9 Chronic obstructive pulmonary disease, unspecified (principal); Z91.09 Other allergy status, other than to drugs and biological substances; B44.81 Allergic bronchopulmonary aspergillosis; R91.8 Other nonspecific abnormal finding of lung field
CPT/HCPCS: 99214

== ENCOUNTER → 2024-10-14 11:07 | Outpatient (BNVA) | payer OTHER, SELFPAY | PROVIDERS: Visit Provider Nurse Practitioner Family | DX: J44.9 Chronic obstructive pulmonary disease, unspecified (principal); B44.81 Allergic bronchopulmonary aspergillosis; R91.8 Other nonspecific abnormal finding of lung field; Z91.09 Other allergy status, other than to drugs and biological substances | CPT/HCPCS: 99212 ==

== ENCOUNTER 2024-11-24 10:26 | Outpatient (REF) | payer OTHER, SELFPAY ==
--- NOTE | ~2024-11-24 | CT_ITS ---
EXAMINATION: CT CHEST WITHOUT CONTRAST CLINICAL INFORMATION: R91.8 - Other nonspecific abnormal finding of lung field COMPARISON: November 13, 2023 TECHNIQUE: Multidetector volumetric CT imaging of the chest was done. Axial MIP volume rendering provided. Sagittal and coronal reformatted images were obtained. This CT examination was performed using dose optimization techniques as appropriate, variously including the following: *Automated exposure control *Adjustment of mA and/or kV according to patient size (this includes techniques or standardized protocols for targeted exams where dose is matched to indication/reason for exam; i.e. extremities or head) *Use of iterative reconstruction technique DLP: 244 mGY*cm FINDINGS: LUNGS: Again seen is a 2 mm nodular density along the major fissure project over the right lower lobe laterally that is unchanged and likely represents an intrapulmonary lymph node requiring no additional workup. A smaller more flat nodular density is also evident more inferiorly, likely of the same etiology. Axial image 115/146: Posterior medial basilar right lower lobe. 3 mm nodule contacting pleura previously measured 3 mm. There is also a small stable nodule contacting pleura in the anterolateral left lower lung base. MEDIASTINUM: The mediastinum is normal. CORONARY ARTERY CALCIFICATION: None visualized on this study. PLEURA: Aside from aforementioned nodules, there is no pleural thickening and no pleural effusion. AXILLA: No lymphadenopathy. UPPER ABDOMEN: Postoperative changes are present related to gastric bypass surgery, unchanged in appearance from the prior. OSSEOUS STRUCTURES: Images through the thoracic spine demonstrate disc space narrowing with vacuum phenomenon at at least one level, and anterior endplate osteophytes. CT/CT chest wo IV con IMPRESSION: Stable small pleural-based nodules not requiring further follow-up. Changes related to gastric bypass surgery. 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 Fleischner guidelines were followed. Electronically signed by: Micky Owen MD 11/24/2024 12:56 PM EDT
--- OUTSIDE RECORDS SUMMARY | 2024-11-24 11:38 | XMS_ITS | Encounter Summary ---
Author Organization [facility] [place] [address] Care Team Providers Care Motorcycle Designer Name Role Phone Ольга Jewell MD Primary Care Provider Reason for Visit * Reason Onset Date Comments Fitting for DME 11/13/2024 Encounter Details Date Type Department Care Team ([facility] st Contact Info) Description 11/13/2024 Telephone Adult Medicine - [place] [address] [place] [address] Sania Napier NP [address] [place] [address] Fitting for DME Social History Tobacco Use Types Packs/Day Years Used Date Smoking Tobacco: Never Smokeless Tobacco: Never Alcohol Use Standard Drinks/Week Comments Yes 9 (1 standard drink = 0.6 oz pur [...] for your loved ones. For example, child daycare worker or elderly care for an older adult? [...] Progress Notes * Tresa Rico MA - 11/20/2024 4:36 PM EDT Rollator walker In your in basket. Thank you in advance * Sania Napier NP - 11/13/2024 4:33 PM EDT F2F DME visit completed for marko dang. documented in this encounter Plan of Treatment Upcoming Encounters Date Type Department Care Team (Late st Contact Info) Description 12/08/2024 2:45 PM EDT Office Visit Adult Medicine - [place] [address] [place] [address] Mauricio Strauss PA [address] [place] [address] 09/26/2025 12:30 PM EDT Appointment Radiology Department - [address] [phone] documented as of this encounter Visit Diagnoses Diagnosis Fibromyalgia- Primary Unspecified myalgia and myositis Chronic midline low back pain without sciatica Primary osteoarthritis of both knees documented in this encounter Orders General Supply Count Last Ordered Date First Or dered Date WALKER 1 11/20/2024 documented in this encounter Additional Health Concerns Assessment Noted Time PHQ-9 Depression Total Score: 8 11/07/19 25 11:06 AM EDT documented as of this encounter Care Teams Motorcycle Designer Relationship Specialty Start Date End Date Ольга Jewell MD [address] [address] PCP - General Internal Medicine 12/14/21 documented as of this encounter
== END 2024-11-24 10:27 | disposition home or self-care (01) ==
LOC: HO.CT 10:26
PROVIDERS: Visit Provider Nurse Practitioner Family
DX: R91.8 Other nonspecific abnormal finding of lung field (principal)
CPT/HCPCS: 71250

== ENCOUNTER → 2024-11-24 10:28 | Outpatient (BNV) | payer OTHER, SELFPAY | PROVIDERS: Visit Provider Radiology Diagnostic Radiology | DX: R91.8 Other nonspecific abnormal finding of lung field (principal) | CPT/HCPCS: 71250 ==

== ENCOUNTER 2024-12-23 09:56 | Outpatient (AMB) | payer OTHER, SELFPAY ==
[2024-12-23 10:01] VITALS: BP 132/88; PULSE 75; O2SAT 98; BMI 39.6
--- NOTE | 2024-12-23 10:01 | MHC.OFFVIS ---
Vital Signs 12/23/24 10:01 Height 5 ft 1 in Weight 209 lb 8 oz BMI 39.6 BP 132/88 Blood Pressure Location Rt brachial Position Sitting Pulse 75 Pulse Source Pulse Oximeter Pulse Oximetry (%) 98 Oxygen Delivery Method Room Air Intake Visit Reasons: asthma Allergies bee venom protein (honey bee) Allergy (Unknown, Verified 10/14/24 11:25) Unknown fluticasone furoate (From Arnuity Ellipta) Allergy (Unknown, Verified 10/14/24 11:25) Unknown hydrochlorothiazide Allergy (Unknown, Verified 10/14/24 11:25) Unknown levofloxacin (From Levaquin) Allergy (Unknown, Verified 10/14/24 11:25) Unknown lisinopril Allergy (Unknown, Verified 10/14/24 11:25) Unknown peanut Allergy (Verified 10/14/24 11:25) Unknown HPI HPI asthma: Details: Deisy is a pleasant 49 year old female, former minimal smoker, quit 20+ years ago, with underlying asthma/COPD and labs suggestive of ABPA. At last visit she reported bronchitic symptoms, treated with prednisone and doxycyline, with complete resolution of symptoms. Currently, she reports good control of respiratory symptoms on current regimen of Dupixent and Breyna, infrequently requiring albuterol/nebulizer. Since the last visit she has started allergen immunotherapy through [facility] and has been tolerating well. She denies any visits to urgent care hospitalizations related to respiratory distress since last visit. Today she presents to review chest CT results. [facility] Medical History Constipation Fibroadenoma GERD (gastroesophageal reflux disease) H. pylori infection HSV infection Lichen simplex chronicus Migraines Portal vein thrombosis Recurrent UTI Thrombocytosis Surgical History S/P laparoscopic sleeve gastrectomy Family History Mother Multiple sclerosis Father Arthritis Gout Hypertension Social History Alcohol intake: current Alcohol intake frequency: holidays/special occasions only Patient Tobacco Use Status: Former Tobacco user Current occupational status: unemployed Current occupation: Student Review of Systems Const Denies chills, Denies excessive sweating, Denies fever(s), Denies headache(s) and Denies night sweats Eyes Denies dry eyes, Denies irritation and Denies itchy eyes ENT Reports Normal hearing present, Denies headache(s), Denies nasal congestion, Denies nasal discharge, Denies post nasal drip and Denies sore throat Card Denies chest pain, Denies chest pain at rest, Denies chest pain with activity, Denies claudication, Denies leg edema, Denies dyspnea, Denies dyspnea on exertion, Denies orthopnea and Denies paroxysmal nocturnal dyspnea Resp Denies chest congestion, Denies cough, Denies excessive phlegm production, Denies pain on inspiration, Denies pain with cough, Denies dyspnea, Denies dyspnea on exertion, Denies stridor and Denies wheezing Musc Denies myalgias Neuro Reports Normal hearing present and Denies headache(s) Endo Denies excessive sweating Jorge/Lymph Denies lymphadenopathy Aller/Immun Denies itchy eyes, Denies seasonal rhinorrhea and Denies wheezing Physical Exam Vital Signs: Last Vital Signs Pulse 75 12/23/24 10:01 BP 132/88 12/23/24 10:01 Pulse Ox 98 12/23/24 10:01 Oxygen Delivery Method Room Air 12/23/24 10:01 BMI result Body Mass Index 39.6 Const General: cooperative, healthy appearing, comfortable, no acute distress, well developed and alert Orientation/consciousness: patient oriented x3 Limitations: no limitations HEENT Head: Yes normal to inspection, Yes normocephalic and Yes atraumatic Ears: hearing grossly normal bilaterally and external ears normal Eyes General: appearance normal, both eyes and all related structures Eyelids: Yes eyelids normal Sclerae: sclerae normal EOM: EOMs intact bilaterally Neck Neck: Yes normal visual inspection and Yes no lymphadenopathy Lymphatic: no lymphadenopathy noted Chest Chest palpation & inspection: normal inspection of the chest Resp Effort & Inspection: normal respiratory effort, able to speak in complete sentences, no audible wheezes, no cough, no stridor, not tachypneic, no tripod positioning and no use of accessory muscles Auscultation: diminished lung sounds Cardio Jugular venous distension: no JVD Rate: regular rate Rhythm: regular rhythm Skin Other: warm, dry General skin exam: no rashes or lesions noted Neuro General: patient oriented x3 Cranial nerves: Yes Normal hearing present Cognition (Neuro): normal cognition Gait exam (Neuro): Normal gait present Extrem General: Yes normal to inspection, Yes capillary refill normal, Yes no clubbing, cyanosis or edema and Yes no pedal edema Psych Appearance: grossly normal and well kempt Speech and movement: Normal speech and movement present and Clear speech present Affect: normal affect Attitude: cooperative Thought process: Normal thought process present Thought content: Normal thought content present Insight: Good insight present (Psych) Judgement: Good judgement present (Psych) Results Reviewed Results Reviewed: [address] [address] [address] Scan Report Signed Patient: Deisy Muhammad MR#: [id number] : 1975 Acct:[id number] Age/Sex: 49 / F ADM Date: 11/24/24 Loc: HO.CT Attending Dr: Cecy Ni NP Ordering Physician: Cecy Ni NP Date of Service: 11/24/24 Procedure(s): CT chest wo IV con Accession Number(s): [id number] cc: Cecy Ni MASTER MECHANIC; Ethel Olivas Report Number: [id number]: Total DLP = 244.00 mGy-cm EXAMINATION: CT CHEST WITHOUT CONTRAST CLINICAL INFORMATION: R91.8 - Other nonspecific abnormal finding of lung field COMPARISON: November 13, 2023 TECHNIQUE: Multidetector volumetric CT imaging of the chest was done. Axial MIP volume rendering provided. Sagittal and coronal reformatted images were obtained. This CT examination was performed using dose optimization techniques as appropriate, variously including the following: *Automated exposure control *Adjustment of mA and/or kV according to patient size (this includes techniques or standardized protocols for targeted exams where dose is matched to indication/reason for exam; i.e. extremities or head) *Use of iterative reconstruction technique DLP: 244 mGY*cm FINDINGS: LUNGS: Again seen is a 2 mm nodular density along the major fissure project over the right lower lobe laterally that is unchanged and likely represents an intrapulmonary lymph node requiring no additional workup. A smaller more flat nodular density is also evident more inferiorly, likely of the same etiology. Axial image 115/146: Posterior medial basilar right lower lobe. 3 mm nodule contacting pleura previously measured 3 mm. There is also a small stable nodule contacting pleura in the anterolateral left lower lung base. MEDIASTINUM: The mediastinum is normal. CORONARY ARTERY CALCIFICATION: None visualized on this study. PLEURA: Aside from aforementioned nodules, there is no pleural thickening and no pleural effusion. AXILLA: No lymphadenopathy. UPPER ABDOMEN: Postoperative changes are present related to gastric bypass surgery, unchanged in appearance from the prior. OSSEOUS STRUCTURES: Images through the thoracic spine demonstrate disc space narrowing with vacuum phenomenon at at least one level, and anterior endplate osteophytes. CT/CT chest wo IV con IMPRESSION: Stable small pleural-based nodules not requiring further follow-up. Changes related to gastric bypass surgery. 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 Fleischner guidelines were followed. Electronically signed by: Micky Owen MD 11/24/2024 12:56 PM EDT RP Dictated By: Micky Owen MD Signed By: <Electronically signed by Micky Owen MD in OV> 11/24/24 1256 DD/ 1033 TD/TT: 11/24/24 1057 Human Resources Assistant Manager: Assessment & Plan Assessment & Plan (1) Asthma-COPD overlap syndrome: Code(s): J44.9 - Chronic obstructive pulmonary disease, unspecified Category: Medical (2) Environmental allergies: Code(s): Z91.09 - Other allergy status, other than to drugs and biological substances Category: Medical (3) ABPA (allergic bronchopulmonary aspergillosis): Code(s): B44.81 - Allergic bronchopulmonary aspergillosis Category: Medical (4) Multiple pulmonary nodules: Code(s): R91.8 - Other nonspecific abnormal finding of lung field Category: Medical Plan At this time she currently reports good control of respiratory symptoms on Dupixent, Breyna, albuterol/nebs p.r.n., advised to continue. Reviewed chest CT which revealed multiple stable pulmonary nodules 2-3 mm in size, with no need for further imaging at this time. All questions were answered and patient is in agreement of plan. Will follow up in 3-6 months or sooner if needed. Coding Level of Care Code Est Pt Level 4 (79746) Diagnoses Asthma-COPD overlap syndrome J44.9 Environmental allergies Z91.09 ABPA (allergic bronchopulmonary aspergillosis) B44.81 Multiple pulmonary nodules R91.8
== END 2024-12-23 10:31 | disposition home or self-care (01) ==
LOC: HO.HPSW 09:57
PROVIDERS: Visit Provider Nurse Practitioner Family
DX: J44.9 Chronic obstructive pulmonary disease, unspecified (principal); Z91.09 Other allergy status, other than to drugs and biological substances; B44.81 Allergic bronchopulmonary aspergillosis; R91.8 Other nonspecific abnormal finding of lung field
CPT/HCPCS: 99214

== ENCOUNTER → 2024-12-23 09:56 | Outpatient (BNVA) | payer OTHER, SELFPAY | PROVIDERS: Visit Provider Nurse Practitioner Family | DX: B44.81 Allergic bronchopulmonary aspergillosis (principal); J44.9 Chronic obstructive pulmonary disease, unspecified; Z91.09 Other allergy status, other than to drugs and biological substances; R91.8 Other nonspecific abnormal finding of lung field | CPT/HCPCS: 99212 ==

== ENCOUNTER 2025-04-29 10:02 | Outpatient (AMB) | payer OTHER, SELFPAY ==
[2025-04-29 10:08] VITALS: BMI 39.7
--- NOTE | 2025-04-29 10:08 | A.PHYSOV ---
Vital Signs 04/29/25 10:08 Height 5 ft 1 in Weight 210 lb BMI 39.7 Intake Visit Reasons: Left sided sciatica Intake Note: Patient is a 49n year old female in office today for left Sciatic Pain Allergies bee venom protein (honey bee) Allergy (Unknown, Verified 04/29/25 10:05) Unknown fluticasone furoate (From Arnuity Ellipta) Allergy (Unknown, Verified 04/29/25 10:05) Unknown hydrochlorothiazide Allergy (Unknown, Verified 04/29/25 10:05) Unknown levofloxacin (From Levaquin) Allergy (Unknown, Verified 04/29/25 10:05) Unknown lisinopril Allergy (Unknown, Verified 04/29/25 10:05) Unknown peanut Allergy (Verified 04/29/25 10:05) Unknown HPI Comments Details: History of Present Illness The patient is a 49-year-old female presenting with persistent lower back pain and lumbar radiculitis. She has a history of fibromyalgia and has previously received lumbar injections, including L5-S1 interlaminar and right S1 transforaminal approaches. In August 2017, she underwent a microdiscectomy at the L5-S1 level performed by Dr. Rios. The patient has been performing physician-guided exercises and continues to take duloxetine and gabapentin. She supplements with turmeric, [id number], glucosamine, and omega-3 fatty acids. Her most recent lumbar injection was based on an MRI showing scar tissue around the right L5 nerve root, performed on December 01, 2022. The injection alleviated radicular pain, but she developed a severe urinary tract infection afterward, leading to the discontinuation of corticosteroid injections. She receives a limited supply of oxycodone every six months, and her prescription monitoring report was reviewed. Patient has been working out on a regular basis at the gym at the [facility]. About a month ago she developed severe pain on the left side of her lower back radiating to the left leg. Pain is rated 8/10. She ambulates with a walker today. She has not had any physical therapy. Pain Description - Onset: Persistent lower back pain with lumbar radiculitis - Quality: Stabbing sharp pain - Location: Initially right side, now left side - Exacerbating factors: Sitting, standing, exercising, leaning down - Relieving factors: Lidocaine patch use Results - Imaging: MRI showed scar tissue around right L5 nerve root in 2022 [facility] Medical History (Updated 04/29/25 @ 10:25 by Marcos Weiss DO) Post laminectomy syndrome Sacroiliac inflammation Sacroiliac dysfunction Lumbar radiculitis Migraines Lichen simplex chronicus GERD (gastroesophageal reflux disease) Thrombocytosis Recurrent UTI Portal vein thrombosis H. pylori infection Fibroadenoma HSV infection Constipation Surgical History History of elbow surgery (Unknown) H/O shoulder surgery (Unknown) H/O: hysterectomy (Unknown) History of carpal tunnel surgery (Unknown) History of back surgery (Unknown) S/P laparoscopic sleeve gastrectomy Family History Mother Multiple sclerosis Father Arthritis Gout Hypertension Social History Alcohol intake: current Alcohol intake frequency: holidays/special occasions only Patient Tobacco Use Status: Former Tobacco user Current occupational status: unemployed Current occupation: Student Review of Systems Narrative Review of Systems - Musculoskeletal: Reports persistent lower back pain, stabbing sharp pain, initially right side now left side - Neurological: Denies new neurological deficits Physical Exam Exam Exam: Physical Exam - General: Patient appears in no acute distress, properly conversant, oriented - Gait: Without antalgia, uses a walker - Neurological: Positive dural tension signs for right lower extremity, sluggish right Achilles reflex - Musculoskeletal: Tenderness to palpation over sacroiliac joints, positive left SI compression test, diffuse myofascial tenderness Vital Signs: BMI result Body Mass Index 39.7 Assessment & Plan Assessment & Plan (1) Lumbar radiculitis: Code(s): M54.16 - Radiculopathy, lumbar region Category: Medical (2) Sacroiliac dysfunction: Code(s): M53.3 - Sacrococcygeal disorders, not elsewhere classified Category: Medical (3) Sacroiliac inflammation: Code(s): M46.1 - Sacroiliitis, not elsewhere classified Category: Medical (4) Post laminectomy syndrome: Code(s): M96.1 - Postlaminectomy syndrome, not elsewhere classified Category: Medical Plan Pain Management - Affect: Pain impacts daily activities and exercise routine - Analgesia: Uses duloxetine, gabapentin, and lidocaine patches; limited oxycodone supply - Adverse Effects: Developed urinary tract infection post-injection - Activities of Daily Living: Pain interferes with sitting, standing, and exercising - Aberrant Drug Related Behaviors: None reported; prescription monitoring reviewed Plan Patient was informed and verbally consented to the use of an ambient scribe for clinic note documentation during this visit. 1. Lower Back Pain The patient will continue with physical therapy as a non-invasive management option for her lower back pain. MRI may be considered if surgical intervention is contemplated, but current management will focus on conservative measures. 2. Lumbar Radiculitis The patient has been advised against further corticosteroid injections due to a previous urinary tract infection. Physical therapy is recommended to manage symptoms, with MRI as a potential future diagnostic tool if symptoms persist or worsen. 3. Fibromyalgia The patient will continue her current medication regimen, including duloxetine and gabapentin, to manage fibromyalgia symptoms. Supplementation with turmeric, [id number], glucosamine, and omega-3 fatty acids will be maintained. 4. Urinary Tract Infection The urinary tract infection has resolved, and the patient has been advised to avoid corticosteroid injections to prevent recurrence. Discussion Notes We discussed the management options for the patient's lower back pain and lumbar radiculitis, emphasizing the importance of physical therapy as a primary treatment modality. The risks associated with further corticosteroid injections were reviewed, particularly in light of the previous urinary tract infection. The potential need for an MRI was considered, contingent upon the decision to pursue surgical intervention. Patient Instructions - Continue with physical therapy sessions as recommended. - Maintain current medication regimen, including duloxetine and gabapentin. - Avoid corticosteroid injections to prevent recurrence of urinary tract infection. - Consider MRI if symptoms persist or if surgical intervention is considered. Orders: Orders PT Evaluation and Treatment Today M46.1 - Sacroiliitis, not elsewhere classified, M53.3 - Sacrococcygeal disorders, not elsewhere classified, M54.16 - Radiculopathy, lumbar region, M96.1 - Postlaminectomy syndrome, not elsewhere classified Medications: Changed From oxycodone-acetaminophen 5-325 mg 1 tab PO TID 0RF M46.1 - Sacroiliitis, not elsewhere classified, M53.3 - Sacrococcygeal disorders, not elsewhere classified, M54.16 - Radiculopathy, lumbar region, M96.1 - Postlaminectomy syndrome, not elsewhere classified To oxycodone-acetaminophen 5-325 mg Partial fill upon request 1 tab PO TID PRN 21 tabs 0RF pain M46.1 - Sacroiliitis, not elsewhere classified, M53.3 - Sacrococcygeal disorders, not elsewhere classified, M54.16 - Radiculopathy, lumbar region, M96.1 - Postlaminectomy syndrome, not elsewhere classified Coding Level of Care Code Est Pt Level 4 (82694) Complex EM visit Add On G2211 Diagnoses Lumbar radiculitis M54.16 Sacroiliac dysfunction M53.3 Sacroiliac inflammation M46.1 Post laminectomy syndrome M96.1
--- OUTSIDE RECORDS SUMMARY | 2025-04-29 18:52 | XMS_ITS | Data Portability ---
Author Organization [place] - [facility], Allergy Address [address] [address] Care Team Providers Care [facility] Recruiter Name Role Phone BROOK OLIVERA Primary Care Provider [phone] Assessment Encounter Date Assessment Date Assessment LastModified by Organization Details LastModified Time 04/13/2025 04/13/2025 Visit With: Kelsey Peace RN Use of Antihistamine s: No If yes: Vial Test Yes Change in medications: No If yes Increase in asthma symptoms No If yes, inhaler use: Reaction to last injections: If yes: Allergy Symptoms: Other: Missed: Dose Aware of Vial Test Aware: Notes: [email or web address] Not available 04/13/2025 15:22:56 04/22/2025 04/22/2025 Visit With: Huma Strickland MA Use of Antihistamine s: No If yes: Vial Test Change in medications: No If yes Increase in asthma symptoms If yes, inhaler use: Reaction to last injections: No If yes: Allergy Symptoms: Other: Missed: Dose Aware of Vial Test Aware: Notes: [email or web address] Not available 04/22/2025 15:49:40 04/29/2025 04/29/2025 Visit With: TERRY Richmond Use of Antihistamine s: No If yes: Vial Test Change in medications: No If yes Increase in asthma symptoms If yes, inhaler use: Reaction to last injections: No If yes: Allergy Symptoms: Other: Missed: Dose Aware of Vial Test Aware: Notes: [email or web address] Not available 04/29/2025 12:07:28 Plan of Treatment Reminders Order Date Submit Date Provider Last Modified By Organization Details Last Modified Time Details Appointments Allergy Shot 2024 09:50A [facility] Not available Not available Not available Establish ed 15 2025 10:30A M LAN RÍOS PA-C Not available Not available Not available Lab None recorded. Referral None recorded. Procedures None recorded. Surgeries None recorded. Imaging None recorded. Medication Orders None recorded. Patient TargetsNo targets recorded. Patient InstructionsNo instructions recorded. Reason for Referral None Reported. Results Created Date Observation Date Name Description Value Unit Range Abnormal Flag Note LastModifiedBy Organization Detail LastModifiedTime 02/26/20 25 louie metry testi ng* No observ ation record ed. Not Available 2024 09:32:49 Result Notes None recorded. Problems Name Problem SNOMED Code Status Onset Date Resolution Date Notes Provider Name and Address Organization Details Recorded Time Conducti ve hearing loss 14190999 Active 2015 Conducti ve hearing loss, unilater al, left ear, with unrestri cted hearing on the contrala teral side; Note: Date Diagnose d: 6 12:04 PM (H90.12) Not Available [facility] 4 02:26:33 Otalgia of right ear 9514662973 Active 2015 Otalgia, right ear; Note: Date Diagnose d: 6 12:02 PM (H92.01) Not Available [facility] 4 02:26:21 Otorrhea of right ear 71013773212 27948 Active 2015 Otorrhea , right ear; Note: Date Diagnose d: 6 11:59 AM (H92.11) Not Available [facility] 4 02:26:30 Common cold 00501973 Active 2015 Acute rhinitis ; Note: Date Diagnose d: 6 12:02 PM (J00) Not Available [facility] 4 02:26:06 Infectiv e otitis externa of right ear [id number] 06577 Active 2016 Other infectiv e otitis externa, right ear; Note: Date Diagnose d: 7 4:05 PM (H60.391 ) Not Available [facility] 4 02:26:17 Bilatera l temporom andibula r joint pain 68947882884 097870 Active 2016 Arthralg ia of bilatera l temporom andibula r joint; Note: Date Diagnose d: 7 2:05 PM (M26.623 ) Not Available [facility] 4 02:26:41 Impacted cerumen in left ear 20150911522 88969 Active 2016 Impacted cerumen, left ear; Note: Date Diagnose d: 7 2:04 PM (H61.22) Not Available [facility] 4 02:26:45 Otalgia of left ear 3820841985 Active 2016 Otalgia, left ear; Note: Date Diagnose d: 7 2:05 PM (H92.02) Not Available [facility] 4 02:26:10 Bilatera l disorder of Eustachi an tubes 49063546694 23117 Active 2016 Other specifie d disorder s of Eustachi an tube, bilatera l; Note: Date Diagnose d: 7 2:08 PM (H69.83) Not Available [facility] 4 02:26:44 Jaw pain 256316275 Active 2021 Jaw pain; Note: Date Diagnose d: 2 10:31 AM (R68.84) Not Available [facility] 4 03:05:05 Cough 11786964 Active 2021 Cough, unspecif ied; Note: Changed from R05 to R05.9 (10/20/19 22 3:49 PM) , Date Diagnose d: 2 1:32 PM (R05) Not Available [facility] 4 03:05:04 Gastroes ophageal reflux disease without esophagi tis 774858199 Active 2021 Esophage al reflux NOS; Note: Date Diagnose d: 2 1:32 PM (K21.9) Not Available [facility] 4 03:05:04 Sialolit hiasis 47019352 Active 2021 Sialolit hiasis; Note: Date Diagnose d: 2 1:29 PM (K11.5) Not Available [facility] 4 03:05:06 Dysphoni a 14652254 Active 2021 Hoarsene ss; Note: Date Diagnose d: 2 1:29 PM (R49.0) Not Available [facility] 4 03:05:06 Abrasion of skin of right ear 94403655750 571286 Completed 202101/11/2024 Abrasion of right ear, initial encounte r; Note: Date Diagnose d: 2 2:35 PM (S00.411 A) Not Available [facility] 4 03:05:04 Abnormal auditory percepti on 69271458 Active 2021 Other abnormal auditory percepti ons, bilatera l; Note: Date Diagnose d: 2 2:18 PM (H93.293 ) Not Available [facility] 4 03:05:05 Impacted cerumen of bilatera l ears 46700443939 84828 Active 2023 DREW ANN PA-C [address] [facility],[place] [address], [place], [address] , [facility] - [facility] 4 11:54:34 Acute myringit is of right ear 65605097443 Active 2023 DREW ANN PA-C [address] [place] [address],[place] [address], [place], [address] , [place] - [facility] 4 13:41:37 Allergic rhinitis 17249439 Active 2024 DREW ANN PA-C 100 [facility],[place] [address], [place], [address] , [facility] - [facility] 5 16:11:22 Perennia l allergic rhinitis 568130942 Active 2024 TERRY REED [address] [facility],[place] [address], [place], [address] , [facility] - [facility] 09:27:15 Problem Notes None recorded. Procedures Surgical History Date Name Laterality Status Provider Name and Address Organization Details Recorded Time 04/29/20 25 Allergy Immunotherapy Injections completed [facility]T DEE, [facility] [place]JACKELINE [address] [place] [address], [phone], [facility] - [facility] 04/29/2025 12:07:18 04/22/20 25 Allergy Immunotherapy Injections completed COLT DEE COUNTS INCLUDE 234 [facility]S AT [facility] 100 [facility],[address], [address], [facility] - [facility] 04/22/2025 15:49:30 04/13/20 25 Allergy Immunotherapy Injections completed KELSEY PEACE RN 100 [facility],[address], [address], [facility] - [facility] 04/13/2025 15:23:20 03/11/20 25 Allergy Testing-Full completed TERRY REED 100 [facility],[address], [address], [facility] - [facility] 03/11/2025 10:01:55 02/26/20 25 Allergy Testing Modified- Quantitative Testing (MQT) Only completed TERRY REED 100 [facility],[address], [address], [facility] - [facility] 02/25/2025 10:05:28 12/25/19 25 Cerumen removal without microscope bilat completed DREW ANN PA-C 100 [facility],[address], [address], [facility] - [facility] 12/24/2024 10:52:51 06/27/19 25 Cerumen removal without microscope bilat completed DREW ANN PA-C 100 [facility],[address], [address], [facility] - [facility] 06/27/2024 11:32:30 12/28/19 24 Cerumen removal without microscope bilat completed DREW ANN PA-C [address], [address], [facility] 12/28/2023 13:45:25 11/01/19 24 Cerumen removal without microscope bilat completed DREW ANN PA-C [address], [address], [facility] - [facility] 11/01/2023 11:54:30 Imaging Results None recorded. Procedure Notes None recorded. Medical Equipment None Reported. Allergies Allergen ID Allergen Name Allergen Category Reaction Reaction Severity Criticality Documentation Date Start Date Code Code System Note Provider Name and Address Organization Details Recorded Time 716478 levofloxa jhonny medicatio n chest pain Not available Not available 12/28/2023 47276 RxNorm DREW ANN PA-C [address], [address], [facility] - [facility] 4 13:43:25 965982 tomato allergeni c extract food Not available Not available Not available 12/28/2023 21113 9 RxNorm Hattie [place], [place] - [facility] 5 10:10:58 635200 peanut allergeni c extract food,medi cation Not available Not available Not available 12/28/2023 51260 8 RxNorm DREW ANN PA-C [address], [address], [facility] - [facility] 4 13:43:36 825675 tomato allergeni c extract food other Not available Not available 01/11/2024 61410 9 RxNorm React ion: Unkno wn; Not Available [facility] 4 00:35:47 573498 hydrochlo rothiazid e / triamtere ne medicatio n dyspnea Not available Not available 04/29/2025 33794 7 RxNorm Not Available mary - External Data Service - prod 5 12:07:23 117305 hydrochlo rothiazid e medicatio n wheezing Not available Not available 04/29/20252015 5487 RxNorm Not Available mary - External Data Service - prod 5 12:07:29 869403 lisinopri l medicatio n Not available Not available Not available 04/29/20252021 92035 RxNorm Not Available mary - External Data Service - prod 12:07:29 [id number] honey bee venom environme nt swelling Not available Not available 04/29/20252013 35674 7 RxNorm Age 28: stung by 2 yello w jacke ts and stung on the thigh . She repor ts she had swell ing and redne ss at the site of the sting and surro undin g area, did not cross joint , no troub le breat miya or swall owing . It laste d for about a week with antib iotic s. She was treat ed at [facility]. Not Available mary - External Data Service - prod 5 12:07:34 950126 fluticaso ne propionat e medicatio n Not available Not available Not available 04/29/20252019 64637 RxNorm [facility] Not Available mary - External Data Service - prod 12:07:34 Medications Name Sig Start Date Stop Date Status Note LastModified by Organization Details LastModified Time fluoxetin e 40 mg capsule TAKE 1 CAPSULE BY MOUTH EVERY MORNING active Not Available Not Available No t Available venlafaxi ne ER 75 mg capsule,e xtended release 24 hr 12/27 completed Medicati on ID: [id number] D uration Value: 30 Brand Name: venlafax ine Send Method: E-Prescr ibed Sub s Allowed: subs OK Speci al Instruct ion: TAKE 1 CAPSULE BY ORAL ROUTE EVERY MORNING, WITH FOOD. Me dication GenericN violet: venlafax ine Medi cation ID: [id number] D uration Value: 30 Brand Name: venlafax ine Send Method: E-Prescr ibed Sub s Allowed: subs OK Speci al Instruct ion: TAKE 1 CAPSULE BY ORAL ROUTE EVERY MORNING, WITH FOOD. Me dication GenericN violet: venlafax ine Not Available Not Available Not Available doxycycli ne hyclate 100 mg capsule TAKE 1 CAPSULE BY MOUTH TWICE DAILY 12/21 completed Not Available Not Available Not Available ipratropi um 0.5 mg-albute rol 3 mg (2.5 mg base)/3 mL nebulizat ion soln USE 3 ML VIA NEBULIZE R EVERY 6 TO 8 HOURS NEEDED FOR WHEEZING active Not Available Not Available No t Available cetirizin e 10 mg tablet TAKE 1 TABLET BY MOUTH AT BEDTIME active Not Available Not Available No t Available hydrocodo ne 5 mg-acetam inophen 325 mg tablet 2015 active Medicati on ID: [id number] D uration Value: 4 Brand Name: hydrocod one-acet aminophe n Send Method: E-Prescr ibed Sub s Allowed: subs OK Speci al Instruct ion: TAKE 1 TABLET BY MOUTH EVERY 6 HOURS NEEDED FOR PAIN Med icationG enericNa me: hydrocod one-acet aminophe n Not Available Not Available Not Available prednison e 20 mg tablet TAKE 2 TABLETS BY MOUTH DAILY 02/25 completed Not Available Not Available Not Available clonazepa m 0.5 mg tablet TAKE 1 TABLET BY MOUTH THREE TIMES DAILY NEEDED FOR ANXIETY 02/25 completed Not Available Not Available Not Available clonazepa m 1 mg tablet TAKE 1/2 TABLET BY MOUTH THREE TIMES DAILY NEEDED FOR ANXIETY active Not Available Not Available No t Available metronida zole 500 mg tablet TAKE 1 TABLET BY MOUTH TWICE DAILY FOR 7 DAYS 02/25 completed Not Available Not Available Not Available amlodipin e 5 mg tablet TAKE 1 TABLET BY MOUTH DAILY active Not Available Not Available No t Available valacyclo vir 500 mg tablet TAKE 1 TABLET BY MOUTH DAILY active Not Available Not Available No t Available ciproflox acin 500 mg tablet TAKE 1 TABLET BY MOUTH TWICE DAILY FOR 5 DAYS 02/25 completed Not Available Not Available Not Available pantopraz ole 20 mg tablet,de layed release TAKE 1 TABLET BY MOUTH DAILY - ON EMPTY STOMACH active Not Available Not Available No t Available oxycodone -acetamin ophen 5 mg-325 mg tablet TAKE 1 TABLET BY MOUTH THREE TIMES DAILY FOR 7 DAYS active Not Available Not Available No t Available terbinafi ne HCl 250 mg tablet 02/25 completed Medicati on ID: [id number] D uration Value: 30 Brand Name: terbinaf ine HCl Send Method: E-Prescr ibed Sub s Allowed: subs OK Medic ationGen ericName : terbinaf ine HCl Not Available Not Available Not Available ofloxacin 0.3 % ear drops Instill 4 drop twice a day 2021 active Medicati on ID: [id number] D uration Value: 14 Brand Name: ofloxaci n Send Method: E-Prescr ibed Sub s Allowed: subs OK [facility] ofloxaci n Not Available Not Available Not Available amitripty line 10 mg tablet TAKE 1 TABLET BY MOUTH AT BEDTIME active Not Available Not Available No t Available lidocaine 5 % topical patch APPLY 1 TO 3 PATCHES TOPICALL Y EVERY DAY FOR 30 DAYS. 12 HOURS ON AND 12 HOURS OFF active Not Available Not Available No t Available fluoxetin e 10 mg capsule 02/25 completed Medicati on ID: [id number] B rand Name: fluoxeti ne Send Method: E-Prescr ibed Sub s Allowed: subs OK [facility] fluoxeti ne Not Available Not Available Not Available docusate sodium 100 mg capsule TAKE 1 CAPSULE BY MOUTH TWICE DAILY active Not Available Not Available No t Available gabapenti n 300 mg capsule TAKE 1 CAPSULE BY MOUTH THREE TIMES DAILY active Not Available Not Available No t Available omeprazol e 20 mg capsule,d elayed release 12/27 completed Medicati on ID: [id number] D uration Value: 30 Brand Name: omeprazo le Send Method: E-Prescr ibed Sub s Allowed: subs OK Speci al Instruct ion: TAKE ONE CAPSULE BY MOUTH EVERY DAY Medi cationGe nericNam e: omeprazo le Medic ation ID: [id number] D uration Value: 30 Brand Name: omeprazo le Send Method: E-Prescr ibed Sub s Allowed: subs OK Speci al Instruct ion: TAKE ONE CAPSULE BY MOUTH EVERY DAY Medi cationGe nericNam e: omeprazo le Not Available Not Available Not Available hydroxyzi ne HCl 25 mg tablet TAKE 1 TO 2 TABLETS BY MOUTH AT BEDTIME NEEDED FOR SLEEP active Not Available Not Available No t Available ammonium lactate 12 % topical cream 12/27 completed Medicati on ID: [id number] D uration Value: 30 Brand Name: ammonium lactate Send Method: E-Prescr ibed Sub s Allowed: subs OK Speci al Instruct ion: APPLY TO BOTTOM OF FEET BEFORE BEDTIME, COVER WITH SOCK. Me dication GenericN violet: ammonium lactate Medicati on ID: [id number] D uration Value: 30 Brand Name: ammonium lactate Send Method: E-Prescr ibed Sub s Allowed: subs OK Speci al Instruct ion: APPLY TO BOTTOM OF FEET BEFORE BEDTIME, COVER WITH SOCK. Me dication GenericN violet: ammonium lactate Not Available Not Available Not Available bisacodyl 5 mg tablet,de layed release TAKE 2 TABLETS BY MOUTH RIGHT BEFORE BEGINNIN G BOWEL PREP. FOLLOW INSTRUCT IONS GIVEN BY OFFICE FOR TIMING 12/27 completed Not Available Not Available Not Available epinephri ne 0.3 mg/0.3 mL injection , auto-inje ctor INJECT 1 INJECTIO N IN THE MUSCLE FOR ANAPHYLA XIS DIRECTED active Not Available Not Available No t Available albuterol sulfate HFA 90 mcg/actua tion aerosol inhaler INHALE 2 PUFFS BY MOUTH EVERY 4 TO 6 HOURS NEEDED FOR SHORTNES S OF BREATH OR WHEEZING active Not Available Not Available No t Available celecoxib 100 mg capsule TAKE 1 CAPSULE BY MOUTH TWICE DAILY active Not Available Not Available No t Available fluticaso ne propionat e 50 mcg/actua tion nasal spray,beulah pension SHAKE LIQUID AND USE 1 SPRAY IN EACH NOSTRIL DAILY active Not Available Not Available No t Available sertralin e 50 mg tablet 12/27 completed Medicati on ID: [id number] D uration Value: 30 Brand Name: sertrali ne Send Method: E-Prescr ibed Sub s Allowed: subs OK Speci al Instruct ion: TAKE 1 TAB BY MOUTH DAILY. M edicatigabriel nGeneric Name: sertrali ne Medic ation ID: [id number] D uration Value: 30 Brand Name: sertrali ne Send Method: E-Prescr ibed Sub s Allowed: subs OK Speci al Instruct ion: TAKE 1 TAB BY MOUTH DAILY. M edicatio nGeneric Name: sertrali ne Not Available Not Available Not Available naproxen 500 mg tablet 09/09 completed Medicati on ID: [id number] D uration Value: 25 Brand Name: naproxen Send Method: E-Prescr ibed Sub s Allowed: subs OK Speci al Instruct ion: TAKE 1 TABLET BY MOUTH TWICE A DAY Medi cationGe nericNam e: naproxen Medicat ion ID: [id number] D uration Value: 25 Brand Name: naproxen Send Method: E-Prescr ibed Sub s Allowed: subs OK Speci al Instruct ion: TAKE 1 TABLET BY MOUTH TWICE A DAY Medi cationGe nericNam e: naproxen Not Available Not Available Not Available tobramyci n 0.3 %-dexamet hasone 0.1 % eye drops,beulah pension SHAKE LIQUID AND INSTILL 4 DROPS TO RIGHT EAR TWICE DAILY FOR 14 DAYS 02/25 completed Not Available Not Available Not Available cyclobenz aprine 5 mg tablet TAKE 1 TABLET BY MOUTH EVERY EVENING active Not Available Not Available No t Available cyclospor ine 0.05 % eye drops in a dropperet te INSTILL 1 DROP IN BOTH EYES TWICE DAILY active Not Available Not Available No t Available Ciprodex 0.3 %-0.1 % ear drops,beulah pension Instill 4 drop twice a day as directed 2016 active Medicati on ID: [id number] D uration Value: 7 Prescri bed By Name: James Villavicencio MD Brand Name: Ciprodex Send Method: E-Prescr ibed Sub s Allowed: subs OK Medic ationGen ericName : Ciprodex Not Available Not Available Not Available nitrofura ntoin monohydra te/macroc rystals 100 mg capsule TAKE 1 CAPSULE BY MOUTH TWICE DAILY FOR 10 DAYS 02/25 completed Not Available Not Available Not Available duloxetin e 60 mg capsule,d elayed release TAKE 1 CAPSULE BY MOUTH EVERY DAY active Not Available Not Available No t Available lactulose 10 gram/15 mL oral solution TAKE 30 ML BY MOUTH TWICE DAILY active Not Available Not Available No t Available budesonid e-formote rol HFA 160 mcg-4.5 mcg/actua tion aerosol inhaler INHALE 2 PUFFS BY MOUTH WITH SPACER TWICE DAILY active Not Available Not Available No t Available budesonid e-formote rol HFA 80 mcg-4.5 mcg/actua tion aerosol inhaler INHALE 2 PUFFS BY MOUTH EVERY 12 HOURS 02/25 completed Not Available Not Available Not Available cholecalc iferol (vitamin D3) 1,250 mcg (50,000 unit) capsule TAKE 1 CAPSULE BY MOUTH 1 TIME A WEEK 12/27 completed Not Available Not Available Not Available FeroSul 325 mg (65 mg iron) tablet 12/27 completed Medicati on ID: [id number] D uration Value: 30 Brand Name: ferrous sulfate Send Method: E-Prescr ibed Sub s Allowed: subs OK Speci al Instruct ion: TAKE 1 TABLET BY MOUTH 2 TIMES DAILY. Jose Trippeneric Name: ferrous sulfate Medicati on ID: [id number] D uration Value: 30 Brand Name: ferrous sulfate Send Method: E-Prescr ibed Sub s Allowed: subs OK Speci al Instruct ion: TAKE 1 TABLET BY MOUTH 2 TIMES DAILY. Jose Trippeneric Name: ferrous sulfate Not Available Not Available Not Available GaviLyte- G 236 gram-22.7 4 gram-6.74 gram-5.86 gram oral solution MIX AND DRINK 4000 ML BY MOUTH FOR ONE DOSE 02/25 completed Not Available Not Available Not Available Metamucil Fiber (aspartam e) 3.4 gram oral powder packet TAKE 1 PACKET BY MOUTH DAILY active Not Available Not Available No t Available Linzess 290 mcg capsule TAKE 1 CAPSULE BY MOUTH DAILY active Not Available Not Available No t Available Trulance 3 mg tablet TAKE 1 TABLET BY MOUTH DAILY 02/25 completed Not Available Not Available Not Available Dupixent 300 mg/2 mL subcutane ous pen injector active Not Available Not Available Not Available Vitals Date Recorded Body height Oxygen saturation Oxygen saturation in Arterial blood by Pulse oximetry Heart rate Body mass index (BMI) Body weight Systolic And Diastolic Systolic And Diastolic Provider Name and Address Organization Details Last Updated DateTime 5 154.94 cm 99 % 99 % 82 /min 38.5 kg/m2 81745.8 4 g 143/108 mm[Hg] 162/100 mm[Hg] TODD STEVENS, [address], [address] [place], [place] - [facility] 5 10:06:36 Date Recorded Body height Body mass index (BMI) Body weight Heart rate Systolic And Diastolic Provider Name and Address Organization Details Last Updated DateTime 04/13/2025 154.94 cm 39.7 kg/m2 32458.4 g 81 /min 130/81 mm[Hg] KELSEY PEACE RN [address] [place] [address], [place], [address] [place]ELE[place] - [facility] 04/13/2025 15:06:51 Social History Question Answer Notes LastModified by Organizat ion Details LastModified Time Tobacco Smoking Status Former Smoker Hattie Talisha martinez [place] - [facility] 12/24/2024 10:11:08 How Many Years Have You Consumed Alcohol? 5 Information not available 12/24/2024 How Many Alcoholic Drinks Do You Consume Per Day On Average? 2 Information not available 12/24/2024 Do You Have Any Pets? Yes Information not available 12/24/2024 At What Age Did You Start Smoking Tobacco? 18 Information not available 12/24/2024 Are You Passively Exposed To Smoke? No Information not available 12/24/2024 Are There Any Smokers In Your House? No Information not available 12/24/2024 How Much Tobacco Do You Smoke? 0.25 PPD Information not available 12/24/2024 How Many Years Have You Smoked Tobacco? 4 Information not available 12/24/2024 Sex: Unknown Functional Status Question Answer Note LastModified by Organizat ion Details LastModified Time How many times per week do you consume alcohol? 1-2 times per week Information not available 12/24/2024 Do you use any illicit or recreational drugs? No hlorinser Information not available 04/13/2025 Do you or have you ever used any other forms of tobacco or nicotine? No Information not available 12/24/2024 What is your level of alcohol consumption? Moderate Information not available 12/24/2024 Mental Status None recorded. Family History Nothing Reported. Medical History Condition Response Allergies/Hayfever Y Heart Problems Y Anxiety Y Tonsil Infections Y Emphysema N Migraines N Thyroid Problems N Glaucoma N Depression Y COPD Y Developmental Delay N Nasal or Sinus Problems N Anemia N Immune System Disorder N Anesthesia Complications N Heart Attack (MS) N Other Skin Condition N Diabetes N Rhinitis N Bleeding Disorder N Food Allergy Y Arthritis Y Hearing Loss N Hyperlipidemia N Cancer N Eczema N Stroke N Dementia N Nasal polyps N Asthma Y High Cholesterol N Sleep Disorder N GERD/Reflux N Liver Disease N Headaches Y Fibromyalgia Y Hypertension Y Speech Delay N Kidney Disease N Gynecological HistoryNo gynecological history recorded. Obstetrics History GPAL:G 0 P 0 0 0 0 Past Encounters Encounter ID Performer Location Encounter Start Date Encounter Closed Date Diagnosis/Indication Diagnosis SNOMED-CT Code Diagnosis ICD10 Code Diagnosis IMO Codes Diagnosis Note [id number] DREW ANN PA-C [facility] [address] [address] 11/01/2023 11:49:31 11/01/2023 12:37:01 Impacted cerumen of bilateral ears [id number] 831025 H61.23 [id number] DREW ANN PA-C [facility] [address] [address] 12/28/2023 13:10:17 12/28/2023 13:39:18 Impacted cerumen of bilateral ears [id number] 795583 H61.23 Acute myri ngitis of right ear [id number] 845039 H73.001 [id number] DREW ANN PA-C [facility] [address] [address] 06/27/2024 11:13:51 06/27/2024 11:57:37 Impacted cerumen of bilateral ears [id number] 646693 H61.23 [id number] DREW ANN PA-C [facility] [address] [address] 12/24/2024 10:06:22 12/24/2024 10:48:31 Impacted cerumen of bilateral ears [id number] 824544 H61.23 [id number] TERRY REED Allergy [address] [place] [address] 02/25/2025 09:07:02 02/25/2025 10:07:40 Allergic rhinitis 71632918 J30.89 [id number] TERRY REED Allergy [address] [place] [address] [place] [address] [place] [address] 03/11/2025 09:13:55 03/11/2025 10:02:21 Perennial allergic rhinitis [id number] J30.89 [id number] KELSEY PEACE RN Allergy 100 [facility],[place] [place] [address] 04/13/2025 14:58:21 04/13/2025 15:24:07 Perennial allergic rhinitis 127936799 J30.89 [id number] Huma Strickland Allergy 100 [facility],[place] [address] [place] [address] 04/22/2025 15:20:55 04/22/2025 15:49:57 Perennial allergic rhinitis [id number] J30.89 [id number] COLT GALARZAFidel, A [facility] [place] [address] [place] [address] 04/29/2025 12:06:31 04/29/2025 12:07:53 Perennial allergic rhinitis [id number] J30.89 Health Concerns Section Related Observation LastModified by Organization Detai ls LastModified Time None Recorded Concern Status LastModified by Organization Details LastModified Time None Recorded Advance Directives Directive None Recorded Payers Insurance Date Sequence Insurance Name Policy Number Policy Herr Covered Member ID Herr Member ID Guarantor Name 04/29/2025 1 [facility] - DOS ON OR AFTER 2022 - MEDICARE [place]ANTAGE [place] (MEDICARE [place]PLAC[place]/A DVANTAGE - PPO) Deisy Muhammad [id number] Deisy Muhammad 04/11/2025 2 [place] Deisyeliecer Stovallrs [id number] Deisy Muhammad OBGyn Episode No OBEpisode recorded.
--- OUTSIDE RECORDS SUMMARY | 2025-04-29 18:52 | XMS_ITS | Encounter Summary ---
Author Organization [place] [address] Care Team Providers Care Automotive Sales Representative Name Role Phone Ольга Jewell MD Primary Care Provider Encounter Details Date Type Department Care Team (Late st Contact Info) Description 04/13/2025 Results Follow-Up Adult Medicine - [place] [address] [place] [id number] Mauricio Strauss, KIMBERLY [address] [place] [address] Social History Tobacco Use Types Packs/Day Years [...] getting things needed for daily living? No 4 Has the lack of transportati on kept [...] care for your loved ones. For example, residential child care counselor or elderly care for an older [...] Date Recorded What is your living situation? Unrecognized valu e 05/21/2024 Comments No Sex and Gender Information Value Date Recorded Sex Assigned at Not on file Legal Sex Female 12:50 PM EST Gender Identity Not on file Sexual Orientation Not on file documented as of this encounter Ordered Prescriptions Prescription Sig Dispense Quantity Refills Last Filled Start Date End Date cephalexin (KEFLEX) 500 mg capsuleIndications :Urinary tract infection without hematuria, site unspecified Take 1 capsule (500 mg total) by mouth 2 (two) times a day for 7 days. 14 each 04/13/2025 documented in this encounter Plan of Treatment Upcoming Encounters Date Type Department Care Team (Late st Contact Info) Description 05/14/2025 9:45 AM EST Office Visit Adult Medicine - [place] [address] [place] [address] Mauricio Strauss PA [address] [place] [address] 09/26/2025 12:30 PM EDT Appointment Radiology Department - [address] [address] documented as of this encounter Visit Diagnoses Diagnosis Urinary tract infection without hematuria, site unspecified- Primary documented in this encounter Additional Health Concerns Assessment Noted Time PHQ-9 Depression Total Score: 8 11/07/19 25 11:06 AM EDT documented as of this encounter Care Teams Automotive Sales Representative Relationship Specialty Start Date End Date Ольга Jewell MD [address] [address] PCP - General Internal Medicine 12/14/21 documented as of this encounter
--- OUTSIDE RECORDS SUMMARY | 2025-04-29 18:52 | XMS_ITS | Continuity of Care Document ---
Author Organization [place] [facility], Allergy Address [address] [address] Care Team Providers Care Nuclear Test Technician Name Role Phone BROOK OLIVERA Primary Care Provider [phone] Assessment No assessment recorded. Plan of Treatment Reminders Order Date Submit [...] testi ng* No observ ation record ed. [email or web address] Not Available 2024 09:32:49 Result Notes None recorded. Problems Name Problem SNOMED Code Status Onset Date Resolution Date Notes Provider Name and Address Organization Details Recorded Time Conducti ve hearing loss 57922398 Active 2015 Conducti ve hearing loss, unilater al, left ear, with unrestri cted hearing on the contrala teral side; Note: Date Diagnose d: 6 12:04 PM (H90.12) Not Available [facility] 4 02:26:33 Otalgia of right ear 4301771637 Active 2015 Otalgia, right ear; Note: Date Diagnose d: 6 12:02 PM (H92.01) Not Available [facility] 4 02:26:21 Otorrhea of right ear 62297959737 65869 Active 2015 Otorrhea , right ear; Note: Date Diagnose d: 6 11:59 AM (H92.11) Not Available [facility] 4 02:26:30 Common cold 71924446 Active 2015 Acute rhinitis ; Note: Date Diagnose d: 6 12:02 PM (J00) Not Available [facility] 4 02:26:06 Infectiv e otitis externa of right ear 85891225886 73256 Active 2016 Other infectiv e otitis externa, right ear; Note: Date Diagnose d: 7 4:05 PM (H60.391 ) Not Available [facility] 4 02:26:17 Bilatera l temporom andibula r joint pain 18029376675 099122 Active 2016 Arthralg ia of bilatera l temporom andibula r joint; Note: Date Diagnose d: 7 2:05 PM (M26.623 ) Not Available [facility] 4 02:26:41 Impacted cerumen in left ear 68889998503 00169 Active 2016 Impacted cerumen, left ear; Note: Date Diagnose d: 7 2:04 PM (H61.22) Not Available [facility] 4 02:26:45 Otalgia of left ear 0854961068 Active 2016 Otalgia, left ear; Note: Date Diagnose d: 7 2:05 PM (H92.02) Not Available [facility] 4 02:26:10 Bilatera l disorder of Eustachi an tubes 62325031308 24623 Active 2016 Other specifie d disorder s of Eustachi an tube, bilatera l; Note: Date Diagnose d: 7 2:08 PM (H69.83) Not Available [facility] 4 02:26:44 Jaw pain 052408228 Active 2021 Jaw pain; Note: Date Diagnose d: 2 10:31 AM (R68.84) Not Available [facility] 4 03:05:05 Cough 57948207 Active 2021 Cough, unspecif ied; Note: Changed from R05 to R05.9 (10/20/19 22 3:49 PM) , Date Diagnose d: 2 1:32 PM (R05) Not Available [facility] 4 03:05:04 Gastroes ophageal reflux disease without esophagi tis 982846511 Active 2021 Esophage al reflux NOS; Note: Date Diagnose d: 2 1:32 PM (K21.9) Not Available [facility] 4 03:05:04 Sialolit hiasis 94930332 Active 2021 Sialolit hiasis; Note: Date Diagnose d: 2 1:29 PM (K11.5) Not Available [facility] 4 03:05:06 Dysphoni a 90040491 Active 2021 Hoarsene ss; Note: Date Diagnose d: 2 1:29 PM (R49.0) Not Available [facility] 4 03:05:06 Abrasion of skin of right ear 90464863399 088343 Completed 202101/11/2024 Abrasion of right ear, initial encounte r; Note: Date Diagnose d: 2 2:35 PM (S00.411 A) Not Available [facility] 4 03:05:04 Abnormal auditory percepti on 89856844 Active 2021 Other abnormal auditory percepti ons, bilatera l; Note: Date Diagnose d: 2 2:18 PM (H93.293 ) Not Available [facility] 4 03:05:05 Impacted cerumen of bilatera l ears 47423713573 84201 Active 2023 DREW ANN PA-C [address], [place], [address] , [facility] [place] 4 11:54:34 Acute myringit is of right ear 20300878515 85402 Active 2023 DREW ANN PA-C [address], [place], [address] , [facility] - [facility] [place] 4 13:41:37 Allergic rhinitis 08558947 Active 2024 DREW ANN PA-C [address], [place], [address] , [facility] - [facility] [place] 5 16:11:22 Perennia l allergic rhinitis 041362532 Active 2024 TERRY REED [address], [place], [address] , [facility] - [facility] 5 09:27:15 Problem Notes None recorded. Procedures Surgical History Date Name Laterality Status Provider Name and Address Organization Details Recorded Time 04/29/20 25 Allergy Immunotherapy Injections completed COLT DEE [facility] [address] [facility] [place] [place], [address], [facility] - [facility] 04/29/2025 12:07:18 04/22/20 25 Allergy Immunotherapy Injections completed COLT DEE [facility] [address] [facility] [place] [place], [address], [facility] - [facility] 04/22/2025 15:49:30 04/13/20 25 Allergy Immunotherapy Injections completed KELSEY PEACE RN [address] [facility] [place] [place], [address], [facility] - [facility] 04/13/2025 15:23:20 03/11/20 25 Allergy Testing-Full completed TERRY REED [address], [place], [address], [facility] - [facility] 03/11/2025 10:01:55 02/26/20 25 Allergy Testing Modified- Quantitative Testing (MQT) Only completed TERRY REED [address], [place], [address], [facility] - [facility] 02/25/2025 10:05:28 12/25/19 25 Cerumen removal without microscope bilat completed DREW ANN PA-C [address] [place] [address], [address], [facility] - [facility] 12/24/2024 10:52:51 06/27/19 25 Cerumen removal without microscope bilat completed DREW ANN PA-C [address] [place] [address], [address], [facility] - [facility] 06/27/2024 11:32:30 12/28/19 24 Cerumen removal without microscope bilat completed DREW ANN PA-C [facility] [place],[address], [address], [facility] - [facility] 12/28/2023 13:45:25 11/01/19 24 Cerumen removal without microscope bilat completed DREW ANN PA-C [address] [facility] [place],[address], [address], [facility] - [facility] 11/01/2023 11:54:30 Imaging Results None recorded. Procedure Notes None recorded. Medical Equipment None Reported. Allergies Allergen ID Allergen Name Allergen Category Reaction Reaction Severity Criticality Documentation Date Start Date Code Code System Note Provider Name and Address Organization Details Recorded Time [id number] levofloxa jhonny medicatio n chest pain Not available Not available 12/28/2023 44301 RxNorm DREW ANN PA-C [address] [place], [place], [address], [facility] - [facility] 4 13:43:25 581905 tomato allergeni c extract food Not available Not available Not available 12/28/2023 28356 9 RxNorm Hattie martinez [place] [facility] 5 10:10:58 558752 peanut allergeni c extract food,medi cation Not available Not available Not available 12/28/2023 82506 8 RxNorm DREW ANN PA-C [address] [place] [address], [facility] [place], [address] , [facility] - [facility] 4 13:43:36 084080 tomato allergeni c extract food other Not available Not available 01/11/2024 00100 9 RxNorm React ion: Unkno wn; Not Available [facility] 4 00:35:47 197076 hydrochlo rothiazid e / triamtere ne medicatio n dyspnea Not available Not available 04/29/2025 16388 7 RxNorm Not Available [employer] [facility] 5 12:07:23 380822 hydrochlo rothiazid e medicatio n wheezing Not available Not available 04/29/20252015 5487 RxNorm Not Available [employer] [facility] 5 12:07:29 835114 lisinopri l medicatio n Not available Not available Not available 04/29/20252021 10009 RxNorm Not Available [employer] [facility] 5 12:07:29 710041 honey bee venom environme nt swelling Not available Not available 04/29/20252013 10660 7 RxNorm Age 28: stung by 2 [...] iotic s. She was treat ed at [facility]. Not Available [employer]ary [employer] - prod 5 12:07:34 808392 fluticaso ne propionat e medicatio n Not available Not available Not available 04/29/20252019 35299 RxNorm Parad oxica l [facility] Not Available mary - [employer] - prod 5 12:07:34 Medications Name Sig Start Date Stop Date Status Note LastModified by Organization Details LastModified Time fluoxetin e 40 mg capsule TAKE 1 CAPSULE BY MOUTH EVERY MORNING active Not Available Not Available No t Available venlafaxi ne ER 75 mg capsule,e xtended release 24 hr 12/27 completed Medicati on ID: [id number] D uration Value: 30 Brand Name: venlafax ine Send Method: E-Prescr ibed Sub s Allowed: subs OK Speci al Instruct ion: TAKE 1 CAPSULE BY ORAL ROUTE EVERY MORNING, WITH FOOD. Me dication GenericN violet: venlafax ine Medi cation ID: [id number] D uration Value: 30 Brand Name: venlafax [...] mg tablet 2015 active Medicati on ID: 856619 D uration Value: 4 Brand Name: hydrocod [...] mg tablet 02/25 completed Medicati on ID: [id number] D uration Value: 30 Brand Name: terbinaf ine HCl Send Method: E-Prescr ibed Sub s Allowed: subs OK Medic ationGen ericName : terbinaf ine HCl Not Available Not Available Not Available ofloxacin 0.3 % ear drops Instill 4 drop twice a day 2021 active Medicati on ID: [id number] D uration Value: 14 Brand Name: ofloxaci n Send Method: E-Prescr ibed Sub s Allowed: subs OK Medic ationGen ericName : ofloxaci n Not Available Not [...] mg capsule 02/25 completed Medicati on ID: [id number] B rand Name: fluoxeti ne Send Method: E-Prescr ibed Sub s Allowed: subs OK Medic ationGen ericName : fluoxeti ne Not Available Not Available Not Available docusate sodium 100 mg capsule TAKE 1 CAPSULE BY MOUTH TWICE DAILY active Not Available Not Available No t Available gabapenti n 300 mg capsule TAKE 1 CAPSULE BY MOUTH THREE TIMES DAILY active Not Available Not Available No t Available omeprazol e 20 mg capsule,d elayed release 12/27 completed Medicati on ID: [id number] D uration Value: 30 Brand Name: omeprazo le Send Method: E-Prescr ibed Sub s Allowed: subs OK Speci al Instruct ion: TAKE ONE CAPSULE BY MOUTH EVERY DAY Medi cationGe nericNam e: omeprazo le Medic ation ID: [id number] D uration Value: 30 Brand Name: omeprazo [...] topical cream 12/27 completed Medicati on ID: [id number] D uration Value: 30 Brand Name: ammonium lactate Send Method: E-Prescr ibed Sub s Allowed: subs OK Speci al Instruct ion: APPLY TO BOTTOM OF FEET BEFORE BEDTIME, COVER WITH SOCK. Me dication GenericN violet: ammonium lactate Medicati on ID: [id number] D uration Value: 30 Brand Name: ammonium [...] mg tablet 12/27 completed Medicati on ID: [id number] D uration Value: 30 Brand Name: sertrali ne Send Method: E-Prescr ibed Sub s Allowed: subs OK Speci al Instruct ion: TAKE 1 TAB BY MOUTH DAILY. Jose Suarezic Name: nathan molina Medic ation ID: [id number] D uration Value: 30 Brand Name: sertrali ne Send Method: E-Prescr ibed Sub s Allowed: subs OK Speci al Instruct ion: TAKE 1 TAB BY MOUTH DAILY. Jose Suarezic Name: nathan molina Not Available Not Available Not Available naproxen 500 mg tablet 09/09 completed Medicati on ID: [id number] D uration Value: 25 Brand Name: naproxen Send Method: E-Prescr ibed Sub s Allowed: subs OK Speci al Instruct ion: TAKE 1 TABLET BY MOUTH TWICE A DAY Medi cationGe nericNam e: naproxen Medicat ion ID: [id number] D uration Value: 25 Brand Name: naproxen [...] as directed 2016 active Medicati on ID: [id number] D uration Value: 7 Prescri bed By [...] iron) tablet 12/27 completed Medicati on ID: [id number] D uration Value: 30 Brand Name: ferrous sulfate Send Method: E-Prescr ibed Sub s Allowed: subs OK Speci al Instruct ion: TAKE 1 TABLET BY MOUTH 2 TIMES DAILY. M edpeace nGeneric Name: ferrous sulfate Medicati on ID: [id number] D uration Value: 30 Brand Name: ferrous sulfate Send Method: E-Prescr ibed Sub s Allowed: subs OK Speci al Instruct ion: TAKE 1 TABLET BY MOUTH 2 TIMES DAILY. M timao nGeneric Name: ferrous sulfate Not Available Not Available [...] % 99 % 82 /min 38.5 kg/m2 49898.8 4 g 143/108 mm[Hg] 162/100 mm[Hg] TODD STEVENS, [facility] [address], [address] , [place] [facility] 10:06:36 Social History Question Answer Notes LastModified by LOOKK ion Details LastModified Time Tobacco Smoking Status Former Smoker Hattie martinez [place] [facility] 12/24/2024 10:11:08 How Many Years Have [...] Migraines N Thyroid Problems N Glaucoma N Developmental Delay N Depression Y COPD Y Nasal or Sinus Problems N Anemia N Immune System Disorder N Anesthesia Complications N Heart Attack ([place]) N Other Skin Condition N Diabetes N Rhinitis N Bleeding Disorder N Food Allergy Y Hearing Loss N Arthritis Y Hyperlipidemia N Eczema N Cancer N Stroke N Dementia N Nasal polyps N Asthma Y Sleep Disorder N High Cholesterol N GERD/Reflux N Liver Disease N Headaches Y Fibromyalgia Y Hypertension Y Speech Delay N Kidney Disease N Gynecological HistoryNo gynecological history recorded. Obstetrics History GPAL:G 0 P 0 0 0 0 Past Encounters Encounter ID Performer Location Encounter Start Date Encounter Closed Date Diagnosis/Indication Diagnosis SNOMED-CT Code Diagnosis ICD10 Code Diagnosis IMO Codes Diagnosis Note [id number] TERRY REED Allergy [address] [facility] 100 [facility] J[place] [address] 02/25/2025 09:07:02 02/25/2025 10:07:40 Allergic rhinitis 53009801 J30.89 [id number] Health Concerns Section Related Observation LastModified by Organization Detai ls LastModified Time None Recorded Concern Status LastModified by Organization Details LastModified Time None Recorded Payers Encounter Date Sequence Insurance Name Policy Number Policy Herr Covered Member ID Herr Member ID Guarantor Name 02/25/2025 1 [facility] - DOS ON OR AFTER 2022 - MEDICARE [place]AC[place]/A DVANTAGE - PPO) Deisy Muhammad [id number] Deisy Muhammad 02/25/2025 2 [place] Deisy Muhammad [id number] Deisy Muhammad OBGyn Episode No OBEpisode recorded.
--- OUTSIDE RECORDS SUMMARY | 2025-04-29 18:52 | XMS_ITS ---
Author Name [facility] Organization Unknown Care Team Organization Name Specialty Phone Email Start Date End Da te [facility] Ailyn Wright Primary Care 04/18/2022 01/28/2024
--- OUTSIDE RECORDS SUMMARY | 2025-04-29 18:52 | XMS_ITS | Encounter Summary ---
Author Organization [facility] [place] [address] Care Team Providers Care Tenter Name Role Phone Ольга Jewell MD Primary Care Provider Encounter Details Date Type Department Care Team (Late st Contact Info) Description 04/10/2025 Results Follow-Up Adult Medicine - [place] [address] [place] [id number] Mauricio Strauss, KIMBERLY [address] [place] [address] Social History Tobacco Use Types Packs/Day Years [...] care for your loved ones. For example, childcare worker or elderly care for an older [...] 9:45 AM EST Office Visit Adult Medicine [facility] [address] [place] [address] Mauricio Strauss PA [address] [place] [address] 09/26/2025 12:30 PM EDT Appointment Radiology Department - [address] [address] documented as of this encounter Visit Diagnoses Not on filedocumented in this encounter Additional Health Concerns Assessment Noted Time PHQ-9 Depression Total Score: 8 11/07/19 25 11:06 AM EDT documented as of this encounter Care Teams Tenter Relationship Specialty Start Date End Date Ольга Jewell MD [address] [place] [address] PCP - General Internal Medicine 12/14/21 documented as of this encounter
--- OUTSIDE RECORDS SUMMARY | 2025-04-29 18:52 | XMS_ITS | Clinical Summary ---
Author Organization [address] [place] [address] [place] [phone] Phone Care Team Providers Care Wrecker Operator Name Role Phone Ольга Jewell MD Primary [...] became itchy and lips began to itch. Triamterene-Hydrochlorothia zid Shortness of breath High 05/12/2024 HCTZ Medications albuterol HFA (PROAIR HFA ; PROVENTIL HFA ; VENTOLIN HFA) 90 mcg/actuation inhaler INHALE 2 PUFFS INTO THE LUNGS EVERY 6 HOURS NEEDED FOR COUGH OR WHEEZING 05/17/20 23 Active cetirizine (ZyrTEC) 10 mg tablet Take 1 tablet (10 mg total) by mouth 1 (one) time each day. 03/28/20 21 Active clonazePAM (KlonoPIN) 0.5 mg tablet TAKE 1 TABLET BY MOUTH ONCE A DAY NEEDED FOR ANXIETY. MAY TAKE ADDITIONAL TABLET BY MOUTH NEEDED FOR SEVERE ANXIETY 10/31/19 Active COQ10, UBIQUINOL, ORAL YkK45-Grwfafyd rn-Carnosine 50-500-100 MG Cap 04/17/20 23 Active DULoxetine (CYMBALTA) 60 mg [...] BEDTIME NEEDED FOR SLEEP 02/24/20 23 Active ipratropium-alb uteroL (DUONEB) 0.5-2.5 mg/3 mL nebulizer solution USE 3 ML VIA NEBULIZER EVERY 6 TO 8 HOURS NEEDED FOR WHEEZING 03/05/20 23 Active olopatadine (PATANASE) 0.6 % spray,non-aeros ol nasal spray 2 Sprays by Nasal route 2 times daily. 03/30/20 20 Active oxyCODONE-aceta minophen (PERCOCET) 5-325 mg per tablet Take 1 tablet by mouth every 4 (four) hours. Active turmeric/turmer ic ext/pepr ext (turmeric-turme duyen ext-pepper) 900-100-5 mg capsule Take by mouth. 04/17/20 23 Active tiotropium (Spiriva Respimat) 2.5 mcg/actuation inhalation spray 08/18/19 21 Active glucosamine/cho ndro husain A/C/Mn (GLUCOSAMINE-CH ONDROIT-VIT C-MN ORAL) Active rhubarb root extract 4 mg tablet Active valACYclovir (VALTREX) 500 mg tablet TAKE 1 TABLET BY MOUTH DAILY 90 tablet 1 12/04/19 25 Active pantoprazole (PROTONIX) 20 mg EC tablet Take 1 tablet (20 mg total) by mouth 1 (one) time each day before breakfast. Do not crush, chew, or split. 90 each 3 12/04/19 25 026 Active budesonide-form oteroL (SYMBICORT) 160-4.5 mcg/actuation inhaler Inhale 2 puffs by mouth 2 (two) times a day. Rinse mouth with water after use to reduce aftertaste and incidence of candidiasis. Do not swallow. Active amLODIPine (NORVASC) 5 mg tablet TAKE 1 TABLET BY MOUTH DAILY 90 tablet 1 01/02/20 25 Active linaCLOtide (Linzess) 290 mcg capsule Take 1 capsule (290 mcg total) by mouth 1 (one) time each day. 90 each 1 01/06/20 25 026 Active ferrous sulfate (iron) 325 mg (65 mg elemental iron) tablet Take 1 tablet (325 mg total) by mouth 1 (one) time each day with breakfast. Active amitriptyline (ELAVIL) 10 mg tabletIndicatio ns:Chronic constipation,Or al phase dysphagia,Histo ry of sleeve gastrectomy Take 1 tablet (10 mg total) by mouth at bedtime. at bedtime. 90 each 3 03/31/20 25 026 Active gabapentin (NEURONTIN) 300 mg capsule TAKE 1 CAPSULE BY MOUTH THREE TIMES DAILY 270 capsule 1 04/23/20 25 Active docusate sodium (COLACE) 100 mg capsule Take 1 capsule (100 mg total) by mouth 2 (two) times a day. 180 each 3 04/24/20 25 026 Active acetaminophen (TYLENOL 8 HOUR) 650 mg 8 hr tablet Take 1 Tab by mouth every 8 hours as needed for Pain. 12/03/19 19 025 Discontinued docusate sodium (COLACE) 100 mg capsule TAKE 1 CAPSULE(100 MG) BY MOUTH TWICE DAILY BEFORE MEALS 60 capsule 5 11/07/19 25 025 Discontinued gabapentin (NEURONTIN) 300 mg capsule TAKE 1 CAPSULE BY MOUTH THREE TIMES DAILY 270 capsule 01/31/20 25 025 Discontinued celecoxib (CeleBREX) 100 mg capsuleIndicati ons:Fibromyalgi a TAKE 1 CAPSULE(100 MG) BY MOUTH TWICE DAILY 180 capsule 1 02/27/20 25 025 Discontinued cephalexin (KEFLEX) 500 mg capsuleIndicati ons:Urinary tract infection without hematuria, site unspecified Take 1 capsule (500 mg total) by mouth 2 (two) times a day for 7 days. 14 each 04/13/20 25 025 Active Problems Problem Noted Date Diagnosed Date [...] Overview (03/18/2024): Fibroadenoma Cervicalgia 11/03/2018 Overview (03/18/2024): [facility] H. pylori infection 10/06/2018 [...] Encounters Date Type Department Care Team Description 04/13/2025 Results Follow-Up Adult Medicine - [address] [phone] Mauricio Strauss PA 04/10/2025 11:50 AM EDT Lab Draw Station - [address] [phone] Vaginal odor; Cloudy urine 04/10/2025 Results Follow-Up Adult Medicine - [address] [phone] Mauricio Strauss PA 04/09/2025 10:55 AM EDT Lab Draw Station - [address] [phone] Routine general medical examination at a health care facility 04/09/2025 10:00 AM EDT Office Visit Adult Medicine - [address] [phone] Mauricio Strauss PA Routine general medical examination at a health care facility (Primary Dx); Morbid obesity (CMS/HCC V24, CMS/HCC V28); Vaginal odor; Cloudy urine; Fibromyalgia; Moderate persistent asthma without complication; Essential hypertension; MGUS (monoclonal gammopathy of unknown significance); Need for Tdap vaccination from Last 3 Months Immunizations Immunization Administration Dates Next Due Hepatitis B (Ydjbkba-X-Gtzhw , Recombivax HB-Adult) 19yo and older 01/31/2016,10/29/2015 [...] ular pertussis (Boostrix; Adacel) 7yo and older 04/09/2025,04/22/2014 Varicella live (Varivax) 12mo and older 11/05/19 [...] elbow, Dr. Bowens OTHER SURGICAL HISTORY PROCEDURE: NH GASTRIC RSTCV W/O BYP VERTICAL-BANDED GASTROPLY; COMMENT: March 2020 SHOULDER SURGERY 09/09/2020 Left PROCEDURE: HISTORICAL SHOULDER SURGERY BREAST BIOPSY 2018 Right PROCEDURE: BX BREAST; PERC NEEDLE CORE W/IMAG GUID; COMMENT: rt. breast bx-benign BREAST BIOPSY 07/13/2020 Left PROCEDURE: NH BX BREAST W/DEVICE 1ST LESION ULTRASOUND GUID; COMMENT: b9 ESOPHAGOGASTRODUODENOSCOPY PROCEDURE: NH EGD TRANSORAL BIOPSY SINGLE/MULTIPLE; COMMENT: Performed on [...] obesity wit h BMI of 40.0-44.9, adult ([facility]); COMMENT: Bariatric Surgery Program Surgeon: Initial visit date 06/21/17 Psychiatry clearance: 08/28/17 Saira PCP clearance: 08/08/17 Jose Physical: 07/19/17 Dietitian-Dietary Clearance: [facility] 12/04/17 Labs: 06/22/17 Done. Support groups: Done. [...] Answered Alcohol Use Standard Drinks/Week Comments Yes 9 [...] your loved ones. For example, child care worker or elderly care for an older [...] Sign Reading Time Taken Comments Blood Pressure 141/94 04/09/2025 10:41 AM EDT Pulse 100 12/08/2024 2:45 PM EDT Temperature 36.3 C (97.3 F) 04/09/2025 9:58 AM EDT Respiratory Rate - - Oxygen Saturation 98% 10/15/2024 11:02 AM EDT Inhaled Oxygen Concentration - - Weight 97.8 kg (215 lb 9.6 oz) 04/09/2025 9:58 A M EDT Height 154.9 cm (5' 1 ) 04/09/2025 9:58 AM EDT Body Mass Index 40.74 04/09/2025 9:58 AM EDT Plan of Treatment Upcoming Encounters Date Type Department Care Team (Late st Contact Info) Description 05/14/2025 9:45 AM EST Office Visit Adult Medicine - [address] [phone] Mauricio Strauss PA [address] [place] [phone] 09/26/2025 12:30 PM EDT Appointment Radiology Department - [address] [phone] Health Maintenance Due Date Last Done Comments Pneumococcal Vaccine: Pediatrics (0 to 5 Years) and At-Risk Patients (6 to 49 Years) (2 of 2 - PCV) 04/22/2015 04/22/2014 Hepatitis B Vaccines (3 of 3 - 19+ 3-dose series) 04/30/2016 01/31/2016, 10/29/2015 COVID-19 Vaccine (3 - Moderna risk series) 04/29/2021 04/01/2021, 03/04/2021 Social Influencers of Health Screening 05/21/2025 05/21/2024 Hypertension/CHF/CAD Annual BMP Blood Test 04/09/2026 04/09/2025, 03/29/2023 Breast Cancer Screening 10/02/2026 10/03/19, 09/20/2024, 09/21/2023, Additional history exists Cholesterol Screening (Lipid Panel) 04/09/2030 04/09/2025, 03/29/2023 Medicare Annual Wellness Visit 04/11/2030 Postponed from 05/20/2022 (Not clinically appropriate to address at this time) Colorectal Cancer Screening: Colonoscopy 10/22/2033 10/23/2023 DTaP,Tdap,and Td Vaccines (3 - Td or Tdap) 04/09/2035 04/09/2025, 04/22/2014 RSV Immunization Adult Patients (1 - 1-dose 75+ series) 08/26/2051 Varicella Vaccines Aged Out 11/05/2015 No longer eligible based on patient's age to complete this topic HIV Screening Completed 12/25/2017 Hepatitis C Screening Completed 12/25/2017 Influenza Vaccine Discontinued 08/16/2023, , 05/13/2019, Additional history exists Depression Screening Completed 11/06/2024 HIB Vaccines Aged Out No longer eligi [...] Procedure Name Priority Date/Time Associated Diagnosis Comments FREEMAN URINE CULTURE TUBE Routine 04/10/2025 11:47 AM EDT Vaginal odor Cloudy urine URINALYSIS WITH REFLEX MICROSCOPIC AND CULTURE Routine 04/10/2025 11:47 AM EDT Vaginal odor Cloudy urine URINALYSIS WITH REFLEX MICROSCOPIC AND CULTURE Routine 04/10/2025 11:47 AM EDT Vaginal odor Cloudy urine CULTURE URINE Routine 04/10/2025 11:47 AM EDT Vaginal odor Cloudy urine CBC WITH AUTO DIFFERENTIAL Routine 04/09/2025 10:54 AM EDT Routine general medical examination at a [facility] facility THYROID STIMULATING HORMONE WITH REFLEX TO FREE T4 AND FREE T3 Routine 04/09/2025 10:54 AM EDT Routine general medical examination at [facility] LIPID PANEL WITH REFLEX TO DIRECT LDL Routine 04/09/2025 10:54 AM EDT Routine general medical examination at [facility] COMPREHENSIVE METABOLIC PANEL Routine 04/09/2025 10:54 AM EDT Routine general medical examination at [facility] CBC AND DIFFERENTIAL Routine 04/09/2025 10:54 AM EDT Routine general medical examination at [facility] MG MAMMO DIGITAL DIAGNOSTIC W YAHIR LEFT Routine 10/02/2024 2:20 PM EDT Abnormal mammogram HEPATITIS C SCREENING Routine 12/25/2017 HIV SCREENING Routine 12/25/2017 from Last 3 Months or Most Recently Relevant to Health Maintenance Results * (ABNORMAL) Urinalysis with reflex microscopic and culture (04/10/2025 11:47 AM EDT) Specific Selmer Urine 1.015 1.003 - 1.030 LAB URINALYSIS - AUTOMATED METHOD 04/10/2025 2:20 PM EDT [facility] pH, Urine 7.5 5.0 - 8.0 pH LAB URINALYSIS - AUTOMATED METHOD 04/10/2025 2:20 PM EDT [facility] Leukocytes, Urine Trace(A) Negative LAB URINALYSIS - AUTOMATED METHOD 04/10/2025 2:20 PM [facility] Nitrite, Urine Negative Negative LAB URINALYSIS - AUTOMATED METHOD 04/10/2025 2:20 PM [facility] Protein, Urine Negative <=Trace mg/dL LAB URINALYSIS - AUTOMATED METHOD 04/10/2025 2:20 PM [facility] Glucose, Urine Negative Negative mg/dL LAB URINALYSIS - AUTOMATED METHOD 04/10/2025 2:20 PM [facility] Ketones, Urine Negative Negative mg/dL LAB URINALYSIS - AUTOMATED METHOD 04/10/2025 2:20 PM [facility] Urobilinogen, Urine 1.0 0.2 - 1.0 mg/dL LAB URINALYSIS - AUTOMATED METHOD 04/10/2025 2:20 PM [facility] Bilirubin, Urine Negative Negative LAB URINALYSIS - AUTOMATED METHOD 04/10/2025 2:20 PM [facility] Blood, Urine Negative Negative LAB URINALYSIS - AUTOMATED METHOD 04/10/2025 2:20 PM [facility] RBC, Urine 2.9 0 - 4 /HPF LAB URINALYSIS - AUTOMATED METHOD 04/10/2025 2:20 PM [facility] WBC, Urine 2.4 0 - 4 /HPF LAB URINALYSIS - AUTOMATED METHOD 04/10/2025 2:20 PM [facility] Squamous Epithelial, Urine 100(H) 0 - 60 /LPF LAB URINALYSIS - AUTOMATED METHOD 04/10/2025 2:20 PM [facility] Bacteria, Urine Few(A) Negative /HPF LAB URINALYSIS - AUTOMATED METHOD 04/10/2025 2:20 PM [facility] Hyaline Casts, Urine 2.0 0 - 3 /LPF LAB URINALYSIS - AUTOMATED METHOD 04/10/2025 2:20 PM [facility] Urine Urine specimen obtained by clean catch procedure / Unknown Non-blood Collection / Unknown 04/10/2025 11:47 AM EDT 04/10/2025 11:47 AM EDT Mauricio HARRIS LAB URINE ORDERABLES Final Re sult Performing Organization Address City/[facility]/ZIP Co de Phone Number [facility] [address] [place] [address], [place] [phone] * Freeman urine culture tube (04/10/2025 11:47 AM EDT) Extra Tube Hold for add-ons. 04/10/2025 5:01 PM EDT [facility] Comment:Auto resulted. Urine Urine specimen obtained by clean catch procedure / Unknown Non-blood Collection / Unknown 04/10/2025 11:47 AM EDT 04/10/2025 11:47 AM EDT us Mauricio HARRIS LAB URINE ORDERABLES Final Re sult Performing Organization Address [facility]/ZIP Co de Phone Number [facility] [address] [place] [address], [place] [phone] * (ABNORMAL) Culture urine (04/10/2025 11:47 AM EDT) Culture, Urine 50,000-100,000 CFU/mL Escherichia coli(A) KAMRAN 04/12/2025 10:10 AM EST [facility] Comment: This is an edited result. Previous organism was Gram negative bacilli on 04/11/2025 at 1037 EDT. Urine Urine specimen obtained by clean catch procedure / Unknown Non-blood Collection / Unknown 04/10/2025 11:47 AM EDT 04/10/2025 2:20 PM EDT Narrative [facility] - 04/12/2025 10:10 AM EST Normal skin/urogenital yessy noted Organism Antibiotic Method Susceptibility Escherichia coli Amoxicillin/Clavulanate [...] Escherichia coli Trimethoprim/Sulfamethoxazole KAMRAN <=20 ug/ml: Susceptible Mauricio HARRIS LAB MICROBIOLOGY - GENERAL OR DERABLES Final Result Performing Organization Address [facility] [[email or web address]] de Phone Number [facility] [address] [place] [address], * Thyroid stimulating hormone with reflex to free t4 and free t3 (04/09/2025 10:54 AM EDT) [facility] Signature TSH 1.08 0.40 - 4.00 mcIU/mL LAB CHEMISTRY METHOD 04/09/2025 2:14 PM EDT [facility] Blood Venous blood specimen / Unknown Venipuncture / Unknown 04/09/2025 10:54 AM EDT 04/09/2025 10:55 AM EDT Mauricio HARRIS LAB BLOOD ORDERABLES Final Re sult Performing Organization Address [facility]/ZIP Co de Phone Number [facility] [address] [place] [address], [place] [phone] * (ABNORMAL) Lipid panel with reflex to direct LDL (04/09/2025 10:54 AM EDT) Cholesterol 299(H) 0 - 200 mg/dL LAB CHEMISTRY METHOD 04/09/2025 1:25 PM EDT [facility] Triglycerides 57 0 - 150 mg/dL LAB CHEMISTRY METHOD 04/09/2025 1:25 PM EDT [facility] HDL 99 >=40 mg/dL LAB CHEMISTRY METHOD 04/09/2025 1:25 PM EDT [facility] LDL Calculated 189(H) 0 - 100 mg/dL LAB CHEMISTRY METHOD 04/09/2025 1:25 PM EDT [facility] Comment:Estimated LDL Calcul ated using equation: Total cholesterol - HDL cholesterol - (Triglycerides/5) VLDL Cholesterol Hemanth 11.4 mg/dL LAB CHEMISTRY METHOD 04/09/2025 1:25 PM EDT [facility] Non HDL Chol. (LDL+VLDL) 200(H) <145 mg/dL LAB CHEMISTRY METHOD 04/09/2025 1:25 PM EDT [facility] Chol/HDL Ratio 3.0 0.0 - 4.4 LAB CHEMISTRY METHOD 04/09/2025 1:25 PM T [facility] Blood Venous blood specimen / Unknown Venipuncture / Unknown 04/09/2025 10:54 AM EDT 04/09/2025 10:55 AM EDT us Mauricio HARRIS LAB BLOOD ORDERABLES Final Re sult [facility] [address] [place] [address], * (ABNORMAL) CBC auto differential (04/09/2025 10:54 AM EDT) WBC 5.0 4.8 - 10.8 K/mcL LAB HEMETOLOGY METHOD 04/09/2025 12:18 PM EDT [facility] RBC 4.20 3.80 - 4.80 M/mcL LAB HEMETOLOGY METHOD 04/09/2025 12:18 PM EDT [facility] Hemoglobin 12.3 11.5 - 16.0 g/dL LAB HEMETOLOGY METHOD 04/09/2025 12:[facility] Hematocrit 39.5 35.0 - 47.0 % LAB HEMETOLOGY METHOD 04/09/2025 12:18 PM EDT [facility] MCV 93.2 79.0 - 98.0 FL LAB HEMETOLOGY METHOD 04/09/2025 12:18 PM [facility] MCH 29.0 27.0 - 32.0 pcg LAB HEMETOLOGY METHOD 04/09/2025 12:18 PM [facility] MCHC 31.1(L) 32.0 - 37.0 g/dL LAB HEMETOLOGY METHOD 04/09/2025 12:18 PM [facility] RDW 13.9 11.0 - 15.0 % LAB HEMETOLOGY METHOD 04/09/2025 12:18 PM [facility] Platelets 426(H) 130 - 400 K/mcL LAB HEMETOLOGY METHOD 04/09/2025 12:18 PM [facility] MPV 8.8 7.0 - 11.0 FL LAB HEMETOLOGY METHOD 04/09/2025 12:18 PM [facility] NRBC 0.0 <1.0 % LAB HEMETOLOGY METHOD 04/09/2025 12:18 PM EDT [facility] NRBC Absolute 0.00 <0.10 K/mcL LAB HEMETOLOGY METHOD 04/09/2025 12:18 PM [facility] Neutrophils Relative 60.8 % LAB HEMETOLOGY METHOD 04/09/2025 12:18 PM [facility] Lymphocytes Relative 20.1 % LAB HEMETOLOGY METHOD 04/09/2025 12:18 PM [facility] Monocytes Relative 16.5 % LAB HEMETOLOGY METHOD 04/09/2025 12:18 PM [facility] Eosinophils Relative 1.6 % LAB HEMETOLOGY METHOD 04/09/2025 12:18 PM T [facility] Basophils Relative 0.8 % LAB HEMETOLOGY METHOD 04/09/2025 12:18 PM [facility] Immature Granulocytes Relative 0.2 % LAB HEMETOLOGY METHOD 04/09/2025 12:18 PM [facility] Neutrophils Absolute 3.02 1.50 - 7.00 K/mcL LAB HEMETOLOGY METHOD 04/09/2025 12:18 PM [facility] Lymphocytes Absolute 1.00 1.00 - 5.00 K/mcL LAB HEMETOLOGY METHOD 04/09/2025 12:18 PM [facility] Monocytes Absolute 0.82 0.20 - 1.00 K/mcL LAB HEMETOLOGY METHOD 04/09/2025 12:18 PM [facility] Eosinophils Absolute 0.08 0.00 - 0.50 K/mcL LAB HEMETOLOGY METHOD 04/09/2025 12:18 PM [facility] Basophils Absolute 0.04 0.00 - 0.20 K/mcL LAB HEMETOLOGY METHOD 04/09/2025 12:18 PM [facility] Immature Granulocytes Absolute 0.01 0.00 - 0.03 K/mcL LAB HEMETOLOGY METHOD 04/09/2025 12:18 PM [facility] Blood Venous blood specimen / Unknown Venipuncture / Unknown 04/09/2025 10:54 AM EDT 04/09/2025 10:55 AM EDT us Mauricio HARRIS LAB BLOOD ORDERABLES Final Re sult [facility] [address] [place] [address], [place] [phone] * Comprehensive metabolic panel (04/09/2025 10:54 AM EDT) Sodium 138 133 - 145 mmol/L LAB CHEMISTRY METHOD 04/09/2025 1:24 PM EDT [facility] Potassium 4.2 3.5 - 5.5 mmol/L LAB CHEMISTRY METHOD 04/09/2025 1:24 PM EDT [facility] Chloride 102 96 - 110 mmol/L LAB CHEMISTRY METHOD 04/09/2025 1:24 PM [facility] CO2 30 21 - 32 mmol/L LAB CHEMISTRY METHOD 04/09/2025 1:24 PM [facility] Anion Gap 6 3 - 11 LAB CHEMISTRY METHOD 04/09/2025 1:24 PM [facility] Glucose 81 70 - 100 mg/dL LAB CHEMISTRY METHOD 04/09/2025 1:24 PM [facility] BUN 8 5 - 25 mg/dL LAB CHEMISTRY METHOD 04/09/2025 1:24 PM [facility] Creatinine 1.01 0.50 - 1.10 mg/dL LAB CHEMISTRY METHOD 04/09/2025 1:24 PM EDT [facility] eGFR 69 >=60 mL/min/1. 73m2 LAB CHEMISTRY METHOD 04/09/2025 1:24 PM [facility] Comment:Calculation based on the Chronic Kidney Disease Epidemiology Collaboration (CKD-EPI) equation refit without adjustment for race. BUN/Creatinine Ratio 7.9 LAB CHEMISTRY METHOD 04/09/2025 1:24 PM [facility] Calcium 9.0 8.5 - 10.5 mg/dL LAB CHEMISTRY METHOD 04/09/2025 1:24 PM EDT [facility] AST (SGOT) 13 10 - 42 unit/L LAB CHEMISTRY METHOD 04/09/2025 1:24 PM EDT [facility] ALT (SGPT) 17 10 - 60 unit/L LAB CHEMISTRY METHOD 04/09/2025 1:24 PM EDT [facility] Alkaline Phosphatase 85 42 - 121 unit/L LAB CHEMISTRY METHOD 04/09/2025 1:24 PM EDT [facility] Total Protein 7.7 6.0 - 8.0 g/dL LAB CHEMISTRY METHOD 04/09/2025 1:24 PM EDT [facility] Albumin 3.4 3.2 - 5.0 g/dL LAB CHEMISTRY METHOD 04/09/2025 1:24 PM EDT [facility] Total Bilirubin 0.5 0.0 - 1.4 mg/dL LAB CHEMISTRY METHOD 04/09/2025 1:24 PM EDT [facility] Blood Venous blood specimen / Unknown Venipuncture / Unknown 04/09/2025 10:54 AM EDT 04/09/2025 10:55 AM EDT Mauricio HARRIS LAB BLOOD ORDERABLES Final Re sult [facility] [address] [place] [address], * MG Mammo Digital Diagnostic w Yahir Left (10/02/2024 2:20 PM EDT) Anatomical Region Laterality Modality Breast Left Mammography 10/02/2024 2:26 PM EDT Impressions 10/02/2024 2:45 PM EDT 1. No mammographic evidence of malignancy 2. Scattered fibroglandular tissue Findings and recommendations were conveyed to the patient. BI-RADS CATEGORY: 2 - BENIGN RECOMMENDATION: Return to annual mammography. Return to annual mammography. Mammo Location: [facility], [address], [place], [address], . -------- FINAL REPORT -------- Dictated By: August Owen Dictated Date: 10/02/2024 14:26 ET Assigned Physician: August Owen Reviewed and Electronically Signed By: August Owen Signed Date: 10/02/2024 14:45 ET Workstation ID: [id number] Transcribed By: Self Edit Transcribed Date: 10/02/2024 14:33 ET Narrative 10/02/2024 2:45 PM EDT LEFT DIGITAL DIAGNOSTIC 3D MAMMOGRAPHY HISTORY: Workup for medial breast far posterior depth asymmetry COMPARISON: Mammogram from 09/20/2024 Technique: MLO spot compression 3-D FINDINGS: Left breast medial breast for posterior depth asymmetry mildly decreases on spot compression and corresponds to an area of dense tissue sonographically. Multiple medial and lateral biopsy markers are present. BREAST DENSITY: B - There are scattered areas of fibroglandular density. EXAM: LEFT BREAST TARGETED ULTRASOUND EVALUATION TECHNIQUE: Ultrasonographic examination is performed using a linear array transducer. Targeted left breast ultrasound from 12:00 to 6:00 of the medial breast evaluate mammographic finding. Real-time sonographic scanning was also performed by the radiologist FINDINGS: From 12:00 to 6:00, no sonographic evidence of malignancy or other focal abnormalities were identified at the left breast in area of mammographic concern. An area of dense tissue which is [...] mammography. Return to annual mammography. Mammo Location: [facility], [address] [place] [address], [id number], . -------- FINAL REPORT -------- Dictated By: August Owen Dictated Date: 10/02/2024 14:26 ET Assigned Physician: August Owen Reviewed and Electronically Signed By: August Owen Signed Date: 10/02/2024 14:45 ET Workstation ID: [id number] Transcribed By: Self Edit Transcribed Date: 10/02/2024 14:33 ET Elida Pavon CNM IMG BI PROCEDURES Final Result * HIV Screening (12/25/2017) HIV Screening abstracted Historical Provider HEALTH MAINTENANCE Final Result * Hepatitis C Screening (12/25/2017) Hepatitis C Screening abstracted Historical Provider HEALTH MAINTENANCE Final Result from Last 3 Months or Most Recently Relevant to Health Maintenance Insurance [facility] MEDICARE Member Subscriber Plan / Payer (Ef fective 2022-Present) Name:MISA MELO Relation to Subscriber:Self Name:Misa Melo Payer ID:[id number] Group ID:[id number] Type:Not on file Address: [address] [place] [id number] Care Teams Wrecker Operator Relationship Specialty Start Date End Date Ольга Jewell MD [address] [place] [id number] PCP - General Internal Medicine 12/14/21
--- OUTSIDE RECORDS SUMMARY | 2025-04-29 18:53 | XMS_ITS | Continuity of Care Document ---
Author Organization [place] - [facility], Allergy Address [address] [address] Care Team Providers Care Mines Inspector Name Role Phone BROOK OLIVERA Primary Care Provider [phone] Assessment Encounter Date Assessment Date Assessment LastModified [...] Aware: Notes: [email or web address] Not available 04/13/2025 15:22:56 Plan of Treatment Reminders Order Date Submit [...] instructions recorded. Reason for Referral None Reported. Problems Name Problem SNOMED Code Status Onset Date Resolution Date Notes Provider Name and Address Organization Details Recorded Time Conducti ve hearing loss 44731215 Active 2015 Conducti ve hearing loss, unilater al, left ear, with unrestri cted hearing on the contrala teral side; Note: Date Diagnose d: 6 12:04 PM (H90.12) Not Available [facility] 4 02:26:33 Otalgia of right ear 3202879276 Active 2015 Otalgia, right ear; Note: Date Diagnose d: 6 12:02 PM (H92.01) Not Available [facility] 4 02:26:21 Otorrhea of right ear 43325068211 79038 Active 2015 Otorrhea , right ear; Note: Date Diagnose d: 6 11:59 AM (H92.11) Not Available [facility] 4 02:26:30 Common cold 98245582 Active 2015 Acute rhinitis ; Note: Date Diagnose d: 6 12:02 PM (J00) Not Available [facility] 4 02:26:06 Infectiv e otitis externa of right ear 69676339595 31875 Active 2016 Other infectiv e otitis externa, right ear; Note: Date Diagnose d: 7 4:05 PM (H60.391 ) Not Available [facility] 4 02:26:17 Bilatera l temporom andibula r joint pain 41541071649 189389 Active 2016 Arthralg ia of bilatera l temporom andibula r joint; Note: Date Diagnose d: 7 2:05 PM (M26.623 ) Not Available [facility] 4 02:26:41 Impacted cerumen in left ear 61738858941 81748 Active 2016 Impacted cerumen, left ear; Note: Date Diagnose d: 7 2:04 PM (H61.22) Not Available [facility] 4 02:26:45 Otalgia of left ear 4365398687 Active 2016 Otalgia, left ear; Note: Date Diagnose d: 7 2:05 PM (H92.02) Not Available [facility] 4 02:26:10 Bilatera l disorder of Eustachi an tubes 85610425332 66859 Active 2016 Other specifie d disorder s of Eustachi an tube, bilatera l; Note: Date Diagnose d: 7 2:08 PM (H69.83) Not Available [facility] 4 02:26:44 Jaw pain 519865015 Active 2021 Jaw pain; Note: Date Diagnose d: 2 10:31 AM (R68.84) Not Available [facility] 4 03:05:05 Cough 10139145 Active 2021 Cough, unspecif ied; Note: Changed from R05 to R05.9 (10/20/19 22 3:49 PM) , Date Diagnose d: 2 1:32 PM (R05) Not Available [facility] 4 03:05:04 Gastroes ophageal reflux disease without esophagi tis 955826271 Active 2021 Esophage al reflux NOS; Note: Date Diagnose d: 2 1:32 PM (K21.9) Not Available [facility] 4 03:05:04 Sialolit hiasis 48789128 Active 2021 Sialolit hiasis; Note: Date Diagnose d: 2 1:29 PM (K11.5) Not Available [facility] 4 03:05:06 Dysphoni a 70010786 Active 2021 Hoarsene ss; Note: Date Diagnose d: 2 1:29 PM (R49.0) Not Available [facility] 4 03:05:06 Abrasion of skin of right ear 19526130962 031457 Completed 202101/11/2024 Abrasion of right ear, initial encounte r; Note: Date Diagnose d: 2 2:35 PM (S00.411 A) Not Available [facility] 4 03:05:04 Abnormal auditory percepti on 77474247 Active 2021 Other abnormal auditory percepti ons, bilatera l; Note: Date Diagnose d: 2 2:18 PM (H93.293 ) Not Available [facility] 4 03:05:05 Impacted cerumen of bilatera l ears 05827822454 Active 2023 DREW ANN PA-C [address] [facility] [place] [facility] [place], [address] , [facility] [place] 4 11:54:34 Acute myringit is of right ear 76956267257 Active 2023 DREW ANN PA-C [address] [facility] [place] [facility], [place], [address] , [facility] - [facility] [place] 4 13:41:37 Allergic rhinitis 94535752 Active 2024 DREW ANN PA-C [address] [facility] [place] [facility], [place], [address] , [facility] - [facility] [place] 5 16:11:22 Perennia l allergic rhinitis 669836285 Active 2024 TERRY REED 100 [facility],[place] [facility], [place], [address] , [facility] - [facility] [place] 5 09:27:15 Problem Notes None recorded. Procedures Surgical History Date Name Laterality Status Provider Name and Address Organization Details Recorded Time 04/29/20 25 Allergy Immunotherapy Injections completed COLT DEE Jaida [address] [facility] [place] [address] [place] [address], [phone], [facility] - [facility] [place] 04/29/2025 12:07:18 04/22/20 25 Allergy Immunotherapy Injections completed TERRY COREA [address] [facility] [place] [facility], [place], [address], [facility] - [facility] [place] 04/22/2025 15:49:30 04/13/20 25 Allergy Immunotherapy Injections completed KELSEY PEACE RN [address] [facility] [place],[address], [address], [facility] - [facility] [place] 04/13/2025 15:23:20 03/11/20 25 Allergy Testing-Full completed TERRY REED [address] [facility] [place] [facility], [place], [address], [facility] - [facility] 03/11/2025 10:01:55 02/26/20 25 Allergy Testing Modified- Quantitative Testing (MQT) Only completed TERRY REED 100 [facility],[address], [address], [facility] - [facility] 02/25/2025 10:05:28 12/25/19 25 Cerumen removal without microscope bilat completed DREW ANN PA-C 100 [facility],[address], [address], [facility] - [facility] 12/24/2024 10:52:51 06/27/19 25 Cerumen removal without microscope bilat completed DREW ANN PA-C 100 [facility],[address], [address], [facility] 06/27/2024 11:32:30 12/28/19 24 Cerumen removal without microscope bilat completed DREW ANN PA-C 100 [facility],[address], [address], [facility] 12/28/2023 13:45:25 11/01/19 24 Cerumen removal without microscope bilat completed DREW ANN PA-C 100 [facility],[address], [address], [facility] 11/01/2023 11:54:30 Imaging Results None recorded. Procedure Notes None recorded. Medical Equipment None Reported. Allergies Allergen ID Allergen Name Allergen Category Reaction Reaction Severity Criticality Documentation Date Start Date Code Code System Note Provider Name and Address Organization Details Recorded Time 564696 levofloxa jhonny medicatio n chest pain Not available Not available 12/28/2023 54348 RxNorm DREW ANN PA-C 100 [facility], [address] [place] [address], [address], [facility] 13:43:25 412870 tomato allergeni c extract food Not available Not available Not available 12/28/2023 91938 9 RxNorm Hattie martinez [place] - [facility] 5 10:10:58 626327 peanut allergeni c extract food,medi cation Not available Not available Not available 12/28/2023 55540 8 RxNorm KIMBERLY BRANHAM-[address], [address] , [facility] - [facility] 4 13:43:36 046609 tomato allergeni c extract food other Not available Not available 01/11/2024 90838 9 RxNorm React ion: Unkno wn; Not Available [facility] 4 00:35:47 766445 hydrochlo rothiazid e / triamtere ne medicatio n dyspnea Not available Not available 04/29/2025 76408 7 RxNorm Not Available [employer] [facility] [employer] 5 12:07:23 515486 hydrochlo rothiazid e medicatio n wheezing Not available Not available 04/29/20252015 5487 RxNorm Not Available [employer] - prod 5 12:07:29 177658 lisinopri l medicatio n Not available Not available Not available 04/29/20252021 24872 RxNorm Not Available [facility] [employer] [facility] 5 12:07:29 858435 honey bee venom environme nt swelling Not available Not available 04/29/20252013 46284 7 RxNorm Age 28: stung by 2 [...] ed at [facility]. Not Available [employer] 5 12:07:34 526966 fluticaso ne propionat e medicatio n Not available Not available Not available 04/29/20252019 99522 RxNorm Parad oxica [facility] [...] 24 hr 12/27 completed Medicati on ID: [id number] D uration Value: 30 Brand Name: venlafax ine Send Method: E-Prescr ibed Sub s Allowed: subs [place] Speci al Instruct ion: TAKE 1 CAPSULE BY ORAL ROUTE EVERY MORNING, WITH FOOD. Me dication GenericN violet: venlafax ine Medi cation ID: [id number] D uration Value: 30 Brand Name: venlafax [...] mg tablet 2015 active Medicati on ID: [id number] D uration Value: 4 Brand Name: hydrocod [...] mg tablet 02/25 completed Medicati on ID: [id number] D uration Value: 30 Brand Name: terbinaf ine HCl Send Method: E-Prescr ibed Sub s Allowed: subs OK Medic ationGen ericName : terbinaf ine HCl Not Available Not Available Not Available ofloxacin 0.3 % ear drops Instill 4 drop twice a day 2021 active Medicati on ID: [id number] D uration Value: 14 Brand Name: ofloxaci [...] mg capsule 02/25 completed Medicati on ID: [id number] B rand Name: fluoxeti ne Send Method: [...] elayed release 12/27 completed Medicati on ID: [id number] D uration Value: 30 Brand Name: omeprazo le Send Method: E-Prescr ibed Sub s Allowed: subs OK Speci al Instruct ion: TAKE ONE CAPSULE BY MOUTH EVERY DAY Medi cationGe nericNam e: omeprazo le Medic ation ID: [id number] D uration Value: 30 Brand Name: omeprazo [...] topical cream 12/27 completed Medicati on ID: [id number] D uration Value: 30 Brand Name: ammonium lactate Send Method: E-Prescr ibed Sub s Allowed: subs OK Speci al Instruct ion: APPLY TO BOTTOM OF FEET BEFORE BEDTIME, COVER WITH SOCK. Me dication GenericN violet: ammonium lactate Medicati on ID: [id number] D uration Value: 30 Brand Name: ammonium [...] mg tablet 12/27 completed Medicati on ID: [id number] D uration Value: 30 Brand Name: sertrali ne Send Method: E-Prescr ibed Sub s Allowed: subs OK Speci al Instruct ion: TAKE 1 TAB BY MOUTH DAILY. Jose Suarezic Name: sertrali ne Medic ation ID: [id number] D uration Value: 30 Brand Name: sertrali ne Send Method: E-Prescr ibed Sub s Allowed: subs OK Speci al Instruct ion: TAKE 1 TAB BY MOUTH DAILY. Jose Bonilla Name: sertrali ne Not Available Not Available Not Available naproxen 500 mg tablet 09/09 completed Medicati on ID: [id number] D uration Value: 25 Brand Name: naproxen Send Method: E-Prescr ibed Sub s Allowed: subs OK Speci al Instruct ion: TAKE 1 TABLET BY MOUTH TWICE A DAY Medi cationGe nericNam e: naproxen Medicat ion ID: [id number] D uration Value: 25 Brand Name: naproxen [...] as directed 2016 active Medicati on ID: [id number] D uration Value: 7 Prescri bed By [...] iron) tablet 12/27 completed Medicati on ID: [id number] D uration Value: 30 Brand Name: ferrous sulfate Send Method: E-Prescr ibed Sub s Allowed: subs OK Speci al Instruct ion: TAKE 1 TABLET BY MOUTH 2 TIMES DAILY. M dakota [employer] Name: ferrous sulfate Medicati on ID: [id number] D uration Value: 30 Brand Name: ferrous sulfate Send Method: E-Prescr ibed Sub s Allowed: subs OK Speci al Instruct ion: TAKE 1 TABLET BY MOUTH 2 TIMES DAILY. Jose romanotio Joseeeneric Name: ferrous sulfate Not Available Not Available [...] Not Available Vitals Date Recorded Body height Body mass index (BMI) Body weight Heart rate Systolic And Diastolic Provider Name and Address Organization Details Last Updated DateTime 04/13/2025 154.94 cm 39.7 kg/m2 32096.4 g 81 /min 130/81 mm[Hg] KELSEY PEACE, KASHMIR 100 [facility] 100, [facility] [place], [address] , [place] - [facility] 04/13/2025 15:06:51 Social History Question Answer Notes LastModified by [employer] ion Details LastModified Time Tobacco Smoking Status Former Smoker Hattie martinez [place] - [facility] 12/24/2024 10:11:08 How Many Years Have You [...] Disorder N Anesthesia Complications N Heart Attack (PR) N Other Skin Condition N Diabetes N [...] ICD10 Code Diagnosis IMO Codes Diagnosis Note [id number] KELSEY PEACE RN Allergy [address] [place] [address] 04/13/2025 14:58:21 04/13/2025 15:24:07 Perennial allergic rhinitis [id number] J30.89 654662 Health Concerns Section Related Observation LastModified by Organization Detai ls LastModified Time None Recorded Concern Status LastModified by Organization Details LastModified Time None Recorded Payers Encounter Date Sequence Insurance Name Policy Number Policy Herr Covered Member ID Herr Member ID Guarantor Name 04/13/2025 1 [facility] - DOS ON OR AFTER 2022 - MEDICARE [place]VANTAGE [place] (MEDICARE REPLACEMENT/A DVANTAGE - PPO) Deisy Muhammad [id number] Deisy Muhammad 04/13/2025 2 [place] Deisy Muhammad [id number] Deisy Muhammad OBGyn Episode No OBEpisode recorded.
--- OUTSIDE RECORDS SUMMARY | 2025-04-29 18:53 | XMS_ITS | Continuity of Care Document ---
Author Organization [place] - [facility], Allergy Address [address] [address] Care Team Providers Care Client Application Support Engineer Name Role Phone BROOK OLIVERA Primary Care Provider Assessment Encounter Date Assessment Date Assessment LastModified by Organization Details LastModified Time 04/22/2025 04/22/2025 Visit With: Huma Strickland MA Use of Antihistamine s: No If yes: Vial Test Change in medications: No If yes Increase in asthma symptoms If yes, inhaler use: Reaction to last injections: No If yes: Allergy Symptoms: Other: Missed: Dose Aware of Vial Test Aware: Notes: [email or web address] Not available 04/22/2025 15:49:40 Plan of Treatment Reminders Order Date Submit [...] Details Recorded Time Conducti ve hearing loss 29980536 Active 2015 Conducti ve hearing loss, unilater al, left ear, with unrestri cted hearing on the contrala teral side; Note: Date Diagnose d: 6 12:04 PM (H90.12) Not Available [facility] 4 02:26:33 Otalgia of right ear 8090313193 Active 2015 Otalgia, right ear; Note: Date Diagnose d: 6 12:02 PM (H92.01) Not Available [facility] 4 02:26:21 Otorrhea of right ear 81494938873 19627 Active 2015 Otorrhea , right ear; Note: Date Diagnose d: 6 11:59 AM (H92.11) Not Available [facility] 4 02:26:30 Common cold 12668509 Active 2015 Acute rhinitis ; Note: Date Diagnose d: 6 12:02 PM (J00) Not Available [facility] 4 02:26:06 Infectiv e otitis externa of right ear 83117693169 84074 Active 2016 Other infectiv e otitis externa, right ear; Note: Date Diagnose d: 7 4:05 PM (H60.391 ) Not Available [facility] 4 02:26:17 Bilatera l temporom andibula r joint pain 65405643627 774985 Active 2016 Arthralg ia of bilatera l temporom andibula r joint; Note: Date Diagnose d: 7 2:05 PM (M26.623 ) Not Available [facility] 4 02:26:41 Impacted cerumen in left ear 74254794574 31593 Active 2016 Impacted cerumen, left ear; Note: Date Diagnose d: 7 2:04 PM (H61.22) Not Available [facility] 4 02:26:45 Otalgia of left ear 1115519073 Active 2016 Otalgia, left ear; Note: Date Diagnose d: 7 2:05 PM (H92.02) Not Available [facility] 4 02:26:10 Bilatera l disorder of Eustachi an tubes 34794465918 12149 Active 2016 Other specifie d disorder s of Eustachi an tube, bilatera l; Note: Date Diagnose d: 7 2:08 PM (H69.83) Not Available [facility] 4 02:26:44 Jaw pain 654340246 Active 2021 Jaw pain; Note: Date Diagnose d: 2 10:31 AM (R68.84) Not Available [facility] 4 03:05:05 Cough 88604210 Active 2021 Cough, unspecif ied; Note: Changed from R05 to R05.9 (10/20/19 22 3:49 PM) , Date Diagnose d: 2 1:32 PM (R05) Not Available [facility] 4 03:05:04 Gastroes ophageal reflux disease without esophagi tis 980062646 Active 2021 Esophage al reflux NOS; Note: Date Diagnose d: 2 1:32 PM (K21.9) Not Available [facility] 4 03:05:04 Sialolit hiasis 84775321 Active 2021 Sialolit hiasis; Note: Date Diagnose d: 2 1:29 PM (K11.5) Not Available [facility] 4 03:05:06 Dysphoni a 57265084 Active 2021 Hoarsene ss; Note: Date Diagnose d: 2 1:29 PM (R49.0) Not Available [facility] 4 03:05:06 Abrasion of skin of right ear 13064871304 834116 Completed 202101/11/2024 Abrasion of right ear, initial encounte r; Note: Date Diagnose d: 2 2:35 PM (S00.411 A) Not Available [facility] 4 03:05:04 Abnormal auditory percepti on 87711399 Active 2021 Other abnormal auditory percepti ons, bilatera l; Note: Date Diagnose d: 2 2:18 PM (H93.293 ) Not Available [facility] 4 03:05:05 Impacted cerumen of bilatera l ears 20136158049 Active 2023 DREW ANN [facility]-C [facility] [place] [facility] [place], [address] , [facility] - [facility] [place] 4 11:54:34 Acute myringit is of right ear 53441138614 Active 2023 DREW ANN PA-C [address] [facility] [place] [facility], [place], [address] , [facility] - [facility] [place] 4 13:41:37 Allergic rhinitis 55459492 Active 2024 DREW ANN PA-C [address] [facility] [place] [facility], [place], [address] , [facility] - [facility] [place] 5 16:11:22 Perennia l allergic rhinitis [id number] [facility] 2024 TERRY REED 100 [facility],[place] [address], [place], [address] , [facility] - [facility] [place] 5 09:27:15 Problem Notes None recorded. Procedures Surgical History Date Name Laterality Status Provider Name and Address Organization Details Recorded Time 04/29/20 25 Allergy Immunotherapy Injections completed COLT DEE Jaida [address] [facility] [place] [address] [place] [address], [address], [facility] - [facility] 04/29/2025 12:07:18 04/22/20 25 Allergy Immunotherapy Injections completed TERRY COREA [address] [facility] [place] [facility], [place], [address], [facility] - [facility] [place] 04/22/2025 15:49:30 04/13/20 25 Allergy Immunotherapy Injections completed KELSEY PEACE RN 100 [facility],[address], [address], [facility] - [facility] [place] 04/13/2025 15:23:20 03/11/20 25 Allergy Testing-Full completed TERRY REED [address] [facility] [place],[address], [address], [facility] - [facility] 03/11/2025 10:01:55 02/26/20 25 Allergy Testing Modified- Quantitative Testing (MQT) Only completed TERRY REED 100 [facility],[address], [address], [facility] - [facility] 02/25/2025 10:05:28 12/25/19 25 Cerumen removal without microscope bilat completed DREW ANN PA-C 100 [facility],[address], [address], [facility] - [facility] 12/24/2024 10:52:51 06/27/19 25 Cerumen removal without microscope bilat completed DREW ANN PA-C 100 [facility],[address], [address], [facility] 06/27/2024 11:32:30 12/28/19 24 Cerumen removal without microscope bilat completed DREW ANN PA-C [address] [place] [address],[address], [address], [facility] - [facility] 12/28/2023 13:45:25 11/01/19 24 Cerumen removal without microscope bilat completed DREW ANN PA-C [address] [place] [address],[address], [address], [facility] 11/01/2023 11:54:30 Imaging Results None recorded. Procedure Notes None recorded. Medical Equipment None Reported. Allergies Allergen ID Allergen Name Allergen Category Reaction Reaction Severity Criticality Documentation Date Start Date Code Code System Note Provider Name and Address Organization Details Recorded Time 568100 levofloxa jhonny medicatio n chest pain Not available Not available 12/28/2023 67920 RxNorm DREW ANN PA-C 100 [facility],[address], [address], [facility] 13:43:25 556657 tomato allergeni c extract food Not available Not available Not available 12/28/2023 73313 9 RxNorm Hattie martinez [place] - [facility] 5 10:10:58 466640 peanut allergeni c extract food,medi cation Not available Not available Not available 12/28/2023 27591 8 RxNorm KIMBERLY BRANHAM-[address], [address] , [facility] - [facility] 4 13:43:36 001573 tomato allergeni c extract food other Not available Not available 01/11/2024 97697 9 RxNorm React ion: Unkno wn; Not Available [facility] 4 00:35:47 328158 hydrochlo rothiazid e / triamtere ne medicatio n dyspnea Not available Not available 04/29/2025 23018 7 RxNorm Not Available [employer] - prod 5 12:07:23 846789 hydrochlo rothiazid e medicatio n wheezing Not available Not available 04/29/20252015 5487 RxNorm Not Available [employer] - prod 5 12:07:29 591177 lisinopri l medicatio n Not available Not available Not available 04/29/20252021 77019 RxNorm Not Available [employer] - prod 5 12:07:29 567356 honey bee venom environme nt swelling Not available Not available 04/29/20252013 59301 7 RxNorm Age 28: stung by 2 [...] iotic s. She was treat ed at [facility]. Not Available [employer] 5 12:07:34 159534 fluticaso ne propionat e medicatio n Not available Not available Not available 04/29/20252019 68399 RxNorm Parad oxica l [facility] [...] 24 hr 12/27 completed Medicati on ID: [id number] D uration Value: 30 Brand Name: venlafax ine Send Method: E-Prescr ibed Sub s Allowed: subs OK Speci al Instruct ion: TAKE 1 CAPSULE BY ORAL ROUTE EVERY MORNING, WITH FOOD. Me dication GenericN violet: venlafax ine Medi cation ID: [id number] D uration Value: 30 Brand Name: venlafax [...] mg tablet 2015 active Medicati on ID: [id number] D uration Value: 4 Brand Name: hydrocod [...] mg tablet 02/25 completed Medicati on ID: [id number] D uration Value: 30 Brand Name: terbinaf ine HCl Send Method: E-Prescr ibed Sub s Allowed: subs OK Medic ationGen ericName : terbinaf ine HCl Not Available Not Available Not Available ofloxacin 0.3 % ear drops Instill 4 drop twice a day 2021 active Medicati on ID: [id number] D uration Value: 14 Brand Name: ofloxaci [...] mg capsule 02/25 completed Medicati on ID: [id number] B rand Name: fluoxeti ne Send Method: [...] elayed release 12/27 completed Medicati on ID: [id number] D uration Value: 30 Brand Name: omeprazo le Send Method: E-Prescr ibed Sub s Allowed: subs OK Speci al Instruct ion: TAKE ONE CAPSULE BY MOUTH EVERY DAY Medi cationGe nericNam e: omeprazo le Medic ation ID: [id number] D uration Value: 30 Brand Name: omeprazo [...] topical cream 12/27 completed Medicati on ID: [id number] D uration Value: 30 Brand Name: ammonium lactate Send Method: E-Prescr ibed Sub s Allowed: subs OK Speci al Instruct ion: APPLY TO BOTTOM OF FEET BEFORE BEDTIME, COVER WITH SOCK. Me dication GenericN violet: ammonium lactate Medicati on ID: [id number] D uration Value: 30 Brand Name: ammonium [...] mg tablet 12/27 completed Medicati on ID: [id number] D uration Value: 30 Brand Name: sertrali ne Send Method: E-Prescr ibed Sub s Allowed: subs OK Speci al Instruct ion: TAKE 1 TAB BY MOUTH DAILY. Jose Suarezic Name: sertrali ne Medic ation ID: [id number] D uration Value: 30 Brand Name: sertrali ne Send Method: E-Prescr ibed Sub s Allowed: subs OK Speci al Instruct ion: TAKE 1 TAB BY MOUTH DAILY. Jose Bonilla Name: sertrali ne Not Available Not Available Not Available naproxen 500 mg tablet 09/09 completed Medicati on ID: [id number] D uration Value: 25 Brand Name: naproxen Send Method: E-Prescr ibed Sub s Allowed: subs OK Speci al Instruct ion: TAKE 1 TABLET BY MOUTH TWICE A DAY Medi cationGe nericNam e: naproxen Medicat ion ID: [id number] D uration Value: 25 Brand Name: naproxen [...] as directed 2016 active Medicati on ID: [id number] D uration Value: 7 Prescri bed By [...] iron) tablet 12/27 completed Medicati on ID: [id number] D uration Value: 30 Brand Name: ferrous sulfate Send Method: E-Prescr ibed Sub s Allowed: subs OK Speci al Instruct ion: TAKE 1 TABLET BY MOUTH 2 TIMES DAILY. M dakota [employer] Name: ferrous sulfate Medicati on ID: [id number] D uration Value: 30 Brand Name: ferrous [...] Not Available Not Available Not Available Vitals None Recorded Social History Question Answer Notes LastModified by Organizat ion Details LastModified Time Tobacco Smoking Status Former Smoker Hattie martinez [place] - [facility] 12/24/2024 10:11:08 How Many Years Have [...] Emphysema N Migraines N Thyroid Problems N Depression Y COPD Y Developmental Delay N Glaucoma N Nasal or Sinus Problems N Anemia N Immune System Disorder N Anesthesia Complications N Heart Attack ([place]) N Other Skin Condition N Diabetes N [...] ICD10 Code Diagnosis IMO Codes Diagnosis Note [id number] KELSEY PEACE RN Allergy 100 [facility], ite [address] [place] [address] 04/13/2025 14:58:21 04/13/2025 15:24:07 Perennial allergic rhinitis [id number] J30.89 [id number] Huma Strickland Allergy [address] [place] [address], ite [address] [place] [address] 04/22/2025 15:20:55 04/22/2025 15:49:57 Perennial allergic rhinitis 217361134 J30.89 Health Concerns Section Related Observation LastModified by Organization Detai ls LastModified Time None Recorded Concern Status LastModified by Organization Details LastModified Time None Recorded Payers Encounter Date Sequence Insurance Name Policy Number Policy Herr Covered Member ID Herr Member ID Guarantor Name 04/22/2025 1 [facility] - DOS ON OR AFTER 2022 - MEDICARE [place]AGE [place]MED[place]ARE [place]PLACEMENT/A DVANTAGE - PPO) Deisy Muhammad [id number] Deisy Muhammad 04/22/2025 2 [place] Deisy Muhammad [id number] Deisy Muhammad OBGyn Episode No OBEpisode recorded.
--- OUTSIDE RECORDS SUMMARY | 2025-04-29 18:53 | XMS_ITS | Continuity of Care Document ---
Author Organization [place] - [facility], Allergy Address [address] [address] Care Team Providers Care Science Instructor Name Role Phone BROOK OLIVERA Primary Care Provider Assessment Encounter Date Assessment Date Assessment LastModified by Organization Details LastModified Time 04/29/2025 04/29/2025 Visit With: TERRY Richmond Use [...] Details Recorded Time Conducti ve hearing loss 91466512 Active 2015 Conducti ve hearing loss, unilater al, left ear, with unrestri cted hearing on the contrala teral side; Note: Date Diagnose d: 6 12:04 PM (H90.12) Not Available [facility] 4 02:26:33 Otalgia of right ear 3032815796 Active 2015 Otalgia, right ear; Note: Date Diagnose d: 6 12:02 PM (H92.01) Not Available [facility] 4 02:26:21 Otorrhea of right ear [id number] 96378 Active 2015 Otorrhea , right ear; Note: Date Diagnose d: 6 11:59 AM (H92.11) Not Available [facility] 4 02:26:30 Common cold 62340383 Active 2015 Acute rhinitis ; Note: Date Diagnose d: 6 12:02 PM (J00) Not Available [facility] 4 02:26:06 Infectiv e otitis externa of right ear 33595314719 51016 Active 2016 Other infectiv e otitis externa, right ear; Note: Date Diagnose d: 7 4:05 PM (H60.391 ) Not Available [facility] 4 02:26:17 Bilatera l temporom andibula r joint pain 94789949361 477458 Active 2016 Arthralg ia of bilatera l temporom andibula r joint; Note: Date Diagnose d: 7 2:05 PM (M26.623 ) Not Available [facility] 4 02:26:41 Impacted cerumen in left ear 87146637500 72666 Active 2016 Impacted cerumen, left ear; Note: Date Diagnose d: 7 2:04 PM (H61.22) Not Available [facility] 4 02:26:45 Otalgia of left ear 9490536023 Active 2016 Otalgia, left ear; Note: Date Diagnose d: 7 2:05 PM (H92.02) Not Available [facility] 4 02:26:10 Bilatera l disorder of Eustachi an tubes 95022875174 08922 Active 2016 Other specifie d disorder s of Eustachi an tube, bilatera l; Note: Date Diagnose d: 7 2:08 PM (H69.83) Not Available [facility] 4 02:26:44 Jaw pain 415346552 Active 2021 Jaw pain; Note: Date Diagnose d: 2 10:31 AM (R68.84) Not Available [facility] 4 03:05:05 Cough 36850402 Active 2021 Cough, unspecif ied; Note: Changed from R05 to R05.9 (10/20/19 22 3:49 PM) , Date Diagnose d: 2 1:32 PM (R05) Not Available [facility] 4 03:05:04 Gastroes ophageal reflux disease without esophagi tis 312150617 Active 2021 Esophage al reflux NOS; Note: Date Diagnose d: 2 1:32 PM (K21.9) Not Available [facility] 4 03:05:04 Sialolit hiasis 48146095 Active 2021 Sialolit hiasis; Note: Date Diagnose d: 2 1:29 PM (K11.5) Not Available [facility] 4 03:05:06 Dysphoni a 83618475 Active 2021 Hoarsene ss; Note: Date Diagnose d: 2 1:29 PM (R49.0) Not Available [facility] 4 03:05:06 Abrasion of skin of right ear 08602423027 253799 Completed 202101/11/2024 Abrasion of right ear, initial encounte r; Note: Date Diagnose d: 2 2:35 PM (S00.411 A) Not Available [facility] 4 03:05:04 Abnormal auditory percepti on 49820192 Active 2021 Other abnormal auditory percepti ons, bilatera l; Note: Date Diagnose d: 2 2:18 PM (H93.293 ) Not Available [facility] 4 03:05:05 Impacted cerumen of bilatera l ears 68066974459 Active 2023 DREW ANN PA-C [address] [facility]JACKELINE [facility], [place], [address] , [facility] - [facility] 4 11:54:34 Acute myringit is of right ear 93493030192 Active 2023 DREW ANN PA-C 100 [facility],JACKELINE [facility], [place], [address] , [facility] - [facility] [place] 4 13:41:37 Allergic rhinitis 49774983 Active 2024 DREW ANN PA-C [address] [facility]JACKELINE [facility], [place], [address] , [facility] - [facility] [place] 5 16:11:22 Perennia l allergic rhinitis 601710244 Active 2024 TERRY REED 100 [facility],JACKELINE [facility], [place], [address] , [facility] - [facility] 5 09:27:15 Problem Notes None recorded. Procedures Surgical History Date Name Laterality Status Provider Name and Address Organization Details Recorded Time 04/29/20 25 Allergy Immunotherapy Injections completed COLT DEE Jaida 100 [facility],JACKELINE [address] [place] [address], [address], [facility] - [facility] 04/29/2025 12:07:18 04/22/20 25 Allergy Immunotherapy Injections completed TERRY RICHMOND 100 [facility],JACKELINE [facility], [place], [address], [facility] - [facility] 04/22/2025 15:49:30 04/13/20 25 Allergy Immunotherapy Injections completed KELSEY PEACE RN 100 [facility],[address], [address], [facility] - [facility] 04/13/2025 15:23:20 03/11/20 25 Allergy Testing-Full completed TERRY REED 100 [facility],JACKELINE [facility], [place], [address], [facility] - [facility] 03/11/2025 10:01:55 02/26/20 25 Allergy Testing Modified- Quantitative Testing (MQT) Only completed TERRY REED 100 [facility],[address], [address], [facility] - [facility] 02/25/2025 10:05:28 12/25/19 25 Cerumen removal without microscope bilat completed DREW ANN PA-C 100 [facility],[address], [address], [facility] - [facility] 12/24/2024 10:52:51 06/27/19 25 Cerumen removal without microscope bilat completed DREW ANN PA-C 100 [facility],[address], [address], [facility] 06/27/2024 11:32:30 12/28/19 24 Cerumen removal without microscope bilat completed DREW ANN PA-C 100 [facility],[address], [address], [facility] 12/28/2023 13:45:25 11/01/19 24 Cerumen removal without microscope bilat completed DREW ANN PA-C 100 [facility],[address], [address], [facility] 11/01/2023 11:54:30 Imaging Results None recorded. Procedure Notes None recorded. Medical Equipment None Reported. Allergies Allergen ID Allergen Name Allergen Category Reaction Reaction Severity Criticality Documentation Date Start Date Code Code System Note Provider Name and Address Organization Details Recorded Time 400075 levofloxa jhonny medicatio n chest pain Not available Not available 12/28/2023 37250 RxNorm DREW ANN PA-C 100 [facility], [address] [place] [address], [phone], [facility] 13:43:25 044314 tomato allergeni c extract food Not available Not available Not available 12/28/2023 34144 9 RxNorm Hattie martinez [place] - [facility] 5 10:10:58 245512 peanut allergeni c extract food,medi cation Not available Not available Not available 12/28/2023 09730 8 RxNorm KIMBERLY BRANHAM-[address], [address] , [facility] - [facility] 4 13:43:36 583646 tomato allergeni c extract food other Not available Not available 01/11/2024 75066 9 RxNorm React ion: Unkno wn; Not Available [facility] 4 00:35:47 177773 hydrochlo rothiazid e / triamtere ne medicatio n dyspnea Not available Not available 04/29/2025 65776 7 RxNorm Not Available [employer] [facility] 5 12:07:23 186335 hydrochlo rothiazid e medicatio n wheezing Not available Not available 04/29/20252015 5487 RxNorm Not Available [employer] - prod 5 12:07:29 491133 lisinopri l medicatio n Not available Not available Not available 04/29/20252021 37043 RxNorm Not Available [employer] - prod 5 12:07:29 217191 honey bee venom environme nt swelling Not available Not available 04/29/20252013 93643 7 RxNorm Age 28: stung by 2 [...] iotic s. She was treat ed at [facility]. Not Available [employer] [facility] 5 12:07:34 905782 fluticaso ne propionat e medicatio n Not available Not available Not available 04/29/20252019 70795 RxNorm Parad oxica l [facility] [...] 24 hr 12/27 completed Medicati on ID: [id number] D uration Value: 30 Brand Name: venlafax ine Send Method: E-Prescr ibed Sub s Allowed: subs OK Speci al Instruct ion: TAKE 1 CAPSULE BY ORAL ROUTE EVERY MORNING, WITH FOOD. Me dication GenericN violet: venlafax ine Medi cation ID: [id number] D uration Value: 30 Brand Name: venlafax [...] mg tablet 2015 active Medicati on ID: [id number] D uration Value: 4 Brand Name: hydrocod [...] mg tablet 02/25 completed Medicati on ID: [id number] D uration Value: 30 Brand Name: terbinaf ine HCl Send Method: E-Prescr ibed Sub s Allowed: subs OK Medic ationGen ericName : terbinaf ine HCl Not Available Not Available Not Available ofloxacin 0.3 % ear drops Instill 4 drop twice a day 2021 active Medicati on ID: [id number] D uration Value: 14 Brand Name: ofloxaci [...] mg capsule 02/25 completed Medicati on ID: 176967 B rand Name: fluoxeti ne Send Method: [...] elayed release 12/27 completed Medicati on ID: [id number] D uration Value: 30 Brand Name: omeprazo le Send Method: E-Prescr ibed Sub s Allowed: subs OK Speci al Instruct ion: TAKE ONE CAPSULE BY MOUTH EVERY DAY Medi cationGe nericNam e: omeprazo le Medic ation ID: [id number] D uration Value: 30 Brand Name: omeprazo [...] topical cream 12/27 completed Medicati on ID: [id number] D uration Value: 30 Brand Name: ammonium lactate Send Method: E-Prescr ibed Sub s Allowed: subs OK Speci al Instruct ion: APPLY TO BOTTOM OF FEET BEFORE BEDTIME, COVER WITH SOCK. Me dication GenericN violet: ammonium lactate Medicati on ID: [id number] D uration Value: 30 Brand Name: ammonium [...] mg tablet 12/27 completed Medicati on ID: 230574 D uration Value: 30 Brand Name: sertrali ne Send Method: E-Prescr ibed Sub s Allowed: subs OK Speci al Instruct ion: TAKE 1 TAB BY MOUTH DAILY. Jose Suarezic Name: sertrali ne Medic ation ID: [id number] D uration Value: 30 Brand Name: sertrali ne Send Method: E-Prescr ibed Sub s Allowed: subs OK Speci al Instruct ion: TAKE 1 TAB BY MOUTH DAILY. Jose Bonilla Name: sertrali ne Not Available Not Available Not Available naproxen 500 mg tablet 09/09 completed Medicati on ID: [id number] D uration Value: 25 Brand Name: naproxen Send Method: E-Prescr ibed Sub s Allowed: subs OK Speci al Instruct ion: TAKE 1 TABLET BY MOUTH TWICE A DAY Medi cationGe nericNam e: naproxen Medicat ion ID: [id number] D uration Value: 25 Brand Name: naproxen [...] as directed 2016 active Medicati on ID: 743523 D uration Value: 7 Prescri bed By [...] iron) tablet 12/27 completed Medicati on ID: [id number] D uration Value: 30 Brand Name: ferrous sulfate Send Method: E-Prescr ibed Sub s Allowed: subs OK Speci al Instruct ion: TAKE 1 TABLET BY MOUTH 2 TIMES DAILY. M dakota [employer] Name: ferrous sulfate Medicati on ID: [id number] D uration Value: 30 Brand Name: ferrous [...] martinez [place] - [facility] 12/24/2024 10:11:08 How Many Years Have [...] Emphysema N Migraines N Thyroid Problems N Developmental Delay N COPD Y Depression Y Glaucoma N Nasal or Sinus Problems N Anemia N Immune System Disorder N Anesthesia Complications N Heart Attack ([place]) N Other Skin Condition N Diabetes N [...] ICD10 Code Diagnosis IMO Codes Diagnosis Note [id number] KELSEY PEACE RN Allergy 100 [facility],[place] [address] [place] [address] 04/13/2025 14:58:21 04/13/2025 15:24:07 Perennial allergic rhinitis [id number] J30.89 842030 85623 Huma Strickland Allergy 100 [facility],[place] [address] [place] [address] 04/22/2025 15:20:55 04/22/2025 15:49:57 Perennial allergic rhinitis 506362146 J30.89 95862 COLT GALARZA, [facility] Allergy 100 [facility],[address] [place] [address] 04/29/2025 12:06:31 04/29/2025 12:07:53 Perennial allergic rhinitis 571763419 J30.89 Health Concerns Section Related Observation LastModified by Organization Detai ls LastModified Time None Recorded Concern Status LastModified by Organization Details LastModified Time None Recorded Payers Encounter Date Sequence Insurance Name Policy Number Policy Herr Covered Member ID Herr Member ID Guarantor Name 04/29/[address] [facility] - DOS ON OR AFTER 2022 - MEDICARE [place]VANTAGE [place] (MED[place]ARE REPLACEMENT/A DVANTAGE - PPO) Deisy Muhammad [id number] Deisy Muhammad 04/29/2025 2 [place] Deisy Muhammad [id number] Deisy Muhammad OBGyn Episode No OBEpisode recorded.
--- OUTSIDE RECORDS SUMMARY | 2025-04-29 18:53 | XMS_ITS | Continuity of Care Document ---
Author Organization [place] [facility], Allergy Address [address] [address] Care Team Providers Care Taping Supervisor Name Role Phone BROOK OLIVERA Primary Care Provider [phone] Assessment No assessment recorded. Plan of Treatment [...] testi ng* No observ ation record ed. [email or web address] Not Available 2024 09:32:49 Result Notes None recorded. Problems Name Problem SNOMED Code Status Onset Date Resolution Date Notes Provider Name and Address Organization Details Recorded Time Conducti ve hearing loss 37091409 Active 2015 Conducti ve hearing loss, unilater al, left ear, with unrestri cted hearing on the contrala teral side; Note: Date Diagnose d: 6 12:04 PM (H90.12) Not Available [facility] 4 02:26:33 Otalgia of right ear 2212422983 Active 2015 Otalgia, right ear; Note: Date Diagnose d: 6 12:02 PM (H92.01) Not Available [facility] 4 02:26:21 Otorrhea of right ear [id number] 80264 Active 2015 Otorrhea , right ear; Note: Date Diagnose d: 6 11:59 AM (H92.11) Not Available [facility] 4 02:26:30 Common cold 82157219 Active 2015 Acute rhinitis ; Note: Date Diagnose d: 6 12:02 PM (J00) Not Available [facility] 4 02:26:06 Infectiv e otitis externa of right ear 86418900302 53273 Active 2016 Other infectiv e otitis externa, right ear; Note: Date Diagnose d: 7 4:05 PM (H60.391 ) Not Available [facility] 4 02:26:17 Bilatera l temporom andibula r joint pain 46658926276 263132 Active 2016 Arthralg ia of bilatera l temporom andibula r joint; Note: Date Diagnose d: 7 2:05 PM (M26.623 ) Not Available [facility] 4 02:26:41 Impacted cerumen in left ear 08599444633 64843 Active 2016 Impacted cerumen, left ear; Note: Date Diagnose d: 7 2:04 PM (H61.22) Not Available [facility] 4 02:26:45 Otalgia of left ear 3052775766 Active 2016 Otalgia, left ear; Note: Date Diagnose d: 7 2:05 PM (H92.02) Not Available [facility] 4 02:26:10 Bilatera l disorder of Eustachi an tubes 23494256158 48502 Active 2016 Other specifie d disorder s of Eustachi an tube, bilatera l; Note: Date Diagnose d: 7 2:08 PM (H69.83) Not Available [facility] 4 02:26:44 Jaw pain 654573479 Active 2021 Jaw pain; Note: Date Diagnose d: 2 10:31 AM (R68.84) Not Available [facility] 4 03:05:05 Cough 03391552 Active 2021 Cough, unspecif ied; Note: Changed from R05 to R05.9 (10/20/19 22 3:49 PM) , Date Diagnose d: 2 1:32 PM (R05) Not Available [facility] 4 03:05:04 Gastroes ophageal reflux disease without esophagi tis 924305472 Active 2021 Esophage al reflux NOS; Note: Date Diagnose d: 2 1:32 PM (K21.9) Not Available [facility] 4 03:05:04 Sialolit hiasis 56746627 Active 2021 Sialolit hiasis; Note: Date Diagnose d: 2 1:29 PM (K11.5) Not Available [facility] 4 03:05:06 Dysphoni a 74550613 Active 2021 Hoarsene ss; Note: Date Diagnose d: 2 1:29 PM (R49.0) Not Available [facility] 4 03:05:06 Abrasion of skin of right ear 76709064330 976131 Completed 202101/11/2024 Abrasion of right ear, initial encounte r; Note: Date Diagnose d: 2 2:35 PM (S00.411 A) Not Available [facility] 4 03:05:04 Abnormal auditory percepti on 84400522 Active 2021 Other abnormal auditory percepti ons, bilatera l; Note: Date Diagnose d: 2 2:18 PM (H93.293 ) Not Available [facility] 4 03:05:05 Impacted cerumen of bilatera l ears 93273729446 28279 Active 2023 DREW ANN PA-C [address], [place], [address] , [facility] - [facility] [place] 4 11:54:34 Acute myringit is of right ear 22857917833 86769 Active 2023 DREW ANN PA-C [address], [place], [address] , [facility] - [facility] [place] 4 13:41:37 Allergic rhinitis 72414295 Active 2024 DREW ANN PA-C [address], [place], [address] , [facility] - [facility] [place] 5 16:11:22 Perennia l allergic rhinitis 564768226 Active 2024 TERRY REED [address], [place], [address] , [facility] - [facility] 5 09:27:15 Problem Notes None recorded. Procedures Surgical History Date Name Laterality Status Provider Name and Address Organization Details Recorded Time 04/29/20 25 Allergy Immunotherapy Injections completed COLT DEE [facility] [address] [facility], [place], [address], [facility] - [facility] 04/29/2025 12:07:18 04/22/20 25 Allergy Immunotherapy Injections completed COLT DEE [facility] [address] [facility], [place], [address], [facility] - [facility] 04/22/2025 15:49:30 04/13/20 25 Allergy Immunotherapy Injections completed KELSEY PEACE RN [address] [facility], [place], [address], [facility] - [facility] 04/13/2025 15:23:20 03/11/20 25 Allergy Testing-Full completed TERRY REED [address], [place], [address], [facility] - [facility] 03/11/2025 10:01:55 02/26/20 25 Allergy Testing Modified- Quantitative Testing (MQT) Only completed TERRY REED [address], [place], [address], [facility] - [facility] 02/25/2025 10:05:28 12/25/19 25 Cerumen removal without microscope bilat completed DREW ANN PA-C [address] [place] [address], [address], [facility] - [facility] 12/24/2024 10:52:51 06/27/19 25 Cerumen removal without microscope bilat completed DREW ANN PA-C [address] [place] [address], [address], [facility] - [facility] 06/27/2024 11:32:30 12/28/19 24 Cerumen removal without microscope bilat completed DREW ANN PA-C [address] [facility] [place], [address], [facility] - [facility] 12/28/2023 13:45:25 11/01/19 24 Cerumen removal without microscope bilat completed DREW ANN PA-C [address] [facility] [place], [address], [facility] - [facility] 11/01/2023 11:54:30 Imaging Results None recorded. Procedure Notes None recorded. Medical Equipment None Reported. Allergies Allergen ID Allergen Name Allergen Category Reaction Reaction Severity Criticality Documentation Date Start Date Code Code System Note Provider Name and Address Organization Details Recorded Time 405442 levofloxa jhonny medicatio n chest pain Not available Not available 12/28/2023 37953 RxNorm DREW ANN PA-C [address] [place], [place], [address], [facility] - [facility] 4 13:43:25 971159 tomato allergeni c extract food Not available Not available Not available 12/28/2023 56638 9 RxNorm Hattie martinez [place] [facility] 5 10:10:58 074004 peanut allergeni c extract food,medi cation Not available Not available Not available 12/28/2023 98448 8 RxNorm DREW ANN PA-C [address] [place] [address], [facility] [place], [address] , [facility] - [facility] 4 13:43:36 538834 tomato allergeni c extract food other Not available Not available 01/11/2024 22643 9 RxNorm React ion: Unkno wn; Not Available [facility] 4 00:35:47 648623 hydrochlo rothiazid e / triamtere ne medicatio n dyspnea Not available Not available 04/29/2025 08758 7 RxNorm Not Available [employer] [facility] 5 12:07:23 332269 hydrochlo rothiazid e medicatio n wheezing Not available Not available 04/29/20252015 5487 RxNorm Not Available [employer] [facility] 5 12:07:29 646530 lisinopri l medicatio n Not available Not available Not available 04/29/20252021 43894 RxNorm Not Available [employer] [facility] 5 12:07:29 274312 honey bee venom environme nt swelling Not available Not available 04/29/20252013 10795 7 RxNorm Age 28: stung by 2 [...] iotic s. She was treat ed at [facility]. Not Available [facility] [employer] - prod 5 12:07:34 779221 fluticaso ne propionat e medicatio n Not available Not available Not available 04/29/20252019 87568 RxNorm Parad [facility] [...] 24 hr 12/27 completed Medicati on ID: [id number] D uration Value: 30 Brand Name: venlafax ine Send Method: E-Prescr ibed Sub s Allowed: subs OK Speci al Instruct ion: TAKE 1 CAPSULE BY ORAL ROUTE EVERY MORNING, WITH FOOD. Me dication GenericN violet: venlafax ine Medi cation ID: [id number] D uration Value: 30 Brand Name: venlafax [...] mg tablet 2015 active Medicati on ID: 312851 D uration Value: 4 Brand Name: hydrocod [...] mg tablet 02/25 completed Medicati on ID: [id number] D uration Value: 30 Brand Name: terbinaf ine HCl Send Method: E-Prescr ibed Sub s Allowed: subs OK Medic ationGen ericName : terbinaf ine HCl Not Available Not Available Not Available ofloxacin 0.3 % ear drops Instill 4 drop twice a day 2021 active Medicati on ID: [id number] D uration Value: 14 Brand Name: ofloxaci [...] mg capsule 02/25 completed Medicati on ID: [id number] B rand Name: fluoxeti ne Send Method: [...] elayed release 12/27 completed Medicati on ID: [id number] D uration Value: 30 Brand Name: omeprazo le Send Method: E-Prescr ibed Sub s Allowed: subs OK Speci al Instruct ion: TAKE ONE CAPSULE BY MOUTH EVERY DAY Medi cationGe nericNam e: omeprazo le Medic ation ID: [id number] D uration Value: 30 Brand Name: omeprazo [...] topical cream 12/27 completed Medicati on ID: [id number] D uration Value: 30 Brand Name: ammonium lactate Send Method: E-Prescr ibed Sub s Allowed: subs OK Speci al Instruct ion: APPLY TO BOTTOM OF FEET BEFORE BEDTIME, COVER WITH SOCK. Me dication GenericN violet: ammonium lactate Medicati on ID: [id number] D uration Value: 30 Brand Name: ammonium [...] mg tablet 12/27 completed Medicati on ID: [id number] D uration Value: 30 Brand Name: sertrali ne Send Method: E-Prescr ibed Sub s Allowed: subs OK Speci al Instruct ion: TAKE 1 TAB BY MOUTH DAILY. Jose Suarezic Name: nathan molina Medic ation ID: [id number] D uration Value: 30 Brand Name: sertrali ne Send Method: E-Prescr ibed Sub s Allowed: subs OK Speci al Instruct ion: TAKE 1 TAB BY MOUTH DAILY. Jose Suarezic Name: nathan molina Not Available Not Available Not Available naproxen 500 mg tablet 09/09 completed Medicati on ID: [id number] D uration Value: 25 Brand Name: naproxen Send Method: E-Prescr ibed Sub s Allowed: subs OK Speci al Instruct ion: TAKE 1 TABLET BY MOUTH TWICE A DAY Medi cationGe nericNam e: naproxen Medicat ion ID: [id number] D uration Value: 25 Brand Name: naproxen [...] as directed 2016 active Medicati on ID: [id number] D uration Value: 7 Prescri bed By [...] iron) tablet 12/27 completed Medicati on ID: [id number] D uration Value: 30 Brand Name: ferrous sulfate Send Method: E-Prescr ibed Sub s Allowed: subs OK Speci al Instruct ion: TAKE 1 TABLET BY MOUTH 2 TIMES DAILY. M edpeace nGeneric Name: ferrous sulfate Medicati on ID: [id number] D uration Value: 30 Brand Name: ferrous [...] Tobacco Smoking Status Former Smoker Hattie martinez [place] [facility] 12/24/2024 10:11:08 How Many Years Have [...] Emphysema N Migraines N Thyroid Problems N COPD Y Depression Y Developmental Delay N Glaucoma N Nasal or Sinus Problems N Anemia N Immune System Disorder N Anesthesia Complications N Heart Attack ([place]) N Other Skin Condition N Diabetes N [...] ICD10 Code Diagnosis IMO Codes Diagnosis Note [id number] TODD RODNEY [facility] [address] [facility] [address] [place] [address] 02/25/2025 09:07:02 02/25/2025 10:07:40 Allergic rhinitis 12626292 J30.89 [id number] 29444 TODD STEVENS [facility] Allergy [address] [facility] [address] [place] [address] 03/11/2025 09:13:55 03/11/2025 10:02:21 Perennial allergic rhinitis [id number] J30.89 [id number] Health Concerns Section Related Observation LastModified by Organization Detai ls LastModified Time None Recorded Concern Status LastModified by Organization Details LastModified Time None Recorded Payers Encounter Date Sequence Insurance Name Policy Number Policy Herr Covered Member ID Herr Member ID Guarantor Name 03/11/2025 1 [facility] - DOS ON OR AFTER 2022 - MEDICARE ADVANTAGE [place] (MEDICARE REPLACEMENT/A DVANTAGE - PPO) Deisy Muhammad [id number] Deisy Muhammad 03/11/2025 2 [place] Deisy Muhammad [id number] Deisy Muhammad OBGyn Episode No OBEpisode recorded.
== END 2025-04-29 10:10 | disposition home or self-care (01) ==
PROVIDERS: PCP Family Medicine; Visit Provider Physical Medicine & Rehabilitation
DX: M54.16 Radiculopathy, lumbar region (principal); M53.3 Sacrococcygeal disorders, not elsewhere classified; M46.1 Sacroiliitis, not elsewhere classified; M96.1 Postlaminectomy syndrome, not elsewhere classified
CPT/HCPCS: 99214; G2211

== ENCOUNTER → 2025-04-29 10:02 | Outpatient (BNVA) | payer OTHER, SELFPAY | PROVIDERS: PCP Family Medicine; Visit Provider Physical Medicine & Rehabilitation | DX: M54.16 Radiculopathy, lumbar region (principal); M53.3 Sacrococcygeal disorders, not elsewhere classified; M46.1 Sacroiliitis, not elsewhere classified; M96.1 Postlaminectomy syndrome, not elsewhere classified | CPT/HCPCS: 99212 ==